=== PATIENT | female | born 1930 | race Hispanic/Latino ===

== ENCOUNTER 2016-10-23 14:35 | Inpatient (IN) | payer MEDICARE, OTHER ==
[2016-10-23 14:58] VITALS: BMI 42.3
[2016-10-23 17:08] LABS: BASO # 0.1 K/uL (0.0-0.2); BASO % 0.6 % (0.0-2.0); EOS % 0.3 % (0.0-4.0); MONO # 0.6 K/uL (0.0-0.8)
[2016-10-23 17:14] LABS: CHLORIDE 100 mmol/L (98-107); POTASSIUM 4.4 mmol/L (3.6-5.2); SODIUM 138 mmol/L (132-148)
[2016-10-23 17:15] LABS: HEMATOCRIT 37.8 % (34.0-47.0); LYMPH # 1.1 K/uL (1.0-4.3); MEAN CELL VOLUME 92.6 fL (81.0-99.0); MEAN CORPUSCULAR HEMOGLOBIN 30.4 pg (27.0-31.0); MEAN CORPUSCULAR HGB CONC 32.9 g/dL (33.0-37.0); NRBC % 0.1 % (0.0-2.0); RED CELL DISTRIBUTION WIDTH 15.4 % (11.5-14.5); WHITE BLOOD COUNT 11.4 K/uL (4.8-10.8)
[2016-10-23 17:16] LABS: ALB/GLOB RATIO 1.2 (1.0-2.1); ALKALINE PHOSPHATASE 75 U/L (38-126); AST/SGOT 24 U/L (14-36); BILIRUBIN,TOTAL 0.8 mg/dL (0.2-1.3); CARBON DIOXIDE 27 mmol/L (22-30); GFR AFRICAN-AMERICAN > 60; TOTAL PROTEIN 7.2 g/dL (6.3-8.3)
[2016-10-23 17:17] LABS: ALT/SGPT 28 U/L (9-52); BLOOD UREA NITROGEN 15 mg/dL (7-17); CALCIUM 8.7 mg/dl (8.6-10.4); GLUCOSE,RANDOM 118 mg/dL (65-105)
--- NOTE | 2016-10-23 18:13 | C.PDOC ---
History Of Present Illness Pt was sent in by Dr. Banerjee for admission under Dr. Landeros's service due to b/l leg cellulitis that is not improving with outpt treatment. Time Seen by Provider: 10/23/16 15:12 Chief Complaint (Nursing): Abnormal Skin Integrity History Per: Patient Onset/Duration Of Symptoms: Days Current Symptoms Are (Timing): Still Present Location Of Injury: Right: Leg, Left: Leg Quality Of Symptoms: Swollen, Draining Severity: Moderate Additional History Per: Prior Records Past Medical History Reviewed: Historical Data, Nursing Documentation, Vital Signs Vital Signs: Last Vital Signs Temp 97.3 F L 10/23/16 14:59 Pulse 70 10/23/16 14:59 Resp 18 10/23/16 14:59 BP 189/80 H 10/23/16 14:59 Pulse Ox 99 10/23/16 14:59 - Medical History PMH: HTN, Hypercholesterolemia Surgical History: Back Surgery, Coronary Stent Family History: States: Unknown Family Hx - Social History Hx Tobacco Use: No Hx Alcohol Use: No Hx Substance Use: No - Immunization History Hx Tetanus Toxoid Vaccination: No Hx Influenza Vaccination: Yes Hx Pneumococcal Vaccination: No Review Of Systems Except As Marked, All Systems Reviewed And Found Negative. Constitutional: Negative for: Fever Cardiovascular: Negative for: Chest Pain Respiratory: Negative for: Shortness of Breath Gastrointestinal: Negative for: Vomiting, Abdominal Pain, Diarrhea Musculoskeletal: Negative for: Neck Pain, Back Pain, Foot Pain Skin: Positive for: Rash Neurological: Negative for: Weakness, Numbness, Seizures, Altered Mental Status Physical Exam - Physical Exam Appears: No Acute Distress, Chronically Ill Skin: Warm, Dry, Rash (cellulitis on b/l legs with drainage and blister formation) Head: Atraumatic, Normacephalic Eye(s): bilateral: PERRL, EOMI Neck: Normal ROM, Supple Cardiovascular: Rhythm Regular Respiratory: Normal Breath Sounds, No Accessory Muscle Use Gastrointestinal/Abdominal: Soft, No Tenderness Back: No CVA Tenderness Extremity: Normal ROM, Pedal Edema, No Calf Tenderness Pulses: Left Dorsalis Pedis: Normal, Right Dorsalis Pedis: Normal Neurological/Psych: Oriented x3, Normal Motor, Normal Sensation ED Course And Treatment - Laboratory Results Result Diagrams: 10/23/16 16:58 10/23/16 16:58 O2 Sat by Pulse Oximetry: 99 Pulse Ox Interpretation: Normal Disposition Discussed With : Clara Landeros Comment: He accepted pt on his service. Doctor Will See Patient In The: Hospital Counseled Patient/Family Regarding: Studies Performed, Diagnosis - Disposition Disposition: HOSPITALIZED Disposition Time: 18:14 Condition: FAIR - Clinical Impression Clinical Impression: Bilateral cellulitis of lower leg, Failure of outpatient treatment
[2016-10-23] MEDS: Ceftaroline 600 MG in Sodium Chloride 0.9% 100 ML IVPB SCH (21:14)
[2016-10-24] MEDS: Ceftaroline 600 MG in Sodium Chloride 0.9% 100 ML IVPB SCH ×2 (09:02→19:55)
--- NOTE | 2016-10-24 13:16 | VASCLAB ---
PROCEDURE: Lower Extremity Venous Duplex Exam. HISTORY: edema B/L LE venous stasis disease/Cellulitis, Suspected DVT. PRIORS: None. TECHNIQUE: Bilateral common femoral, femoral, popliteal and posterior tibial, peroneal and great saphenous veins were evaluated. Flow was assessed with color Doppler, compressibility, assessment of phasic flow and augmentation response. Report prepared by Jalen Nichols, T FINDINGS: RIGHT: 1. Common Femoral Vein: 1.1. Compressibility - Fully compressible: Thrombus - None : Flow - Phasic: Augmentation -Normal: Reflux - . 2. Femoral Vein: 2.1. Compressibility - Fully compressible: Thrombus - None : Flow - Phasic: Augmentation -Normal: Reflux - . 3. Popliteal Vein: 3.1. Compressibility - Fully compressible: Thrombus - None : Flow - Phasic: Augmentation -Normal: Reflux - . 4. Posterior Tibial Vein: 4.1. Compressibility - Fully compressible: Thrombus - None: Flow - : Augmentation -: Reflux - . 5. Peroneal Vein: 5.1. Compressibility - Incompressible: Thrombus - Acute: Flow - : Augmentation -: Reflux - . 6. Great Saphenous Vein: 6.1. Compressibility - Fully compressible: Thrombus - None: Flow - : Augmentation - : Reflux - . LEFT: 1. Common Femoral Vein: 1.1. Compressibility - Fully compressible: Thrombus - None: Flow - Phasic: Augmentation -Normal: Reflux - . 2. Femoral Vein: 2.1. Compressibility - Fully compressible: Thrombus - None: Flow - Phasic: Augmentation -Normal: Reflux - . 3. Popliteal Vein: 3.1. Compressibility - Fully compressible: Thrombus - None : Flow - Phasic: Augmentation -Normal: Reflux - . 4. Posterior Tibial Vein: 4.1. Compressibility - Fully compressible: Thrombus - None: Flow - : Augmentation -: Reflux - . 5. Peroneal Vein: 5.1. Compressibility - Fully compressible: Thrombus - None: Flow - : Augmentation -: Reflux - . 6. Great Saphenous Vein: 6.1. Compressibility - Fully compressible: Thrombus - None: Flow - : Augmentation - : Reflux - . OTHER FINDINGS: Right: None significant. Left: None significant. IMPRESSION: Right: One of the peroneal and one of the soleal veins around the mid calf area were non compressible with echolucent THROMBUS. There was evidence of infrapopliteal deep vein thrombosis of the right lower extremity. Left: No evidence of deep or superficial vein thrombosis of the left lower extremity.
--- NOTE | 2016-10-24 14:15 | CP.PCM.HP ---
History of Present Illness - History of Present Illness History of Present Illness: Chief complaint: Bilateral leg swelling and redness. History present illness: 86-year-old female patient of Dr. Tamez sent to emergency room with the increasing bilateral leg swelling, and failed outpatient treatment for possible cellulitis. Patient states that she's having the swelling bilaterally, for almost 4 weeks. Initially pain started slowly, the swelling also started slowly, gradually got worse. Recently, started on by mouth antibiotic. But the swelling and the redness is not getting better. She's having increasing pain in the right leg, and also more swelling on the left side noted. She does not have any chills, fever, nausea vomiting. No diarrhea noted. Walking is somewhat reduced than before. Patient denies any urinary symptoms, or diarrhea. No other joint involvement noted. She is having the symptoms newly. No injury or trauma noted, no fall. Present on Admission - Present on Admission Any Indicators Present on Admission: No History of DVT/PE: No Urinary Catheter: No Decubitus Ulcer Present: No Review of Systems - Review of Systems All systems: reviewed and no additional remarkable complaints except Review of Systems: Patient is having poor appetite, not able to eat today, complaining of some headache, denies any nausea, no abdominal pain noted, bilateral leg swelling and pain in the left leg more on the right side. Denies any diarrhea or constipation. The redness and the itching noted in the both lower extremities Past Patient History - Tetanus Immunizations Tetanus Immunization: Allergy to Tetanus Vaccine - Past Medical History & Family History Past Medical History?: Yes Past Family History: Reviewed and not pertinent - Past Social History Smoking Status: Never Smoked - CARDIAC Hx Hypercholesterolemia: Yes Hx Hypertension: Yes - MUSCULOSKELETAL/RHEUMATOLOGICAL Hx Falls: No - PSYCHIATRIC Hx Substance Use: No - SURGICAL HISTORY Hx Coronary Stent: Yes - ANESTHESIA Hx Anesthesia: No Hx Anesthesia Reactions: No Meds Allergies/Adverse Reactions: Allergies Allergy/AdvReac Type Severity Reaction Status Date / Time No Known Allergies Allergy Verified 10/23/16 14:58 Physical Exam - Head Exam Head Exam: ATRAUMATIC Additional comments: On examination: HEENT PERRLA, neck supple No thyromegaly was noted and no cervical adenopathy noted Chest bilateral good air entry, no wheezing or rales noted CVS regular heart sound, no murmur Abdomen soft and no organomegaly bilateral pedal edema noted, more on the lleft side.Severe tenderness, also redness note one third of the leg on the left side. she's also having some skin abrasion, abrasion and oozing noted. Peripheral pulses is not palpable. C SHANKER OUT alert awake oriented x3 no functional neurological deficit Results - Vital Signs Recent Vital Signs: Last Vital Signs Temp 98.4 F 10/24/16 08:00 Pulse 108 H 10/24/16 11:10 Resp 20 10/24/16 08:00 BP 146/83 10/24/16 11:10 Pulse Ox 97 10/24/16 08:00 - Labs Result Diagrams: 10/23/16 16:58 10/23/16 16:58 Labs: Laboratory Results - last 24 hr 10/24/16 07:55 APTT 29 Assessment & Plan (1) Bilateral lower leg cellulitis Assessment and Plan: Most likely patient has a bilateral lower legs elevatus, associate with the venous edema. More on the left side. She's also having some skin abrasions on the right leg. Hypertension, severely elevated, systolic blood pressure elevated. Hypercholesteremia. Osteoporosis and osteoarthritis. Will admit the patient. Will start the patient on antibiotic. Blood pressure control, diuretics. Will get a venous Doppler. Will follow the patient. Anticoagulation as needed Status: Acute (2) Failure of outpatient treatment Status: Acute (3) Cellulitis Status: Acute (4) Pedal edema Status: Acute
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
[2016-10-24] MEDS: Enoxaparin 60 mg Syringe SC SCH (21:18)
[2016-10-25] MEDS: Ceftaroline 600 MG in Sodium Chloride 0.9% 100 ML IVPB SCH ×2 (08:18→19:38)
[2016-10-25] MEDS: Enoxaparin 60 mg Syringe SC SCH ×2 (10:53→21:50)
--- NOTE | 2016-10-25 12:58 | CP.PCM.PN ---
Subjective - Date & Time of Evaluation Date of Evaluation: 10/25/16 Time of Evaluation: 16:54 - Subjective Subjective: see my note Objective - Vital Signs/Intake and Output Vital Signs (last 24 hours): Temp Pulse Resp BP Pulse Ox 98.2 F 80 20 187/78 H 96 10/25/16 07:31 10/25/16 07:31 10/25/16 07:31 10/25/16 10:55 10/25/16 07:31 Intake and Output: 10/25/16 10/25/16 06:59 18:59 Intake Total 120 Balance 120 - Medications Medications: Current Medications Amlodipine Besylate (Norvasc) 5 mg PO DAILY [facility] Last Admin: 10/25/16 10:54 Dose: 5 mg Enoxaparin Sodium (Lovenox) 60 mg SC Q12 [facility] Last Admin: 10/25/16 10:53 Dose: 60 mg Furosemide (Lasix) 20 mg IVP DAILY [facility] Last Admin: 10/25/16 10:55 Dose: 20 mg Ceftaroline Fosamil 600 mg/ (Sodium Chloride) 100 mls @ 100 mls/hr IVPB Q12H [facility] Last Admin: 10/25/16 08:18 Dose: 100 mls/hr - Labs Labs: PT 11.1 SECONDS (9.7-12.2) 10/23/16 16:58 INR 1.0 10/23/16 16:58 APTT 29 SECONDS (21-34) 10/24/16 07:55 Assessment and Plan (1) Bilateral lower leg cellulitis Status: Acute (2) Failure of outpatient treatment Status: Acute (3) Cellulitis Status: Acute (4) Pedal edema Status: Acute
--- NOTE | 2016-10-25 18:21 | CP.PCM.PN ---
Subjective - Date & Time of Evaluation Date of Evaluation: 10/25/16 Time of Evaluation: 18:14 - Subjective Subjective: INFECTIOUS DISEASE PROGRESS NOTE JOHNSON MADDOX MD, FACP 6T 667-B 10/25/2016 CHART REVIEWED CASE DISCUSSED WITH RN AND EMPIRIC FURTHER WORK UP REQUESTED PT IS RESPONDING BUT LEGS ARE STILL RED AND DISCOLORED DESPITE ANTIBIOTICS AND ANTI COAGULATES. PTS FINDINGS NOTED AND REPEATED FOR THE AM. HEME/ONC CONSULTATION ORDERED FOR GABRIEL THOMAS/YUNG. REVIEW OF THE NOTES-HER MATCHER OFFBEARER IS DR CACERES. Objective - Vital Signs/Intake and Output Vital Signs (last 24 hours): Temp Pulse Resp BP Pulse Ox 98.1 F 76 20 165/76 H 96 10/25/16 15:44 10/25/16 15:44 10/25/16 15:44 10/25/16 15:44 10/25/16 15:44 Intake and Output: 10/25/16 10/25/16 06:59 18:59 Intake Total 120 Balance 120 - Medications Medications: Current Medications Amlodipine Besylate (Norvasc) 5 mg PO DAILY [facility] Last Admin: 10/25/16 10:54 Dose: 5 mg Enoxaparin Sodium (Lovenox) 60 mg SC Q12 [facility] Last Admin: 10/25/16 10:53 Dose: 60 mg Furosemide (Lasix) 20 mg IVP DAILY [facility] Last Admin: 10/25/16 10:55 Dose: 20 mg Ceftaroline Fosamil 600 mg/ (Sodium Chloride) 100 mls @ 100 mls/hr IVPB Q12H [facility] Last Admin: 10/25/16 08:18 Dose: 100 mls/hr - Labs Labs: PT 11.1 SECONDS (9.7-12.2) 10/23/16 16:58 INR 1.0 10/23/16 16:58 APTT 29 SECONDS (21-34) 10/24/16 07:55 - Constitutional Appears: Non-toxic, No Acute Distress - Head Exam Head Exam: NORMOCEPHALIC - Eye Exam Eye Exam: Normal appearance - ENT Exam ENT Exam: Mucous Membranes Moist - Respiratory Exam Respiratory Exam: NORMAL BREATHING PATTERN - Cardiovascular Exam Cardiovascular Exam: REGULAR RHYTHM - GI/Abdominal Exam GI & Abdominal Exam: Soft, Normal Bowel Sounds. absent: Tenderness - Rectal Exam Rectal Exam: Deferred - Exam External exam: Erythema, Swelling - Extremities Exam Extremities Exam: Pedal Edema. absent: Tenderness - Neurological Exam Neurological Exam: Alert, Awake - Psychiatric Exam Psychiatric exam: Anxious - Skin Skin Exam: Warm Assessment and Plan (1) Bilateral lower leg cellulitis Status: Acute (2) DVT (deep venous thrombosis) Status: Acute (3) Pedal edema Status: Acute (4) CAD (coronary artery disease) Status: Chronic
[2016-10-26] MEDS: Ceftaroline 600 MG in Sodium Chloride 0.9% 100 ML IVPB SCH ×2 (06:40→18:44)
[2016-10-26 07:49] LABS: BASO % 0.3 % (0.0-2.0); EOS # 0.2 K/uL (0.0-0.7); EOS % 2.1 % (0.0-4.0); HEMATOCRIT 34.5 % (34.0-47.0); LYMPH # 1.5 K/uL (1.0-4.3); LYMPH % 18.7 % (20.0-40.0); MEAN CELL VOLUME 91.9 fL (81.0-99.0); MEAN CORPUSCULAR HEMOGLOBIN 30.7 pg (27.0-31.0); MEAN CORPUSCULAR HGB CONC 33.4 g/dL (33.0-37.0); MEAN PLATELET VOLUME 7.6 fL (7.2-11.7); MONO # 0.9 K/uL (0.0-0.8); MONO % 11.2 % (0.0-10.0); RED CELL DISTRIBUTION WIDTH 14.9 % (11.5-14.5); WHITE BLOOD COUNT 7.8 K/uL (4.8-10.8)
[2016-10-26 08:32] LABS: CHLORIDE 103 mmol/L (98-107); POTASSIUM 3.6 mmol/L (3.6-5.2); SODIUM 138 mmol/L (132-148)
[2016-10-26 08:34] LABS: BILIRUBIN,TOTAL 0.7 mg/dL (0.2-1.3); GFR AFRICAN-AMERICAN > 60
[2016-10-26 08:35] LABS: ALB/GLOB RATIO 1.1 (1.0-2.1); ALKALINE PHOSPHATASE 61 U/L (38-126); ALT/SGPT 18 U/L (9-52); AST/SGOT 20 U/L (14-36); BLOOD UREA NITROGEN 11 mg/dL (7-17); CALCIUM 8.1 mg/dl (8.6-10.4); CARBON DIOXIDE 25 mmol/L (22-30); GLUCOSE,RANDOM 102 mg/dL (65-105)
[2016-10-26] MEDS: Enoxaparin 60 mg Syringe SC SCH ×2 (10:00→21:47)
--- NOTE | 2016-10-26 16:57 | CP.PCM.PN ---
Subjective - Date & Time of Evaluation Date of Evaluation: 10/26/16 Time of Evaluation: 16:56 - Subjective Subjective: Is alert awake and responding. She is having no pain or no chest pain. Denies any shortness of breath. Leg swelling is improving. She has a blister on the left lower extremity on the outer aspect now. Denies any nausea vomiting. Objective - Vital Signs/Intake and Output Vital Signs (last 24 hours): Temp Pulse Resp BP Pulse Ox 98.2 F 76 18 155/73 H 95 10/26/16 15:55 10/26/16 15:55 10/26/16 15:55 10/26/16 15:55 10/26/16 15:55 chest good air entry bilaterally regular heart sound nontender abdomen extremities 1+ pedal edema bilaterally noted, more on the left side, associate with the some blister skin redness is improving Intake and Output: 10/26/16 10/26/16 06:59 18:59 Intake Total 450 Balance 450 - Medications Medications: Current Medications Amlodipine Besylate (Norvasc) 5 mg PO DAILY [facility] Last Admin: 10/26/16 10:00 Dose: 5 mg Enoxaparin Sodium (Lovenox) 60 mg SC Q12 [facility] Last Admin: 10/26/16 10:00 Dose: 60 mg Furosemide (Lasix) 20 mg IVP DAILY [facility] Last Admin: 10/26/16 10:00 Dose: 20 mg Ceftaroline Fosamil 600 mg/ (Sodium Chloride) 100 mls @ 100 mls/hr IVPB Q12H [facility] Last Admin: 10/26/16 06:40 Dose: 100 mls/hr - Labs Labs: 10/26/16 07:27 10/26/16 07:27 PT 11.1 SECONDS (9.7-12.2) 10/23/16 16:58 INR 1.0 10/23/16 16:58 APTT 29 SECONDS (21-34) 10/24/16 07:55 Assessment and Plan (1) Bilateral lower leg cellulitis Assessment & Plan: possibly a shunt has a fluid overload state, venous insufficiency, chronic pedal edema. Cellulitis, improving. Currently having blister in the left leg closely monitor the patient. Physical therapy. Antihypertensives. Status: Acute (2) Failure of outpatient treatment Status: Acute (3) Cellulitis Status: Acute (4) Pedal edema Status: Acute
[2016-10-27 01:04] VITALS: RESP 20
[2016-10-27] MEDS: Ceftaroline 600 MG in Sodium Chloride 0.9% 100 ML IVPB SCH (06:45)
--- NOTE | 2016-10-27 09:09 | CP.PCM.PN ---
Subjective - Date & Time of Evaluation Date of Evaluation: 10/27/16 Time of Evaluation: 09:06 - Subjective Subjective: INFECTIOUS DISEASE PROGRESS NOTE Ila MADDOX MD, FACP 6T 667 10/27/2016 CHART REVIEWED PT EXAMINED CASE DISCUSSED QUESTION OF + WOUND C/S EMONSTRATING MULTIPLE PATHOGENS RANGING FROM MRSA, PSEUDOMONAS, AND OTHER GRAM NEGATIVES; NEVER NOTIFIED BY MICRO ELIGIBILITY SPECIALIST'S OF POSITIVE TOPICAL C/S. CLINCALLY PT IS DOING BETTER LUNGS CLEAR COR RR ABD SOFT EXT LEFT LATERAL LEG HAS A BLISTER CHANGE AB TO VANCOMYCIN AND MAXIPIME Objective - Vital Signs/Intake and Output Vital Signs (last 24 hours): Temp Pulse Resp BP Pulse Ox 98.6 F 81 20 171/78 H 95 10/26/16 23:35 10/27/16 01:34 10/26/16 23:35 10/26/16 23:35 10/26/16 23:35 Intake and Output: 10/27/16 10/27/16 06:59 18:59 Intake Total 880 Balance 880 - Medications Medications: Current Medications Amlodipine Besylate (Norvasc) 10 mg PO DAILY [facility] Enoxaparin Sodium (Lovenox) 60 mg SC Q12 [facility] Last Admin: 10/26/16 21:47 Dose: 60 mg Furosemide (Lasix) 20 mg PO DAILY [facility] Cefepime HCl 1 gm/ Dextrose 50 mls @ 100 mls/hr IVPB Q12H [facility] Vancomycin HCl 1,000 mg/ (Sodium Chloride) 250 mls @ 166.6 mls/hr IVPB Q12H [facility] - Labs Labs: 10/26/16 07:27 10/26/16 07:27 PT 11.1 SECONDS (9.7-12.2) 10/23/16 16:58 INR 1.0 10/23/16 16:58 APTT 29 SECONDS (21-34) 10/24/16 07:55 - Constitutional Appears: Non-toxic, No Acute Distress - Head Exam Head Exam: NORMAL INSPECTION - ENT Exam ENT Exam: Mucous Membranes Moist - Neck Exam Neck Exam: Normal Inspection - Respiratory Exam Respiratory Exam: Decreased Breath Sounds, Clear to Ausculation Bilateral, NORMAL BREATHING PATTERN - Cardiovascular Exam Cardiovascular Exam: REGULAR RHYTHM - GI/Abdominal Exam GI & Abdominal Exam: Soft, Normal Bowel Sounds. absent: Tenderness, Mass - Rectal Exam Rectal Exam: Deferred - Neurological Exam Neurological Exam: Alert, Awake - Psychiatric Exam Psychiatric exam: Anxious, Normal Mood - Skin Skin Exam: Warm Assessment and Plan (1) Bilateral lower leg cellulitis Assessment & Plan: MYLTIPLE BACTERIAL PATHOGENS Status: Acute (2) DVT (deep venous thrombosis) Status: Acute (3) Pedal edema Status: Acute (4) CAD (coronary artery disease) Status: Chronic
[2016-10-27] MEDS: Enoxaparin 60 mg Syringe SC SCH ×2 (11:10→21:02)
--- NOTE | 2016-10-27 17:26 | CP.PCM.PN ---
Subjective - Date & Time of Evaluation Date of Evaluation: 10/27/16 Time of Evaluation: 17:23 - Subjective Subjective: Patient today seen by infectious disease. She is doing better. The leg swelling is improving. Denies any chest pain. No shortness of breath noted. Patient does not have any diarrhea. Objective - Vital Signs/Intake and Output Vital Signs (last 24 hours): Temp Pulse Resp BP Pulse Ox 99.1 F 85 20 186/77 H 96 10/27/16 09:16 10/27/16 11:45 10/27/16 09:16 10/27/16 09:31 10/27/16 09:16 Chest good air entry bilaterally regular heart sound nontender abdomen. Extended is 1+ pedal edema, the wound is healing well. Low-grade fever today noted Blood pressure is elevated Intake and Output: 10/27/16 10/27/16 06:59 18:59 Intake Total 880 Balance 880 - Medications Medications: Current Medications Amlodipine Besylate (Norvasc) 10 mg PO DAILY [facility] Last Admin: 10/27/16 10:00 Dose: Not Given Enoxaparin Sodium (Lovenox) 60 mg SC Q12 [facility] Last Admin: 10/27/16 11:10 Dose: 60 mg Furosemide (Lasix) 20 mg PO DAILY [facility] Last Admin: 10/27/16 09:31 Dose: 20 mg Cefepime HCl 1 gm/ Dextrose 50 mls @ 100 mls/hr IVPB Q12H [facility] Last Admin: 10/27/16 11:10 Dose: 100 mls/hr Vancomycin HCl 1,000 mg/ (Sodium Chloride) 250 mls @ 166.6 mls/hr IVPB Q12H [facility] Last Admin: 10/27/16 12:15 Dose: 166.6 mls/hr - Labs Labs: 10/26/16 07:27 10/26/16 07:27 PT 11.1 SECONDS (9.7-12.2) 10/23/16 16:58 INR 1.0 10/23/16 16:58 APTT 29 SECONDS (21-34) 10/24/16 07:55 Assessment and Plan (1) Bilateral lower leg cellulitis Assessment & Plan: Patient is having multiple bacterial culture positive in the cellulitis. Antibiotic and unchanged. Continue to monitor. Status: Acute (2) Failure of outpatient treatment Assessment & Plan: On currently IV antibiotic. Spoke to the infectious disease. We'll get continue the antibiotic would not 2 days. If the patient cleared by ID will plan for discharge Status: Acute (3) Cellulitis Status: Acute (4) Pedal edema Assessment & Plan: pedal edema, associated hypertension. We will add Status: Acute
--- NOTE | 2016-10-27 18:04 | CP.PCM.CON ---
History of Present Illness - History of Present Illness History of Present Illness: 86 yo woman admitted with increasing swelling of bilateral lower extremities, currently better on IV antibiotics, lower extremity dopplers showing right infrapopliteal DVT . Patient's symptoms are mainly limited to her lower extremities, not aware of any weight loss, GI symptoms or new pain Past Patient History - Tetanus Immunizations Tetanus Immunization: Allergy to Tetanus Vaccine - Past Medical History & Family History Past Medical History?: Yes Past Family History: Reviewed and not pertinent - Past Social History Smoking Status: Never Smoked Chewing Tobacco Use: No Alcohol: Social Drugs: Denies - CARDIAC Hx Cardiac Disorders: Yes Hx Hypercholesterolemia: Yes Hx Hypertension: Yes - PULMONARY Hx Bronchitis: Yes Hx Pulmonary Embolism: No - INTEGUMENTARY Hx Dermatological Problems: Yes Hx Cellulitis: Yes - MUSCULOSKELETAL/RHEUMATOLOGICAL Hx Musculoskeletal Disorders: Yes Hx Back Pain: Yes Hx Falls: No - PSYCHIATRIC Hx Substance Use: No - SURGICAL HISTORY Hx Coronary Stent: Yes - ANESTHESIA Hx Anesthesia: No Hx Anesthesia Reactions: No Meds Allergies/Adverse Reactions: Allergies Allergy/AdvReac Type Severity Reaction Status Date / Time No Known Allergies Allergy Verified 10/23/16 14:58 - Medications Medications: Current Medications Amlodipine Besylate (Norvasc) 10 mg PO DAILY [facility] Last Admin: 10/27/16 10:00 Dose: Not Given Enoxaparin Sodium (Lovenox) 60 mg SC Q12 [facility] Last Admin: 10/27/16 11:10 Dose: 60 mg Furosemide (Lasix) 20 mg PO DAILY [facility] Last Admin: 10/27/16 09:31 Dose: 20 mg Cefepime HCl 1 gm/ Dextrose 50 mls @ 100 mls/hr IVPB Q12H [facility] Last Admin: 10/27/16 11:10 Dose: 100 mls/hr Vancomycin HCl 1,000 mg/ (Sodium Chloride) 250 mls @ 166.6 mls/hr IVPB Q12H [facility] Last Admin: 10/27/16 12:15 Dose: 166.6 mls/hr Losartan Potassium (Cozaar) 25 mg PO DAILY [facility] Results - Vital Signs Recent Vital Signs: Last Vital Signs Temp 98.2 F 10/27/16 15:00 Pulse 70 10/27/16 15:00 Resp 20 10/27/16 15:00 BP 179/77 H 10/27/16 15:00 Pulse Ox 95 10/27/16 15:00 - Labs Result Diagrams: 10/26/16 07:27 10/26/16 07:27 - Imaging and Cardiology Venous US Status: Report reviewed by me Assessment & Plan (1) DVT (deep venous thrombosis) Assessment and Plan: Right infrapopliteal DVT, precipitating factors most likely being the infection and limited mobility in the past several weeks. There is no indication currently to order a hypercoag work up or mcc anticoagulation. Because of the "low risk" DVT ,potentially reversible precipitating factors, high risk of bleeding on AC in this elderly patient will recommend 6-8 weeks of po anticoagulation upon D/C home. . Status: Acute
[2016-10-28] MEDS: Enoxaparin 60 mg Syringe SC SCH ×2 (09:16→21:50)
[2016-10-28] MEDS: Vancomycin 500mg/D5W 100 ml 100 ML IVPB SCH ×2 (11:24→21:32)
--- NOTE | 2016-10-28 17:13 | CP.PCM.PN ---
Subjective - Date & Time of Evaluation Date of Evaluation: 10/28/16 Time of Evaluation: 17:08 - Subjective Subjective: INFECTIOUS DISEASE PROGRESS NOTE Ila MADDOX MD, FACP 5T 555 10/28/2016 CHART REVIEWED PT EXAMINED CASE DISCUSSED 86 YR OLD WHITE FEMALE RESPONDING TO IV ANTIBIOTICS AND ANTICOAGULATION THERAPY. TODAY I ADJUSTED HER VANCOMYCIN DOSE. THE PLAN IS TO MANAGE HER THUR THE DAY, IF STABLE THEN TO SWITCH TO PO MEDS AND CONSIDER DISCHARGE TOMORROW. WILL DECIDE ON THE PO'S LATER THIS EVENING. Objective - Vital Signs/Intake and Output Vital Signs (last 24 hours): Temp Pulse Resp BP Pulse Ox 98.4 F 69 20 157/87 H 96 10/28/16 07:00 10/28/16 07:00 10/28/16 07:00 10/28/16 09:15 10/28/16 07:00 Intake and Output: 10/28/16 10/28/16 06:59 18:59 Intake Total 700 Output Total 600 Balance 100 - Medications Medications: Current Medications Amlodipine Besylate (Norvasc) 10 mg PO DAILY [facility] Last Admin: 10/28/16 09:15 Dose: 10 mg Enoxaparin Sodium (Lovenox) 60 mg SC Q12 [facility] Last Admin: 10/28/16 09:16 Dose: 60 mg Furosemide (Lasix) 20 mg PO DAILY [facility] Last Admin: 10/28/16 09:15 Dose: 20 mg Cefepime HCl 1 gm/ Dextrose 50 mls @ 100 mls/hr IVPB Q12H [facility] Last Admin: 10/28/16 09:14 Dose: 100 mls/hr Vancomycin HCl/Dextrose (Vancocin) 100 mls @ 100 mls/hr IVPB Q12 [facility] Last Admin: 10/28/16 11:24 Dose: 100 mls/hr Losartan Potassium (Cozaar) 25 mg PO DAILY [facility] Last Admin: 10/28/16 09:15 Dose: 25 mg - Labs Labs: 10/26/16 07:27 10/26/16 07:27 PT 11.1 SECONDS (9.7-12.2) 10/23/16 16:58 INR 1.0 10/23/16 16:58 APTT 29 SECONDS (21-34) 10/24/16 07:55 - Constitutional Appears: Non-toxic, No Acute Distress - Head Exam Head Exam: NORMAL INSPECTION - Eye Exam Eye Exam: Normal appearance - ENT Exam ENT Exam: Mucous Membranes Moist - Neck Exam Neck Exam: Normal Inspection - Respiratory Exam Respiratory Exam: Decreased Breath Sounds, NORMAL BREATHING PATTERN - Cardiovascular Exam Cardiovascular Exam: REGULAR RHYTHM - GI/Abdominal Exam GI & Abdominal Exam: Soft, Normal Bowel Sounds. 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 THE BLISTER IS REGRESSING. - Neurological Exam Neurological Exam: Alert, Awake - Psychiatric Exam Psychiatric exam: Anxious - Skin Skin Exam: Warm Assessment and Plan (1) Bilateral lower leg cellulitis Status: Acute (2) DVT (deep venous thrombosis) Status: Acute (3) Pedal edema Status: Acute (4) CAD (coronary artery disease) Status: Chronic
--- NOTE | 2016-10-28 20:53 | CP.PCM.CON ---
History of Present Illness - History of Present Illness History of Present Illness: 86 year old female patient seen for large blister on lower leg left .Patient was has been treated for severe cellulitis of lower legs and DVT left . Past Patient History - Tetanus Immunizations Tetanus Immunization: Allergy to Tetanus Vaccine - Past Medical History & Family History Past Medical History?: Yes Past Family History: Reviewed and not pertinent - Past Social History Smoking Status: Never Smoked Chewing Tobacco Use: No Alcohol: Social Drugs: Denies - CARDIAC Hx Cardiac Disorders: Yes Hx Hypercholesterolemia: Yes Hx Hypertension: Yes - PULMONARY Hx Bronchitis: Yes Hx Pulmonary Embolism: No - INTEGUMENTARY Hx Dermatological Problems: Yes Hx Cellulitis: Yes - MUSCULOSKELETAL/RHEUMATOLOGICAL Hx Musculoskeletal Disorders: Yes Hx Back Pain: Yes Hx Falls: No - PSYCHIATRIC Hx Substance Use: No - SURGICAL HISTORY Hx Coronary Stent: Yes - ANESTHESIA Hx Anesthesia: No Hx Anesthesia Reactions: No Meds Allergies/Adverse Reactions: Allergies Allergy/AdvReac Type Severity Reaction Status Date / Time No Known Allergies Allergy Verified 10/23/16 14:58 - Medications Medications: Current Medications Amlodipine Besylate (Norvasc) 10 mg PO DAILY [facility] Last Admin: 10/28/16 09:15 Dose: 10 mg Enoxaparin Sodium (Lovenox) 60 mg SC Q12 [facility] Last Admin: 10/28/16 09:16 Dose: 60 mg Furosemide (Lasix) 20 mg PO DAILY [facility] Last Admin: 10/28/16 09:15 Dose: 20 mg Cefepime HCl 1 gm/ Dextrose 50 mls @ 100 mls/hr IVPB Q12H [facility] Last Admin: 10/28/16 09:14 Dose: 100 mls/hr Vancomycin HCl/Dextrose (Vancocin) 100 mls @ 100 mls/hr IVPB Q12 [facility] Last Admin: 10/28/16 11:24 Dose: 100 mls/hr Losartan Potassium (Cozaar) 25 mg PO DAILY [facility] Last Admin: 10/28/16 09:15 Dose: 25 mg Physical Exam - Extremities Exam Additional comments: O/Cellulitis of lower legs resolving with current protocol. Bullous lesion left lower leg anterior Tibial region. DVT left lower leg . Vascular status grossly intact b/l . Hallux Valgus b/l with multiple hammertoes b/l. Results - Vital Signs Recent Vital Signs: Last Vital Signs Temp 98.1 F 04/18/17 15:07 Pulse 74 10/28/16 15:07 Resp 20 10/28/16 15:07 BP 143/56 L 10/28/16 15:07 Pulse Ox 97 10/28/16 15:07 - Labs Result Diagrams: 10/26/16 07:27 10/26/16 07:27 Labs: Laboratory Results - last 24 hr 10/28/16 06:50 Vancomycin Trough 18.4 H Assessment & Plan - Assessment and Plan (Free Text) Assessment: A/Bullous lesion left leg . Plan: P/Drain bullous lesion left leg maintaining roof .Sterile suture scissor used to puncture Bullae.Apply Xeroform Gauze and dry dressing left. - Date & Time Date: 10/28/16 Time: 09:00
[2016-10-29] MEDS: Enoxaparin 60 mg Syringe SC SCH ×2 (09:23→21:27)
[2016-10-29] MEDS: Vancomycin 500mg/D5W 100 ml 100 ML IVPB SCH ×2 (10:57→21:28)
--- NOTE | 2016-10-29 14:52 | PN ---
DATE: 10/29/2016 LOCATION: Room 555. Chart reviewed. Case discussed with Dr. Landeros and nurse practitioner, Hodan, and with the patien t herself at length. The patient's legs are stable. She is going to require oral antibiotic treatment at home. As I spok e with Dr. Landeros, he will discharge her on vibramycin or doxycycline 100 mg p.o. b.i.d. for appro ximately 7-10 days. The patient should return to my office in approximately 1 week's time. She shou ld continue to use nonadherent dressing to the left ankle in the area where Dr. Ron clipped the bli ster and covered it with a nonadherent dressing. Dr. Landeros will take care of the anticoagulants. She is told to not walk too much, keep her feet elevated and at the same time avoid trauma. Robert Banerjee MD cc: [id number] TT: 10/29/2016 14:52:09 Confirmation # [id number] Dictation # [id number] [place]
--- NOTE | 2016-10-29 23:40 | CP.PCM.PN ---
Subjective - Date & Time of Evaluation Date of Evaluation: 10/29/16 Time of Evaluation: 23:38 - Subjective Subjective: patient is currently doing well. Spoke to the ED. Clinically no problem. Is better. Objective - Vital Signs/Intake and Output Vital Signs (last 24 hours): Temp Pulse Resp BP Pulse Ox 97.9 F 89 20 133/69 93 L 10/29/16 15:20 10/29/16 16:38 10/29/16 15:20 10/29/16 15:20 10/29/16 15:20 hest good air entry bilaterally regular heart sound nontender abdomen. Intake and Output: 10/29/16 10/30/16 18:59 06:59 Intake Total 500 Balance 500 - Medications Medications: Current Medications Amlodipine Besylate (Norvasc) 10 mg PO DAILY [facility] Last Admin: 10/29/16 09:23 Dose: 10 mg Enoxaparin Sodium (Lovenox) 60 mg SC Q12 [facility] Last Admin: 10/29/16 21:27 Dose: 60 mg Furosemide (Lasix) 20 mg PO DAILY [facility] Last Admin: 10/29/16 09:23 Dose: 20 mg Cefepime HCl 1 gm/ Dextrose 50 mls @ 100 mls/hr IVPB Q12H [facility] Last Admin: 10/29/16 21:28 Dose: 100 mls/hr Vancomycin HCl/Dextrose (Vancocin) 100 mls @ 100 mls/hr IVPB Q12 [facility] Last Admin: 10/29/16 21:28 Dose: 100 mls/hr Losartan Potassium (Cozaar) 25 mg PO DAILY [facility] Last Admin: 10/29/16 10:56 Dose: 25 mg - Labs Labs: 10/26/16 07:27 10/26/16 07:27 PT 11.1 SECONDS (9.7-12.2) 10/23/16 16:58 INR 1.0 10/23/16 16:58 APTT 29 SECONDS (21-34) 10/24/16 07:55 Assessment and Plan (1) Bilateral lower leg cellulitis Assessment & Plan: cellulitis. Failure of outpatient treatment. Hypertension. Deep venous thrombosis. Currently doing well. we'll discontinue Lovenox tomorrow we'll start the patient on eliques 2.5 mg daily. Will follow the patient Status: Acute (2) Failure of outpatient treatment Status: Acute (3) Cellulitis Status: Acute (4) Pedal edema Status: Acute
[2016-10-30] MEDS: Vancomycin 500mg/D5W 100 ml 100 ML IVPB SCH ×2 (11:21→22:00)
--- NOTE | 2016-10-30 16:02 | CP.PCM.PN ---
Subjective - Date & Time of Evaluation Date of Evaluation: 10/30/16 Time of Evaluation: 16:02 - Subjective Subjective: 86 year old female was seen resting comfortably at bedside regarding follow up of left lower leg blister. Patient is NAD, AAOx3. Patient admits to pain on her leg leg. She denies n/v/f/c/sob/cp. Objective - Vital Signs/Intake and Output Vital Signs (last 24 hours): Temp Pulse Resp BP Pulse Ox 98.2 F 94 H 20 179/78 H 98 10/30/16 07:00 10/30/16 07:00 10/30/16 07:00 10/30/16 11:22 10/30/16 07:00 - Medications Medications: Current Medications Amlodipine Besylate (Norvasc) 10 mg PO DAILY [facility] Last Admin: 10/30/16 11:22 Dose: 10 mg Apixaban (Eliquis) 2.5 mg PO DAILY [facility] Last Admin: 10/30/16 11:22 Dose: 2.5 mg Furosemide (Lasix) 20 mg PO DAILY [facility] Last Admin: 10/30/16 11:22 Dose: 20 mg Cefepime HCl 1 gm/ Dextrose 50 mls @ 100 mls/hr IVPB Q12H [facility] Last Admin: 10/30/16 11:21 Dose: 100 mls/hr Vancomycin HCl/Dextrose (Vancocin) 100 mls @ 100 mls/hr IVPB Q12 [facility] Last Admin: 10/30/16 11:21 Dose: 100 mls/hr Losartan Potassium (Cozaar) 25 mg PO DAILY [facility] Last Admin: 10/30/16 11:22 Dose: 25 mg - Labs Labs: 10/26/16 07:27 10/26/16 07:27 PT 11.1 SECONDS (9.7-12.2) 10/23/16 16:58 INR 1.0 10/23/16 16:58 APTT 29 SECONDS (21-34) 10/24/16 07:55 - Constitutional Appears: Well, Non-toxic, No Acute Distress - Extremities Exam Additional comments: Vasc:DP and PT pulses palpable b/l. CFT< 3 seconds to all digits b/l. Skin temperature warm to warm from proximal to distal b/l, with increased with warmth noted to left lower extremity. Ortho:No pain on palpation of left lower leg. Hallux valgus noted b/l. Contracted lesser digits noted b/l Neuro: Gross sensation diminished b/l. Derm: Healed blister noted to lateral aspect of left leg. Erythema noted to left lower leg circumstantially. No drainage, no malodor noted. Dried sanginous drainage noted to medial aspect of right leg. - Neurological Exam Neurological Exam: Alert, Awake, Oriented x3 - Psychiatric Exam Psychiatric exam: Normal Affect, Normal Mood Assessment and Plan - Assessment and Plan (Free Text) Assessment: 86 year old female with healed blister to left lower leg Plan: Patient examined and evaluated Chart and vitals reviewed Discussed in detail with attending, Dr. Ron Left leg dressed with DSD Podiatry will continue to follow patient while in house
[2016-10-31 00:32] VITALS: O2SAT 95
[2016-10-31 08:51] VITALS: PULSE 72; TEMP 98
[2016-10-31] MEDS: Vancomycin 500mg/D5W 100 ml 100 ML IVPB SCH (09:45)
[2016-10-31 09:46] VITALS: BP 184/75
--- NOTE | 2016-10-31 10:09 | CP.PCM.PN ---
Subjective - Date & Time of Evaluation Date of Evaluation: 10/31/16 Time of Evaluation: 10:06 - Subjective Subjective: 86 y/o female with left leg healed blister with resolved cellulitis of surrounding area. patient seen with Dr. Ron at bedside. Patient states that she is to be going home today but is just wondering what time she will be leaving. Denies any comlaints at this time. Denies any acute events. Denies any f/c/n/v/sob. Objective - Vital Signs/Intake and Output Vital Signs (last 24 hours): Temp Pulse Resp BP Pulse Ox 98 F 72 20 184/75 H 95 10/31/16 08:49 10/31/16 08:49 10/31/16 08:49 10/31/16 09:44 10/31/16 08:49 Intake and Output: 10/31/16 10/31/16 06:59 18:59 Intake Total 200 Balance 200 - Medications Medications: Current Medications Amlodipine Besylate (Norvasc) 10 mg PO DAILY [facility] Last Admin: 10/31/16 09:45 Dose: 10 mg Apixaban (Eliquis) 2.5 mg PO DAILY [facility] Last Admin: 10/31/16 09:47 Dose: 2.5 mg Furosemide (Lasix) 20 mg PO DAILY [facility] Last Admin: 10/31/16 09:44 Dose: 20 mg Cefepime HCl 1 gm/ Dextrose 50 mls @ 100 mls/hr IVPB Q12H [facility] Last Admin: 10/31/16 09:45 Dose: 100 mls/hr Vancomycin HCl/Dextrose (Vancocin) 100 mls @ 100 mls/hr IVPB Q12 [facility] Last Admin: 10/31/16 09:45 Dose: 100 mls/hr Losartan Potassium (Cozaar) 25 mg PO DAILY [facility] Last Admin: 10/31/16 09:45 Dose: 25 mg - Labs Labs: 10/26/16 07:27 10/26/16 07:27 PT 11.1 SECONDS (9.7-12.2) 10/23/16 16:58 INR 1.0 10/23/16 16:58 APTT 29 SECONDS (21-34) 10/24/16 07:55 - Constitutional Appears: Well, Non-toxic - Additional Findings Additional findings: Vasc:DP and PT pulses palpable b/l. CFT< 3 seconds to all digits b/l. Skin temperature warm to warm from proximal to distal b/l, with increased with warmth noted to left lower extremity. Ortho:No pain on palpation of left lower leg. Hallux valgus noted b/l. Contracted lesser digits noted b/l Neuro: Gross sensation diminished b/l. Derm: Healed blister noted to lateral aspect of left leg. No erythema noted. No drainage, no malodor noted. Dried sanginous drainage noted to medial aspect of right leg. Assessment and Plan - Assessment and Plan (Free Text) Assessment: 86 year old female with healed blister to left lower leg Plan: Patient evaluated and chart reviewed Seen with Dr. Ron. Patient leg redressed with DSD. Stable wound from podiatry standpoint Can f/u with Dr. Ron upon d/c Will continue to follow as needed.
--- NOTE | 2016-10-31 14:22 | CP.PCM.DIS ---
Provider - Provider Date of Admission: 10/23/16 18:14 Attending physician: Clara Mcleod MD Time Spent in preparation of Discharge (in minutes): 45 Diagnosis - Discharge Diagnosis (1) Cellulitis Status: Acute (2) Pedal edema Status: Resolved Priority: Medium (3) Bilateral lower leg cellulitis Status: Acute (4) Failure of outpatient treatment Status: Acute Hospital Course - Lab Results Lab Results: Micro Results 10/23/16 Unknown Leg - Right Gram Stain - Final 10/23/16 Unknown Leg - Right Wound Culture - Final Pseudomonas Aeruginosa Methicillin Resistant S Aureus Proteus Mirabilis Klebsiella Oxytoca Enterococcus Faecalis 10/23/16 Unknown Leg - Left Gram Stain - Final 10/23/16 Unknown Leg - Left Wound Culture - Final Pseudomonas Aeruginosa Methicillin Resistant S Aureus Most Recent Lab Values WBC 7.8 K/uL (4.8-10.8) 10/26/16 07:27 RBC 3.76 Mil/uL (3.80-5.20) L 10/26/16 07:27 Hgb 11.5 g/dL (11.0-16.0) 10/26/16 07:27 Hct 34.5 % (34.0-47.0) 10/26/16 07:27 MCV 91.9 fL (81.0-99.0) 10/26/16 07:27 MCH 30.7 pg (27.0-31.0) 10/26/16 07:27 MCHC 33.4 g/dL (33.0-37.0) 10/26/16 07:27 RDW 14.9 % (11.5-14.5) H 10/26/16 07:27 Plt Count 314 K/uL (130-400) 10/26/16 07:27 MPV 7.6 fL (7.2-11.7) 10/26/16 07:27 Neut % (Auto) 67.7 % (50.0-75.0) 10/26/16 07:27 Lymph % (Auto) 18.7 % (20.0-40.0) L 10/26/16 07:27 [place] % (Auto) 11.2 % (0.0-10.0) H 10/26/16 07:27 Eos % (Auto) 2.1 % (0.0-4.0) 10/26/16 07:27 Baso % (Auto) 0.3 % (0.0-2.0) 10/26/16 07:27 Neut # 5.3 K/uL (1.8-7.0) 10/26/16 07:27 Lymph # 1.5 K/uL (1.0-4.3) 10/26/16 07:27 [place] # 0.9 K/uL (0.0-0.8) H 10/26/16 07:27 Eos # 0.2 K/uL (0.0-0.7) 10/26/16 07:27 Baso # 0.0 K/uL (0.0-0.2) 10/26/16 07:27 ESR 50 mm/hr (0-20) H 10/26/16 07:27 PT 11.1 SECONDS (9.7-12.2) 10/23/16 16:58 INR 1.0 10/23/16 16:58 APTT 29 SECONDS (21-34) 10/24/16 07:55 Sodium 138 mmol/L (132-148) 10/26/16 07:27 Potassium 3.6 mmol/L (3.6-5.2) 10/26/16 07:27 Chloride 103 mmol/L (98-107) 10/26/16 07:27 Carbon Dioxide 25 mmol/L (22-30) 10/26/16 07:27 Anion Gap 14 (10-20) 10/26/16 07:27 BUN 11 mg/dL (7-17) 10/26/16 07:27 Creatinine 0.6 MG/DL (0.7-1.2) L 10/26/16 07:27 Est GFR ( Amer) > 60 10/26/16 07:27 Est GFR (Non-Af Amer) > 60 10/26/16 07:27 Random Glucose 102 mg/dL (65-105) 10/26/16 07:27 Calcium 8.1 mg/dl (8.6-10.4) L 10/26/16 07:27 Total Bilirubin 0.7 mg/dL (0.2-1.3) 10/26/16 07:27 AST 20 U/L (14-36) 10/26/16 07:27 ALT 18 U/L (9-52) 10/26/16 07:27 Alkaline Phosphatase 61 U/L (38-126) 10/26/16 07:27 C-React Prot High Sens > 15.00 mg/L (1.00-3.00) H 10/26/16 08:43 NT-Pro-B Natriuret Pep 371 pg/mL (0-900) 10/23/16 16:58 Total Protein 6.0 g/dL (6.3-8.3) L 10/26/16 07:27 Albumin 3.2 g/dL (3.5-5.0) L 10/26/16 07:27 Globulin 2.8 gm/dL (2.2-3.9) 10/26/16 07:27 Albumin/Globulin Ratio 1.1 (1.0-2.1) 10/26/16 07:27 Vancomycin Trough 14.3 ug/mL (5.0-10.0) H 10/29/16 11:15 - Hospital Course Hospital Course: Chief complaint: Bilateral leg swelling and redness. History present illness: 86-year-old female patient of Dr. Tamez sent to emergency room with the increasing bilateral leg swelling, and failed outpatient treatment for possible cellulitis. Patient states that she's having the swelling bilaterally, for almost 4 weeks. Initially pain started slowly, the swelling also started slowly, gradually got worse. Recently, started on by mouth antibiotic. But the swelling and the redness is not getting better. She's having increasing pain in the right leg, and also more swelling on the left side noted. She does not have any chills, fever, nausea vomiting. No diarrhea noted. Walking is somewhat reduced than before. Patient denies any urinary symptoms, or diarrhea. No other joint involvement noted. She is having the symptoms newly. No injury or trauma noted, no fall. Patient started on IV antibiotic. Lasix started. Leg swelling improved. Clinically patient is stable. Patient also had a left leg peroneal venous thrombosis. Started on anticoagulation. Clinical stable, will be discharged home and follow-up as an outpatient. Discharge Exam - Head Exam Head Exam: NORMAL INSPECTION Discharge Plan - Discharge Medications Prescriptions: Apixaban [Eliquis] 2.5 mg PO DAILY #30 tab - Follow Up Plan Condition: FAIR Disposition: HOME/ ROUTINE Instructions: Apixaban (By mouth), Coronary Artery Disease (DC), Cellulitis (DC ), Deep Venous Thrombosis (DC), Deep Venous Thrombosis (GEN) Additional Instructions: seek emergency treatment if with chestpain , shortness of breath ,FEVER AND PERSISTENT SWELLING OF BILATERAL LEGS. call dr mlceod for appt and dr banerjee IN 1 WEEK. [facility] will be coming for home care . ALL PRESCRIPTIONS/ MEDICATIONS ARE BEING CALLED INTO PHARMACY ([facility])BY DR MCLEOD .PLEASE FOLLOW UP WITH YOUR PHARMACY . Referrals: Robert Banerjee MD [Staff Provider] - Clara Mcleod MD [Staff Provider] -
== END 2016-10-31 15:34 | disposition home or self-care (01) | DRG 300 ==
LOC: C.ER 14:35 → C.9E 18:14 → C.3T 19:23 → C.6T 10-25 14:56 → C.5T 10-27 10:36
PROVIDERS: ADMIT Internal Medicine; ATTEND Internal Medicine
DX: I82.493 Acute embolism and thrombosis of other specified deep vein of lower extremity, bilateral (principal); L03.116 Cellulitis of left lower limb; L03.115 Cellulitis of right lower limb; S81.811A Laceration without foreign body, right lower leg, initial encounter; S91.012A Laceration without foreign body, left ankle, initial encounter; I10 Essential (primary) hypertension; Z95.5 Presence of coronary angioplasty implant and graft; M81.0 Age-related osteoporosis without current pathological fracture; M19.90 Unspecified osteoarthritis, unspecified site; E78.5 Hyperlipidemia, unspecified; W26.0XXA Contact with knife, initial encounter; W26.8XXA Contact with other sharp object(s), not elsewhere classified, initial encounter; M20.12 Hallux valgus (acquired), left foot; M20.11 Hallux valgus (acquired), right foot; M20.42 Other hammer toe(s) (acquired), left foot; M20.41 Other hammer toe(s) (acquired), right foot; I87.2 Venous insufficiency (chronic) (peripheral); B95.62 Methicillin resistant Staphylococcus aureus infection as the cause of diseases classified elsewhere; I25.10 Atherosclerotic heart disease of native coronary artery without angina pectoris

== ENCOUNTER 2016-11-12 11:20 | Inpatient (IN) | payer MEDICARE, OTHER ==
[2016-11-12 11:32] VITALS: BMI 30.2
[2016-11-12] MEDS ORDERED: Lidocaine 1%/Epinephrine 1:100000 30 ml vial INJ STA (12:05)
[2016-11-12] MEDS ORDERED: Lidocaine 1% Inj (20ml) ONE (12:26)
[2016-11-12 12:30] LABS: BASO # 0.1 K/uL (0.0-0.2); BASO % 0.9 % (0.0-2.0); EOS # 0.7 K/uL (0.0-0.7); EOS % 5.1 % (0.0-4.0); HEMATOCRIT 34.9 % (34.0-47.0); LYMPH # 0.9 K/uL (1.0-4.3); LYMPH % 7.1 % (20.0-40.0); MEAN CELL VOLUME 92.2 fL (81.0-99.0); MEAN CORPUSCULAR HEMOGLOBIN 30.3 pg (27.0-31.0); MEAN CORPUSCULAR HGB CONC 32.9 g/dL (33.0-37.0); MEAN PLATELET VOLUME 7.9 fL (7.2-11.7); MONO # 1.2 K/uL (0.0-0.8); PLATELET COUNT 298 K/uL (130-400); RED CELL DISTRIBUTION WIDTH 14.9 % (11.5-14.5)
[2016-11-12 12:32] LABS: VENOUS BLOOD GAS BASE EXCESS -0.2 mmol/L (0.0-2.0); VENOUS BLOOD GAS PCO2 41 mmHg (40-60); VENOUS BLOOD PH 7.39 (7.32-7.43)
[2016-11-12 12:32] LABS: WHITE BLOOD COUNT 13.4 K/uL (4.8-10.8)
[2016-11-12 12:37] LABS: CHLORIDE 98 mmol/L (98-107); POTASSIUM 4.1 mmol/L (3.6-5.2); SODIUM 132 mmol/L (132-148)
[2016-11-12 12:39] LABS: ALB/GLOB RATIO 1.1 (1.0-2.1); ALKALINE PHOSPHATASE 71 U/L (38-126); AST/SGOT 19 U/L (14-36); BILIRUBIN,TOTAL 0.8 mg/dL (0.2-1.3); BLOOD UREA NITROGEN 16 mg/dL (7-17); CARBON DIOXIDE 23 mmol/L (22-30); GFR AFRICAN-AMERICAN > 60; TOTAL PROTEIN 6.9 g/dL (6.3-8.3)
[2016-11-12 12:40] LABS: ALT/SGPT 27 U/L (9-52); CALCIUM 8.4 mg/dl (8.6-10.4); GLUCOSE,RANDOM 83 mg/dL (65-105)
[2016-11-12 12:50] LABS: INR 1.3
[2016-11-12 13:11] LABS: EOSINOPHIL 2 % (0-4); NEUTROPHIL 81 % (50-75); TOTAL CELLS COUNTED 100
[2016-11-12] MEDS ORDERED: Cefepime 1 GM in Sodium Chloride 0.9% 50 ML IVPB ONE (14:07)
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
--- NOTE | 2016-11-12 14:35 | RAD ---
HISTORY: fever COMPARISON: Chest x-ray performed 08/01/16 TECHNIQUE: Chest, one view. FINDINGS: LUNGS: No focal consolidation. Please note that chest x-ray has limited sensitivity for the detection of pulmonary masses. PLEURA: No significant pleural effusion identified. No definite pneumothorax . CARDIOVASCULAR: Ectatic aorta. Right peritracheal opacity may reflect tortuous vasculature exaggerated by patient obliquity. Mild cardiomegaly. OSSEOUS STRUCTURES: Cervical fusion hardware. Osseous demineralization. Degenerative changes of the spine and shoulders. Acromioclavicular arthropathy. VISUALIZED UPPER ABDOMEN: Unremarkable. OTHER FINDINGS: None. IMPRESSION: No acute findings. See above.
--- NOTE | 2016-11-12 15:10 | RAD ---
PROCEDURE: Radiographs of the left tibia and fibula. HISTORY: LEFT LEG INJURY, R/O FX COMPARISON: None available. TECHNIQUE: Frontal and lateral views obtained. FINDINGS: BONES: No fracture or destructive lesion. JOINT SPACES: Unremarkable. OTHER FINDINGS: Vascular calcifications seen. Diffuse soft tissue edema. IMPRESSION: No evidence of acute fracture or dislocation.
[2016-11-12 15:20] LABS: RBC URINE 1 /hpf (0-3); URINE BACTERIA MANY (<OCC); URINE BILIRUBIN NEGATIVE (NEGATIVE); URINE BLOOD 1+ (NEGATIVE); URINE COLOR Yellow (YELLOW); URINE GLUCOSE (UA) NORMAL (Normal); URINE HYALINE CAST 0-2 /lpf (0-2); URINE KETONE NEGATIVE (NEGATIVE); URINE LEUKOCYTE ESTERASE NEG Leu/uL (Negative); URINE PROTEIN NEGATIVE (NEGATIVE); URINE UROBILINOGEN NORMAL mg/dL (0.2-1.0); WBC URINE 2 /hpf (0-5)
[2016-11-12] MEDS ORDERED: Cefepime IV 1 gm in Dextrose 1 GM/50 ML BAG IVPB SCH (16:00)
[2016-11-12] MEDS ORDERED: Acetaminophen 650mg/20.3ml solution UD ONE (20:49)
[2016-11-12] MEDS: Sodium Chloride 0.9% 1,000 ML IV SCH (21:50)
[2016-11-12] MEDS ORDERED: Pneumococcal 23-Valent Vaccine IM ONE (22:30)
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
[2016-11-13] MEDS: Sodium Chloride 0.9% 1,000 ML IV SCH (07:54)
[2016-11-13] MEDS: Enoxaparin 40 mg Syringe SC SCH (09:09)
[2016-11-13] MEDS: Saccharomyces Boulardi 250 mg Cap PO SCH ×2 (09:11→17:45)
[2016-11-13] MEDS ORDERED: Telavancin Hydrochloride 750 MG in Dextrose 5% In Water 100 ML IVPB SCH (10:00)
[2016-11-13 11:24] LABS: BASO # 0.1 K/uL (0.0-0.2); BASO % 0.5 % (0.0-2.0); EOS # 0.6 K/uL (0.0-0.7); EOS % 5.5 % (0.0-4.0); HEMATOCRIT 34.4 % (34.0-47.0); LYMPH % 8.8 % (20.0-40.0); MEAN CELL VOLUME 93.4 fL (81.0-99.0); MEAN CORPUSCULAR HEMOGLOBIN 29.5 pg (27.0-31.0); MEAN CORPUSCULAR HGB CONC 31.6 g/dL (33.0-37.0); MEAN PLATELET VOLUME 8.3 fL (7.2-11.7); MONO # 1.1 K/uL (0.0-0.8); MONO % 9.6 % (0.0-10.0); NRBC % 0.1 % (0.0-2.0); PLATELET COUNT 242 K/uL (130-400); RED CELL DISTRIBUTION WIDTH 14.8 % (11.5-14.5); WHITE BLOOD COUNT 11.3 K/uL (4.8-10.8)
[2016-11-13 11:30] LABS: CHLORIDE 91 mmol/L (98-107)
[2016-11-13 11:31] LABS: POTASSIUM 3.1 mmol/L (3.6-5.2); SODIUM 132 mmol/L (132-148)
[2016-11-13 11:33] LABS: CARBON DIOXIDE 22 mmol/L (22-30); GFR AFRICAN-AMERICAN > 60
[2016-11-13 11:34] LABS: BLOOD UREA NITROGEN 11 mg/dL (7-17); CALCIUM 7.8 mg/dl (8.6-10.4); GLUCOSE,RANDOM 100 mg/dL (65-105)
[2016-11-13] MEDS ORDERED: Potassium Chloride 20 mEq ER Tab PO STA (11:49)
[2016-11-13 12:45] LABS: EOSINOPHIL 6 % (0-4); NEUTROPHIL 74 % (50-75); TOTAL CELLS COUNTED 100
[2016-11-13] MEDS: Potassium Chloride 20 mEq ER Tab PO SCH (13:56)
[2016-11-13] MEDS ORDERED: Potassium Chloride 20 mEq/15 ml LIQ UD PO ONE (20:30)
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
--- NOTE | 2016-11-13 21:36 | PN ---
DATE: 11/13/2016 The patient was seen by me and Dr. Banerjee today at 8:30 p.m., patient at that time having chills, sh aking and she was also having some wheezing and rales. Temperature was noted to be 99.8, blood press ure was 158/78, pulse rate was 108, saturation 95%. The patient immediately was given 20 mg of IV La six and Tylenol to control the temperature and also cultures were taken as per the ID, antibiotic was changed as per ID now. The patient is otherwise able to complete a sentence and she is not in any d istress except mild expiratory wheezing. Regular heart sounds noted. Edema in the legs is much bett er than before. LABORATORY DATA: Done today, reviewed. Chest x-ray showing mild vascular congestion. IV fluid was discontinued. ASSESSMENT AND RECOMMENDATIONS: The patient who is an 86-year-old female with a history of hypertens ion, dyslipidemia, cardiac stent, deep venous thrombosis, bilateral venous insufficiency and the sejal a in the legs, admitted now with evulsion of the skin on the left leg, mild nonhealing wound on the r ight leg, but is improving at this time. Admitted with fever and possibly of urinary tract infection with gram negative and antibiotic was adjusted, control the temperature. We will closely monitor th e patient. We will discontinue the IV fluid. Will probably get the echocardiogram and cardiac enzym es and further labs in the morning. Meanwhile, we will closely monitor and we will follow up the pat ient. Clara Landeros MD cc: [id number] TT: 11/13/2016 21:35:40 Confirmation # [id number] Dictation # [id number] shawna
[2016-11-14 07:28] LABS: BASO # 0.1 K/uL (0.0-0.2); BASO % 0.5 % (0.0-2.0); EOS # 0.9 K/uL (0.0-0.7); EOS % 7.5 % (0.0-4.0); HEMATOCRIT 33.2 % (34.0-47.0); LYMPH # 0.7 K/uL (1.0-4.3); LYMPH % 6.4 % (20.0-40.0); MEAN CELL VOLUME 91.9 fL (81.0-99.0); MEAN CORPUSCULAR HEMOGLOBIN 30.9 pg (27.0-31.0); MEAN CORPUSCULAR HGB CONC 33.6 g/dL (33.0-37.0); MEAN PLATELET VOLUME 8.1 fL (7.2-11.7); MONO # 0.7 K/uL (0.0-0.8); MONO % 6.3 % (0.0-10.0); NRBC % 0.1 % (0.0-2.0); PLATELET COUNT 252 K/uL (130-400); RED CELL DISTRIBUTION WIDTH 14.8 % (11.5-14.5); WHITE BLOOD COUNT 11.4 K/uL (4.8-10.8)
[2016-11-14 07:47] LABS: CHLORIDE 99 mmol/L (98-107)
[2016-11-14 07:48] LABS: POTASSIUM 4.3 mmol/L (3.6-5.2); SODIUM 134 mmol/L (132-148)
[2016-11-14 07:51] LABS: ALB/GLOB RATIO 0.9 (1.0-2.1); ALKALINE PHOSPHATASE 69 U/L (38-126); ALT/SGPT 21 U/L (9-52); AST/SGOT 21 U/L (14-36); BILIRUBIN,TOTAL 0.7 mg/dL (0.2-1.3); BLOOD UREA NITROGEN 10 mg/dL (7-17); CALCIUM 7.4 mg/dl (8.6-10.4); CARBON DIOXIDE 27 mmol/L (22-30); GFR AFRICAN-AMERICAN > 60; GLUCOSE,RANDOM 105 mg/dL (65-105); TOTAL PROTEIN 6.2 g/dL (6.3-8.3)
[2016-11-14 09:28] LABS: BASOPHIL 1 % (0-2); EOSINOPHIL 9 % (0-4); NEUTROPHIL 79 % (50-75); REACTIVE LYMPHOCYTES 1 % (0-0); TOTAL CELLS COUNTED 100
--- NOTE | 2016-11-14 10:52 | RAD ---
HISTORY: Congestive heart failure. Portable study 20:49. COMPARISON: 11/12/2016. FINDINGS: LUNGS: Pulmonary vascular congestion/interstitial edema consistent with clinical diagnosis of CHF. PLEURA: No significant pleural effusion identified, no pneumothorax apparent. CARDIOVASCULAR: Cardiomegaly/mild CHF. OSSEOUS STRUCTURES: No significant abnormalities. VISUALIZED UPPER ABDOMEN: Normal. OTHER FINDINGS: None. IMPRESSION: Progressive, worsening congestive heart failure.
[2016-11-14] MEDS ORDERED: Lidocaine 2% Inj (20ml) ONE (11:55)
[2016-11-14] MEDS ORDERED: Amikacin Sulfate 500 MG in Sodium Chloride 0.9% 250 ML IVPB ONE (12:00)
--- NOTE | 2016-11-14 12:18 | PCM.SURG1 ---
Surgeon's Initial Post Op Note - Surgeon's Notes Surgeon: Darell Doll MD Spinning Lathe Operator: NONE Type of Anesthesia: Local Pre-Operative Diagnosis: Poor venous access Operative Findings: Patent right brachial vein. Post-Operative Diagnosis: Poor venous access Operation Performed: Single lumen picc placement right brachial vein, 33 cm. Tip in SVC. Specimen/Specimens Removed: none Estimated Blood Loss: EBL {In ML}: 2 Blood Products Given: N/A Drains Used: No Drains Post-Op Condition: Fair Date of Surgery/Procedure: 11/14/16 Time of Surgery/Procedure: 12:15
[2016-11-14] MEDS: Enoxaparin 40 mg Syringe SC SCH (13:23)
[2016-11-14] MEDS: Saccharomyces Boulardi 250 mg Cap PO SCH ×2 (13:23→18:07)
[2016-11-14] MEDS: Potassium Chloride 20 mEq ER Tab PO SCH (13:27)
--- NOTE | 2016-11-14 13:38 | CP.PCM.CON ---
History of Present Illness - History of Present Illness History of Present Illness: Palliative consult requested by mariaa FORREST Reason: Goals of care Patient is a 86yo female admitted with swelling to [facility], left > right. Patient had a left leg redness and swelling, fever and chills. As per patient, she was walking down the stairs when she lost balance and was about to fall. Family friend Catrachito ) who lives with the couple and is helping them with ADLs, grabbed her to prevent her from falling, and made skin laceration to left leg. On admission, the left leg XRay was _ fracture. Patient was started on Maxipime , Vibrativ and Primaxin IV. Patient was also found to have UTI, e fiordaliza. PMH: HTN, bronchitis, PE Soc. Hx: lives at home with her who is currently patient here at [address], family friend lives with them and is helping with ADLs Fam. Hx: Unknown Review of Systems - Constitutional Constitutional: absent: As Per HPI, Anorexia, Chills, Daytime Sleepiness, Excessive Sweating, Fatigue, Fever, Frequent Falls, Headache, Increased Appetite , Lethargy, Malaise, Night Sweats, Snoring, Sleep Apnea, Weight Gain, Weight Loss, Weakness, Other - EENT Eyes: absent: As Per HPI, Blind Spots, Blurred Vision, Change in Vision, Decreased Night Vision, Diplopia, Discharge, Dry Eye, Exophthalmos, Floaters, Irritation, Itchy Eyes, Loss of Peripheral Vision, Pain, Photophobia, Requires Corrective Lenses, Sees Flashes, Spots in Vision, Tunnel Vision, Other Visual Disturbances, Loss of Vision, Other Ears: absent: As Per HPI, Decreased Hearing, Ear Discharge, Ear Pain, Tinnitus, Abnormal Hearing, Disequilibrium, Dizziness, Other Nose/Mouth/Throat: absent: As Per HPI, Epistaxis, Nasal Congestion, Nasal Discharge, Nasal Obstruction, Nasal Trauma, Nose Pain, Post Nasal Drip, Sinus Pain, Sinus Pressure, Bleeding Gums, Change in Voice, Dental Pain, Dry Mouth, Dysphagia, Halitosis, Hoarsness, Lip Swelling, Mouth Lesions, Mouth Pain, Odynophagia, Sore Throat, Throat Swelling, Tongue Swelling, Facial Pain, Neck Pain, Neck Mass, Other - Breasts Breasts: absent: As Per HPI, Change in Shape, Mass, Pain, Nipple Discharge, Nipple Inversion, Skin Changes, Swelling, Other - Cardiovascular Cardiovascular: Leg Edema - Respiratory Respiratory: absent: As Per HPI, Cough, Dyspnea, Hemoptysis, Dyspnea on Exertion , Wheezing, Snoring, Stridor, Pain on Inspiration, Chest Congestion, Excessive Mucous Production, Change in Mucous Color, Pain with Coughing, Other - Gastrointestinal Gastrointestinal: absent: As Per HPI, Abdominal Pain, Belching, Bloating, Change in Bowel Habits, Change in Stool Character, Coffee Ground Emesis, Constipation, Cramping, Diarrhea, Dyspepsia, Dysphagia, Early Satiety, Excessive Flatus, Fecal Incontinence, Heartburn, Hematemesis, Hematochezia, Loose Stools, Melena, Nausea, Odynophagia, Temesmus, Vomiting, Other - Genitourinary Genitourinary: absent: As Per HPI, Change in Urinary Stream, Difficulty Urinating, Dysuria, Flank Pain, Hematuria, Pyuria, Nocturia, Urinary Incontinence, Urinary Frequency, Urinary Hesitance, Urinary Urgency, Voiding Freq/Small Amts, Freq UTI, Hx Renal/Bladder Calculi, Hx /Renal Surgery, Bladder Distension, Other - Reproductive: Female Reproductive:Female: Post Menopausal - Menstruation Menstruation: Post Menopausal - Musculoskeletal Additional comments: Left leg cellulitis - Integumentary Additional comments: Left leg cellulitis - Neurological Neurological: absent: As Per HPI, Abnormal Gait, Abnormal Hearing, Abnormal Movements, Abnormal Speech, Behavioral Changes, Burning Sensations, Confusion, Convulsions, Disequilibrium, Dizziness, Numbness, Focal Weakness, Frequent Falls , Headaches, Lack of Coordination, Loss of Vision, Memory Loss, Paresthesias, Radicular Pain, Restless Legs, Sensory Deficit, Syncope, Tingling, Tremor, Vertigo, Weakness, Other Visual Disturbances, Other - Psychiatric Psychiatric: Anxiety - Endocrine Endocrine: absent: As Per HPI, Change in Body Appearance, Change in Libido, Cold Intolorance, Deepening of Voice, Excessive Sweating, Fatigue, Flushing, Heat Intolorance, Increase in Ring/Shoe/Hat Size, Palpitations, Polydipsia, Polyphagia, Polyuria, Other - Hematologic/Lymphatic Hematologic: absent: As Per HPI, Easy Bleeding, Easy Bruising, Lymphadenopathy, Other Past Patient History - Tetanus Immunizations Tetanus Immunization: Allergy to Tetanus Vaccine - Past Medical History & Family History Past Medical History?: Yes - Past Social History Smoking Status: Unknown If Ever Smoked Chewing Tobacco Use: No Cigar Use: No Alcohol: Occasional Drugs: Denies - CARDIAC Hx Cardiac Disorders: Yes Hx Hypercholesterolemia: Yes Hx Hypertension: Yes Hx Peripheral Edema: Yes - PULMONARY Hx Respiratory Disorders: Yes Hx Bronchitis: Yes Hx Pulmonary Embolism: No - HEENT Hx Deafness: Yes ((?)) - RENAL Hx Chronic Kidney Disease: No - HEMATOLOGICAL/ONCOLOGICAL Hx Blood Disorders: No Hx Bruising: No - INTEGUMENTARY Hx Dermatological Problems: Yes Hx Cellulitis: Yes - MUSCULOSKELETAL/RHEUMATOLOGICAL Hx Back Pain: Yes Hx Falls: No - GASTROINTESTINAL Hx Gastrointestinal Disorders: Yes - GENITOURINARY/GYNECOLOGICAL Hx Genitourinary Disorders: No - PSYCHIATRIC Hx Substance Use: No Other/Comment: AFFECT NOTED - SURGICAL HISTORY Hx Coronary Stent: Yes Hx Musculoskeletal Surgery: Yes - ANESTHESIA Hx Anesthesia: Yes Hx Anesthesia Reactions: No Meds Allergies/Adverse Reactions: Allergies Allergy/AdvReac Type Severity Reaction Status Date / Time No Known Allergies Allergy Verified 10/23/16 14:58 - Medications Medications: Current Medications Acetaminophen (Tylenol 325mg Tab) 650 mg PO Q6 PRN PRN Reason: Temperature Last Admin: 11/13/16 20:31 Dose: 650 mg Enoxaparin Sodium (Lovenox) 40 mg SC DAILY [facility] Last Admin: 11/14/16 13:23 Dose: 40 mg Famotidine (Pepcid) 20 mg PO DAILY [facility] Last Admin: 11/14/16 13:23 Dose: 20 mg Imipenem/Cilastatin Sodium 500 (mg/ Sodium Chloride) 100 mls @ 100 mls/hr IVPB Q6H [facility] Last Admin: 11/14/16 08:30 Dose: 100 mls/hr Saccharomyces Boulardii (Florastor) 250 mg PO BID [facility] Last Admin: 11/14/16 13:23 Dose: 250 mg Physical Exam - Constitutional Appears: No Acute Distress - Head Exam Head Exam: ATRAUMATIC, NORMAL INSPECTION, NORMOCEPHALIC - Eye Exam Eye Exam: Normal appearance, PERRL Pupil Exam: NORMAL ACCOMODATION, PERRL - ENT Exam ENT Exam: Mucous Membranes Moist, Normal Exam - Respiratory Exam Respiratory Exam: NORMAL BREATHING PATTERN - Cardiovascular Exam Cardiovascular Exam: REGULAR RHYTHM, +S1, +S2 - GI/Abdominal Exam GI & Abdominal Exam: Normal Bowel Sounds, Soft - Rectal Exam Rectal Exam: Deferred - Extremities Exam Additional comments: swelling of LEs, left leg cellulitis - Back Exam Back exam: NORMAL INSPECTION - Neurological Exam Neurological exam: Alert, Oriented x3 - Psychiatric Exam Psychiatric exam: Anxious, Normal Affect, Normal Mood - Skin Skin Exam: Dry, Normal Color, Warm Results - Vital Signs Recent Vital Signs: Last Vital Signs Temp 102.4 F H 11/14/16 11:30 Pulse 78 11/14/16 11:02 Resp 20 11/14/16 11:02 BP 130/75 11/14/16 11:02 Pulse Ox 97 11/14/16 11:02 - Labs Result Diagrams: 11/14/16 07:17 11/14/16 07:17 Labs: Laboratory Results - last 24 hr 11/14/16 11/14/16 07:17 07:17 WBC 11.4 H RBC 3.61 L Hgb 11.1 Hct 33.2 L MCV 91.9 MCH 30.9 MCHC 33.6 RDW 14.8 H Plt Count 252 MPV 8.1 Neut % (Auto) 79.3 H Lymph % (Auto) 6.4 L Whitley % (Auto) 6.3 Eos % (Auto) 7.5 H Baso % (Auto) 0.5 Neut # 9.0 H Lymph # 0.7 L Whitley # 0.7 Eos # 0.9 H Baso # 0.1 Neutrophils % (Manual) 79 H Band Neutrophils % 2 Lymphocytes % (Manual) 3 L Reactive Lymphs % 1 H Monocytes % (Manual) 5 Eosinophils % (Manual) 9 H Basophils % (Manual) 1 Platelet Estimate Normal Hypochromasia (manual) Slight Poikilocytosis (manual Slight Anisocytosis (manual) Slight Sodium 134 Potassium 4.3 Chloride 99 Carbon Dioxide 27 Anion Gap 12 BUN 10 Creatinine 0.7 Est GFR ( Amer) > 60 Est GFR (Non-Af Amer) > 60 Random Glucose 105 Calcium 7.4 L Total Bilirubin 0.7 AST 21 ALT 21 Alkaline Phosphatase 69 Total Creatine Kinase 48 CK-MB (Mass) 1.02 Troponin I, Quant 0.0920 Total Protein 6.2 L Albumin 3.0 L Globulin 3.2 Albumin/Globulin Ratio 0.9 L Assessment & Plan - Assessment and Plan (Free Text) Assessment: Palliative consult Code status Full Code, no advance directive on chart, PPS 30% I reviewed medical records, all diagnostic studies, examined and interviewed patient in the chair . Goals of care discussed. Patient is alert, oriented X 3 in no acute distress. Patient is angry for being at the hospital and is not cooperating well. patient wants to go home. The family friend Shanique at bed side and tends to answer questions for a patient. Patient assisted OOB with PT and needed moderate assistance with it. Left leg is wrapped with soft dressing and worm to touch. Right leg is with edema. Patient admits to mild pain of left leg. I discussed with patient her diagnosis of cellulitis and need for IV antibiotics. I also reviewed the urine C@S findings . Patient was given PICC line today for the course of IV antibiotics. I suggested more information about the need for BERNABE to complete course of IV antibiotics. Patient was categoric in refusing the acute BERNABE placement. She prefers VNS for the administration of IV antibiotics at home. Impression * Patient is alert, oriented X3, able of making medical decisions * Patient is anxious for being hospitalized and is insisting on going home * Patient is refusing acute BERNABE for completion of IV antibiotics Therapy Suggestion * Discharge planning for VNS for IV Tx as patient refuses acute BERNABE * Patient needs to be reassured of her safety and discharge planning to reduce her anxiety
--- NOTE | 2016-11-14 13:52 | CT ---
PROCEDURE: CT Abdomen and Pelvis without intravenous contrast HISTORY: renal colic COMPARISON: None. TECHNIQUE: Axial and reformatted coronal and sagittal CT images of the abdomen and pelvis were obtained without IV or oral contrast administration.. Contrast Dose: 0 Radiation dose: Total exam DLP = 870.17 mGy-cm. This CT exam was performed using one or more of the following dose reduction techniques: Automated exposure control, adjustment of the mA and/or kV according to patient size, and/or use of iterative reconstruction technique. FINDINGS: LOWER THORAX: Small bilateral pleural effusions are noted. Hazy opacity at the lower lobes may represent atelectasis. The possibility of pneumonia is less likely. The heart is mildly enlarged. Large hiatus hernia is noted. LIVER: No evidence of mass lesion or acute pathology in the liver in this noncontrast study. GALLBLADDER AND BILE DUCTS: Unremarkable. PANCREAS: There is low-attenuation cystic lesions seen at the midline pancreatic body measures 1.7 centimeter. SPLEEN: Unremarkable. ADRENALS: Unremarkable. No mass. KIDNEYS AND URETERS: Unremarkable. No hydronephrosis. No solid mass. VASCULATURE: Unremarkable. No aortic aneurysm. BOWEL: There are scattered colonic diverticulosis seen. There are mild inflammatory changes adjacent to the descending sigmoid junction in the left lower abdomen suspicious for diverticulitis. Otherwise no evidence of acute pathology. APPENDIX: Unremarkable. Normal appendix. PERITONEUM: Unremarkable. No free fluid. No free air. LYMPH NODES: Unremarkable. No enlarged lymph nodes. BLADDER: Unremarkable. REPRODUCTIVE: Unremarkable. BONES: 2 centimeter lytic bony lesions seen at L4 likely benign hemangioma. Advanced degenerative changes. OTHER FINDINGS: None. IMPRESSION: No evidence of nephrolithiasis or hydronephrosis. Colonic diverticulosis. Suspicious for diverticulitis at the descending sigmoid junction. Please correlate clinically. 1.7 centimeter low-attenuation cystic lesion at the pancreatic body. Further assessment or close interval follow-up re-evaluation is recommended. Small bilateral pleural effusions and mild cardiomegaly. Large hiatus hernia.
--- NOTE | 2016-11-14 23:06 | PN ---
DATE: 11/14/2016 SUBJECTIVE: The patient is currently sleeping, comfortable, not in any distress. Mild exertional dy spnea noted, but otherwise okay. The patient is able to talk without any difficulty. OBJECTIVE: VITAL SIGNS: This morning, patient had 102.3 fever, pulse was 78, blood pressure 130/75, saturation 97%. HEENT: PERRLA. NECK: Supple. CHEST: Good air entry bilaterally. CARDIOVASCULAR: Regular heart sound. ABDOMEN: Nontender abdomen. EXTREMITIES: Edema bilaterally noted. MEDICATIONS: The patient is on an antibiotic. The antibiotic was changed by infectious disease. Th e patient is currently on amikacin, one dose was given today. Also on imipenem, famotidine, Lovenox, probiotic. P.o. Lasix was ordered today. IMAGING: A CT scan of the abdomen showing suspicious for diverticulitis but the patient is covered w ith antibiotic at this time. FINAL DIAGNOSES: Fever of unclear etiology, most likely urinary tract infection with possible sepsis and also diverticulitis. Will closely monitor the patient and will continue the current treatment. Will follow up the patient. Clara Landeros MD cc: [id number] TT: 11/14/2016 23:05:49 Confirmation # [id number] Dictation # [id number] lyla
[2016-11-14 23:28] LABS: RBC URINE 6 /hpf (0-3); URINE BACTERIA RARE (<OCC); URINE BILIRUBIN NEGATIVE (NEGATIVE); URINE BLOOD NEGATIVE (NEGATIVE); URINE COLOR Yellow (YELLOW); URINE GLUCOSE (UA) 1+ mg/dL (Normal); URINE KETONE 1+ mg/dL (NEGATIVE); URINE LEUKOCYTE ESTERASE 2+ Leu/uL (Negative); URINE PROTEIN 1+ mg/dL (NEGATIVE); URINE UROBILINOGEN NORMAL mg/dL (0.2-1.0); WBC CLUMPS MANY /hpf; WBC URINE 52 /hpf (0-5)
[2016-11-15 07:46] LABS: BASO % 0.5 % (0.0-2.0); EOS # 0.6 K/uL (0.0-0.7); EOS % 6.6 % (0.0-4.0); HEMATOCRIT 28.6 % (34.0-47.0); LYMPH # 0.6 K/uL (1.0-4.3); MEAN CELL VOLUME 92.5 fL (81.0-99.0); MEAN CORPUSCULAR HEMOGLOBIN 30.6 pg (27.0-31.0); MEAN CORPUSCULAR HGB CONC 33.1 g/dL (33.0-37.0); MEAN PLATELET VOLUME 8.7 fL (7.2-11.7); MONO # 0.8 K/uL (0.0-0.8); MONO % 8.3 % (0.0-10.0); PLATELET COUNT 220 K/uL (130-400); RED CELL DISTRIBUTION WIDTH 14.8 % (11.5-14.5); WHITE BLOOD COUNT 9.2 K/uL (4.8-10.8)
[2016-11-15 07:55] LABS: CHLORIDE 98 mmol/L (98-107)
[2016-11-15 07:56] LABS: POTASSIUM 3.4 mmol/L (3.6-5.2); SODIUM 131 mmol/L (132-148)
[2016-11-15 07:58] LABS: ALB/GLOB RATIO 0.8 (1.0-2.1); ALKALINE PHOSPHATASE 55 U/L (38-126); AST/SGOT 19 U/L (14-36); BILIRUBIN,TOTAL 0.7 mg/dL (0.2-1.3); BLOOD UREA NITROGEN 10 mg/dL (7-17); CARBON DIOXIDE 25 mmol/L (22-30); GFR AFRICAN-AMERICAN > 60; TOTAL PROTEIN 5.3 g/dL (6.3-8.3)
[2016-11-15 07:59] LABS: ALT/SGPT 28 U/L (9-52); CALCIUM 7.1 mg/dl (8.6-10.4); GLUCOSE,RANDOM 92 mg/dL (65-105)
[2016-11-15 09:28] LABS: EOSINOPHIL 8 % (0-4); NEUTROPHIL 75 % (50-75); TOTAL CELLS COUNTED 100
[2016-11-15 09:30] LABS: LARGE PLATELETS PRESENT
[2016-11-15] MEDS: Saccharomyces Boulardi 250 mg Cap PO SCH ×2 (09:40→17:55)
[2016-11-15] MEDS: Enoxaparin 40 mg Syringe SC SCH (09:41)
[2016-11-15] MEDS: Zinc Oxide Topical 30 gm Tube TOP SCH (10:00)
--- NOTE | 2016-11-15 12:28 | RAD ---
HISTORY: Febrile. Portable study 00:05. COMPARISON: 11/13/2016. FINDINGS: LUNGS: Progressive infiltrates bilaterally right greater than left. More confluent alveolar component. PLEURA: No significant pleural effusion identified, no pneumothorax apparent. CARDIOVASCULAR: Cardiomegaly. OSSEOUS STRUCTURES: No significant abnormalities. VISUALIZED UPPER ABDOMEN: Normal. OTHER FINDINGS: PICC line in satisfactory position IMPRESSION: Progressive infiltrates particularly right lung superimposed upon CHF/pulmonary vascular congestion identified previously. PICC line in satisfactory position
[2016-11-15] MEDS ORDERED: Potassium Chloride 20 mEq/15 ml LIQ UD PO ONE (15:00)
--- NOTE | 2016-11-15 18:00 | CP.PCM.PN ---
Subjective - Date & Time of Evaluation Date of Evaluation: 11/15/16 Time of Evaluation: 17:55 - Subjective Subjective: INFECTIOUS DISEASE PROGRESS NOTE JOHNSON MADDOX MD, FACP 3T 354 11/15/2016 CHART REVIEWED PT EXAMINED. NESTOR GONZALEZ PRESENT, PT'S FRIEND VISITING PT NOT EATING HOSPITAL FOOD ONLY OUTSIDE [facility]IK FOOD BROUGHT IN BY HER FAMILY AND FRIENDS. THOUGH CHECKING HER IN HOUSE PLATES THEY APPEAR CLEAN! CASE DISCUSSED PT AGAIN WITH FEVERS, BANDEMIA, NOT FEELING WELL AND URINALYSIS DEMONSTRATING AGIAN LOTS OF WBC'S. IN VIEW OF THE ABOVE WITH NON CLINICAL RESPONSE TO THE ESBL E. COLI TO PRIMAXIN. WITH THE PERMISSION OF THE PHARMACY, AND THE PREVIOUS ACCDEPTANCE BY THE PHARMACY AND THERAPEUTICS COMMITTEE, WILL INITIATE AVYCAY 2.5 Q 8 HOURS. ALSO SINCE PT IS WHEEZING WITH ANY ATTEMPT AT MOBILIZIATION WILL ASK HER APPRENTICE INSTRUMENT TECHNICIAN DR Maxx CACERES TO EVALUATE. HOPEFULLY THIS WILL MAKE A CLINCIAL DIFFERENCE. RECHECK HER LEGS FOR HER DVT'S. Objective - Vital Signs/Intake and Output Vital Signs (last 24 hours): Temp Pulse Resp BP Pulse Ox 100.1 F H 82 20 161/67 H 96 11/15/16 16:27 11/15/16 12:00 11/15/16 12:00 11/15/16 12:00 11/15/16 12:00 Intake and Output: 11/15/16 11/15/16 06:59 18:59 Intake Total 300 600 Output Total 300 Balance 0 600 - Medications Medications: Current Medications Acetaminophen (Tylenol 325mg Tab) 650 mg PO Q6 PRN PRN Reason: Temperature Last Admin: 11/15/16 16:27 Dose: 650 mg Enoxaparin Sodium (Lovenox) 40 mg SC DAILY [facility] Last Admin: 11/15/16 09:41 Dose: 40 mg Famotidine (Pepcid) 20 mg PO DAILY [facility] Last Admin: 11/15/16 09:41 Dose: 20 mg Furosemide (Lasix) 20 mg PO DAILY [facility] Last Admin: 11/15/16 09:40 Dose: 20 mg Petrolatum (Desitin Original) 1 gm TOP DAILY [facility] Last Admin: 11/15/16 10:00 Dose: 1 applic Saccharomyces Boulardii (Florastor) 250 mg PO BID [facility] Last Admin: 11/15/16 09:40 Dose: 250 mg - Labs Labs: 11/15/16 07:18 11/15/16 07:18 PT 15.2 SECONDS (9.7-12.2) H 11/12/16 12:26 INR 1.3 11/12/16 12:26 APTT 31 SECONDS (21-34) 11/12/16 12:26 - Constitutional Appears: Non-toxic, Older Than Stated Age, Chronically Ill - Head Exam Head Exam: ATRAUMATIC - Eye Exam Eye Exam: Normal appearance - ENT Exam ENT Exam: Mucous Membranes Moist - Neck Exam Neck Exam: Normal Inspection - Respiratory Exam Respiratory Exam: Decreased Breath Sounds, Wheezes. absent: Stridor - Cardiovascular Exam Cardiovascular Exam: REGULAR RHYTHM - GI/Abdominal Exam GI & Abdominal Exam: Soft, Normal Bowel Sounds. absent: Tenderness, Rebound - Rectal Exam Rectal Exam: Deferred - Extremities Exam Additional comments: LEFT LEG WITH MEDIHONEY BANDAGES. - Neurological Exam Neurological Exam: Alert, Awake - Psychiatric Exam Psychiatric exam: Anxious, Flat Affect - Skin Skin Exam: Normal Color, Warm Assessment and Plan (1) Pedal edema Status: Resolved (2) Bleeding from varicose veins of left lower extremity Status: Resolved (3) Temperature increase Assessment & Plan: STILL WITH ELEVATION OF TEMPS AND URINE NOT CLEARING WITH DAYS OF PRIMAXIN. WILL TRY AVYCAZ, A CLINCIAL TRIAL BASED ON EXPERIEINCE AND FDA APPROVAL. Status: Acute (4) DVT (deep venous thrombosis) Status: Chronic (5) CAD (coronary artery disease) Status: Chronic (6) ESBL (extended spectrum beta-lactamase) producing bacteria infection Assessment & Plan: NOT CLEARING WITH PRIMAXIN, ERGO WILL TRY AVYCAZ, WITH PERMISSION OF PHARMACY AND CLEARANCE ALREADY BY [employer] COMMITTEE. Status: Acute (7) Wheezing on expiration Assessment & Plan: CONSULT WITH DR CACERES. Status: Acute
[2016-11-16] MEDS: Zinc Oxide Topical 30 gm Tube TOP SCH (09:09)
[2016-11-16] MEDS: Enoxaparin 40 mg Syringe SC SCH (09:10)
[2016-11-16] MEDS: Saccharomyces Boulardi 250 mg Cap PO SCH ×2 (09:10→17:59)
[2016-11-17] MEDS: Enoxaparin 40 mg Syringe SC SCH (11:29)
[2016-11-17] MEDS: Zinc Oxide Topical 30 gm Tube TOP SCH (11:48)
[2016-11-17] MEDS: Saccharomyces Boulardi 250 mg Cap PO SCH ×2 (11:48→18:50)
[2016-11-17 14:47] LABS: BASO % 0.1 % (0.0-2.0); EOS # 0.4 K/uL (0.0-0.7); EOS % 4.2 % (0.0-4.0); HEMATOCRIT 34.6 % (34.0-47.0); LYMPH # 0.8 K/uL (1.0-4.3); LYMPH % 7.5 % (20.0-40.0); MEAN CELL VOLUME 92.3 fL (81.0-99.0); MEAN CORPUSCULAR HEMOGLOBIN 30.7 pg (27.0-31.0); MEAN CORPUSCULAR HGB CONC 33.3 g/dL (33.0-37.0); MEAN PLATELET VOLUME 8.6 fL (7.2-11.7); MONO # 0.7 K/uL (0.0-0.8); MONO % 7.2 % (0.0-10.0); PLATELET COUNT 318 K/uL (130-400); RED CELL DISTRIBUTION WIDTH 14.8 % (11.5-14.5)
[2016-11-17 14:55] LABS: CHLORIDE 91 mmol/L (98-107); POTASSIUM 3.4 mmol/L (3.6-5.2); SODIUM 126 mmol/L (132-148)
[2016-11-17 14:58] LABS: BLOOD UREA NITROGEN 13 mg/dL (7-17); CARBON DIOXIDE 24 mmol/L (22-30); GFR AFRICAN-AMERICAN > 60
[2016-11-17 14:59] LABS: CALCIUM 7.9 mg/dl (8.6-10.4); GLUCOSE,RANDOM 133 mg/dL (65-105)
[2016-11-17 15:26] LABS: EOSINOPHIL 5 % (0-4); NEUTROPHIL 79 % (50-75); TOTAL CELLS COUNTED 100
--- NOTE | 2016-11-17 16:07 | CP.PCM.PN ---
Subjective - Date & Time of Evaluation Date of Evaluation: 11/17/16 Time of Evaluation: 09:00 - Subjective Subjective: Cardiology progress note Dr Cesar Patient seen and examined at the bedside. No acute distress. No acute events overnight. Patient still complains of shortness of breath, but states improved compared to yesterday. The patient denies other cardiopulmonary complaints. 12 point review of systems was completed and returned negative aside from the above stated complaints. Objective - Vital Signs/Intake and Output Vital Signs (last 24 hours): Temp Pulse Resp BP Pulse Ox 99.5 F 111 H 22 170/90 H 91 L 11/17/16 08:00 11/17/16 08:00 11/17/16 08:00 11/17/16 11:29 11/17/16 08:00 Intake and Output: 11/17/16 11/17/16 06:59 18:59 Intake Total 220 Balance 220 - Medications Medications: Current Medications Acetaminophen (Tylenol 325mg Tab) 650 mg PO Q6 PRN PRN Reason: Temperature Last Admin: 11/16/16 17:59 Dose: 650 mg Enoxaparin Sodium (Lovenox) 40 mg SC DAILY [facility] Last Admin: 11/17/16 11:29 Dose: 40 mg Famotidine (Pepcid) 20 mg PO DAILY [facility] Last Admin: 11/17/16 11:29 Dose: 20 mg Furosemide (Lasix) 20 mg PO DAILY [facility] Last Admin: 11/17/16 11:29 Dose: 20 mg Ceftazidime/Avibactam 2.5 gm/ (Sodium Chloride) 100 mls @ 50 mls/hr IV Q8H [facility] Last Admin: 11/17/16 11:31 Dose: 50 mls/hr Petrolatum (Desitin Original) 1 gm TOP DAILY [facility] Last Admin: 11/17/16 11:48 Dose: 1 applic Saccharomyces Boulardii (Florastor) 250 mg PO BID [facility] Last Admin: 11/17/16 11:48 Dose: 250 mg - Labs Labs: 11/17/16 14:42 11/17/16 14:42 PT 15.2 SECONDS (9.7-12.2) H 11/12/16 12:26 INR 1.3 11/12/16 12:26 APTT 31 SECONDS (21-34) 11/12/16 12:26 - Additional Findings Additional findings: - Constitutional Appears: Well, Non-toxic, No Acute Distress - Head Exam Head Exam: ATRAUMATIC, NORMAL INSPECTION, NORMOCEPHALIC - Eye Exam Eye Exam: EOMI, Normal appearance. absent: Conjunctival injection, Scleral icterus Pupil Exam: absent: Irregular, Unequal - ENT Exam ENT Exam: Mucous Membranes Moist. absent: Mucous Membranes Dry - Neck Exam Neck Exam: absent: Tenderness Additional comments: No JVD - Respiratory Exam Respiratory Exam: Decreased Breath Sounds (mildly decreased breath sounds all [place]), Wheezes (mild end-expiratory wheezes, most prominent in upper airway and upper lobes). absent: Accessory Muscle Use, Chest Wall Tenderness, Rales, Rhonchi, Respiratory Distress Additional comments: Mildly tachypnic, but not distressed, no overt cyanosis, no retracting or accessory muscle use - Cardiovascular Exam Cardiovascular Exam: Tachycardia, REGULAR RHYTHM, +S1, +S2. absent: Bradycardia , RRR Additional comments: Loud systolic grade V murmur most prominent right 2nd intercostal space Rapid rate regular rhythm - GI/Abdominal Exam GI & Abdominal Exam: Soft, Normal Bowel Sounds. absent: Distended, Firm - Extremities Exam Extremities Exam: absent: Calf Tenderness, Normal Inspection, Pedal Edema Additional comments: faintly palpable dorsalis pedal pulses bilaterally dark red bilateral feet and skin along LLE, bandaging along anterior LLE surface without overt bleeding/oozing through LE not cold to palpation - Neurological Exam Neurological Exam: Alert, Awake - Psychiatric Exam Psychiatric exam: Anxious - Skin Skin Exam: Dry, Intact, Normal Color (except as noted in Extremities exam), Warm Assessment and Plan (1) Shortness of breath Assessment & Plan: EKG on 11/12/16: sinus tachy at 104, possible LA enlargement Echo on 11/12/16: read pending -likely 2/2 significant aortic stenosis vs 2/2 pulmonary etiology (former smoker ) -goal is to reduce afterload without aggressively reducing preload -Continue Lasix 20mg PO daily -may need TAVR given symptomatic -Trops 0.047, 0.092, continue to monitor -continue medical management Status: Acute (2) HTN (hypertension) Assessment & Plan: -longstanding -given , want to reduce afterload without dramatically reducing preload -continue Lasix 20mg PO daily -continue medical management Case discussed with Dr. Cesar. Status: Chronic
--- NOTE | 2016-11-17 17:06 | CP.PCM.PN ---
Subjective - Date & Time of Evaluation Date of Evaluation: 11/17/16 Time of Evaluation: 17:01 - Subjective Subjective: INFECTIOUS DISEASE PROGRESS NOTE JOHNSON MADDOX MD 3T 354 11/17/2016 CHART REVIEWED CASE DISCUSSED CLINICALLY MORE STABLE ON AVYCAZ IV. APPEARS MORE AWAKE AND LESS LETHARGIC. HER BANDS HAVE DISAPPEARED HER LEGS ARE ALSO LESS EDEMATOUS. LEFT LEG IS HEALING. REPLACE K+. Objective - Vital Signs/Intake and Output Vital Signs (last 24 hours): Temp Pulse Resp BP Pulse Ox 99.5 F 111 H 22 170/90 H 91 L 11/17/16 08:00 11/17/16 08:00 11/17/16 08:00 11/17/16 11:29 11/17/16 08:00 Intake and Output: 11/17/16 11/17/16 06:59 18:59 Intake Total 220 Balance 220 - Medications Medications: Current Medications Acetaminophen (Tylenol 325mg Tab) 650 mg PO Q6 PRN PRN Reason: Temperature Last Admin: 11/16/16 17:59 Dose: 650 mg Enoxaparin Sodium (Lovenox) 40 mg SC DAILY [facility] Last Admin: 11/17/16 11:29 Dose: 40 mg Famotidine (Pepcid) 20 mg PO DAILY [facility] Last Admin: 11/17/16 11:29 Dose: 20 mg Furosemide (Lasix) 20 mg PO DAILY [facility] Last Admin: 11/17/16 11:29 Dose: 20 mg Ceftazidime/Avibactam 2.5 gm/ (Sodium Chloride) 100 mls @ 50 mls/hr IV Q8H [facility] Last Admin: 11/17/16 11:31 Dose: 50 mls/hr Petrolatum (Desitin Original) 1 gm TOP DAILY [facility] Last Admin: 11/17/16 11:48 Dose: 1 applic Saccharomyces Boulardii (Florastor) 250 mg PO BID [facility] Last Admin: 11/17/16 11:48 Dose: 250 mg - Labs Labs: 11/17/16 14:42 11/17/16 14:42 PT 15.2 SECONDS (9.7-12.2) H 11/12/16 12:26 INR 1.3 11/12/16 12:26 APTT 31 SECONDS (21-34) 11/12/16 12:26 - Constitutional Appears: Non-toxic, No Acute Distress - Head Exam Head Exam: ATRAUMATIC - Eye Exam Eye Exam: Normal appearance - ENT Exam ENT Exam: Mucous Membranes Moist - Neck Exam Neck Exam: Normal Inspection - Respiratory Exam Respiratory Exam: Clear to Ausculation Bilateral, NORMAL BREATHING PATTERN - Cardiovascular Exam Cardiovascular Exam: REGULAR RHYTHM - GI/Abdominal Exam GI & Abdominal Exam: Soft, Normal Bowel Sounds. absent: Tenderness, Mass - Rectal Exam Rectal Exam: Deferred - Extremities Exam Additional comments: LEGS HEALING SEE ABOVE-FREE WRITTEN NOTES. Assessment and Plan (1) Pedal edema Status: Resolved (2) Bleeding from varicose veins of left lower extremity Status: Resolved (3) Temperature increase Status: Acute (4) DVT (deep venous thrombosis) Status: Chronic (5) CAD (coronary artery disease) Status: Chronic (6) ESBL (extended spectrum beta-lactamase) producing bacteria infection Status: Acute (7) Wheezing on expiration Status: Acute
[2016-11-17] MEDS: Potassium Chloride 20 mEq ER Tab PO SCH (18:05)
--- NOTE | 2016-11-17 18:57 | CP.PCM.CON ---
Past Patient History - Tetanus Immunizations Tetanus Immunization: Allergy to Tetanus Vaccine - Past Medical History & Family History Past Medical History?: Yes - Past Social History Smoking Status: Unknown If Ever Smoked Chewing Tobacco Use: No Cigar Use: No Alcohol: Occasional Drugs: Denies - CARDIAC Hx Hypercholesterolemia: Yes Hx Hypertension: Yes - PULMONARY Hx Bronchitis: Yes - HEENT Hx Deafness: Yes ((?)) - RENAL Hx Chronic Kidney Disease: No - HEMATOLOGICAL/ONCOLOGICAL Hx Blood Disorders: No Hx Bruising: No - INTEGUMENTARY Hx Dermatological Problems: Yes Hx Cellulitis: Yes - MUSCULOSKELETAL/RHEUMATOLOGICAL Hx Back Pain: Yes Hx Falls: No - GASTROINTESTINAL Hx Gastrointestinal Disorders: Yes - GENITOURINARY/GYNECOLOGICAL Hx Genitourinary Disorders: No - PSYCHIATRIC Hx Substance Use: No - SURGICAL HISTORY Hx Coronary Stent: Yes - ANESTHESIA Hx Anesthesia: Yes Hx Anesthesia Reactions: No Meds Allergies/Adverse Reactions: Allergies Allergy/AdvReac Type Severity Reaction Status Date / Time No Known Allergies Allergy Verified 10/23/16 14:58 - Medications Medications: Current Medications Acetaminophen (Tylenol 325mg Tab) 650 mg PO Q6 PRN PRN Reason: Temperature Last Admin: 11/16/16 17:59 Dose: 650 mg Enoxaparin Sodium (Lovenox) 40 mg SC DAILY [facility] Last Admin: 11/17/16 11:29 Dose: 40 mg Famotidine (Pepcid) 20 mg PO DAILY [facility] Last Admin: 11/17/16 11:29 Dose: 20 mg Furosemide (Lasix) 20 mg PO DAILY [facility] Last Admin: 11/17/16 11:29 Dose: 20 mg Ceftazidime/Avibactam 2.5 gm/ (Sodium Chloride) 100 mls @ 50 mls/hr IV Q8H [facility] Last Admin: 11/17/16 11:31 Dose: 50 mls/hr Petrolatum (Desitin Original) 1 gm TOP DAILY [facility] Last Admin: 11/17/16 11:48 Dose: 1 applic Potassium Chloride (K-Dur 20 Meq Er Tab) 20 meq PO DAILY [facility] Saccharomyces Boulardii (Florastor) 250 mg PO BID [facility] Last Admin: 11/17/16 11:48 Dose: 250 mg Results - Vital Signs Recent Vital Signs: Last Vital Signs Temp 97.8 F 11/17/16 15:30 Pulse 103 H 11/17/16 15:30 Resp 20 11/17/16 15:30 BP 144/71 11/17/16 15:30 Pulse Ox 97 11/17/16 15:30 - Labs Result Diagrams: 11/17/16 14:42 11/17/16 14:42 Labs: Laboratory Results - last 24 hr 11/17/16 11/17/16 14:42 14:42 WBC 10.0 RBC 3.75 L Hgb 11.5 D Hct 34.6 MCV 92.3 MCH 30.7 MCHC 33.3 RDW 14.8 H Plt Count 318 MPV 8.6 Neut % (Auto) 81.0 H Lymph % (Auto) 7.5 L Eddy % (Auto) 7.2 Eos % (Auto) 4.2 H Baso % (Auto) 0.1 Neut # 8.1 H Lymph # 0.8 L Eddy # 0.7 Eos # 0.4 Baso # 0.0 Neutrophils % (Manual) 79 H Band Neutrophils % 1 Lymphocytes % (Manual) 8 L Monocytes % (Manual) 7 Eosinophils % (Manual) 5 H Platelet Estimate Normal RBC Morphology Normal Sodium 126 L Potassium 3.4 L Chloride 91 L Carbon Dioxide 24 Anion Gap 15 BUN 13 Creatinine 0.6 L Est GFR ( Amer) > 60 Est GFR (Non-Af Amer) > 60 Random Glucose 133 H Calcium 7.9 L
--- NOTE | 2016-11-17 18:58 | CP.PCM.PN ---
Subjective - Date & Time of Evaluation Date of Evaluation: 11/17/16 Time of Evaluation: 03:10 Objective - Vital Signs/Intake and Output Vital Signs (last 24 hours): Temp Pulse Resp BP Pulse Ox 97.8 F 103 H 20 144/71 97 11/17/16 15:30 11/17/16 15:30 11/17/16 15:30 11/17/16 15:30 11/17/16 15:30 Intake and Output: 11/17/16 11/17/16 06:59 18:59 Intake Total 620 Balance 620 - Medications Medications: Current Medications Acetaminophen (Tylenol 325mg Tab) 650 mg PO Q6 PRN PRN Reason: Temperature Last Admin: 11/16/16 17:59 Dose: 650 mg Enoxaparin Sodium (Lovenox) 40 mg SC DAILY [facility] Last Admin: 11/17/16 11:29 Dose: 40 mg Famotidine (Pepcid) 20 mg PO DAILY [facility] Last Admin: 11/17/16 11:29 Dose: 20 mg Furosemide (Lasix) 20 mg PO DAILY [facility] Last Admin: 11/17/16 11:29 Dose: 20 mg Ceftazidime/Avibactam 2.5 gm/ (Sodium Chloride) 100 mls @ 50 mls/hr IV Q8H [facility] Last Admin: 11/17/16 11:31 Dose: 50 mls/hr Petrolatum (Desitin Original) 1 gm TOP DAILY [facility] Last Admin: 11/17/16 11:48 Dose: 1 applic Potassium Chloride (K-Dur 20 Meq Er Tab) 20 meq PO DAILY [facility] Saccharomyces Boulardii (Florastor) 250 mg PO BID [facility] Last Admin: 11/17/16 11:48 Dose: 250 mg - Labs Labs: 11/17/16 14:42 11/17/16 14:42 PT 15.2 SECONDS (9.7-12.2) H 11/12/16 12:26 INR 1.3 11/12/16 12:26 APTT 31 SECONDS (21-34) 11/12/16 12:26
--- NOTE | 2016-11-18 01:41 | PN ---
DATE: 11/17/2016 SUBJECTIVE: The patient was seen by me on 11/17/2016 at 11:30. The patient was sitting up with the fa hang members out of bed to chair, but the patient is not having a good appetite and now poor intake n oted. Denied any diarrhea. PHYSICAL EXAMINATION: VITAL SIGNS: Temperature is 99.5, pulse is 111, blood pressure 168/87, saturation is 97% on nasal ca nnula. HEENT: PERRLA. NECK: Supple. CHEST: Good air entry bilaterally. CARDIOVASCULAR: Regular heart. EXTREMITIES: Edema in the bilateral legs noted. ASSESSMENT AND RECOMMENDATIONS: An 86-year-old female admitted with multiple medical problems includ ing coronary artery disease, hypertension, recently hospitalized with urinary tract infection, and ce llulitis complicated now with drug-resistant Escherichia coli infection, extended-spectrum beta lacta gena positive, along with the failure to improve with the current antibiotic. The patient's antibiot ic was recently changed by ID. She is responding slowly. LABORATORY DATA: No fever in the last 24 hours. PLAN: We will continue to monitor and we will follow up the patient. Clara Landeros MD cc: [id number] TT: 11/18/2016 01:40:24 Confirmation # [id number] Dictation # [id number] vn
--- NOTE | 2016-11-18 07:46 | CARD ---
APPROVED REPORT EKG Measurement Heart [id number] <Conclusion> Sinus tachycardia Possible Left atrial enlargement Borderline ECG
--- NOTE | 2016-11-18 08:21 | CARD ---
APPROVED REPORT EXAM: Two-dimensional and M-mode echocardiogram with Doppler and color Doppler. Other Information Quality : AverageRhythm : NSR INDICATION LEG EDEMA, UTI, RISK FACTORS Hypertension Hyperlipidemia 2D DIMENSIONS LVOT Diameter1.6 (1.8-2.4cm) M-Mode DIMENSIONS RVDd0.91 (2.1-3.2cm)Left Atrium (MM)3.52 (2.5-4.0cm) IVSd1.21 (0.7-1.1cm)Aortic Root2.67 (2.2-3.7cm) LVDd3.22 (4.0-5.6cm)Aortic Cusp Exc.0.79 (1.5-2.0cm) PWd0.91 (0.7-1.1cm)FS (%) 33 % LVDs2.16 (2.0-3.8cm)LVEF (%)63 (>50%) Aortic Valve AoV Peak Lnqqsoif259.2cm/sAoV VTI60.2cmAO Peak GR.45mmHg LVOT Peak Vnkvwwpz089.7cm/sLVOT VTI31.74cmAO Mean GR.29mmHg CYRIL (VMAX)0.49cc5IFS (VTI)1.36ln0DU P 1/2 Xxbv329dx Mitral Valve MV E Gjxjzyfd78.4cm/sMV A Nzxdgxeu135.7cm/sE/A ratio0.6 TDI E/Lateral E'0.0E/Medial E'0.0 Tricuspid Valve TR Peak Wxbhghqu944hf/sTR Peak Gr.89hhTsSQDW29ljTd LEFT VENTRICLE The left ventricle is normal size. There is moderate concentric left ventricular hypertrophy. The left ventricular function is normal. The left ventricular ejection fraction is within the normal range. The Ejection Fraction is 55-60%. No regional wall motion abnormalities noted. Tissue Doppler imaging reveals abnormal left ventricular diastolic dysfunction. No left ventricle thrombus noted on this study. There is no ventricular septal defect visualized. There is no left ventricular aneurysm. There is no mass noted in the left ventricle. RIGHT VENTRICLE The right ventricle is normal size. There is normal right ventricular wall thickness. The right ventricular systolic function is normal. ATRIA The left atrium size is normal. The right atrium size is normal. The interatrial septum is intact with no evidence for an atrial septal defect. AORTIC VALVE The aortic valve is normal in structure and function. No aortic regurgitation is present. There is severe valvular aortic stenosis. Calculated aortic valve area is .9 cm2 with maximum pressure gradient of mmHg and mean pressure gradient of mmHg. There is no aortic valvular vegetation. MITRAL VALVE The mitral valve is normal in structure and function. There is no evidence of mitral valve prolapse. There is no mitral valve stenosis. There is no mitral valve regurgitation noted. TRICUSPID VALVE The tricuspid valve is normal in structure and function. There is no tricuspid valve regurgitation noted. There is no tricuspid valve prolapse or vegetation. There is no tricuspid valve stenosis. PULMONIC VALVE The pulmonary valve is normal in structure and function. There is no pulmonic valvular regurgitation. There is no pulmonic valvular stenosis. GREAT VESSELS The aortic root is normal in size. The ascending aorta is normal in size. The pulmonary artery is normal. The IVC is normal in size and collapses >50% with inspiration. PERICARDIAL EFFUSION The pericardium appears normal. There is no pleural effusion. <Conclusion> The left ventricle is normal size. There is moderate concentric left ventricular hypertrophy. The left ventricular ejection fraction is within the normal range. The Ejection Fraction is 55-60%. Tissue Doppler imaging reveals abnormal left ventricular diastolic dysfunction. There is severe valvular aortic stenosis.
--- NOTE | 2016-11-18 09:21 | CP.PCM.PN ---
Subjective - Date & Time of Evaluation Date of Evaluation: 11/18/16 Time of Evaluation: 07:15 - Subjective Subjective: Cardiology progress note Dr Cesar Patient seen and examined at the bedside. No acute distress. No acute events overnight as per patient and nursing. Patient still complains of shortness of breath, but improved again as compared to yesterday. LE edema also improved today. The patient denies other cardiopulmonary complaints. 12 point review of systems was completed and returned negative aside from the above stated complaints. Objective - Vital Signs/Intake and Output Vital Signs (last 24 hours): Temp Pulse Resp BP Pulse Ox 98.2 F 93 H 20 145/82 96 11/18/16 07:35 11/18/16 07:35 11/18/16 07:35 11/18/16 07:35 11/18/16 07:35 Intake and Output: 11/18/16 11/18/16 06:59 18:59 Intake Total 700 Balance 700 - Medications Medications: Current Medications Acetaminophen (Tylenol 325mg Tab) 650 mg PO Q6 PRN PRN Reason: Temperature Last Admin: 11/16/16 17:59 Dose: 650 mg Enoxaparin Sodium (Lovenox) 40 mg SC DAILY [facility] Last Admin: 11/17/16 11:29 Dose: 40 mg Famotidine (Pepcid) 20 mg PO DAILY [facility] Last Admin: 11/17/16 11:29 Dose: 20 mg Furosemide (Lasix) 20 mg PO DAILY [facility] Last Admin: 11/17/16 11:29 Dose: 20 mg Ceftazidime/Avibactam 2.5 gm/ (Sodium Chloride) 100 mls @ 50 mls/hr IV Q8H [facility] Last Admin: 11/18/16 01:45 Dose: 50 mls/hr Petrolatum (Desitin Original) 1 gm TOP DAILY [facility] Last Admin: 11/17/16 11:48 Dose: 1 applic Potassium Chloride (K-Dur 20 Meq Er Tab) 20 meq PO DAILY [facility] Last Admin: 11/17/16 18:05 Dose: 20 meq Saccharomyces Boulardii (Florastor) 250 mg PO BID [facility] Last Admin: 11/17/16 18:50 Dose: 250 mg - Labs Labs: 11/17/16 14:42 11/17/16 14:42 PT 15.2 SECONDS (9.7-12.2) H 11/12/16 12:26 INR 1.3 11/12/16 12:26 APTT 31 SECONDS (21-34) 11/12/16 12:26 - Additional Findings Additional findings: - Constitutional Appears: Well, Non-toxic, No Acute Distress, Resting comfortably in bed - Head Exam Head Exam: ATRAUMATIC, NORMAL INSPECTION, NORMOCEPHALIC - Eye Exam Eye Exam: EOMI, Normal appearance. absent: Conjunctival injection, Scleral icterus Pupil Exam: absent: Irregular, Unequal - ENT Exam ENT Exam: Mucous Membranes Moist - Neck Exam Neck Exam: absent: Tenderness, JVD - Respiratory Exam Respiratory Exam: Decreased Breath Sounds (mildly decreased breath sounds all [place], unchanged from yesterday), absent: Wheezes, Accessory Muscle Use, Chest Wall Tenderness, Rales, Rhonchi, Respiratory Distress - Cardiovascular Exam Cardiovascular Exam: Regular Rate and Rhythm, +S1, +S2, Loud systolic grade V murmur most prominent right 2nd intercostal space. absent: Tachycardia, Bradycardia - GI/Abdominal Exam GI & Abdominal Exam: Soft, Normal Bowel Sounds. absent: Distended, Firm - Extremities Exam Extremities Exam: +1 pitting edema in bilateral LE, mild healed wounds along anterior surface of both LE, bandaging along LLE anterior surface, LE skin discoloration of bilateral feet and ankles. absent: Calf Tenderness, Normal Inspection, Coldness to palpation - Neurological Exam Neurological Exam: Sleeping but easily aroused, awake and alert after, moving extremities spontaneously - Psychiatric Exam Psychiatric exam: Anxious, Normal Affect - Skin Skin Exam: Dry, Intact, Normal Color (except as noted in Extremities exam), Warm Assessment and Plan (1) Shortness of breath Assessment & Plan: EKG on 06/01/15: NSR at 64, normal EKG EKG on 11/12/16: sinus tachy at 104, possible LA enlargement Echo on 11/12/16: LVEF 63%, Moderate concentric LVH, abnormal LV diastolic dysfxn , Severe valvular -aortic stenosis vs 2/2 pulmonary etiology (former smoker) vs 2/2 infectious etiology (persisting LE cellulitis) -goal is to reduce afterload without aggressively reducing preload -Continue Lasix 20mg PO daily -may need TAVR given symptomatic -Trops 0.047, 0.092, continue to monitor -continue medical management Status: Acute (2) CAD (coronary artery disease) Assessment & Plan: EKG on 06/01/15: NSR at 64, normal EKG EKG on 11/12/16: sinus tachy at 104, possible LA enlargement Echo on 11/12/16: LVEF 63%, Moderate concentric LVH, abnormal LV diastolic dysfxn , Severe valvular -Stable; no chest pain, EKG unremarkable, trop negative x2 -continue medical management, Aspirin and Statin Status: Chronic (3) HTN (hypertension) Assessment & Plan: -longstanding -given symptomatic , want to reduce afterload without dramatically reducing preload -continue Lasix 20mg PO daily -continue medical management Status: Chronic (4) Pedal edema Assessment & Plan: EKG on 06/01/15: NSR at 64, normal EKG EKG on 11/12/16: sinus tachy at 104, possible LA enlargement Echo on 11/12/16: LVEF 63%, Moderate concentric LVH, abnormal LV diastolic dysfxn , Severe valvular -More likely 2/2 LE cellulitis than cardiac etiology -Swelling improved on current antibiotic course -Continue medical management, including lasix and antibiotics (as per ID) Case discussed with Dr. Cesar Status: Resolved
[2016-11-18] MEDS: Saccharomyces Boulardi 250 mg Cap PO SCH ×2 (09:33→19:34)
[2016-11-18] MEDS: Potassium Chloride 20 mEq ER Tab PO SCH (09:33)
[2016-11-18] MEDS: Enoxaparin 40 mg Syringe SC SCH (09:33)
[2016-11-18] MEDS: Zinc Oxide Topical 30 gm Tube TOP SCH (09:34)
[2016-11-18 13:04] LABS: RBC URINE 1 /hpf (0-3); URINE BILIRUBIN NEGATIVE (NEGATIVE); URINE BLOOD NEGATIVE (NEGATIVE); URINE COLOR Yellow (YELLOW); URINE GLUCOSE (UA) NORMAL (Normal); URINE KETONE TRACE mg/dL (NEGATIVE); URINE LEUKOCYTE ESTERASE NEG Leu/uL (Negative); URINE PROTEIN NEGATIVE (NEGATIVE); URINE UROBILINOGEN NORMAL mg/dL (0.2-1.0); WBC URINE 2 /hpf (0-5)
[2016-11-18 13:06] LABS: CHLORIDE 94 mmol/L (98-107)
[2016-11-18 13:07] LABS: POTASSIUM 3.3 mmol/L (3.6-5.2); SODIUM 129 mmol/L (132-148)
[2016-11-18 13:08] LABS: GFR AFRICAN-AMERICAN > 60
[2016-11-18 13:09] LABS: BLOOD UREA NITROGEN 14 mg/dL (7-17); CALCIUM 7.5 mg/dl (8.6-10.4); CARBON DIOXIDE 29 mmol/L (22-30); GLUCOSE,RANDOM 100 mg/dL (65-105)
--- NOTE | 2016-11-18 21:33 | PN ---
DATE: 11/18/2016 SUBJECTIVE: The patient is sitting upright now, having some exertional dyspnea, shortness of breath noted, but the patient is feeling comfortable. She claims that she is not in any distress. Cough is noted. Mucus production slightly present. No chest pain currently. The patient is eating slightly better than yesterday. Diarrhea is negative. Leg swelling 1+ noted bilaterally. PHYSICAL EXAMINATION: VITAL SIGNS: Reviewed. Temperature is 98, pulse 101, blood pressure 132/81, saturation 94% on nasal cannula. HEENT: PERRLA. CHEST: Bilateral diffuse wheezing and rhonchi noted. CARDIOVASCULAR: Regular heart tones. ABDOMEN: Nontender abdomen. EXTREMITIES: 2+ pedal edema bilaterally noted. MEDICATIONS: Reviewed. Currently, patient is on an aspirin, Crestor, zinc oxide, probiotic, L ovenox and Pepcid. The patient recently had echocardiogram also showing evidence of aortic stenosis. ASSESSMENT AND RECOMMENDATIONS: The patient is an 86-year-old female with medical problems including hypertension, aortic stenosis, pedal edema, admitted with cellulitis and also complicated with a fev er of unclear etiology. The patient is currently improving. No fever recently in the last 24 hours. The patient is doing okay, but at this time the patient is having possibility of congestive heart f ailure fluid overload state. Lasix was given. An x-ray ordered and we will follow up the patient. Clara Landeros MD cc: [id number] TT: 11/18/2016 21:32:32 Confirmation # [id number] Dictation # [id number] [place]
--- NOTE | 2016-11-18 22:18 | CP.PCM.PN ---
Subjective - Date & Time of Evaluation Date of Evaluation: 11/18/16 Time of Evaluation: 22:06 - Subjective Subjective: INFECTIOUS DISEASE PROGRESS NOTE JOHNSON MADDOX MD, FACP 3T 354 11/18/2016 CHART REVIEWED PT EXAMINED CASE DISCUSSED PT IS RESPONDING NICELY TO AVYCAZ! SHE CLINICALLY FAILED PRIMAXIN! HER LEFT LEG IS HEALING, REVIEWED WITH RN CHRIS DELEON. CALLED BY RN CARE MANAGER TO REVIEW PTS URINALYSIS. AMZING RESPONSE TO APPROPIATE FDA TREATMENT. THANK YOU. WOULD FINISH AT LEAST 5 DAYS, FIRST DOSE GIVEN ON 11/15 AT 7'GEORGE PM. WOULD THINK POST TREATMENT TO OBSERVE ON HER ANTICOAGULANT AT HOME. [facility] IS GUARDED SECONDARY T CHRONIC LEG VASCULARIZATION AND DVT'S AND CARDIAC DISEASE. HOPEFULLY HER NEIGHBORS WILL NOT MASSAGE HER LEGS ANYMORE. Objective - Vital Signs/Intake and Output Vital Signs (last 24 hours): Temp Pulse Resp BP Pulse Ox 98.5 F 114 H 24 115/65 93 L 11/18/16 21:15 11/18/16 21:15 11/18/16 21:15 11/18/16 21:18 11/18/16 21:15 Intake and Output: 11/18/16 11/19/16 18:59 06:59 Intake Total 340 Output Total 400 Balance -60 - Medications Medications: Current Medications Acetaminophen (Tylenol 325mg Tab) 650 mg PO Q6 PRN PRN Reason: Temperature Last Admin: 11/16/16 17:59 Dose: 650 mg Aspirin (Aspirin Chewable) 81 mg PO DAILY [facility] Last Admin: 11/18/16 19:34 Dose: 81 mg Enoxaparin Sodium (Lovenox) 40 mg SC DAILY [facility] Last Admin: 11/18/16 09:33 Dose: 40 mg Famotidine (Pepcid) 20 mg PO DAILY [facility] Last Admin: 11/18/16 09:33 Dose: 20 mg Furosemide (Lasix) 20 mg PO DAILY [facility] Last Admin: 11/18/16 10:00 Dose: 20 mg Furosemide (Lasix) 20 mg IVP DAILY [facility] Ceftazidime/Avibactam 2.5 gm/ (Sodium Chloride) 100 mls @ 50 mls/hr IV Q8H [facility] Last Admin: 11/18/16 19:33 Dose: 50 mls/hr Petrolatum (Desitin Original) 1 gm TOP DAILY [facility] Last Admin: 11/18/16 09:34 Dose: 1 applic Potassium Chloride (K-Dur 20 Meq Er Tab) 20 meq PO DAILY [facility] Last Admin: 11/18/16 09:33 Dose: 20 meq Potassium Chloride (Potassium Chloride Oral Soln) 40 meq PO DAILY [facility] Stop: 11/21/16 10:01 Rosuvastatin Calcium (Crestor) 5 mg PO HS [facility] Last Admin: 11/18/16 21:17 Dose: 5 mg Saccharomyces Boulardii (Florastor) 250 mg PO BID [facility] Last Admin: 11/18/16 19:34 Dose: 250 mg - Labs Labs: 11/17/16 14:42 11/18/16 12:49 PT 15.2 SECONDS (9.7-12.2) H 11/12/16 12:26 INR 1.3 11/12/16 12:26 APTT 31 SECONDS (21-34) 11/12/16 12:26 - Constitutional Appears: Non-toxic, No Acute Distress, Older Than Stated Age - Head Exam Head Exam: ATRAUMATIC - Eye Exam Eye Exam: Normal appearance - ENT Exam ENT Exam: Mucous Membranes Moist - Neck Exam Neck Exam: Normal Inspection - Respiratory Exam Respiratory Exam: Decreased Breath Sounds, NORMAL BREATHING PATTERN. absent: Wheezes - Cardiovascular Exam Cardiovascular Exam: REGULAR RHYTHM - GI/Abdominal Exam GI & Abdominal Exam: Soft. absent: Tenderness - Rectal Exam Rectal Exam: Deferred - Neurological Exam Neurological Exam: Alert, Awake - Psychiatric Exam Psychiatric exam: Anxious, Flat Affect - Skin Skin Exam: Normal Color Assessment and Plan (1) Bleeding from varicose veins of left lower extremity Status: Resolved (2) Temperature increase Status: Resolved (3) DVT (deep venous thrombosis) Status: Chronic (4) CAD (coronary artery disease) Status: Chronic (5) ESBL (extended spectrum beta-lactamase) producing bacteria infection Assessment & Plan: ON AVYCAZ Status: Acute (6) Wheezing on expiration Status: Acute
--- NOTE | 2016-11-19 09:07 | CP.PCM.PN ---
Subjective - Date & Time of Evaluation Date of Evaluation: 11/19/16 Time of Evaluation: 07:50 - Subjective Subjective: Cardiology progress note Dr Cesar Patient seen and examined at the bedside. No acute distress. No acute events overnight as per patient and nursing. Patient still complains of shortness of breath, but improved again as compared to yesterday. LE edema resolved. The patient denies other cardiopulmonary complaints. 12 point review of systems was completed and returned negative aside from the above stated complaints. Objective - Vital Signs/Intake and Output Vital Signs (last 24 hours): Temp Pulse Resp BP Pulse Ox 98.5 F 100 H 20 148/76 97 11/19/16 06:00 11/19/16 06:00 11/19/16 06:00 11/19/16 00:00 11/19/16 06:00 Intake and Output: 11/19/16 11/19/16 06:59 18:59 Intake Total 900 Balance 900 - Medications Medications: Current Medications Acetaminophen (Tylenol 325mg Tab) 650 mg PO Q6 PRN PRN Reason: Temperature Last Admin: 11/16/16 17:59 Dose: 650 mg Aspirin (Aspirin Chewable) 81 mg PO DAILY [facility] Last Admin: 11/18/16 19:34 Dose: 81 mg Enoxaparin Sodium (Lovenox) 40 mg SC DAILY [facility] Last Admin: 11/18/16 09:33 Dose: 40 mg Famotidine (Pepcid) 20 mg PO DAILY [facility] Last Admin: 11/18/16 09:33 Dose: 20 mg Furosemide (Lasix) 20 mg PO DAILY [facility] Last Admin: 11/18/16 10:00 Dose: 20 mg Furosemide (Lasix) 20 mg IVP DAILY [facility] Ceftazidime/Avibactam 2.5 gm/ (Sodium Chloride) 100 mls @ 50 mls/hr IV Q8H [facility] Last Admin: 11/19/16 02:30 Dose: 50 mls/hr Petrolatum (Desitin Original) 1 gm TOP DAILY [facility] Last Admin: 11/18/16 09:34 Dose: 1 applic Potassium Chloride (K-Dur 20 Meq Er Tab) 20 meq PO DAILY [facility] Last Admin: 11/18/16 09:33 Dose: 20 meq Potassium Chloride (Potassium Chloride Oral Soln) 40 meq PO DAILY [facility] Stop: 11/21/16 10:01 Rosuvastatin Calcium (Crestor) 5 mg PO HS [facility] Last Admin: 11/18/16 21:17 Dose: 5 mg Saccharomyces Boulardii (Florastor) 250 mg PO BID [facility] Last Admin: 11/18/16 19:34 Dose: 250 mg - Labs Labs: 11/17/16 14:42 11/18/16 12:49 PT 15.2 SECONDS (9.7-12.2) H 11/12/16 12:26 INR 1.3 11/12/16 12:26 APTT 31 SECONDS (21-34) 11/12/16 12:26 - Additional Findings Additional findings: - Constitutional Appears: Well, Non-toxic, No Acute Distress, Resting comfortably in bed - Head Exam Head Exam: ATRAUMATIC, NORMAL INSPECTION, NORMOCEPHALIC - Eye Exam Eye Exam: EOMI, Normal appearance. absent: Conjunctival injection, Scleral icterus Pupil Exam: absent: Irregular, Unequal - ENT Exam ENT Exam: Mucous Membranes Moist - Neck Exam Neck Exam: absent: Tenderness, JVD - Respiratory Exam Respiratory Exam: Decreased Breath Sounds (mildly decreased breath sounds all [place], unchanged from yesterday), absent: Wheezes, Accessory Muscle Use, Chest Wall Tenderness, Rales, Rhonchi, Respiratory Distress - Cardiovascular Exam Cardiovascular Exam: Tachycardia, Regular Rhythm, +S1, +S2, Loud systolic murmur most prominent right 2nd intercostal space. absent: RRR, Bradycardia - GI/Abdominal Exam GI & Abdominal Exam: Soft, Normal Bowel Sounds. absent: Distended, Firm - Extremities Exam Extremities Exam: scattered small healed wounds along anterior surface of both LE, bandaging along LLE anterior surface, LE skin discoloration of bilateral feet and ankles. absent: Calf Tenderness, Normal Inspection, Coldness to palpation, Pitting edema - Neurological Exam Neurological Exam: Sleeping but easily aroused, awake and alert after, moving extremities spontaneously - Psychiatric Exam Psychiatric exam: Anxious, Normal Affect - Skin Skin Exam: Dry, Intact, Normal Color (except as noted in Extremities exam), Warm Assessment and Plan (1) Shortness of breath Assessment & Plan: EKG on 06/01/15: NSR at 64, normal EKG EKG on 11/12/16: sinus tachy at 104, possible LA enlargement Echo on 11/12/16: LVEF 63%, Moderate concentric LVH, abnormal LV diastolic dysfxn , Severe valvular -aortic stenosis vs 2/2 pulmonary etiology (former smoker) vs 2/2 infectious etiology (persisting LE cellulitis) -goal is to reduce afterload without aggressively reducing preload -Continue Lasix 20mg PO daily -may need TAVR given symptomatic -Trops 0.047, 0.092, continue to monitor -continue medical management Status: Acute (2) CAD (coronary artery disease) Assessment & Plan: EKG on 06/01/15: NSR at 64, normal EKG EKG on 11/12/16: sinus tachy at 104, possible LA enlargement Echo on 11/12/16: LVEF 63%, Moderate concentric LVH, abnormal LV diastolic dysfxn , Severe valvular -Stable; no chest pain, EKG unremarkable, trop negative x2 -continue medical management, Aspirin and Statin Status: Chronic (3) HTN (hypertension) Assessment & Plan: -longstanding -given symptomatic , want to reduce afterload without dramatically reducing preload -continue Lasix 20mg PO daily -continue medical management Status: Chronic (4) Pedal edema Assessment & Plan: EKG on 06/01/15: NSR at 64, normal EKG EKG on 11/12/16: sinus tachy at 104, possible LA enlargement Echo on 11/12/16: LVEF 63%, Moderate concentric LVH, abnormal LV diastolic dysfxn , Severe valvular -More likely 2/2 LE cellulitis than cardiac etiology -Swelling improved on current antibiotic course, now resolved -Continue medical management, including lasix and antibiotics (as per ID) Case discussed with Dr. Cesar Status: Resolved
--- NOTE | 2016-11-19 10:36 | RAD ---
HISTORY: chf COMPARISON: Comparison is made to 11/15/2016 FINDINGS: LUNGS: Interval worsening of heterogeneous opacities and small infiltrates in the lungs especially on the right since the previous exam. PLEURA: Blunting of both costophrenic angles suspicious for pleural effusions. CARDIOVASCULAR: The cardiac silhouette is enlarged OSSEOUS STRUCTURES: No significant abnormalities. VISUALIZED UPPER ABDOMEN: Normal. OTHER FINDINGS: None. IMPRESSION: Worsening opacities and reticular densities in the lungs since the previous exam. CHF versus infectious process.
[2016-11-19] MEDS: Saccharomyces Boulardi 250 mg Cap PO SCH ×2 (11:57→17:55)
[2016-11-19] MEDS: Potassium Chloride 20 mEq ER Tab PO SCH (11:58)
[2016-11-19] MEDS: Zinc Oxide Topical 30 gm Tube TOP SCH (11:59)
[2016-11-19 13:11] LABS: CHLORIDE 95 mmol/L (98-107)
[2016-11-19 13:12] LABS: POTASSIUM 3.9 mmol/L (3.6-5.2); SODIUM 129 mmol/L (132-148)
[2016-11-19 13:14] LABS: GFR AFRICAN-AMERICAN > 60
[2016-11-19 13:15] LABS: BLOOD UREA NITROGEN 13 mg/dL (7-17); CALCIUM 7.9 mg/dl (8.6-10.4); CARBON DIOXIDE 26 mmol/L (22-30); GLUCOSE,RANDOM 144 mg/dL (65-105)
[2016-11-19] MEDS: Enoxaparin 40 mg Syringe SC SCH (14:59)
[2016-11-19] MEDS: Potassium Chloride 20 mEq/15 ml LIQ UD PO SCH (15:01)
--- NOTE | 2016-11-19 21:02 | PN ---
DATE: 11/19/2016 The patient is responding appropriately to Avycaz as an antibiotic for her multidrug resistant UTI th at did not respond to multiple antibiotics. She is responding and should be continued, and probably at this point in time, discontinued on or about , which is tomorrow. At that point in time, lab works have been ordered for the morning. PHYSICAL EXAMINATION: LUNGS: Decreased wheezing. COR: Regular rhythm. ABDOMEN: Soft. EXTREMITIES: Legs are healing nicely. Continue through the night and consider discontinuing the Avycaz tomorrow. I will speak with Dr. Bryanna gautam concerning same. She needs to be followed because of her hypertension, aortic stenosis, pedal edema, resolving cellulitis, aortic stenosis, and fluid overload. Robert Banerjee MD cc: [id number] TT: 11/19/2016 21:01:50 Confirmation # [id number] Dictation # [id number]
[2016-11-20 06:39] LABS: BASO # 0.1 K/uL (0.0-0.2); BASO % 1.2 % (0.0-2.0); EOS % 9.3 % (0.0-4.0); HEMATOCRIT 30.5 % (34.0-47.0); LYMPH # 3.3 K/uL (1.0-4.3); LYMPH % 32.3 % (20.0-40.0); MEAN CELL VOLUME 91.2 fL (81.0-99.0); MEAN CORPUSCULAR HEMOGLOBIN 30.7 pg (27.0-31.0); MEAN CORPUSCULAR HGB CONC 33.7 g/dL (33.0-37.0); MEAN PLATELET VOLUME 8.2 fL (7.2-11.7); MONO % 10.1 % (0.0-10.0); NRBC % 0.1 % (0.0-2.0); RED CELL DISTRIBUTION WIDTH 15.2 % (11.5-14.5); WHITE BLOOD COUNT 10.3 K/uL (4.8-10.8)
[2016-11-20 06:48] LABS: CHLORIDE 97 mmol/L (98-107); POTASSIUM 3.3 mmol/L (3.6-5.2); SODIUM 133 mmol/L (132-148)
[2016-11-20 06:50] LABS: ALB/GLOB RATIO 0.7 (1.0-2.1); AST/SGOT 26 U/L (14-36); BILIRUBIN,TOTAL < 0.1 mg/dL (0.2-1.3); CARBON DIOXIDE 31 mmol/L (22-30); GFR AFRICAN-AMERICAN > 60; TOTAL PROTEIN 5.3 g/dL (6.3-8.3)
[2016-11-20 06:51] LABS: ALKALINE PHOSPHATASE 51 U/L (38-126); ALT/SGPT 34 U/L (9-52); BLOOD UREA NITROGEN 12 mg/dL (7-17); CALCIUM 7.6 mg/dl (8.6-10.4); GLUCOSE,RANDOM 93 mg/dL (65-105)
[2016-11-20] MEDS: Potassium Chloride 20 mEq/15 ml LIQ UD PO SCH (12:53)
[2016-11-20] MEDS: Saccharomyces Boulardi 250 mg Cap PO SCH ×2 (12:56→17:59)
[2016-11-20] MEDS: Potassium Chloride 20 mEq ER Tab PO SCH (12:56)
[2016-11-20] MEDS: Zinc Oxide Topical 30 gm Tube TOP SCH (12:58)
[2016-11-20] MEDS: Enoxaparin 40 mg Syringe SC SCH (13:09)
--- NOTE | 2016-11-20 13:18 | CP.PCM.PN ---
Subjective - Date & Time of Evaluation Date of Evaluation: 11/20/16 Time of Evaluation: 09:30 - Subjective Subjective: Cardiology progress note Dr Cesar Patient seen and examined at the bedside. No acute distress. No acute events overnight as per patient and nursing. Patient still complains of shortness of breath, but improved again as compared to yesterday. LE edema remains resolved. The patient denies other cardiopulmonary complaints. 12 point review of systems was completed and returned negative aside from the above stated complaints. Objective - Vital Signs/Intake and Output Vital Signs (last 24 hours): Temp Pulse Resp BP Pulse Ox 97.5 F L 93 H 20 142/88 97 11/20/16 09:00 11/20/16 09:00 11/20/16 09:00 11/20/16 12:57 11/20/16 09:00 Intake and Output: 11/20/16 11/20/16 06:59 18:59 Intake Total 740 Balance 740 - Medications Medications: Current Medications Acetaminophen (Tylenol 325mg Tab) 650 mg PO Q6 PRN PRN Reason: Temperature Last Admin: 11/16/16 17:59 Dose: 650 mg Aspirin (Aspirin Chewable) 81 mg PO DAILY [facility] Last Admin: 11/20/16 12:55 Dose: 81 mg Famotidine (Pepcid) 20 mg PO DAILY [facility] Last Admin: 11/20/16 12:55 Dose: 20 mg Furosemide (Lasix) 20 mg PO DAILY [facility] Last Admin: 11/20/16 12:57 Dose: 20 mg Furosemide (Lasix) 20 mg IVP DAILY [facility] Last Admin: 11/20/16 12:54 Dose: 20 mg Ceftazidime/Avibactam 2.5 gm/ (Sodium Chloride) 100 mls @ 50 mls/hr IV Q8H [facility] Last Admin: 11/20/16 12:54 Dose: 50 mls/hr Petrolatum (Desitin Original) 1 gm TOP DAILY [facility] Last Admin: 11/20/16 12:58 Dose: 1 applic Potassium Chloride (K-Dur 20 Meq Er Tab) 20 meq PO DAILY [facility] Last Admin: 11/20/16 12:56 Dose: 20 meq Potassium Chloride (Potassium Chloride Oral Soln) 40 meq PO DAILY [facility] Stop: 11/21/16 10:01 Last Admin: 11/20/16 12:53 Dose: 40 meq Rosuvastatin Calcium (Crestor) 5 mg PO HS [facility] Last Admin: 11/19/16 22:18 Dose: 5 mg Saccharomyces Boulardii (Florastor) 250 mg PO BID [facility] Last Admin: 11/20/16 12:56 Dose: 250 mg - Labs Labs: 11/20/16 06:22 11/20/16 06:22 PT 15.2 SECONDS (9.7-12.2) H 11/12/16 12:26 INR 1.3 11/12/16 12:26 APTT 31 SECONDS (21-34) 11/12/16 12:26 - Additional Findings Additional findings: - Constitutional Appears: Well, Non-toxic, No Acute Distress, Resting comfortably in bed - Head Exam Head Exam: ATRAUMATIC, NORMAL INSPECTION, NORMOCEPHALIC - Eye Exam Eye Exam: EOMI, Normal appearance. absent: Conjunctival injection, Scleral icterus Pupil Exam: absent: Irregular, Unequal - ENT Exam ENT Exam: Mucous Membranes Moist - Neck Exam Neck Exam: absent: Tenderness, JVD - Respiratory Exam Respiratory Exam: Decreased Breath Sounds (mildly decreased breath sounds all [place], improved from yesterday), absent: Wheezes, Accessory Muscle Use, Chest Wall Tenderness, Rales, Rhonchi, Respiratory Distress - Cardiovascular Exam Cardiovascular Exam: Regular Rhythm and Rhythm, +S1, +S2, Loud systolic murmur most prominent right 2nd intercostal space. absent: Tachycardia, Bradycardia - GI/Abdominal Exam GI & Abdominal Exam: Soft, Normal Bowel Sounds. absent: Distended, Firm - Extremities Exam Extremities Exam: scattered small healed wounds along anterior surface of both LE, bandaging along LLE anterior surface, LE skin discoloration of bilateral feet and ankles. absent: Calf Tenderness, Normal Inspection, Coldness to palpation, Pitting edema - Neurological Exam Neurological Exam: Awake and alert, moving extremities spontaneously - Psychiatric Exam Psychiatric exam: Normal Mood, Normal Affect - Skin Skin Exam: Dry, Intact, Normal Color (except as noted in Extremities exam), Warm Assessment and Plan (1) Shortness of breath Assessment & Plan: EKG on 06/01/15: NSR at 64, normal EKG EKG on 11/12/16: sinus tachy at 104, possible LA enlargement Echo on 11/12/16: LVEF 63%, Moderate concentric LVH, abnormal LV diastolic dysfxn , Severe valvular -aortic stenosis vs 2/2 pulmonary etiology (former smoker) vs 2/2 infectious etiology (persisting LE cellulitis) -given severe , want to avoid excessive preload reduction -Continue Lasix 20mg PO daily -likely needs TAVR given symptomatic -Trops 0.047, 0.092, continue to monitor -continue medical management Status: Acute (2) CAD (coronary artery disease) Assessment & Plan: EKG on 06/01/15: NSR at 64, normal EKG EKG on 11/12/16: sinus tachy at 104, possible LA enlargement Echo on 11/12/16: LVEF 63%, Moderate concentric LVH, abnormal LV diastolic dysfxn , Severe valvular -Stable; no chest pain, EKG unremarkable, trop negative x2 -continue medical management, Aspirin and Statin Status: Chronic (3) HTN (hypertension) Assessment & Plan: -longstanding -given symptomatic , want to avoid aggressively reducing preload -continue Lasix 20mg PO daily -continue medical management Status: Chronic (4) Pedal edema Assessment & Plan: EKG on 06/01/15: NSR at 64, normal EKG EKG on 11/12/16: sinus tachy at 104, possible LA enlargement Echo on 11/12/16: LVEF 63%, Moderate concentric LVH, abnormal LV diastolic dysfxn , Severe valvular -More likely 2/2 LE cellulitis than cardiac etiology -Swelling improved on current antibiotic course, now resolved -Continue medical management, including lasix and antibiotics (as per ID) Case discussed with Dr. Cesar Status: Resolved
--- NOTE | 2016-11-20 18:43 | CP.PCM.PN ---
Subjective - Date & Time of Evaluation Date of Evaluation: 11/19/16 Time of Evaluation: 18:45 - Subjective Subjective: patient is sitting up, comfortable, not in any distress, but the exertional dyspnea nonoted Currently stillhaving mild shortness of breath. No fever, no chest pain, no diarrhea. On examination: Vital signs stable Chest bilateral wheezing noted. Regular heart sound, systolic murmur noted Abdomen soft, nontender, edema 1+ bilaterally Labs reviewed Yesterday chest x-ray showing evidence of possible CHF Assessment/recommendation: 86-year-old female history of hypertension, aortic stenosis, chronic pedal edema , venous insufficiency, recurrent cellulitis admitted with the fever, unclear etiology, responding to treatment. ESBL Escherichia coli urinary tract infection on On antibiotic DVT GI prophylaxis. Continue current treat. I spoke to the patient regarding the rehabilitatio patient is refusing Objective - Vital Signs/Intake and Output Vital Signs (last 24 hours): Temp Pulse Resp BP Pulse Ox 97 F L 108 H 21 135/79 94 L 11/20/16 15:45 11/20/16 15:45 11/20/16 15:45 11/20/16 15:45 11/20/16 15:45 Intake and Output: 11/20/16 11/20/16 06:59 18:59 Intake Total 740 Balance 740 - Medications Medications: Current Medications Acetaminophen (Tylenol 325mg Tab) 650 mg PO Q6 PRN PRN Reason: Temperature Last Admin: 11/16/16 17:59 Dose: 650 mg Aspirin (Aspirin Chewable) 81 mg PO DAILY [facility] Last Admin: 11/20/16 12:55 Dose: 81 mg Famotidine (Pepcid) 20 mg PO DAILY [facility] Last Admin: 11/20/16 12:55 Dose: 20 mg Furosemide (Lasix) 20 mg PO DAILY [facility] Last Admin: 11/20/16 12:57 Dose: 20 mg Furosemide (Lasix) 20 mg IVP DAILY [facility] Last Admin: 11/20/16 12:54 Dose: 20 mg Petrolatum (Desitin Original) 1 gm TOP DAILY [facility] Last Admin: 11/20/16 12:58 Dose: 1 applic Potassium Chloride (K-Dur 20 Meq Er Tab) 20 meq PO DAILY [facility] Last Admin: 11/20/16 12:56 Dose: 20 meq Potassium Chloride (Potassium Chloride Oral Soln) 40 meq PO DAILY [facility] Stop: 11/21/16 10:01 Last Admin: 11/20/16 12:53 Dose: 40 meq Rosuvastatin Calcium (Crestor) 5 mg PO HS [facility] Last Admin: 11/19/16 22:18 Dose: 5 mg Saccharomyces Boulardii (Florastor) 250 mg PO BID [facility] Last Admin: 11/20/16 17:59 Dose: 250 mg - Labs Labs: 11/20/16 06:22 11/20/16 06:22 PT 15.2 SECONDS (9.7-12.2) H 11/12/16 12:26 INR 1.3 11/12/16 12:26 APTT 31 SECONDS (21-34) 11/12/16 12:26
--- NOTE | 2016-11-20 18:49 | CP.PCM.PN ---
Subjective - Date & Time of Evaluation Date of Evaluation: 11/20/16 Time of Evaluation: 18:48 - Subjective Subjective: Patient today comfortable. Still on oxygen. Not able to walk. Leg swelling is noted. Denies any chest pain or shortness of breath. But the exertional dyspnea noted. Poor appetite. Left leg edema noted Objective - Vital Signs/Intake and Output Vital Signs (last 24 hours): Temp Pulse Resp BP Pulse Ox 97 F L 108 H 21 135/79 94 L 11/20/16 15:45 11/20/16 15:45 11/20/16 15:45 11/20/16 15:45 11/20/16 15:45 Intake and Output: 11/20/16 11/20/16 06:59 18:59 Intake Total 740 Balance 740 - Medications Medications: Current Medications Acetaminophen (Tylenol 325mg Tab) 650 mg PO Q6 PRN PRN Reason: Temperature Last Admin: 11/16/16 17:59 Dose: 650 mg Aspirin (Aspirin Chewable) 81 mg PO DAILY [facility] Last Admin: 11/20/16 12:55 Dose: 81 mg Famotidine (Pepcid) 20 mg PO DAILY [facility] Last Admin: 11/20/16 12:55 Dose: 20 mg Furosemide (Lasix) 20 mg PO DAILY [facility] Last Admin: 11/20/16 12:57 Dose: 20 mg Furosemide (Lasix) 20 mg IVP DAILY [facility] Last Admin: 11/20/16 12:54 Dose: 20 mg Petrolatum (Desitin Original) 1 gm TOP DAILY [facility] Last Admin: 11/20/16 12:58 Dose: 1 applic Potassium Chloride (K-Dur 20 Meq Er Tab) 20 meq PO DAILY [facility] Last Admin: 11/20/16 12:56 Dose: 20 meq Potassium Chloride (Potassium Chloride Oral Soln) 40 meq PO DAILY [facility] Stop: 11/21/16 10:01 Last Admin: 11/20/16 12:53 Dose: 40 meq Rosuvastatin Calcium (Crestor) 5 mg PO HS [facility] Last Admin: 11/19/16 22:18 Dose: 5 mg Saccharomyces Boulardii (Florastor) 250 mg PO BID [facility] Last Admin: 11/20/16 17:59 Dose: 250 mg chest bilateral good air entry, regular heart sound, nontender abdomen edema bilaterally - Labs Labs: 11/20/16 06:22 11/20/16 06:22 PT 15.2 SECONDS (9.7-12.2) H 11/12/16 12:26 INR 1.3 11/12/16 12:26 APTT 31 SECONDS (21-34) 11/12/16 12:26 Assessment and Plan (1) ESBL (extended spectrum beta-lactamase) producing bacteria infection Assessment & Plan: responding to treatment, on antibiotic. Patient finishing up at t. meanwhile patient developed CHF. Continue the current treatmeLasix. Physical therapy. We'll follow the patient. Status: Acute (2) Fever Status: Acute - Assessment and Plan (Free Text) Assessment: spoke to the patient regarding the rehabilita, patient refusing to go to. Patient is willing to go possibly will discharge in the morning
[2016-11-21 07:31] LABS: BASO # 0.1 K/uL (0.0-0.2); BASO % 0.9 % (0.0-2.0); EOS # 1.1 K/uL (0.0-0.7); EOS % 9.2 % (0.0-4.0); LYMPH # 3.9 K/uL (1.0-4.3); LYMPH % 31.9 % (20.0-40.0); MEAN CELL VOLUME 92.5 fL (81.0-99.0); MEAN CORPUSCULAR HEMOGLOBIN 30.2 pg (27.0-31.0); MEAN CORPUSCULAR HGB CONC 32.7 g/dL (33.0-37.0); MEAN PLATELET VOLUME 8.2 fL (7.2-11.7); MONO # 1.1 K/uL (0.0-0.8); MONO % 9.2 % (0.0-10.0); NRBC % 0.1 % (0.0-2.0); RED CELL DISTRIBUTION WIDTH 15.3 % (11.5-14.5); WHITE BLOOD COUNT 12.2 K/uL (4.8-10.8)
[2016-11-21 08:08] LABS: CHLORIDE 99 mmol/L (98-107); POTASSIUM 3.5 mmol/L (3.6-5.2); SODIUM 135 mmol/L (132-148)
[2016-11-21 08:11] LABS: BLOOD UREA NITROGEN 11 mg/dL (7-17); CARBON DIOXIDE 30 mmol/L (22-30); GFR AFRICAN-AMERICAN > 60; GLUCOSE,RANDOM 90 mg/dL (65-105)
[2016-11-21 08:12] LABS: CALCIUM 7.4 mg/dl (8.6-10.4)
--- NOTE | 2016-11-21 08:40 | RAD ---
HISTORY: Congestive heart failure COMPARISON: 11/18/2016 FINDINGS: LUNGS: Lines and tubes in stable position. Dense diffuse confluent bilateral airspace opacities with small bilateral pleural effusions. . PLEURA: As above. CARDIOVASCULAR: Cardiomegaly. OSSEOUS STRUCTURES: Degenerative changes in the spine and shoulders. VISUALIZED UPPER ABDOMEN: Normal. OTHER FINDINGS: None. IMPRESSION: No significant interval change.
--- NOTE | 2016-11-21 10:41 | CP.PCM.PN ---
Subjective - Date & Time of Evaluation Date of Evaluation: 11/21/16 Time of Evaluation: 07:40 - Subjective Subjective: Cardiology progress note Dr Cesar Patient seen and examined at the bedside. No acute distress. No acute events overnight as per patient and nursing. Mild shortness of breath persists, but significantly better compared to severity on presentation as per pt. LE edema remains resolved. The patient denies other cardiopulmonary complaints. 12 point review of systems was completed and returned negative aside from the above stated complaints. Objective - Vital Signs/Intake and Output Vital Signs (last 24 hours): Temp Pulse Resp BP Pulse Ox 98.4 F 106 H 20 146/67 93 L 11/21/16 08:41 11/21/16 08:41 11/21/16 08:41 11/21/16 08:41 11/21/16 08:41 Intake and Output: 11/21/16 11/21/16 06:59 18:59 Intake Total 520 Balance 520 - Medications Medications: Current Medications Acetaminophen (Tylenol 325mg Tab) 650 mg PO Q6 PRN PRN Reason: Temperature Last Admin: 11/16/16 17:59 Dose: 650 mg Aspirin (Aspirin Chewable) 81 mg PO DAILY [facility] Last Admin: 11/20/16 12:55 Dose: 81 mg Famotidine (Pepcid) 20 mg PO DAILY [facility] Last Admin: 11/20/16 12:55 Dose: 20 mg Furosemide (Lasix) 20 mg PO DAILY [facility] Last Admin: 11/20/16 12:57 Dose: 20 mg Furosemide (Lasix) 20 mg IVP DAILY [facility] Last Admin: 11/20/16 12:54 Dose: 20 mg Multivitamins/Minerals (Therapeutic-M Tab) 1 tab PO DAILY [facility] Petrolatum (Desitin Original) 1 gm TOP DAILY [facility] Last Admin: 11/20/16 12:58 Dose: 1 applic Potassium Chloride (K-Dur 20 Meq Er Tab) 20 meq PO DAILY [facility] Last Admin: 11/20/16 12:56 Dose: 20 meq Rosuvastatin Calcium (Crestor) 5 mg PO HS [facility] Last Admin: 11/20/16 22:01 Dose: 5 mg Saccharomyces Boulardii (Florastor) 250 mg PO BID [facility] Last Admin: 11/20/16 17:59 Dose: 250 mg - Labs Labs: 11/21/16 07:07 11/21/16 07:07 PT 15.2 SECONDS (9.7-12.2) H 11/12/16 12:26 INR 1.3 11/12/16 12:26 APTT 31 SECONDS (21-34) 11/12/16 12:26 - Additional Findings Additional findings: - Constitutional Appears: Well, Non-toxic, No Acute Distress, Resting comfortably in bed - Head Exam Head Exam: ATRAUMATIC, NORMAL INSPECTION, NORMOCEPHALIC - Eye Exam Eye Exam: EOMI, Normal appearance. absent: Conjunctival injection, Scleral icterus Pupil Exam: absent: Irregular, Unequal - ENT Exam ENT Exam: Mucous Membranes Moist - Neck Exam Neck Exam: absent: Tenderness, JVD - Respiratory Exam Respiratory Exam: Decreased Breath Sounds (mildly decreased breath sounds all [place], unchanged from yesterday), absent: Wheezes, Accessory Muscle Use, Chest Wall Tenderness, Rales, Rhonchi, Respiratory Distress - Cardiovascular Exam Cardiovascular Exam: Regular Rhythm and Rhythm, +S1, +S2, Loud systolic murmur most prominent right 2nd intercostal space. absent: Tachycardia, Bradycardia - GI/Abdominal Exam GI & Abdominal Exam: Soft, Normal Bowel Sounds. absent: Distended, Firm - Extremities Exam Extremities Exam: scattered small healed wounds along anterior surface of both LE, bandaging along LLE anterior surface with significantly reddened skin and healing LE ulcerations under the bandaging, LE skin discoloration of bilateral feet and ankles. absent: Calf Tenderness, Normal Inspection, Coldness to palpation, Pitting edema - Neurological Exam Neurological Exam: Awake and alert, moving extremities spontaneously - Psychiatric Exam Psychiatric exam: Normal Mood, Normal Affect - Skin Skin Exam: Dry, Intact, Normal Color (except as noted in Extremities exam), Warm Assessment and Plan (1) Shortness of breath Assessment & Plan: EKG on 06/01/15: NSR at 64, normal EKG EKG on 11/12/16: sinus tachy at 104, possible LA enlargement Echo on 11/12/16: LVEF 63%, Moderate concentric LVH, abnormal LV diastolic dysfxn , Severe valvular -aortic stenosis vs 2/2 pulmonary etiology (former smoker) vs 2/2 infectious etiology (persisting LE cellulitis) -given severe , want to avoid excessive preload reduction -Continue Lasix 20mg PO daily -will eventually need TAVR given symptomatic -Trops 0.047, 0.092, continue to monitor -continue medical management Status: Resolved (2) CAD (coronary artery disease) Assessment & Plan: EKG on 06/01/15: NSR at 64, normal EKG EKG on 11/12/16: sinus tachy at 104, possible LA enlargement Echo on 11/12/16: LVEF 63%, Moderate concentric LVH, abnormal LV diastolic dysfxn , Severe valvular -Stable; no chest pain, EKG unremarkable, trop negative x2 -continue medical management, Aspirin and Statin Status: Chronic (3) HTN (hypertension) Assessment & Plan: -longstanding -given symptomatic , want to avoid aggressively reducing preload -continue Lasix 20mg PO daily -continue medical management Status: Chronic (4) Pedal edema Assessment & Plan: EKG on 06/01/15: NSR at 64, normal EKG EKG on 11/12/16: sinus tachy at 104, possible LA enlargement Echo on 11/12/16: LVEF 63%, Moderate concentric LVH, abnormal LV diastolic dysfxn , Severe valvular -More likely 2/2 LE cellulitis than cardiac etiology -Swelling improved on current antibiotic course, now resolved -Continue medical management, including lasix and antibiotics (as per ID) Case discussed with Dr Cesar. Status: Resolved
[2016-11-21 12:04] LABS: RBC URINE 3 /hpf (0-3); URINE BACTERIA RARE (<OCC); URINE BILIRUBIN NEGATIVE (NEGATIVE); URINE BLOOD 1+ (NEGATIVE); URINE COLOR Amber (YELLOW); URINE GLUCOSE (UA) NORMAL (Normal); URINE KETONE TRACE mg/dL (NEGATIVE); URINE LEUKOCYTE ESTERASE NEG Leu/uL (Negative); URINE PROTEIN 2+ mg/dL (NEGATIVE); URINE UROBILINOGEN NORMAL mg/dL (0.2-1.0); WBC URINE 5 /hpf (0-5)
[2016-11-21] MEDS: Multivitamin With Minerals Tab PO SCH (12:25)
[2016-11-21] MEDS: Saccharomyces Boulardi 250 mg Cap PO SCH ×2 (12:26→18:56)
[2016-11-21] MEDS: Potassium Chloride 20 mEq ER Tab PO SCH (12:26)
[2016-11-21] MEDS: Zinc Oxide Topical 30 gm Tube TOP SCH (12:27)
[2016-11-21] MEDS: Potassium Chloride 20 mEq/15 ml LIQ UD PO SCH ×3 (12:32→12:39)
--- NOTE | 2016-11-21 18:16 | CP.PCM.PN ---
Subjective - Date & Time of Evaluation Date of Evaluation: 11/21/16 Time of Evaluation: 18:13 - Subjective Subjective: INFECTIOUS DISEASE PROGRESS NOTE JOHNSON MADDOX MD, FACP 3T 354 11/21/2016 CHART REVIEWED PT EXAMINED CASE DISCUSSED LOOKING BETTER LEGS FRAGIL, DISCUSSEDE NOT LETTING ANYONE RUB HER LEGS, ETC AFEBRILE, SHE RESPONDED TO [facility] TO DISCUSS WITH DR MONGE. Objective - Vital Signs/Intake and Output Vital Signs (last 24 hours): Temp Pulse Resp BP Pulse Ox 98.0 F 110 H 20 105/72 94 L 11/21/16 15:00 11/21/16 15:00 11/21/16 15:00 11/21/16 15:00 11/21/16 15:00 Intake and Output: 11/21/16 11/21/16 06:59 18:59 Intake Total 520 280 Balance 520 280 - Medications Medications: Current Medications Acetaminophen (Tylenol 325mg Tab) 650 mg PO Q6 PRN PRN Reason: Temperature Last Admin: 11/16/16 17:59 Dose: 650 mg Aspirin (Aspirin Chewable) 81 mg PO DAILY [facility] Last Admin: 11/21/16 12:26 Dose: 81 mg Famotidine (Pepcid) 20 mg PO DAILY [facility] Last Admin: 11/21/16 12:26 Dose: 20 mg Furosemide (Lasix) 20 mg PO DAILY [facility] Last Admin: 11/21/16 12:26 Dose: 20 mg Furosemide (Lasix) 20 mg IVP DAILY [facility] Last Admin: 11/21/16 12:27 Dose: 20 mg Multivitamins/Minerals (Therapeutic-M Tab) 1 tab PO DAILY [facility] Last Admin: 11/21/16 12:25 Dose: 1 tab Petrolatum (Desitin Original) 1 gm TOP DAILY [facility] Last Admin: 11/21/16 12:27 Dose: 1 applic Potassium Chloride (K-Dur 20 Meq Er Tab) 20 meq PO DAILY [facility] Last Admin: 11/21/16 12:26 Dose: 20 meq Rosuvastatin Calcium (Crestor) 5 mg PO HS [facility] Last Admin: 11/20/16 22:01 Dose: 5 mg Saccharomyces Boulardii (Florastor) 250 mg PO BID [facility] Last Admin: 11/21/16 12:26 Dose: 250 mg - Labs Labs: 11/21/16 07:07 11/21/16 07:07 PT 15.2 SECONDS (9.7-12.2) H 11/12/16 12:26 INR 1.3 11/12/16 12:26 APTT 31 SECONDS (21-34) 11/12/16 12:26 - Constitutional Appears: Non-toxic, No Acute Distress - Eye Exam Eye Exam: Normal appearance - ENT Exam ENT Exam: Mucous Membranes Moist - Respiratory Exam Respiratory Exam: Decreased Breath Sounds - Cardiovascular Exam Cardiovascular Exam: REGULAR RHYTHM - GI/Abdominal Exam GI & Abdominal Exam: Soft. absent: Tenderness - Rectal Exam Rectal Exam: Deferred - Neurological Exam Neurological Exam: Alert, Awake - Psychiatric Exam Psychiatric exam: Flat Affect, Normal Affect - Skin Skin Exam: Abrasion Assessment and Plan (1) Bleeding from varicose veins of left lower extremity Status: Resolved (2) Temperature increase Status: Resolved (3) DVT (deep venous thrombosis) Status: Chronic (4) CAD (coronary artery disease) Status: Chronic (5) ESBL (extended spectrum beta-lactamase) producing bacteria infection Status: Acute (6) Wheezing on expiration Status: Acute
--- NOTE | 2016-11-21 20:24 | CON ---
DATE: 11/21/2016 CHIEF COMPLAINT AND REASON FOR CONSULTATION: The patient referred by Dr. Landeros for evaluation of ability to manage her affairs. The patient is still very weak, but wants to go home. The patient a lso is unable to ambulate. HISTORY OF PRESENT ILLNESS: This is a case of an 86-year-old female with history of hypertension, hy perlipidemia. The patient was admitted here for fever, chills, bilateral leg swelling. The patient had history of cellulitis in the past. The patient currently admits to exacerbation of congestive he art failure. The patient referred for comanagement as the patient is requesting to be discharged. S he said she does not want to go to subacute rehab, but the patient is very weak. She also has period s of confusion. The patient, when seen today, states she will stay until Thursday. She states she is feeling a little better. The patient lives with her . She has a sister, but patient needs 24 -hour care. According to the nurse, patient cannot ambulate by herself. Her gait is very unsteady a nd she could hardly support herself. PAST MEDICAL HISTORY: Denies any medical history of hypertension, bronchitis, history of hyperlipide antonio. ALLERGIES: No known allergies. DRUG AND ALCOHOL HISTORY: Denies any. OTHER MEDICAL PROBLEMS: History of ESBL urinary tract infection, hypertension, CAD, CHF, cellulitis. PSYCHOSOCIAL HISTORY: The patient lives with her . VITAL SIGNS: Temperature is 98.4, pulse rate is 106, blood pressure 146/67, respirations 20, oxygen saturation is 93%. MEDICATIONS: List of medications that the patient is taking includes the following meds: Aspirin, r osuvastatin, potassium, Lasix, multivitamin, Tylenol. REVIEW OF SYSTEMS: GENERAL: The patient is alert, verbal, slightly confused, seen in her room. The patient states that she wants to go home, she does not want to go for rehabilitation, but she is still very weak and cou ld hardly ambulate. SKIN: No diaphoresis. HEENT: No headache. NECK: Supple. RESPIRATORY: No dyspnea. CARDIOVASCULAR: No chest pain. GASTROINTESTINAL: Appetite is variable. EXTREMITIES: Still has leg swelling, but improving. MUSCULOSKELETAL: Feels weak. NEUROLOGIC: Alert with periods of confusion. She knows she is in the hospital. She is oriented to person, not very much to time. MENTAL STATUS EXAMINATION: Elderly female, looks stated age. Speaks [place], oriented x 3. Still h as periods of confusion. Speech spontaneous. Affect is reactive. Mood is anxious. Thought process is coherent. Thought content: The patient preoccupied about going home. No psychosis, suicidal or homicidal ideation. Attention and memory seem to be fair. Insight and judgment limited. Impulse c ontrol is fair at this time. IMPRESSION: Mood disorder secondary to medical problems as well as history of urinary tract infectio n, history of coronary artery disease, history of hypertension, cellulitis. PLAN AND RECOMMENDATION: The patient seen, meds reviewed. Continue present management. At this aung e, the patient is still very weak and unsafe to be discharged to home. The patient is still medicall y sick and the patient is unsafe to be discharged to home as patient cannot take care of herself cindy e at this time. The patient may benefit from going for subacute rehab. When seen today, she said th at she is willing to stay here until Thursday and see if she will improve, but patient is unsafe to be discharged to home at this time as the patient needs reconditioning. Charles Carlton MD cc: [id number] TT: 11/21/2016 20:23:12 Confirmation # [id number] Dictation # [id number] philly
--- NOTE | 2016-11-21 21:27 | CP.PCM.PN ---
Subjective - Date & Time of Evaluation Date of Evaluation: 11/21/16 Time of Evaluation: 21:27 - Subjective Subjective: Patient is still having some symptoms, leg swelling noted, no diarrhea noted. Patient is sitting up, not in any distress otherwise. No nausea vomiting noted. Vital signs reviewed Objective - Vital Signs/Intake and Output Vital Signs (last 24 hours): Temp Pulse Resp BP Pulse Ox 98.0 F 90 20 105/72 95 11/21/16 15:00 11/21/16 15:40 11/21/16 15:00 11/21/16 15:00 11/21/16 15:40 Intake and Output: 11/21/16 11/22/16 18:59 06:59 Intake Total 280 Balance 280 - Medications Medications: Current Medications Acetaminophen (Tylenol 325mg Tab) 650 mg PO Q6 PRN PRN Reason: Temperature Last Admin: 11/16/16 17:59 Dose: 650 mg Aspirin (Aspirin Chewable) 81 mg PO DAILY [facility] Last Admin: 11/21/16 12:26 Dose: 81 mg Famotidine (Pepcid) 20 mg PO DAILY [facility] Last Admin: 11/21/16 12:26 Dose: 20 mg Furosemide (Lasix) 20 mg PO DAILY [facility] Last Admin: 11/21/16 12:26 Dose: 20 mg Furosemide (Lasix) 20 mg IVP DAILY [facility] Last Admin: 11/21/16 12:27 Dose: 20 mg Multivitamins/Minerals (Therapeutic-M Tab) 1 tab PO DAILY [facility] Last Admin: 11/21/16 12:25 Dose: 1 tab Petrolatum (Desitin Original) 1 gm TOP DAILY [facility] Last Admin: 11/21/16 12:27 Dose: 1 applic Potassium Chloride (K-Dur 20 Meq Er Tab) 20 meq PO DAILY [facility] Last Admin: 11/21/16 12:26 Dose: 20 meq Rosuvastatin Calcium (Crestor) 5 mg PO HS [facility] Last Admin: 11/20/16 22:01 Dose: 5 mg Saccharomyces Boulardii (Florastor) 250 mg PO BID [facility] Last Admin: 11/21/16 18:56 Dose: 250 mg - Labs Labs: 11/21/16 07:07 11/21/16 07:07 PT 15.2 SECONDS (9.7-12.2) H 11/12/16 12:26 INR 1.3 11/12/16 12:26 APTT 31 SECONDS (21-34) 11/12/16 12:26 Assessment and Plan (1) ESBL (extended spectrum beta-lactamase) producing bacteria infection Assessment & Plan: Patient with urinary tract infection secondary to beta-lactamase bacteria, being treated with the antibiotic, currently stable. Fever of unclear etiology. Improving. Patient will need physical therapy, but refusing to go to the rehabilitation, we 'll possibly discharge her home in the home physical therapy once patient is clinical stable. Meanwhile patient developed a CHF, with the fluid overload, currently improving Status: Acute (2) Fever Status: Acute
--- NOTE | 2016-11-22 07:27 | CP.PCM.PN ---
Subjective - Date & Time of Evaluation Date of Evaluation: 11/22/16 Time of Evaluation: 07:18 Objective - Vital Signs/Intake and Output Vital Signs (last 24 hours): Temp Pulse Resp BP Pulse Ox 98.4 F 111 H 20 133/80 95 11/22/16 00:00 11/22/16 00:00 11/22/16 00:00 11/22/16 00:00 11/22/16 02:00 Intake and Output: 11/22/16 11/22/16 06:59 18:59 Intake Total 250 Balance 250 - Medications Medications: Current Medications Acetaminophen (Tylenol 325mg Tab) 650 mg PO Q6 PRN PRN Reason: Temperature Last Admin: 11/16/16 17:59 Dose: 650 mg Aspirin (Aspirin Chewable) 81 mg PO DAILY [facility] Last Admin: 11/21/16 12:26 Dose: 81 mg Famotidine (Pepcid) 20 mg PO DAILY [facility] Last Admin: 11/21/16 12:26 Dose: 20 mg Furosemide (Lasix) 20 mg PO DAILY [facility] Last Admin: 11/21/16 12:26 Dose: 20 mg Furosemide (Lasix) 20 mg IVP DAILY [facility] Last Admin: 11/21/16 12:27 Dose: 20 mg Multivitamins/Minerals (Therapeutic-M Tab) 1 tab PO DAILY [facility] Last Admin: 11/21/16 12:25 Dose: 1 tab Petrolatum (Desitin Original) 1 gm TOP DAILY [facility] Last Admin: 11/21/16 12:27 Dose: 1 applic Potassium Chloride (K-Dur 20 Meq Er Tab) 20 meq PO DAILY [facility] Last Admin: 11/21/16 12:26 Dose: 20 meq Rosuvastatin Calcium (Crestor) 5 mg PO HS [facility] Last Admin: 11/21/16 21:39 Dose: 5 mg Saccharomyces Boulardii (Florastor) 250 mg PO BID [facility] Last Admin: 11/21/16 18:56 Dose: 250 mg - Labs Labs: 11/21/16 07:07 11/21/16 07:07 PT 15.2 SECONDS (9.7-12.2) H 11/12/16 12:26 INR 1.3 11/12/16 12:26 APTT 31 SECONDS (21-34) 11/12/16 12:26
[2016-11-22] MEDS: Saccharomyces Boulardi 250 mg Cap PO SCH ×2 (10:00→17:59)
[2016-11-22] MEDS: Zinc Oxide Topical 30 gm Tube TOP SCH (10:00)
[2016-11-22] MEDS: Potassium Chloride 20 mEq ER Tab PO SCH (10:05)
[2016-11-22] MEDS: Multivitamin With Minerals Tab PO SCH (10:05)
--- NOTE | 2016-11-22 11:26 | CP.PCM.PN ---
Subjective - Date & Time of Evaluation Date of Evaluation: 11/22/16 Time of Evaluation: 11:22 - Subjective Subjective: INFECTIOUS DISEASE PROGRESS NOTE JOHNSON MADDOX MD, FACP 3T 354 11/22/2016 CHART REVIEWED PT EXAMINED CASE DISCUSSED CLINICALLY IMPROVING LUNGS BETTER AIRWAY ISSUES, RESTING COR RR ABD SOFT NO DIARRHEA EXT LEFT LEG LESION IS HEALING NICELY OFF IV ANTIBIOTICS FOR MULTIDRUG RESISTANT ANTIBIOTICS RECOMMEND PO VIT C IN AN ATTEMPT TO ACIDIFY THE URINE AND MAKE IT AN UNHOSPITAL PLACE FOR BACTEREIA FOR ANTICOAGULATES AT HOME LEG COMPRESSION STOCKINGS FOR HOME USE. Objective - Vital Signs/Intake and Output Vital Signs (last 24 hours): Temp Pulse Resp BP Pulse Ox 97.6 F 91 H 20 149/75 91 L 11/22/16 08:06 11/22/16 08:06 11/22/16 08:06 11/22/16 08:06 11/22/16 08:06 Intake and Output: 11/22/16 11/22/16 06:59 18:59 Intake Total 250 Balance 250 - Medications Medications: Current Medications Acetaminophen (Tylenol 325mg Tab) 650 mg PO Q6 PRN PRN Reason: Temperature Last Admin: 11/16/16 17:59 Dose: 650 mg Ascorbic Acid (Vitamin C 250 Mg Tab) 250 mg PO BIDPC [facility] Aspirin (Aspirin Chewable) 81 mg PO DAILY [facility] Last Admin: 11/21/16 12:26 Dose: 81 mg Famotidine (Pepcid) 20 mg PO DAILY [facility] Last Admin: 11/21/16 12:26 Dose: 20 mg Furosemide (Lasix) 20 mg PO DAILY [facility] Last Admin: 11/21/16 12:26 Dose: 20 mg Furosemide (Lasix) 20 mg IVP DAILY [facility] Last Admin: 11/21/16 12:27 Dose: 20 mg Multivitamins/Minerals (Therapeutic-M Tab) 1 tab PO DAILY [facility] Last Admin: 11/21/16 12:25 Dose: 1 tab Petrolatum (Desitin Original) 1 gm TOP DAILY [facility] Last Admin: 11/21/16 12:27 Dose: 1 applic Potassium Chloride (K-Dur 20 Meq Er Tab) 20 meq PO DAILY [facility] Last Admin: 11/21/16 12:26 Dose: 20 meq Rosuvastatin Calcium (Crestor) 5 mg PO HS [facility] Last Admin: 11/21/16 21:39 Dose: 5 mg Saccharomyces Boulardii (Florastor) 250 mg PO BID [facility] Last Admin: 11/21/16 18:56 Dose: 250 mg - Labs Labs: 11/21/16 07:07 11/21/16 07:07 PT 15.2 SECONDS (9.7-12.2) H 11/12/16 12:26 INR 1.3 11/12/16 12:26 APTT 31 SECONDS (21-34) 11/12/16 12:26 - Constitutional Appears: Non-toxic, No Acute Distress - Head Exam Head Exam: NORMAL INSPECTION - Eye Exam Eye Exam: Normal appearance - ENT Exam ENT Exam: Mucous Membranes Moist - Neck Exam Neck Exam: Normal Inspection - Respiratory Exam Respiratory Exam: Decreased Breath Sounds, NORMAL BREATHING PATTERN - Cardiovascular Exam Cardiovascular Exam: REGULAR RHYTHM - GI/Abdominal Exam GI & Abdominal Exam: Soft, Normal Bowel Sounds. absent: Tenderness - Rectal Exam Rectal Exam: Deferred - Neurological Exam Neurological Exam: Alert, Awake - Psychiatric Exam Psychiatric exam: Anxious, Flat Affect - Skin Skin Exam: Warm Assessment and Plan (1) Bleeding from varicose veins of left lower extremity Status: Resolved (2) Temperature increase Status: Resolved (3) DVT (deep venous thrombosis) Status: Chronic (4) CAD (coronary artery disease) Status: Chronic (5) ESBL (extended spectrum beta-lactamase) producing bacteria infection Status: Acute (6) Wheezing on expiration Status: Acute
--- NOTE | 2016-11-22 17:34 | PN ---
DATE: 11/22/2016 SUBJECTIVE: The patient is seen. The patient seen with the proxy of her . The patient is st ill very weak with periods of confusion and has very unsteady gait. The patient is insisting to go h ome. However, the proxy of her also reports that patient's is currently admitted in the fifth floor and the patient is medically frail and needs also a lot of help. The patient may carroll efit from going for subacute rehab, as patient has no help at home and patient is still very debilita marisol; also there is no family member to take care of her. The is currently in the hospital. History of falls. VITAL SIGNS: Temperature is 97.6, pulse rate is 91, blood pressure 149/75, respirations 20, oxygen s aturation is 91% on nasal cannula. REVIEW OF SYSTEMS: GENERAL: She is alert, verbal, seen in her room eating, still wants to go home. SKIN: No diaphoresis. HEENT: No headache, no dizziness. NECK: Supple. RESPIRATORY: Easily short of breath, not coughing. CARDIOVASCULAR: No chest pain. GASTROINTESTINAL: Appetite is viable. EXTREMITIES: Gait is very unsteady. MUSCULOSKELETAL: Feels weak. NEUROLOGIC: Alert with periods of confusion. GENITOURINARY: No dysuria. MENTAL STATUS EXAMINATION: Elderly female, looks stated age, oriented x 2. Mood is irritable at aung es. Affect is reactive. Speech spontaneous. Thought process confused at times. Thought content: The patient still wants to go home. No paranoia. No suicidal or homicidal ideation. Attention and memory seems to be limited at times. Insight and judgment limited. Impulse control is fair at this time. IMPRESSION: Mood disorder secondary to medical problems, history of urinary tract infection, coronar y artery disease, cellulitis, hypertension. PLAN AND RECOMMENDATIONS: The patient seen, meds reviewed. Continue present management. The patien t is still unsafe to be discharged to home. There is no family member to take care of her at home an d patient is still medically ill and the patient's is also currently admitted in the hospital . The patient would benefit from going for subacute rehab. According to the 's proxy the pat ient will probably be going to [facility] for subacute rehab and also possibly the hus band will be also going there, as her was there twice in the past. The patient is unsafe for discharge at this time. May need reconditioning in the subacute unit. Charles Carlton MD cc: [phone] TT: 11/22/2016 17:33:42 Confirmation # [id number] Dictation # [id number]
--- NOTE | 2016-11-23 07:18 | CP.PCM.PN ---
Subjective - Date & Time of Evaluation Date of Evaluation: 11/23/16 Time of Evaluation: 07:07 Objective - Vital Signs/Intake and Output Vital Signs (last 24 hours): Temp Pulse Resp BP Pulse Ox 97.8 F 98 H 20 126/79 96 11/23/16 00:00 11/23/16 00:00 11/23/16 00:00 11/23/16 00:00 11/23/16 00:00 Intake and Output: 11/23/16 11/23/16 06:59 18:59 Intake Total 500 Balance 500 - Medications Medications: Current Medications Acetaminophen (Tylenol 325mg Tab) 650 mg PO Q6 PRN PRN Reason: Temperature Last Admin: 11/16/16 17:59 Dose: 650 mg Ascorbic Acid (Vitamin C 250 Mg Tab) 250 mg PO BIDPC [facility] Last Admin: 11/22/16 17:57 Dose: 250 mg Aspirin (Aspirin Chewable) 81 mg PO DAILY [facility] Last Admin: 11/22/16 10:00 Dose: 81 mg Famotidine (Pepcid) 20 mg PO DAILY [facility] Last Admin: 11/22/16 10:10 Dose: 20 mg Furosemide (Lasix) 20 mg PO DAILY [facility] Last Admin: 11/22/16 11:27 Dose: 20 mg Furosemide (Lasix) 20 mg IVP DAILY [facility] Last Admin: 11/22/16 10:05 Dose: 20 mg Multivitamins/Minerals (Therapeutic-M Tab) 1 tab PO DAILY [facility] Last Admin: 11/22/16 10:05 Dose: 1 tab Petrolatum (Desitin Original) 1 gm TOP DAILY [facility] Last Admin: 11/22/16 10:00 Dose: 1 applic Potassium Chloride (K-Dur 20 Meq Er Tab) 20 meq PO DAILY [facility] Last Admin: 11/22/16 10:05 Dose: 20 meq Rosuvastatin Calcium (Crestor) 5 mg PO HS [facility] Last Admin: 11/22/16 22:00 Dose: 5 mg Saccharomyces Boulardii (Florastor) 250 mg PO BID [facility] Last Admin: 11/22/16 17:59 Dose: 250 mg - Labs Labs: 11/21/16 07:07 11/21/16 07:07 PT 15.2 SECONDS (9.7-12.2) H 11/12/16 12:26 INR 1.3 11/12/16 12:26 APTT 31 SECONDS (21-34) 11/12/16 12:26
[2016-11-23] MEDS: Potassium Chloride 20 mEq ER Tab PO SCH (10:28)
[2016-11-23] MEDS: Saccharomyces Boulardi 250 mg Cap PO SCH ×2 (10:28→17:43)
[2016-11-23] MEDS: Zinc Oxide Topical 30 gm Tube TOP SCH (10:29)
[2016-11-23] MEDS: Multivitamin With Minerals Tab PO SCH (10:33)
--- NOTE | 2016-11-23 15:46 | CP.PCM.PN ---
Subjective - Date & Time of Evaluation Date of Evaluation: 11/22/16 Time of Evaluation: 18:00 - Subjective Subjective: Patient is feeling slightly better, leg swelling is still present, left leg wound also noted. Denies any chest pain. No nausea vomiting. Diarrhea negative. Using oxygen Objective - Vital Signs/Intake and Output Vital Signs (last 24 hours): Temp Pulse Resp BP Pulse Ox 98.3 F 107 H 20 120/79 93 L 11/23/16 08:21 11/23/16 08:21 11/23/16 08:21 11/23/16 10:31 11/23/16 08:21 Intake and Output: 11/23/16 11/23/16 06:59 18:59 Intake Total 500 300 Balance 500 300 Chest bilateral good air entry no wheezing or rales noted regular heart sound nontender abdomen extremities edema bilaterally noted - Medications Medications: Current Medications Acetaminophen (Tylenol 325mg Tab) 650 mg PO Q6 PRN PRN Reason: Temperature Last Admin: 11/16/16 17:59 Dose: 650 mg Ascorbic Acid (Vitamin C 250 Mg Tab) 250 mg PO BIDPC [facility] Last Admin: 11/23/16 09:20 Dose: 250 mg Aspirin (Aspirin Chewable) 81 mg PO DAILY [facility] Last Admin: 11/23/16 10:30 Dose: 81 mg Famotidine (Pepcid) 20 mg PO DAILY [facility] Last Admin: 11/23/16 10:32 Dose: 20 mg Furosemide (Lasix) 20 mg PO DAILY [facility] Last Admin: 11/23/16 10:30 Dose: 20 mg Furosemide (Lasix) 20 mg IVP DAILY [facility] Last Admin: 11/23/16 10:31 Dose: 20 mg Multivitamins/Minerals (Therapeutic-M Tab) 1 tab PO DAILY [facility] Last Admin: 11/23/16 10:33 Dose: 1 tab Petrolatum (Desitin Original) 1 gm TOP DAILY [facility] Last Admin: 11/23/16 10:29 Dose: 1 applic Potassium Chloride (K-Dur 20 Meq Er Tab) 20 meq PO DAILY [facility] Last Admin: 11/23/16 10:28 Dose: 20 meq Rosuvastatin Calcium (Crestor) 5 mg PO HS [facility] Last Admin: 11/22/16 22:00 Dose: 5 mg Saccharomyces Boulardii (Florastor) 250 mg PO BID [facility] Last Admin: 05/14/17 10:28 Dose: 250 mg - Labs Labs: 11/21/16 07:07 11/21/16 07:07 PT 15.2 SECONDS (9.7-12.2) H 11/12/16 12:26 INR 1.3 11/12/16 12:26 APTT 31 SECONDS (21-34) 11/12/16 12:26 Assessment and Plan (1) ESBL (extended spectrum beta-lactamase) producing bacteria infection Assessment & Plan: Patient with urinary tract infection, complicated with the beta-lactamase bacteria. Currently treated. Doing well. CHF, improving, aortic stenosis. Status: Acute (2) Fever Status: Acute
--- NOTE | 2016-11-23 16:01 | CP.PCM.PN ---
Subjective - Date & Time of Evaluation Date of Evaluation: 11/23/16 Time of Evaluation: 15:58 - Subjective Subjective: Patient was sitting up in the chair this morning. Does not went to the bed. She was sleeping when he examining the patient, and wakeup. Now for somewhat drowsy. But following simple commands. Oxygen saturation on the low side 89% with room air, placed on 2 L of nasal cannula. Not in any distress. The leg swelling is improving. Left leg wound dressing was done. Patient had eaten this morning. No diarrhea noted, no abdominal pain. Objective - Vital Signs/Intake and Output Vital Signs (last 24 hours): Temp Pulse Resp BP Pulse Ox 98.3 F 107 H 20 120/79 93 L 11/23/16 08:21 11/23/16 08:21 11/23/16 08:21 11/23/16 10:31 11/23/16 08:21 Intake and Output: 11/23/16 11/23/16 06:59 18:59 Intake Total 500 300 Balance 500 300 Chest good air entry, expiratory rales noted. Irregular heart sounds. Systolic murmur noted. Abdomen soft. 1+ pedal edema. JORDAN MAN alert awake but still easily sleepy, moving all 4 extremities - Medications Medications: Current Medications Acetaminophen (Tylenol 325mg Tab) 650 mg PO Q6 PRN PRN Reason: Temperature Last Admin: 11/16/16 17:59 Dose: 650 mg Ascorbic Acid (Vitamin C 250 Mg Tab) 250 mg PO BIDPC [facility] Last Admin: 11/23/16 09:20 Dose: 250 mg Aspirin (Aspirin Chewable) 81 mg PO DAILY [facility] Last Admin: 11/23/16 10:30 Dose: 81 mg Famotidine (Pepcid) 20 mg PO DAILY [facility] Last Admin: 11/23/16 10:32 Dose: 20 mg Furosemide (Lasix) 20 mg PO DAILY [facility] Last Admin: 11/23/16 10:30 Dose: 20 mg Multivitamins/Minerals (Therapeutic-M Tab) 1 tab PO DAILY [facility] Last Admin: 11/23/16 10:33 Dose: 1 tab Petrolatum (Desitin Original) 1 gm TOP DAILY [facility] Last Admin: 11/23/16 10:29 Dose: 1 applic Potassium Chloride (K-Dur 20 Meq Er Tab) 20 meq PO DAILY [facility] Last Admin: 11/23/16 10:28 Dose: 20 meq Rosuvastatin Calcium (Crestor) 5 mg PO HS [facility] Last Admin: 11/22/16 22:00 Dose: 5 mg Saccharomyces Boulardii (Florastor) 250 mg PO BID [facility] Last Admin: 11/23/16 10:28 Dose: 250 mg - Labs Labs: 11/21/16 07:07 11/21/16 07:07 PT 15.2 SECONDS (9.7-12.2) H 11/12/16 12:26 INR 1.3 11/12/16 12:26 APTT 31 SECONDS (21-34) 11/12/16 12:26 Assessment and Plan (1) ESBL (extended spectrum beta-lactamase) producing bacteria infection Assessment & Plan: Patient has been treated for ESBL Escherichia coli urinary tract infection with antibiotic improved. Meanwhile patient developed a congestive heart failure with the fluid overload, being treated with the intravenous Lasix. Today patient is having possible atrial fibrillation, will get EKG. Repeat chest x-ray. Intravenous Lasix is changed. Patient may need anticoagulation. Tachycardia noted, will add beta eliud if needed. We'll follow the patient. Cardiology evaluation and follow-up needed Status: Acute (2) Fever Status: Acute
--- NOTE | 2016-11-23 17:00 | RAD ---
HISTORY: chf COMPARISON: Comparison is made to the previous study dated 11/21/2016 FINDINGS: LUNGS: Interval [id number] improvement in the left lung since the previous exam. Interval mild improvement in the right lung since the previous study. PLEURA: No evidence of significant pleural effusion. CARDIOVASCULAR: The cardiac silhouette is mildly enlarged. OSSEOUS STRUCTURES: No significant abnormalities. VISUALIZED UPPER ABDOMEN: Normal. OTHER FINDINGS: Right-sided PICC line is again seen in place. IMPRESSION: Interval improvement in the lungs since the previous exam.
[2016-11-24 07:21] LABS: BASO # 0.2 K/uL (0.0-0.2); BASO % 1.3 % (0.0-2.0); EOS # 0.8 K/uL (0.0-0.7); EOS % 6.3 % (0.0-4.0); LYMPH # 3.6 K/uL (1.0-4.3); MEAN CORPUSCULAR HGB CONC 32.6 g/dL (33.0-37.0); MEAN PLATELET VOLUME 8.2 fL (7.2-11.7); MONO # 1.3 K/uL (0.0-0.8); NRBC % 0.2 % (0.0-2.0); RED CELL DISTRIBUTION WIDTH 15.9 % (11.5-14.5); WHITE BLOOD COUNT 13.2 K/uL (4.8-10.8)
[2016-11-24 08:09] LABS: CHLORIDE 95 mmol/L (98-107)
[2016-11-24 08:10] LABS: POTASSIUM 3.7 mmol/L (3.6-5.2); SODIUM 132 mmol/L (132-148)
[2016-11-24 08:12] LABS: ALB/GLOB RATIO 0.8 (1.0-2.1); AST/SGOT 27 U/L (14-36); BILIRUBIN,TOTAL 0.6 mg/dL (0.2-1.3); BLOOD UREA NITROGEN 19 mg/dL (7-17); CARBON DIOXIDE 28 mmol/L (22-30); GFR AFRICAN-AMERICAN > 60; TOTAL PROTEIN 5.6 g/dL (6.3-8.3)
[2016-11-24 08:13] LABS: ALKALINE PHOSPHATASE 56 U/L (38-126); ALT/SGPT 31 U/L (9-52); CALCIUM 7.4 mg/dl (8.6-10.4); GLUCOSE,RANDOM 94 mg/dL (65-105)
--- NOTE | 2016-11-24 09:05 | CP.PCM.PN ---
<Anup Colin - Last Filed: 11/24/16 08:59> Subjective - Date & Time of Evaluation Date of Evaluation: 11/24/16 Time of Evaluation: 08:45 - Subjective Subjective: Cardiology progress note Dr Cesar Patient seen and examined at the bedside. No acute distress. Over the weekend , patient became persistently tachycardiac and the Primary team became concerned for AFib and fluid overload/CHF. Patient continues to be diuresed, and EKG obtained at time of concern revealed Sinus Tachy with possible RV conduction delay. No acute events overnight as per patient and nursing. Pt still reports mild shortness of breath, but does not appear tachypnic or in respiratory distress. LE edema remains resolved. The patient denies other cardiopulmonary complaints. 12 point review of systems was completed and returned negative aside from the above stated complaints. Objective - Vital Signs/Intake and Output Vital Signs (last 24 hours): Temp Pulse Resp BP Pulse Ox 98 F 105 H 20 122/74 95 11/24/16 00:00 11/24/16 00:00 11/24/16 00:00 11/24/16 00:00 11/24/16 00:00 Intake and Output: 11/24/16 11/24/16 06:59 18:59 Intake Total 500 Balance 500 - Medications Medications: Current Medications Acetaminophen (Tylenol 325mg Tab) 650 mg PO Q6 PRN PRN Reason: Temperature Last Admin: 11/16/16 17:59 Dose: 650 mg Ascorbic Acid (Vitamin C 250 Mg Tab) 250 mg PO BIDPC [facility] Last Admin: 11/23/16 17:43 Dose: 250 mg Aspirin (Aspirin Chewable) 81 mg PO DAILY [facility] Last Admin: 11/23/16 10:30 Dose: 81 mg Famotidine (Pepcid) 20 mg PO DAILY [facility] Last Admin: 11/23/16 10:32 Dose: 20 mg Furosemide (Lasix) 20 mg PO DAILY [facility] Last Admin: 11/23/16 10:30 Dose: 20 mg Multivitamins/Minerals (Therapeutic-M Tab) 1 tab PO DAILY [facility] Last Admin: 11/23/16 10:33 Dose: 1 tab Petrolatum (Desitin Original) 1 gm TOP DAILY [facility] Last Admin: 11/23/16 10:29 Dose: 1 applic Potassium Chloride (K-Dur 20 Meq Er Tab) 20 meq PO DAILY [facility] Last Admin: 11/23/16 10:28 Dose: 20 meq Rosuvastatin Calcium (Crestor) 5 mg PO HS [facility] Last Admin: 11/23/16 22:05 Dose: 5 mg Saccharomyces Boulardii (Florastor) 250 mg PO BID [facility] Last Admin: 11/23/16 17:43 Dose: 250 mg - Labs Labs: 11/24/16 07:12 11/24/16 07:12 PT 15.2 SECONDS (9.7-12.2) H 11/12/16 12:26 INR 1.3 11/12/16 12:26 APTT 31 SECONDS (21-34) 11/12/16 12:26 - Additional Findings Additional findings: - Constitutional Appears: Well, Non-toxic, No Acute Distress, Resting comfortably in bed - Head Exam Head Exam: ATRAUMATIC, NORMAL INSPECTION, NORMOCEPHALIC - Eye Exam Eye Exam: EOMI, Normal appearance. absent: Conjunctival injection, Scleral icterus Pupil Exam: absent: Irregular, Unequal - ENT Exam ENT Exam: Mucous Membranes Moist - Neck Exam Neck Exam: absent: Tenderness, JVD - Respiratory Exam Respiratory Exam: Decreased Breath Sounds (mildly decreased breath sounds all [place], unchanged from prior exams), absent: Wheezes, Accessory Muscle Use, Chest Wall Tenderness, Rales, Rhonchi, Respiratory Distress - Cardiovascular Exam Cardiovascular Exam: Tachycardia, Rapid rate but regular rhythm +S1, +S2, Loud systolic murmur most prominent right 2nd intercostal space. absent: Regular Rate, Bradycardia - GI/Abdominal Exam GI & Abdominal Exam: Soft, Normal Bowel Sounds. absent: Distended, Firm - Extremities Exam Extremities Exam: scattered small healed wounds along anterior surface of both LE, bandaging along LLE anterior surface with significantly reddened skin and healing LE ulcerations under the bandaging, LE skin discoloration of bilateral feet and ankles, Trace pitting edema in bilateral LE. absent: Calf Tenderness , Normal Inspection, Coldness to palpation - Neurological Exam Neurological Exam: Awake and alert, moving extremities spontaneously - Psychiatric Exam Psychiatric exam: Normal Mood, Normal Affect - Skin Skin Exam: Dry, Intact, Normal Color (except as noted in Extremities exam), Warm Assessment and Plan (1) Shortness of breath Assessment & Plan: EKG on 06/01/15: NSR at 64, normal EKG EKG on 11/12/16: sinus tachy at 104, possible LA enlargement EKG on 11/23/16: Sinus tachycardia at 122, Possible Left atrial enlargement, RSR ' or QR pattern in V1 suggests right ventricular conduction delay, Borderline ECG Echo on 11/12/16: LVEF 63%, Moderate concentric LVH, abnormal LV diastolic dysfxn , Severe valvular CXR 11/14/16: Progressive infiltrates mavis R lung superimposed upon CHF vs Pulm vasc congestion previously identified, PICC line in satisfactory place CXR 11/18/16: Worsening opacities and reticular densities in lungs compared to prior exam, CHF vs infectious process CXR 11/21/16: No significant interval change CXR 11/23/16: Interval improvement in lungs since prior exam -aortic stenosis vs 2/2 pulmonary etiology (former smoker) vs 2/2 infectious etiology (persisting LE cellulitis) -given severe , want to avoid excessive preload reduction -Continue Lasix 20mg PO daily; if concern for fluid overload persists and not improving on Lasix, and if blood pressure can tolerate, can consider switching to either PO BID dosing or to IV formulation temporarily -will eventually need TAVR given symptomatic -Trops 0.047, 0.092, continue to monitor -continue medical management Status: Resolved (2) CAD (coronary artery disease) Assessment & Plan: EKG on 06/01/15: NSR at 64, normal EKG EKG on 11/12/16: sinus tachy at 104, possible LA enlargement EKG on 11/23/16: Sinus tachycardia at 122, Possible Left atrial enlargement, RSR ' or QR pattern in V1 suggests right ventricular conduction delay, Borderline ECG Echo on 11/12/16: LVEF 63%, Moderate concentric LVH, abnormal LV diastolic dysfxn , Severe valvular CXR 11/14/16: Progressive infiltrates mavis R lung superimposed upon CHF vs Pulm vasc congestion previously identified, PICC line in satisfactory place CXR 11/18/16: Worsening opacities and reticular densities in lungs compared to prior exam, CHF vs infectious process CXR 11/21/16: No significant interval change CXR 11/23/16: Interval improvement in lungs since prior exam -Stable; no chest pain, trop negative x2 -Initial EKG unremarkable, x2 EKGs Sinus Tachy, continue to monitor -continue medical management, Aspirin and Statin Status: Chronic (3) HTN (hypertension) Assessment & Plan: EKG on 06/01/15: NSR at 64, normal EKG EKG on 11/12/16: sinus tachy at 104, possible LA enlargement EKG on 11/23/16: Sinus tachycardia at 122, Possible Left atrial enlargement, RSR ' or QR pattern in V1 suggests right ventricular conduction delay, Borderline ECG Echo on 11/12/16: LVEF 63%, Moderate concentric LVH, abnormal LV diastolic dysfxn , Severe valvular CXR 11/14/16: Progressive infiltrates mavis R lung superimposed upon CHF vs Pulm vasc congestion previously identified, PICC line in satisfactory place CXR 11/18/16: Worsening opacities and reticular densities in lungs compared to prior exam, CHF vs infectious process CXR 11/21/16: No significant interval change CXR 11/23/16: Interval improvement in lungs since prior exam -longstanding -given symptomatic , want to avoid aggressively reducing preload -continue Lasix 20mg PO daily -continue medical management Status: Chronic (4) Pedal edema Assessment & Plan: EKG on 06/01/15: NSR at 64, normal EKG EKG on 11/12/16: sinus tachy at 104, possible LA enlargement EKG on 11/23/16: Sinus tachycardia at 122, Possible Left atrial enlargement, RSR ' or QR pattern in V1 suggests right ventricular conduction delay, Borderline ECG Echo on 11/12/16: LVEF 63%, Moderate concentric LVH, abnormal LV diastolic dysfxn , Severe valvular CXR 11/14/16: Progressive infiltrates mavis R lung superimposed upon CHF vs Pulm vasc congestion previously identified, PICC line in satisfactory place CXR 11/18/16: Worsening opacities and reticular densities in lungs compared to prior exam, CHF vs infectious process CXR 11/21/16: No significant interval change CXR 11/23/16: Interval improvement in lungs since prior exam -More likely 2/2 LE cellulitis than cardiac etiology -Swelling resolved on current antibiotic course -Continue medical management, including lasix and antibiotics (as per ID) Case discussed with Dr Cesar. Status: Resolved <Isaac Cesar - Last Filed: 11/24/16 16:14> Objective - Vital Signs/Intake and Output Vital Signs (last 24 hours): Temp Pulse Resp BP Pulse Ox 98 F 105 H 20 122/74 95 11/24/16 00:00 11/24/16 00:00 11/24/16 00:00 11/24/16 10:38 11/24/16 00:00 Intake and Output: 11/24/16 11/24/16 06:59 18:59 Intake Total 500 Balance 500 - Medications Medications: Current Medications Acetaminophen (Tylenol 325mg Tab) 650 mg PO Q6 PRN PRN Reason: Temperature Last Admin: 11/16/16 17:59 Dose: 650 mg Ascorbic Acid (Vitamin C 250 Mg Tab) 250 mg PO BIDPC [facility] Last Admin: 11/24/16 10:37 Dose: 250 mg Aspirin (Aspirin Chewable) 81 mg PO DAILY [facility] Last Admin: 11/24/16 10:38 Dose: 81 mg Famotidine (Pepcid) 20 mg PO DAILY [facility] Last Admin: 11/24/16 10:37 Dose: 20 mg Furosemide (Lasix) 20 mg PO DAILY [facility] Last Admin: 11/24/16 10:38 Dose: 20 mg Multivitamins/Minerals (Therapeutic-M Tab) 1 tab PO DAILY [facility] Last Admin: 11/24/16 10:38 Dose: 1 tab Petrolatum (Desitin Original) 1 gm TOP DAILY [facility] Last Admin: 11/24/16 10:39 Dose: 1 applic Potassium Chloride (K-Dur 20 Meq Er Tab) 20 meq PO DAILY [facility] Last Admin: 11/24/16 10:37 Dose: 20 meq Rosuvastatin Calcium (Crestor) 5 mg PO HS [facility] Last Admin: 11/23/16 22:05 Dose: 5 mg Saccharomyces Boulardii (Florastor) 250 mg PO BID [facility] Last Admin: 11/24/16 10:37 Dose: 250 mg - Labs Labs: 11/24/16 07:12 11/24/16 07:12 PT 15.2 SECONDS (9.7-12.2) H 11/12/16 12:26 INR 1.3 11/12/16 12:26 APTT 31 SECONDS (21-34) 11/12/16 12:26 Attending/Attestation - Attestation I have personally seen and examined this patient.: Yes I have fully participated in the care of the patient.: Yes I have reviewed all pertinent clinical information, including history, physical exam and plan: Yes Notes (Text): 11/24/16 16:14 edema much improved will d/w Dr Harrison GIRALDO
[2016-11-24] MEDS: Potassium Chloride 20 mEq ER Tab PO SCH (10:37)
[2016-11-24] MEDS: Saccharomyces Boulardi 250 mg Cap PO SCH ×2 (10:37→17:43)
[2016-11-24] MEDS: Multivitamin With Minerals Tab PO SCH (10:38)
[2016-11-24] MEDS: Zinc Oxide Topical 30 gm Tube TOP SCH (10:39)
--- NOTE | 2016-11-24 12:06 | PN ---
DATE: 11/24/2016 SUBJECTIVE: The patient is seen. The patient is clinically improved. Today, she has agreed to go t o [place] for subacute rehabilitation as her is already there. The patient, however, req uests that she does want to be in the same room with her . Clinically, she is much better. N o behavioral problems and more amenable. VITAL SIGNS: Temperature is 98, pulse rate is 105, blood pressure 122/74, respirations 20, oxygen sa turation is 95%. REVIEW OF SYSTEMS: GENERAL: The patient is alert, verbal, seen with some family members. The patient is clinically imp roved, still feels weak though. SKIN: No diaphoresis. HEENT: No headache, no dizziness. NECK: Supple. RESPIRATORY: No dyspnea. CARDIOVASCULAR: No chest pain. GASTROINTESTINAL: No nausea, no vomiting. EXTREMITIES: Gait is unsteady. MUSCULOSKELETAL: . NEUROLOGIC: Alert, oriented x 3. GENITOURINARY: Not complaining of dysuria or any urinary problems. MENTAL STATUS EXAMINATION: Elderly female, looks stated age. Alert and oriented x 3. Mood is calme r. Affect is reactive. Speech spontaneous. Thought process coherent. Thought content: The patien t has agreed to go to [facility] for subacute rehab. No psychosis. No suicidal or lili icidal ideation. Attention and memory seems to be fair. Insight and judgment fair. Impulse control is fair. IMPRESSION: Mood disorder, secondary to medical problems, improving. PLAN AND RECOMMENDATIONS: The patient seen, meds reviewed. Continue present management. The patien donovan is psychiatrically stable to go for subacute rehab to [place]. Charles Carlton MD cc: [id number] TT: 11/24/2016 12:05:05 Confirmation # [id number] Dictation # [id number]
--- NOTE | 2016-11-24 16:03 | CP.PCM.PN ---
Subjective - Date & Time of Evaluation Date of Evaluation: 11/24/16 Time of Evaluation: 16:00 - Subjective Subjective: INFECTIOUS DISEASE PROGRESS NOTE JOHNSON MADDOX MD, FACP 3T 354 11/24/2016 CHART REVIEWED PT EXAMINED CASE DISCUSSED CLINICALLY ISSUES HAVE STABILIZED LEFT LEG HEALING WITH MEDIHONEY LUNGS WITHOUT WHEEZING CHF BEING TREATED OFF IV ANTIBIOTICS CONSIDER ELIQUIS ANTICOAGULATIONS Objective - Vital Signs/Intake and Output Vital Signs (last 24 hours): Temp Pulse Resp BP Pulse Ox 98 F 105 H 20 122/74 95 11/24/16 00:00 11/24/16 00:00 11/24/16 00:00 11/24/16 10:38 11/24/16 00:00 Intake and Output: 11/24/16 11/24/16 06:59 18:59 Intake Total 500 Balance 500 - Medications Medications: Current Medications Acetaminophen (Tylenol 325mg Tab) 650 mg PO Q6 PRN PRN Reason: Temperature Last Admin: 11/16/16 17:59 Dose: 650 mg Ascorbic Acid (Vitamin C 250 Mg Tab) 250 mg PO BIDPC [facility] Last Admin: 11/24/16 10:37 Dose: 250 mg Aspirin (Aspirin Chewable) 81 mg PO DAILY [facility] Last Admin: 11/24/16 10:38 Dose: 81 mg Famotidine (Pepcid) 20 mg PO DAILY [facility] Last Admin: 11/24/16 10:37 Dose: 20 mg Furosemide (Lasix) 20 mg PO DAILY [facility] Last Admin: 11/24/16 10:38 Dose: 20 mg Multivitamins/Minerals (Therapeutic-M Tab) 1 tab PO DAILY [facility] Last Admin: 11/24/16 10:38 Dose: 1 tab Petrolatum (Desitin Original) 1 gm TOP DAILY [facility] Last Admin: 11/24/16 10:39 Dose: 1 applic Potassium Chloride (K-Dur 20 Meq Er Tab) 20 meq PO DAILY [facility] Last Admin: 11/24/16 10:37 Dose: 20 meq Rosuvastatin Calcium (Crestor) 5 mg PO HS [facility] Last Admin: 11/23/16 22:05 Dose: 5 mg Saccharomyces Boulardii (Florastor) 250 mg PO BID [facility] Last Admin: 11/24/16 10:37 Dose: 250 mg - Labs Labs: 11/24/16 07:12 11/24/16 07:12 PT 15.2 SECONDS (9.7-12.2) H 11/12/16 12:26 INR 1.3 11/12/16 12:26 APTT 31 SECONDS (21-34) 11/12/16 12:26 - Constitutional Appears: Non-toxic, No Acute Distress, Older Than Stated Age, Chronically Ill - Head Exam Head Exam: ATRAUMATIC - Eye Exam Eye Exam: Normal appearance - ENT Exam ENT Exam: Mucous Membranes Moist - Neck Exam Neck Exam: Normal Inspection - Respiratory Exam Respiratory Exam: Decreased Breath Sounds, NORMAL BREATHING PATTERN - Cardiovascular Exam Cardiovascular Exam: REGULAR RHYTHM - GI/Abdominal Exam GI & Abdominal Exam: Soft, Normal Bowel Sounds. absent: Tenderness, Hypoactive Bowel Sounds, Rebound - Rectal Exam Rectal Exam: Deferred - Exam Additional comments: LEFT LEG IS HEALING SLOWLY WITH TOPICALLY MANAGEMENT Assessment and Plan (1) Bleeding from varicose veins of left lower extremity Status: Resolved (2) Temperature increase Status: Resolved (3) DVT (deep venous thrombosis) Assessment & Plan: PLEASE CONSIDER ORAL ELIQUIS FOR ANTICOAGULATION Status: Chronic (4) CAD (coronary artery disease) Status: Chronic (5) ESBL (extended spectrum beta-lactamase) producing bacteria infection Assessment & Plan: RE-CALL NEEDED Status: Resolved (6) Wheezing on expiration Status: Resolved
--- NOTE | 2016-11-25 00:08 | CARD ---
APPROVED REPORT EKG Measurement Heart [id number] <Conclusion> Sinus tachycardia Possible Left atrial enlargement RSR' or QR pattern in V1 suggests right ventricular conduction delay Borderline ECG
[2016-11-25] MEDS: Saccharomyces Boulardi 250 mg Cap PO SCH ×2 (09:46→17:27)
[2016-11-25] MEDS: Multivitamin With Minerals Tab PO SCH (09:46)
[2016-11-25] MEDS: Potassium Chloride 20 mEq ER Tab PO SCH (09:46)
[2016-11-25] MEDS: Zinc Oxide Topical 30 gm Tube TOP SCH (09:47)
--- NOTE | 2016-11-25 11:53 | CP.PCM.PN ---
<Anup Colin - Last Filed: 11/25/16 12:52> Subjective - Date & Time of Evaluation Date of Evaluation: 11/25/16 Time of Evaluation: 09:30 - Subjective Subjective: Cardiology progress note Dr Terry Patient seen and examined at the bedside. No acute distress. No acute events overnight. Pt still reports mild shortness of breath, but does not appear tachypnic or in respiratory distress. This AM, the LLE had acutely worse discoloration, extending further up the leg (past the knee, into the thigh, previously restricted to below the knee only). Patient denies acute pain in leg , but does note some tenderness to palpation of the lateral thigh. Sitting in chair, not wearing any supplemental O2 at time of exam. The patient denies other cardiopulmonary complaints. 12 point review of systems was completed and returned negative aside from the above stated complaints. Objective - Vital Signs/Intake and Output Vital Signs (last 24 hours): Temp Pulse Resp BP Pulse Ox 97.8 F 67 20 116/75 95 11/25/16 08:14 11/25/16 08:14 11/25/16 08:14 11/25/16 09:48 11/25/16 08:14 Intake and Output: 11/25/16 11/25/16 06:59 18:59 Intake Total 180 Balance 180 - Medications Medications: Current Medications Acetaminophen (Tylenol 325mg Tab) 650 mg PO Q6 PRN PRN Reason: Temperature Last Admin: 11/16/16 17:59 Dose: 650 mg Ascorbic Acid (Vitamin C 250 Mg Tab) 250 mg PO BIDPC [facility] Last Admin: 11/25/16 09:46 Dose: 250 mg Aspirin (Aspirin Chewable) 81 mg PO DAILY [facility] Last Admin: 11/25/16 09:46 Dose: 81 mg Famotidine (Pepcid) 20 mg PO DAILY [facility] Last Admin: 11/25/16 09:46 Dose: 20 mg Furosemide (Lasix) 20 mg PO DAILY [facility] Last Admin: 11/25/16 09:48 Dose: 20 mg Multivitamins/Minerals (Therapeutic-M Tab) 1 tab PO DAILY [facility] Last Admin: 11/25/16 09:46 Dose: 1 tab Petrolatum (Desitin Original) 1 gm TOP DAILY [facility] Last Admin: 11/25/16 09:47 Dose: 1 applic Potassium Chloride (K-Dur 20 Meq Er Tab) 20 meq PO DAILY [facility] Last Admin: 11/25/16 09:46 Dose: 20 meq Rosuvastatin Calcium (Crestor) 5 mg PO HS [facility] Last Admin: 11/24/16 21:07 Dose: 5 mg Saccharomyces Boulardii (Florastor) 250 mg PO BID [facility] Last Admin: 11/25/16 09:46 Dose: 250 mg - Labs Labs: 11/24/16 07:12 11/24/16 07:12 PT 15.2 SECONDS (9.7-12.2) H 11/12/16 12:26 INR 1.3 11/12/16 12:26 APTT 31 SECONDS (21-34) 11/12/16 12:26 - Additional Findings Additional findings: - Constitutional Appears: Well, Non-toxic, No Acute Distress, Resting comfortably in bed - Head Exam Head Exam: ATRAUMATIC, NORMAL INSPECTION, NORMOCEPHALIC - Eye Exam Eye Exam: EOMI, Normal appearance. absent: Conjunctival injection, Scleral icterus Pupil Exam: absent: Irregular, Unequal - ENT Exam ENT Exam: Mucous Membranes Moist - Neck Exam Neck Exam: absent: Tenderness, JVD - Respiratory Exam Respiratory Exam: Decreased Breath Sounds (mildly decreased breath sounds all [place], unchanged from prior exams), absent: Wheezes, Accessory Muscle Use, Chest Wall Tenderness, Rales, Rhonchi, Respiratory Distress - Cardiovascular Exam Cardiovascular Exam: Tachycardia, Rapid rate but regular rhythm +S1, +S2, Loud systolic murmur most prominent right 2nd intercostal space. absent: Regular Rate, Bradycardia - GI/Abdominal Exam GI & Abdominal Exam: Soft, Normal Bowel Sounds. absent: Distended, Firm - Extremities Exam Extremities Exam: scattered small healed wounds along anterior surface of both LE, bandaging along LLE anterior surface with significantly reddened skin and healing LE ulcerations under the bandaging, faint dorsalis pedis pulses bilaterally, LE skin discoloration of bilateral feet and ankles L>R, LLE discoloration acutely worsened (now extending past knee to thigh, upper portion is dusky, lower portion from mid-juarez to ankle is dark red-purple), Tenderness to palpation at left, left foot cool to palpation as compared to right, both LE cool on palpation Trace pitting edema in bilateral LE. absent: Normal Inspection - Neurological Exam Neurological Exam: Awake and alert, moving extremities spontaneously - Psychiatric Exam Psychiatric exam: Normal Mood, Normal Affect - Skin Skin Exam: Dry, Intact, Normal Color (except as noted in Extremities exam), Warm Assessment and Plan (1) Ischemic leg Assessment & Plan: Venous Duplex 11/25/16: official read pending, pre-ryan image shows extensive DVT throughout LLE -LLE discoloration acutely worsened (now extending past knee to thigh, upper portion is dusky, lower portion from mid-juarez to ankle is dark red-purple), Tenderness to palpation at left, left foot cool to palpation as compared to right -Still able to palpate faint dorsalis pedis pulses -As per Venous Duplex, extensive DVT; as per Surgery, no Arterial duplex because procedure involved tourniquet of LLE, could cause clot dislocation, but able to comfirm arterial flow, so no arterial occlusion -Started on heparin drip as per Surgery, pending possible tPA tomorrow depending on response to heparin drip -will need to resume Eliquis on discharge -Continue to monitor Status: Acute (2) Shortness of breath Assessment & Plan: EKG on 06/01/15: NSR at 64, normal EKG EKG on 11/12/16: sinus tachy at 104, possible LA enlargement EKG on 11/23/16: Sinus tachycardia at 122, Possible Left atrial enlargement, RSR ' or QR pattern in V1 suggests right ventricular conduction delay, Borderline ECG Echo on 11/12/16: LVEF 63%, Moderate concentric LVH, abnormal LV diastolic dysfxn , Severe valvular CXR 11/14/16: Progressive infiltrates mavis R lung superimposed upon CHF vs Pulm vasc congestion previously identified, PICC line in satisfactory place CXR 11/18/16: Worsening opacities and reticular densities in lungs compared to prior exam, CHF vs infectious process CXR 11/21/16: No significant interval change CXR 11/23/16: Interval improvement in lungs since prior exam -aortic stenosis vs 2/2 pulmonary etiology (former smoker) vs 2/2 infectious etiology (persisting LE cellulitis) -given severe , want to avoid excessive preload reduction -Continue Lasix 20mg PO daily -will eventually need TAVR given symptomatic -Trops 0.047, 0.092, continue to monitor -continue medical management Status: Resolved (3) CAD (coronary artery disease) Assessment & Plan: EKG on 11/20/15: NSR at 64, normal EKG EKG on 11/12/16: sinus tachy at 104, possible LA enlargement EKG on 11/23/16: Sinus tachycardia at 122, Possible Left atrial enlargement, RSR ' or QR pattern in V1 suggests right ventricular conduction delay, Borderline ECG Echo on 11/12/16: LVEF 63%, Moderate concentric LVH, abnormal LV diastolic dysfxn , Severe valvular -Stable; no chest pain, trop negative x2 -Initial EKG unremarkable, x2 EKGs Sinus Tachy, continue to monitor -continue medical management, Aspirin and Statin Status: Chronic (4) HTN (hypertension) Assessment & Plan: EKG on 06/01/15: NSR at 64, normal EKG EKG on 11/12/16: sinus tachy at 104, possible LA enlargement EKG on 11/23/16: Sinus tachycardia at 122, Possible Left atrial enlargement, RSR ' or QR pattern in V1 suggests right ventricular conduction delay, Borderline ECG Echo on 11/12/16: LVEF 63%, Moderate concentric LVH, abnormal LV diastolic dysfxn , Severe valvular -longstanding -given symptomatic , want to avoid aggressively reducing preload -continue Lasix 20mg PO daily -continue medical management Status: Chronic (5) Pedal edema Assessment & Plan: EKG on 06/01/15: NSR at 64, normal EKG EKG on 11/12/16: sinus tachy at 104, possible LA enlargement EKG on 11/23/16: Sinus tachycardia at 122, Possible Left atrial enlargement, RSR ' or QR pattern in V1 suggests right ventricular conduction delay, Borderline ECG Echo on 11/12/16: LVEF 63%, Moderate concentric LVH, abnormal LV diastolic dysfxn , Severe valvular CXR 11/14/16: Progressive infiltrates mavis R lung superimposed upon CHF vs Pulm vasc congestion previously identified, PICC line in satisfactory place CXR 11/18/16: Worsening opacities and reticular densities in lungs compared to prior exam, CHF vs infectious process CXR 11/21/16: No significant interval change CXR 11/23/16: Interval improvement in lungs since prior exam -More likely 2/2 LE cellulitis than cardiac etiology -Swelling resolved on current antibiotic course -Continue medical management, including lasix and antibiotics (as per ID) Status: Resolved - Assessment and Plan (Free Text) Assessment: Case discussed with Dr. Terry. <James Terry - Last Filed: 11/26/16 23:02> Objective - Vital Signs/Intake and Output Vital Signs (last 24 hours): Temp Pulse Resp BP Pulse Ox 97.5 F L 117 H 30 H 125/65 94 L 11/26/16 16:00 11/26/16 21:00 11/26/16 21:00 11/26/16 20:59 11/26/16 21:00 Intake and Output: 11/26/16 11/27/16 18:59 06:59 Intake Total 1235.3 577.0 Output Total 385 30 Balance 850.3 547.0 - Medications Medications: Current Medications Acetaminophen (Tylenol 325mg Tab) 650 mg PO Q6 PRN PRN Reason: Temperature Last Admin: 11/16/16 17:59 Dose: 650 mg Acetylcysteine (Acetylcysteine 20%) 3 ml PO BID [facility] Stop: 11/28/16 10:01 Last Admin: 11/26/16 17:06 Dose: 3 ml Ascorbic Acid (Vitamin C 250 Mg Tab) 250 mg PO BIDPC [facility] Last Admin: 11/26/16 17:06 Dose: 250 mg Aspirin (Aspirin Chewable) 81 mg PO DAILY [facility] Last Admin: 11/26/16 10:17 Dose: 81 mg Famotidine (Pepcid) 20 mg PO DAILY [facility] Last Admin: 11/26/16 10:18 Dose: 20 mg Furosemide (Lasix) 20 mg PO DAILY [facility] Last Admin: 11/26/16 10:17 Dose: 20 mg Heparin Sodium/Sodium Chloride (Heparin 23519 Units/250ml 1/2 Normal Saline) 25 ,000 units in 250 mls @ 7.348 mls/hr IV .Q24H PRN; Protocol; 12 UNITS/KG/HR PRN Reason: PROTOCOL Last Admin: 11/26/16 22:02 Dose: 9 units/kg/hr, 5.511 mls/hr Sodium Chloride (Sodium Chloride 0.9%) 1,000 mls @ 50 mls/hr IV .Q20H [facility] Last Admin: 11/26/16 19:00 Dose: 50 mls/hr Tigecycline 50 mg/ Sodium (Chloride) 100 mls @ 100 mls/hr IVPB Q12H [facility] Last Admin: 11/26/16 18:57 Dose: 100 mls/hr Multivitamins/Minerals (Therapeutic-M Tab) 1 tab PO DAILY [facility] Last Admin: 11/26/16 10:18 Dose: 1 tab Nystatin (Nystop Topical Powder) 1 applic TOP BID [facility] Last Admin: 11/26/16 17:07 Dose: 1 appl Petrolatum (Desitin Original) 1 gm TOP DAILY [facility] Last Admin: 11/26/16 11:04 Dose: 1 applic Potassium Chloride (K-Dur 20 Meq Er Tab) 20 meq PO DAILY [facility] Last Admin: 11/26/16 10:17 Dose: 20 meq Rosuvastatin Calcium (Crestor) 5 mg PO HS [facility] Last Admin: 11/26/16 21:59 Dose: 5 mg Saccharomyces Boulardii (Florastor) 250 mg PO BID [facility] Last Admin: 11/26/16 17:06 Dose: 250 mg - Labs Labs: 11/26/16 06:34 11/26/16 06:34 PT 13.3 SECONDS (9.7-12.2) H 11/25/16 19:44 INR 1.2 11/25/16 19:44 APTT 56 SECONDS (21-34) H D 11/26/16 19:19 Assessment and Plan - Assessment and Plan (Free Text) Plan: Patient seen and evaluated with the medical assistant dermatology Agree with the plan of care
--- NOTE | 2016-11-25 12:02 | CP.PCM.CON ---
<Gabino Chen - Last Filed: 11/25/16 12:41> History of Present Illness - History of Present Illness History of Present Illness: Surgery: Dr. Amaral Reason for consult: possible arterial compromise of LLE CC: "my legs hurt and my feet are cold" HPI: Patient is an 86F who is currently admitted and being treated for UTI and LE cellulitis. Most history is obtained from prior medical records. Patient is poor historian. During interview questioning, patient only seems to complain about her feet being cold and pain in her legs bilaterally. Patient was recently admitted to the hospital back in October 2016 for cellulitis and was found to have a RLE DVT in which she was discharged on Elliquis and po antibiotics to take at home. Upon this admission, patient was started on prophylactic lovenox which last administration was 11/20. As of this morning, nursing noticed a worsening in the discoloration of the left lower extremity and the temperature felt more cool than before. Stat vascular surgery consult was placed at that time. PMH: HLD, LE cellulitis, CAD, CHF, DDD PSH: "back surgery", cardiac stents Social: lives at home Review of Systems - Review of Systems Systems not reviewed;Unavailable: Uncooperative Past Patient History - Tetanus Immunizations Tetanus Immunization: Allergy to Tetanus Vaccine - Past Medical History & Family History Past Medical History?: Yes - Past Social History Smoking Status: Unknown If Ever Smoked Chewing Tobacco Use: No Cigar Use: No Alcohol: Occasional Drugs: Denies - CARDIAC Hx Hypercholesterolemia: Yes Hx Hypertension: Yes - PULMONARY Hx Bronchitis: Yes - HEENT Hx Deafness: Yes ((?)) - RENAL Hx Chronic Kidney Disease: No - HEMATOLOGICAL/ONCOLOGICAL Hx Blood Disorders: No Hx Bruising: No - INTEGUMENTARY Hx Dermatological Problems: Yes Hx Cellulitis: Yes - MUSCULOSKELETAL/RHEUMATOLOGICAL Hx Back Pain: Yes Hx Falls: No - GASTROINTESTINAL Hx Gastrointestinal Disorders: Yes - GENITOURINARY/GYNECOLOGICAL Hx Genitourinary Disorders: No - PSYCHIATRIC Hx Substance Use: No - SURGICAL HISTORY Hx Coronary Stent: Yes - ANESTHESIA Hx Anesthesia: Yes Hx Anesthesia Reactions: No Meds Allergies/Adverse Reactions: Allergies Allergy/AdvReac Type Severity Reaction Status Date / Time No Known Allergies Allergy Verified 10/23/16 14:58 - Medications Medications: Current Medications Acetaminophen (Tylenol 325mg Tab) 650 mg PO Q6 PRN PRN Reason: Temperature Last Admin: 11/16/16 17:59 Dose: 650 mg Ascorbic Acid (Vitamin C 250 Mg Tab) 250 mg PO BIDPC [facility] Last Admin: 11/25/16 09:46 Dose: 250 mg Aspirin (Aspirin Chewable) 81 mg PO DAILY [facility] Last Admin: 11/25/16 09:46 Dose: 81 mg Famotidine (Pepcid) 20 mg PO DAILY [facility] Last Admin: 11/25/16 09:46 Dose: 20 mg Furosemide (Lasix) 20 mg PO DAILY [facility] Last Admin: 11/25/16 09:48 Dose: 20 mg Multivitamins/Minerals (Therapeutic-M Tab) 1 tab PO DAILY [facility] Last Admin: 11/25/16 09:46 Dose: 1 tab Petrolatum (Desitin Original) 1 gm TOP DAILY [facility] Last Admin: 11/25/16 09:47 Dose: 1 applic Potassium Chloride (K-Dur 20 Meq Er Tab) 20 meq PO DAILY [facility] Last Admin: 11/25/16 09:46 Dose: 20 meq Rosuvastatin Calcium (Crestor) 5 mg PO HS [facility] Last Admin: 11/24/16 21:07 Dose: 5 mg Saccharomyces Boulardii (Florastor) 250 mg PO BID [facility] Last Admin: 11/25/16 09:46 Dose: 250 mg Physical Exam - Constitutional Appears: No Acute Distress, Chronically Ill - Head Exam Head Exam: ATRAUMATIC, NORMOCEPHALIC - Eye Exam Eye Exam: EOMI, Normal appearance - ENT Exam ENT Exam: Mucous Membranes Moist - Respiratory Exam Respiratory Exam: NORMAL BREATHING PATTERN. absent: Respiratory Distress - Cardiovascular Exam Cardiovascular Exam: Tachycardia, REGULAR RHYTHM - Extremities Exam Extremities exam: Positive for: calf tenderness, pedal edema, tenderness Additional comments: LLE purple-bluish discoloration w/ mottling extending to left groin. The leg is cool to touch when compared to the right. Pulses not palpable however posterior tibial pulse signal appreciated w/ doppler. 1+ edema noted. abrasion noted to juarez or LLE. - Neurological Exam Neurological exam: Alert, Altered - Skin Skin Exam: Cyanosis, Dry, Mottled (all to LLE ), Pallor Results - Vital Signs Recent Vital Signs: Last Vital Signs Temp 97.8 F 11/25/16 08:14 Pulse 67 11/25/16 08:14 Resp 20 11/25/16 08:14 BP 116/75 11/25/16 09:48 Pulse Ox 95 11/25/16 08:14 - Labs Result Diagrams: 11/24/16 07:12 11/24/16 07:12 Assessment & Plan - Assessment and Plan (Free Text) Assessment: 86 y/o female w/ possible vascular compromise to the LLE Plan: -PT pulse is signaled indicating blood flow to extremity -cont pulse checks, pulses marked -f/u final read of venous duplex, pre-ryan image shows extensive DVT throughout LLE-would recommend starting heparin drip -possible thrombolysis in the next few days -elevated LLE -further recs per Dr. Munir Daniel PGY1 <Vinny Amaral Jr. - Last Filed: 11/26/16 15:07> Meds - Medications Medications: Current Medications Acetaminophen (Tylenol 325mg Tab) 650 mg PO Q6 PRN PRN Reason: Temperature Last Admin: 11/16/16 17:59 Dose: 650 mg Acetylcysteine (Acetylcysteine 20%) 3 ml PO BID [facility] Mg [facility] Last Admin: 11/26/16 10:18 Dose: 250 mg Aspirin (Aspirin Chewable) 81 mg PO DAILY [facility] Last Admin: 11/26/16 10:17 Dose: 81 mg Famotidine (Pepcid) 20 mg PO DAILY [facility] Last Admin: 11/26/16 10:18 Dose: 20 mg Furosemide (Lasix) 20 mg PO DAILY [facility] Last Admin: 11/26/16 10:17 Dose: 20 mg Heparin Sodium/Sodium Chloride (Heparin 91408 Units/250ml 1/2 Normal Saline) 25 ,000 units in 250 mls @ 7.348 mls/hr IV .Q24H PRN; Protocol; 12 UNITS/KG/HR PRN Reason: PROTOCOL Last Titration: 11/26/16 13:33 Dose: 9 units/kg/hr, 5.511 mls/hr Sodium Chloride (Sodium Chloride 0.9%) 1,000 mls @ 50 mls/hr IV .Q20H [facility] Last Admin: 11/25/16 23:39 Dose: 50 mls/hr Piperacillin Sod/Tazobactam Sod (Zosyn 3.375 Gm Iv Premix) 3.375 gm in 50 mls @ 100 mls/hr IVPB Q6H [facility] Last Admin: 11/26/16 11:04 Dose: 100 mls/hr Multivitamins/Minerals (Therapeutic-M Tab) 1 tab PO DAILY [facility] Last Admin: 11/26/16 10:18 Dose: 1 tab Nystatin (Nystop Topical Powder) 1 applic TOP BID [facility] Last Admin: 11/26/16 11:05 Dose: 1 appl Petrolatum (Desitin Original) 1 gm TOP DAILY [facility] Last Admin: 11/26/16 11:04 Dose: 1 applic Potassium Chloride (K-Dur 20 Meq Er Tab) 20 meq PO DAILY [facility] Last Admin: 11/26/16 10:17 Dose: 20 meq Rosuvastatin Calcium (Crestor) 5 mg PO HS [facility] Last Admin: 11/25/16 21:46 Dose: 5 mg Saccharomyces Boulardii (Florastor) 250 mg PO BID [facility] Last Admin: 11/26/16 10:17 Dose: 250 mg Results - Vital Signs Recent Vital Signs: Last Vital Signs Temp 97.5 F L 11/26/16 12:00 Pulse 116 H 11/26/16 13:00 Resp 28 H 11/26/16 13:00 BP 112/58 L 11/26/16 13:00 Pulse Ox 95 11/26/16 13:00 - Labs Result Diagrams: 11/26/16 06:34 11/26/16 06:34 Labs: Laboratory Results - last 24 hr 11/25/16 11/25/16 11/26/16 19:44 21:28 06:34 WBC RBC Hgb Hct MCV MCH MCHC RDW Plt Count MPV Neut % (Auto) Lymph % (Auto) [place] % (Auto) Eos % (Auto) Baso % (Auto) Neut # Lymph # [place] # Eos # Baso # PT 13.3 H INR 1.2 APTT 208 H* 105 H* D Sodium 128 L Potassium 4.7 Chloride 98 Carbon Dioxide 19 L Anion Gap 16 BUN 31 H Creatinine 1.2 Est GFR ( Amer) 51 Est GFR (Non-Af Amer) 42 Random Glucose 98 Calcium 7.3 L Phosphorus Magnesium Total Bilirubin 0.8 AST 27 ALT 30 Alkaline Phosphatase 59 Total Protein 5.8 L Albumin 2.3 L Globulin 3.4 Albumin/Globulin Ratio 0.7 L Procalcitonin 11/26/16 11/26/16 11/26/16 06:34 06:34 06:34 WBC 17.7 H RBC 3.60 L Hgb 11.1 Hct 33.5 L MCV 93.1 MCH 30.7 MCHC 33.0 RDW 16.0 H Plt Count 478 H MPV 8.3 Neut % (Auto) 55.6 Lymph % (Auto) 27.6 [place] % (Auto) 15.0 H Eos % (Auto) 0.9 Baso % (Auto) 0.9 Neut # 9.9 H Lymph # 4.9 H [place] # 2.7 H Eos # 0.2 Baso # 0.2 PT INR APTT Sodium Potassium Chloride Carbon Dioxide Anion Gap BUN Creatinine Est GFR ( Amer) Est GFR (Non-Af Amer) Random Glucose Calcium Phosphorus 4.9 H Magnesium 2.1 Total Bilirubin AST ALT Alkaline Phosphatase Total Protein Albumin Globulin Albumin/Globulin Ratio Procalcitonin 0.94 H 11/26/16 11/26/16 06:34 11:53 WBC RBC Hgb Hct MCV MCH MCHC RDW Plt Count MPV Neut % (Auto) Lymph % (Auto) [place] % (Auto) Eos % (Auto) Baso % (Auto) Neut # Lymph # [place] # Eos # Baso # PT INR APTT 95 H D 122 H* D Sodium Potassium Chloride Carbon Dioxide Anion Gap BUN Creatinine Est GFR ( Amer) Est GFR (Non-Af Amer) Random Glucose Calcium Phosphorus Magnesium Total Bilirubin AST ALT Alkaline Phosphatase Total Protein Albumin Globulin Albumin/Globulin Ratio Procalcitonin Attending/Attestation - Attestation I have personally seen and examined this patient.: Yes I have fully participated in the care of the patient.: Yes I have reviewed all pertinent clinical information: Yes
[2016-11-25] MEDS ORDERED: Heparin25000 units/250ml 1/2NS 25,000 UNITS/250 ML BAG IV PRN ×2 (12:10→20:30)
--- NOTE | 2016-11-25 12:23 | RAD ---
HISTORY: infiltrate COMPARISON: 11/23/2016 FINDINGS: LUNGS: Prominent diffuse increased interstitial lung markings suggestive for prominent edema and or infiltrate. Confluent left basilar airspace opacification with small left pleural effusion. Trace right pleural effusion. Bilateral hilar prominence. Right central venous catheter tip extending to the cavoatrial junction. Prominent hiatal hernia. PLEURA: As above. CARDIOVASCULAR: Cardiomegaly. OSSEOUS STRUCTURES: No significant abnormalities. VISUALIZED UPPER ABDOMEN: Lucency projecting over the heart is suggestive for a prominent hiatal hernia. OTHER FINDINGS: None. IMPRESSION: Prominent diffuse increased interstitial lung markings suggestive for prominent edema and or infiltrate. Confluent left basilar airspace opacification with small left pleural effusion. Trace right pleural effusion. Bilateral hilar prominence. Right central venous catheter tip extending to the cavoatrial junction. Prominent hiatal hernia.
[2016-11-25] MEDS ORDERED: Sodium Chloride 0.45% 1,000 ML IV SCH ×2 (17:00→22:00)
[2016-11-25] MEDS ORDERED: Iohexol 300 100 ML IJ ONE (19:16)
[2016-11-25 20:13] LABS: INR 1.2
--- NOTE | 2016-11-25 21:35 | CP.PCM.PN ---
Subjective - Date & Time of Evaluation Date of Evaluation: 11/24/16 Time of Evaluation: 21:35 - Subjective Subjective: Patient today feeling slightly better. But complaining of cough. I spoke to the patient and family regarding the discharge plan. But as the patient is having some tachypnea and hypoxia I advised the patient to have a x-ray. Bilateral legs edema noted, but slightly better. On examination: Bilateral rales in the chest are noted regular heart sound, tachycardia noted, abdomen soft. Extremities edema 2+ on both legs. Labs reviewed Chest x-ray infiltrate bilaterally noted Assessment and recommendation: 86-year-old female with history of it Escherichia coli urinary tract infection. Complicated with CHF. Patient is having aortic stenosis. Continue the current treatment Objective - Vital Signs/Intake and Output Vital Signs (last 24 hours): Temp Pulse Resp BP Pulse Ox 98 F 110 H 20 111/69 95 11/25/16 15:15 11/25/16 15:15 11/25/16 15:15 11/25/16 15:15 11/25/16 15:15 Intake and Output: 11/25/16 11/26/16 18:59 06:59 Intake Total 180 Balance 180 - Medications Medications: Current Medications Acetaminophen (Tylenol 325mg Tab) 650 mg PO Q6 PRN PRN Reason: Temperature Last Admin: 11/16/16 17:59 Dose: 650 mg Ascorbic Acid (Vitamin C 250 Mg Tab) 250 mg PO BIDPC [facility] Last Admin: 11/25/16 17:27 Dose: 250 mg Aspirin (Aspirin Chewable) 81 mg PO DAILY [facility] Last Admin: 11/25/16 09:46 Dose: 81 mg Famotidine (Pepcid) 20 mg PO DAILY [facility] Last Admin: 11/25/16 09:46 Dose: 20 mg Furosemide (Lasix) 20 mg PO DAILY [facility] Last Admin: 11/25/16 09:48 Dose: 20 mg Sodium Chloride (Sodium Chloride 0.45%) 1,000 mls @ 70 mls/hr IV .[id number] [facility] Heparin Sodium/Sodium Chloride (Heparin 96091 Units/250ml 1/2 Normal Saline) 25 ,000 units in 250 mls @ 9.185 mls/hr IV .Q24H PRN; Protocol; 15 UNITS/KG/HR PRN Reason: PROTOCOL Last Admin: 11/25/16 21:30 Dose: 15 units/kg/hr, 9.185 mls/hr Multivitamins/Minerals (Therapeutic-M Tab) 1 tab PO DAILY [facility] Last Admin: 11/25/16 09:46 Dose: 1 tab Petrolatum (Desitin Original) 1 gm TOP DAILY [facility] Last Admin: 11/25/16 09:47 Dose: 1 applic Potassium Chloride (K-Dur 20 Meq Er Tab) 20 meq PO DAILY [facility] Last Admin: 11/25/16 09:46 Dose: 20 meq Rosuvastatin Calcium (Crestor) 5 mg PO HS [facility] Last Admin: 11/24/16 21:07 Dose: 5 mg Saccharomyces Boulardii (Florastor) 250 mg PO BID [facility] Last Admin: 11/25/16 17:27 Dose: 250 mg - Labs Labs: 11/24/16 07:12 11/24/16 07:12 PT 13.3 SECONDS (9.7-12.2) H 11/25/16 19:44 INR 1.2 11/25/16 19:44 APTT 208 SECONDS (21-34) H* 11/25/16 19:44 Assessment and Plan (1) ESBL (extended spectrum beta-lactamase) producing bacteria infection Status: Resolved (2) Fever Status: Acute
--- NOTE | 2016-11-25 21:50 | CP.PCM.PN ---
Subjective - Date & Time of Evaluation Date of Evaluation: 11/25/16 Time of Evaluation: 21:48 - Subjective Subjective: Patient today developed a sudden worsening leg swelling on the left side, discoloration of the leg noted. Vascular surgeon was called. Doppler showing evidence of significant venous thrombosis. Patient was on anticoagulation with the prophylactic dose. Because of the swelling and a DVT started on heparin drip at this time. Patient is mildly tachypneic, and a tachycardia noted more than yesterday. On examination: Chest bilateral good air entry, but or rales noted regular heart sound, tachycardia noted, abdomen nontender, extremities edema profusely noted on the left leg than the right leg Chest x-ray slight decrease in the congestion noted. Hypoxia noted. Assessment and recommendation: 86-year-old female with history of Escherichia coli infection treated. Complicated with the congestive heart failure. Now having deep venous thrombosis significant on anticoagulation. Continue the IV heparin. Prognosis is guarded. We'll transfer the patient to intensive care unit for close monitoring. Spoke to the [place] surgeon, possible thrombolysis. Continue the heparin. Close monitoring. PICC line noted Objective - Vital Signs/Intake and Output Vital Signs (last 24 hours): Temp Pulse Resp BP Pulse Ox 98 F 110 H 20 111/69 95 11/25/16 15:15 11/25/16 15:15 11/25/16 15:15 11/25/16 15:15 11/25/16 15:15 Intake and Output: 11/25/16 11/26/16 18:59 06:59 Intake Total 180 Balance 180 - Medications Medications: Current Medications Acetaminophen (Tylenol 325mg Tab) 650 mg PO Q6 PRN PRN Reason: Temperature Last Admin: 11/16/16 17:59 Dose: 650 mg Ascorbic Acid (Vitamin C 250 Mg Tab) 250 mg PO BIDPC [facility] Last Admin: 11/25/16 17:27 Dose: 250 mg Aspirin (Aspirin Chewable) 81 mg PO DAILY [facility] Last Admin: 11/25/16 09:46 Dose: 81 mg Famotidine (Pepcid) 20 mg PO DAILY [facility] Last Admin: 11/25/16 09:46 Dose: 20 mg Furosemide (Lasix) 20 mg PO DAILY [facility] Last Admin: 11/25/16 09:48 Dose: 20 mg Sodium Chloride (Sodium Chloride 0.45%) 1,000 mls @ 70 mls/hr IV .[id number] [facility] Heparin Sodium/Sodium Chloride (Heparin 31040 Units/250ml 1/2 Normal Saline) 25 ,000 units in 250 mls @ 9.185 mls/hr IV .Q24H PRN; Protocol; 15 UNITS/KG/HR PRN Reason: PROTOCOL Last Admin: 11/25/16 21:30 Dose: 15 units/kg/hr, 9.185 mls/hr Multivitamins/Minerals (Therapeutic-M Tab) 1 tab PO DAILY [facility] Last Admin: 11/25/16 09:46 Dose: 1 tab Petrolatum (Desitin Original) 1 gm TOP DAILY [facility] Last Admin: 11/25/16 09:47 Dose: 1 applic Potassium Chloride (K-Dur 20 Meq Er Tab) 20 meq PO DAILY [facility] Last Admin: 11/25/16 09:46 Dose: 20 meq Rosuvastatin Calcium (Crestor) 5 mg PO HS [facility] Last Admin: 11/25/16 21:46 Dose: 5 mg Saccharomyces Boulardii (Florastor) 250 mg PO BID [facility] Last Admin: 11/25/16 17:27 Dose: 250 mg - Labs Labs: 11/24/16 07:12 11/24/16 07:12 PT 13.3 SECONDS (9.7-12.2) H 11/25/16 19:44 INR 1.2 11/25/16 19:44 APTT 208 SECONDS (21-34) H* 11/25/16 19:44 Assessment and Plan (1) ESBL (extended spectrum beta-lactamase) producing bacteria infection Status: Resolved (2) Fever Status: Acute
--- NOTE | 2016-11-25 22:19 | CP.PCM.PN ---
Subjective - Date & Time of Evaluation Date of Evaluation: 11/25/16 Time of Evaluation: 13:00 - Subjective Subjective: Patient seen and evaluated Acute Left leg DVT Dr. Amaral consulted Patient denies chest pain and dyspnea H/O Severe Please see the co signed resident note from today Objective - Vital Signs/Intake and Output Vital Signs (last 24 hours): Temp Pulse Resp BP Pulse Ox 98 F 110 H 20 111/69 95 11/25/16 15:15 11/25/16 15:15 11/25/16 15:15 11/25/16 15:15 11/25/16 15:15 Intake and Output: 11/25/16 11/26/16 18:59 06:59 Intake Total 180 Balance 180 - Medications Medications: Current Medications Acetaminophen (Tylenol 325mg Tab) 650 mg PO Q6 PRN PRN Reason: Temperature Last Admin: 11/16/16 17:59 Dose: 650 mg Ascorbic Acid (Vitamin C 250 Mg Tab) 250 mg PO BIDPC [facility] Last Admin: 11/25/16 17:27 Dose: 250 mg Aspirin (Aspirin Chewable) 81 mg PO DAILY [facility] Last Admin: 11/25/16 09:46 Dose: 81 mg Famotidine (Pepcid) 20 mg PO DAILY [facility] Last Admin: 11/25/16 09:46 Dose: 20 mg Furosemide (Lasix) 20 mg PO DAILY [facility] Last Admin: 11/25/16 09:48 Dose: 20 mg Heparin Sodium/Sodium Chloride (Heparin 02308 Units/250ml 1/2 Normal Saline) 25 ,000 units in 250 mls @ 9.185 mls/hr IV .Q24H PRN; Protocol; 15 UNITS/KG/HR PRN Reason: PROTOCOL Last Admin: 11/25/16 21:30 Dose: 15 units/kg/hr, 9.185 mls/hr Multivitamins/Minerals (Therapeutic-M Tab) 1 tab PO DAILY [facility] Last Admin: 11/25/16 09:46 Dose: 1 tab Petrolatum (Desitin Original) 1 gm TOP DAILY [facility] Last Admin: 11/25/16 09:47 Dose: 1 applic Potassium Chloride (K-Dur 20 Meq Er Tab) 20 meq PO DAILY [facility] Last Admin: 11/25/16 09:46 Dose: 20 meq Rosuvastatin Calcium (Crestor) 5 mg PO HS [facility] Last Admin: 11/25/16 21:46 Dose: 5 mg Saccharomyces Boulardii (Florastor) 250 mg PO BID [facility] Last Admin: 11/25/16 17:27 Dose: 250 mg - Labs Labs: 11/24/16 07:12 11/24/16 07:12 PT 13.3 SECONDS (9.7-12.2) H 11/25/16 19:44 INR 1.2 11/25/16 19:44 APTT 105 SECONDS (21-34) H* D 11/25/16 21:28
--- NOTE | 2016-11-25 22:52 | CP.PCM.CON ---
History of Present Illness - History of Present Illness History of Present Illness: Patient seen and examined in ICU once transferred. This is an 86 year old female with multiple medical problems who got a little more complicated today with tachyardia in thelow 110's and hypoxiabut being able to saturate in the mid 90's with 3 L of NC. She looks very tired. ros unable since she seems to be very tired. pe: bp 116/79 mmhg, hr 121 bpm, rr 24, afebrile wakes up when spoken to, cooperates with exam s1, s2 sinus tachycardia, no murmurs auscultated lungs decreased bilateral air of entry, difficult to auscultate the sounds abdomen soft, tender in LLQ, but there is a hematoma from previous anticoagulants given to SQ tissue in abdomen very poor muscle mass left leg with marked edema, skin mottle in lower 1/3 of the tight, right leg edema, purple looking, warm, right leg cold, non tender, anterior skin of leg linear weeping opening, area is warmer than the rest of the legs a/p: extensive left leg dvt, most likely has a PE, no CT scan since she just got contrast for abdomen and pelvis, on heparin drip, might get thrombectomy in am by Dr. Amaral. Possible left leg cellulitis, start zosyn, wbc count increasing (could be also be secondary to PE0 UTI by E. coli, last UA negative bilateral patchy infiltrate, possible pneumonia, start zosyn Past Patient History - Tetanus Immunizations Tetanus Immunization: Allergy to Tetanus Vaccine - Past Medical History & Family History Past Medical History?: Yes - Past Social History Smoking Status: Unknown If Ever Smoked Chewing Tobacco Use: No Cigar Use: No Alcohol: Occasional Drugs: Denies - CARDIAC Hx Hypercholesterolemia: Yes Hx Hypertension: Yes - PULMONARY Hx Bronchitis: Yes - HEENT Hx Deafness: Yes ((?)) - RENAL Hx Chronic Kidney Disease: No - HEMATOLOGICAL/ONCOLOGICAL Hx Blood Disorders: No Hx Bruising: No - INTEGUMENTARY Hx Dermatological Problems: Yes Hx Cellulitis: Yes - MUSCULOSKELETAL/RHEUMATOLOGICAL Hx Back Pain: Yes Hx Falls: No - GASTROINTESTINAL Hx Gastrointestinal Disorders: Yes - GENITOURINARY/GYNECOLOGICAL Hx Genitourinary Disorders: No - PSYCHIATRIC Hx Substance Use: No - SURGICAL HISTORY Hx Coronary Stent: Yes - ANESTHESIA Hx Anesthesia: Yes Hx Anesthesia Reactions: No Meds Allergies/Adverse Reactions: Allergies Allergy/AdvReac Type Severity Reaction Status Date / Time No Known Allergies Allergy Verified 10/23/16 14:58 - Medications Medications: Current Medications Acetaminophen (Tylenol 325mg Tab) 650 mg PO Q6 PRN PRN Reason: Temperature Last Admin: 11/16/16 17:59 Dose: 650 mg Ascorbic Acid (Vitamin C 250 Mg Tab) 250 mg PO BIDPC [facility] Last Admin: 11/25/16 17:27 Dose: 250 mg Aspirin (Aspirin Chewable) 81 mg PO DAILY [facility] Last Admin: 11/25/16 09:46 Dose: 81 mg Famotidine (Pepcid) 20 mg PO DAILY [facility] Last Admin: 11/25/16 09:46 Dose: 20 mg Furosemide (Lasix) 20 mg PO DAILY [facility] Last Admin: 11/25/16 09:48 Dose: 20 mg Heparin Sodium/Sodium Chloride (Heparin 36331 Units/250ml 1/2 Normal Saline) 25 ,000 units in 250 mls @ 7.348 mls/hr IV .Q24H PRN; Protocol; 12 UNITS/KG/HR PRN Reason: PROTOCOL Sodium Chloride (Sodium Chloride 0.9%) 1,000 mls @ 50 mls/hr IV .Q20H [facility] Multivitamins/Minerals (Therapeutic-M Tab) 1 tab PO DAILY [facility] Last Admin: 11/25/16 09:46 Dose: 1 tab Petrolatum (Desitin Original) 1 gm TOP DAILY [facility] Last Admin: 11/25/16 09:47 Dose: 1 applic Potassium Chloride (K-Dur 20 Meq Er Tab) 20 meq PO DAILY [facility] Last Admin: 11/25/16 09:46 Dose: 20 meq Rosuvastatin Calcium (Crestor) 5 mg PO HS [facility] Last Admin: 11/25/16 21:46 Dose: 5 mg Saccharomyces Boulardii (Florastor) 250 mg PO BID [facility] Last Admin: 11/25/16 17:27 Dose: 250 mg Results - Vital Signs Recent Vital Signs: Last Vital Signs Temp 98 F 11/25/16 15:15 Pulse 110 H 11/25/16 15:15 Resp 20 11/25/16 15:15 BP 111/69 11/25/16 15:15 Pulse Ox 95 11/25/16 15:15 - Labs Result Diagrams: 11/24/16 07:12 11/24/16 07:12 Labs: Laboratory Results - last 24 hr 11/25/16 11/25/16 19:44 21:28 PT 13.3 H INR 1.2 APTT 208 H* 105 H* D
[2016-11-25] MEDS ORDERED: Vancomycin 1 gm/NS 200 ml 1 GM/200 ML BAG IVPB ONE (23:00)
[2016-11-25] MEDS: Heparin25000 units/250ml 1/2NS 25,000 UNITS/250 ML BAG IV PRN (23:14)
[2016-11-25] MEDS: Sodium Chloride 0.9% 1,000 ML IV SCH ×2 (23:26→23:39)
[2016-11-25] MEDS: Piperacill/Tazo 3.375gm in Dex 3.375 GM/50 ML BAG IVPB SCH (23:30)
[2016-11-26] MEDS: Piperacill/Tazo 3.375gm in Dex 3.375 GM/50 ML BAG IVPB SCH ×3 (05:11→17:04)
[2016-11-26 07:03] LABS: BASO # 0.2 K/uL (0.0-0.2); BASO % 0.9 % (0.0-2.0); EOS # 0.2 K/uL (0.0-0.7); EOS % 0.9 % (0.0-4.0); HEMATOCRIT 33.5 % (34.0-47.0); LYMPH # 4.9 K/uL (1.0-4.3); LYMPH % 27.6 % (20.0-40.0); MEAN CELL VOLUME 93.1 fL (81.0-99.0); MEAN CORPUSCULAR HEMOGLOBIN 30.7 pg (27.0-31.0); MEAN PLATELET VOLUME 8.3 fL (7.2-11.7); MONO # 2.7 K/uL (0.0-0.8); NRBC % 0.1 % (0.0-2.0); WHITE BLOOD COUNT 17.7 K/uL (4.8-10.8)
[2016-11-26 07:04] LABS: POTASSIUM 4.7 mmol/L (3.6-5.2)
[2016-11-26 07:07] LABS: ALB/GLOB RATIO 0.7 (1.0-2.1); BILIRUBIN,TOTAL 0.8 mg/dL (0.2-1.3); CALCIUM 7.3 mg/dl (8.6-10.4); TOTAL PROTEIN 5.8 g/dL (6.3-8.3)
[2016-11-26 07:18] LABS: PHOSPHOROUS 4.9 mg/dL (2.5-4.5)
[2016-11-26 07:19] LABS: MAGNESIUM 2.1 mg/dL (1.6-2.3)
--- NOTE | 2016-11-26 08:35 | CP.PCM.PN ---
<Gabino Chen - Last Filed: 11/26/16 14:16> Subjective - Date & Time of Evaluation Date of Evaluation: 11/26/16 Time of Evaluation: 08:34 - Subjective Subjective: Surgery: Dr. Amaral Patient in ICU currently. Patient appears comfortable. Per nursing no acute events overnight. Patient was found to have extensive DVT throughout LLE and started on heparin drip. Patient denies pain or coldness to LE. Objective - Vital Signs/Intake and Output Vital Signs (last 24 hours): Temp Pulse Resp BP Pulse Ox 98 F 98 H 25 H 114/62 97 11/26/16 04:00 11/26/16 07:00 11/26/16 07:00 11/26/16 06:31 11/26/16 07:00 Intake and Output: 11/26/16 11/26/16 06:59 18:59 Intake Total 942.4 57.3 Output Total 305 Balance 637.4 57.3 - Medications Medications: Current Medications Acetaminophen (Tylenol 325mg Tab) 650 mg PO Q6 PRN PRN Reason: Temperature Last Admin: 11/16/16 17:59 Dose: 650 mg Ascorbic Acid (Vitamin C 250 Mg Tab) 250 mg PO BIDPC [facility] Last Admin: 11/25/16 17:27 Dose: 250 mg Aspirin (Aspirin Chewable) 81 mg PO DAILY [facility] Last Admin: 11/25/16 09:46 Dose: 81 mg Famotidine (Pepcid) 20 mg PO DAILY [facility] Last Admin: 11/25/16 09:46 Dose: 20 mg Furosemide (Lasix) 20 mg PO DAILY [facility] Last Admin: 11/25/16 09:48 Dose: 20 mg Heparin Sodium/Sodium Chloride (Heparin 78743 Units/250ml 1/2 Normal Saline) 25 ,000 units in 250 mls @ 7.348 mls/hr IV .Q24H PRN; Protocol; 12 UNITS/KG/HR PRN Reason: PROTOCOL Last Admin: 11/25/16 23:14 Dose: 12 units/kg/hr, 7.348 mls/hr Sodium Chloride (Sodium Chloride 0.9%) 1,000 mls @ 50 mls/hr IV .Q20H [facility] Last Admin: 11/25/16 23:39 Dose: 50 mls/hr Piperacillin Sod/Tazobactam Sod (Zosyn 3.375 Gm Iv Premix) 3.375 gm in 50 mls @ 100 mls/hr IVPB Q6H [facility] Last Admin: 11/26/16 05:11 Dose: 100 mls/hr Multivitamins/Minerals (Therapeutic-M Tab) 1 tab PO DAILY [facility] Last Admin: 11/25/16 09:46 Dose: 1 tab Nystatin (Nystop Topical Powder) 1 applic TOP BID [facility] Petrolatum (Desitin Original) 1 gm TOP DAILY [facility] Last Admin: 11/25/16 09:47 Dose: 1 applic Potassium Chloride (K-Dur 20 Meq Er Tab) 20 meq PO DAILY [facility] Last Admin: 11/25/16 09:46 Dose: 20 meq Rosuvastatin Calcium (Crestor) 5 mg PO HS [facility] Last Admin: 11/25/16 21:46 Dose: 5 mg Saccharomyces Boulardii (Florastor) 250 mg PO BID [facility] Last Admin: 11/25/16 17:27 Dose: 250 mg - Labs Labs: 11/26/16 06:34 11/26/16 06:34 PT 13.3 SECONDS (9.7-12.2) H 11/25/16 19:44 INR 1.2 11/25/16 19:44 APTT 95 SECONDS (21-34) H D 11/26/16 06:34 - Constitutional Appears: Non-toxic, No Acute Distress - Head Exam Head Exam: ATRAUMATIC, NORMOCEPHALIC - Eye Exam Eye Exam: EOMI - ENT Exam ENT Exam: Mucous Membranes Moist - Respiratory Exam Respiratory Exam: NORMAL BREATHING PATTERN. absent: Respiratory Distress - Cardiovascular Exam Cardiovascular Exam: REGULAR RHYTHM. absent: Tachycardia - Extremities Exam Additional comments: significant improvement in the cyanosis and mottling of the LLE. 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 Munir Daniel PGY1 <Vinny Amaral Jr. - Last Filed: 11/26/16 15:06> Objective - Vital Signs/Intake and Output Vital Signs (last 24 hours): Temp Pulse Resp BP Pulse Ox 97.5 F L 116 H 28 H 112/58 L 95 11/26/16 12:00 11/26/16 13:00 11/26/16 13:00 11/26/16 13:00 11/26/16 13:00 Intake and Output: 11/26/16 11/26/16 06:59 18:59 Intake Total 942.4 812.8 Output Total 305 210 Balance 637.4 602.8 - Medications Medications: Current Medications Acetaminophen (Tylenol 325mg Tab) 650 mg PO Q6 PRN PRN Reason: Temperature Last Admin: 11/16/16 17:59 Dose: 650 mg Acetylcysteine (Acetylcysteine 20%) 3 ml PO BID [facility] Ascorbic Acid (Vitamin C 250 Mg Tab) 250 mg PO BIDPC [facility] Last Admin: 11/26/16 10:18 Dose: 250 mg Aspirin (Aspirin Chewable) 81 mg PO DAILY [facility] Last Admin: 11/26/16 10:17 Dose: 81 mg Famotidine (Pepcid) 20 mg PO DAILY [facility] Last Admin: 11/26/16 10:18 Dose: 20 mg Furosemide (Lasix) 20 mg PO DAILY [facility] Last Admin: 11/26/16 10:17 Dose: 20 mg Heparin Sodium/Sodium Chloride (Heparin 42162 Units/250ml 1/2 Normal Saline) 25 ,000 units in 250 mls @ 7.348 mls/hr IV .Q24H PRN; Protocol; 12 UNITS/KG/HR PRN Reason: PROTOCOL Last Titration: 11/26/16 13:33 Dose: 9 units/kg/hr, 5.511 mls/hr Sodium Chloride (Sodium Chloride 0.9%) 1,000 mls @ 50 mls/hr IV .Q20H [facility] Last Admin: 11/25/16 23:39 Dose: 50 mls/hr Piperacillin Sod/Tazobactam Sod (Zosyn 3.375 Gm Iv Premix) 3.375 gm in 50 mls @ 100 mls/hr IVPB Q6H [facility] Last Admin: 11/26/16 11:04 Dose: 100 mls/hr Multivitamins/Minerals (Therapeutic-M Tab) 1 tab PO DAILY [facility] Last Admin: 11/26/16 10:18 Dose: 1 tab Nystatin (Nystop Topical Powder) 1 applic TOP BID [facility] Last Admin: 11/26/16 11:05 Dose: 1 appl Petrolatum (Desitin Original) 1 gm TOP DAILY [facility] Last Admin: 11/26/16 11:04 Dose: 1 applic Potassium Chloride (K-Dur 20 Meq Er Tab) 20 meq PO DAILY [facility] Last Admin: 11/26/16 10:17 Dose: 20 meq Rosuvastatin Calcium (Crestor) 5 mg PO HS [facility] Last Admin: 11/25/16 21:46 Dose: 5 mg Saccharomyces Boulardii (Florastor) 250 mg PO BID [facility] Last Admin: 11/26/16 10:17 Dose: 250 mg - Labs Labs: 11/26/16 06:34 11/26/16 06:34 PT 13.3 SECONDS (9.7-12.2) H 11/25/16 19:44 INR 1.2 11/25/16 19:44 APTT 122 SECONDS (21-34) H* D 11/26/16 11:53 Attending/Attestation - Attestation Notes (Text): 11/26/16 15:[address] wanda bernal patient's sister. If renal function stable will place filter and do thrombolyis tomorrow continua anticoagulation
--- NOTE | 2016-11-26 08:49 | CT ---
PROCEDURE: CT Abdomen and Pelvis with contrast HISTORY: assess venous thrombosis extension into iliacs COMPARISON: None. TECHNIQUE: Contrast dose: 100 mL Omnipaque 300 Radiation dose: Total exam DLP = 680.01 mGy-cm. This CT exam was performed using one or more of the following dose reduction techniques: Automated exposure control, adjustment of the mA and/or kV according to patient size, and/or use of iterative reconstruction technique. FINDINGS: LOWER THORAX: Bilateral lower lobe infiltrate/atelectasis. Small bilateral pleural effusion. LIVER: Unremarkable. No gross lesion or ductal dilatation. GALLBLADDER AND BILE DUCTS: Unremarkable. PANCREAS: Two rounded fluid density masses in the pancreatic body, 8 mm and 1.6 cm in diameter, respectively. Follow-up with magnetic resonance imaging is advised. SPLEEN: Unremarkable. ADRENALS: KIDNEYS AND URETERS: 1.9 cm right lower pole renal cortical cyst. 1.0 cm mid right renal cortical cyst. No renal calculus or hydronephrosis. VASCULATURE: There is calcified atherosclerotic disease at the origin of the celiac and SMA without evidence of significant stenosis. There is no evidence of stenosis of the origin of the common iliacs or the internal and external iliac vessels. There is absent venous flow in the left external iliac vein. At the confluence of the common iliac veins, there is circumscribed lobulated low-attenuation seen protruding from the left common iliac vein into the inferior vena cava suspicious for localized thrombus. There is no evidence of mixing of non-opacified and opacified blood in the inferior vena cava to suggest active return of unopacified venous blood from the left common iliac vein. . BOWEL: Unremarkable. No obstruction. No gross mural thickening. APPENDIX: Not identified. No secondary findings to suggest acute appendicitis. PERITONEUM: Unremarkable. No free fluid. No free air. LYMPH NODES: Unremarkable. No enlarged lymph nodes. BLADDER: Unremarkable. REPRODUCTIVE: Unremarkable postmenopausal uterus. BONES: No acute fracture. Dextroscoliosis of lumbar spine. Grade 1 anterolisthesis at L3-4 without spondylolysis. OTHER FINDINGS: None. IMPRESSION: Suspected acute thrombus protruding from left common iliac vein into the distal inferior vena cava. Absent enhancement of the left external iliac vein consistent with demonstrated left lower extremity deep venous thrombosis on Doppler ultrasound examination. Moderate hiatal hernia. Bilateral lower lobe infiltrate/atelectasis. Two cystic lesions in the pancreatic body, largest 1.6 cm. Follow-up with MRI is advised. Preliminary interpretation of this examination was reported by [facility] at 8:52 p.m. on 11/25/2016. There is concurrence of this report with the preliminary interpretation. Please note that question of venous thrombosis was not addressed in the preliminary report of this examination.
--- NOTE | 2016-11-26 09:09 | RAD ---
HISTORY: Congestive heart failure COMPARISON: No prior. FINDINGS: LUNGS: Moderate venous congestion. Diffuse confluent increased airspace consolidative opacity seen within the right mid to lower lung zone as well as the left lung base. Nodular consolidative changes at the right lung base. Small left pleural effusion. Right PICC line with tip extending to the cavoatrial junction. PLEURA: As above. CARDIOVASCULAR: Cardiomegaly. Calcification at the aortic knob. OSSEOUS STRUCTURES: Degenerative changes in the spine and shoulders. VISUALIZED UPPER ABDOMEN: Normal. OTHER FINDINGS: None. IMPRESSION: No significant interval change.
[2016-11-26] MEDS: Saccharomyces Boulardi 250 mg Cap PO SCH ×2 (10:17→17:06)
[2016-11-26] MEDS: Potassium Chloride 20 mEq ER Tab PO SCH (10:17)
[2016-11-26] MEDS: Multivitamin With Minerals Tab PO SCH (10:18)
[2016-11-26] MEDS: Zinc Oxide Topical 30 gm Tube TOP SCH (11:04)
--- NOTE | 2016-11-26 11:35 | CP.CCUPN ---
<Elie Lozoya - Last Filed: 11/26/16 12:38> CCU Subjective - Physician Review Subjective (Free Text): 11/26/16 11:32 PGY-1 ICU progress note Pt seen and examined at bedside. Pt states she feels fine today. No acute overnight events after being transferred to ICU. Denies chest pain, palpitations , fevers, chills, sob, nausea, vomiting. Critical Care Time Spent (in minutes): 35 CCU Objective - Vital Signs / Intake & Output Vital Signs (Last 4 hours): Vital Signs BP 11/26/16 10:17 125/67 Intake and Output (Last 8hrs): Intake & Output 11/25/16 11/26/16 11/26/16 22:59 06:59 14:59 Intake Total 942.4 57.3 Output Total 305 Balance 637.4 57.3 Weight 148 lb Intake: Intake, IV Amount 898.4 57.3 Right Upper arm 140 left hand 1st port 400 50 left hand 2nd port 58.4 7.3 right PICC 300 Other 44 Output: Urine 305 Urethral (Cope) 250 Urine, Voided 55 - Physical Exam Head: Positive for: Atraumatic, Normocephalic Pupils: Positive for: PERRL Mouth: Positive for: Moist Mucous Membranes Respiratory/Chest: Positive for: Clear to Auscultation, Good Air Exchange. Negative for: Respiratory Distress, Accessory Muscle Use Cardiovascular: Positive for: Normal S1, S2, Tachycardic Abdomen: Positive for: Normal Bowel Sounds. Negative for: Tenderness, Distention Upper Extremity: Positive for: NORMAL PULSES Lower Extremity: Positive for: Edema, Other (left leg cellulitis) Neurological: Positive for: Speech Normal, Motor Func Grossly Intact Skin: Positive for: Warm, Dry Psychiatric: Positive for: Alert, Oriented x 3 - Medications Active Medications: Active Medications Generic Name Dose Route Start Last Admin Trade Name Freq PRN Reason Stop Dose Admin Acetaminophen 650 mg 11/12/16 21:41 11/16/16 17:59 Tylenol 325mg Tab PO 650 mg Q6 PRN Administration Temperature Ascorbic Acid 250 mg 11/22/16 18:00 11/26/16 10:18 Vitamin C 250 Mg Tab PO 250 mg BIDPC BARI Administration Aspirin 81 mg 11/18/16 18:00 11/26/16 10:17 Aspirin Chewable PO 81 mg DAILY BARI Administration Famotidine 20 mg 11/14/16 10:00 11/26/16 10:18 Pepcid PO 20 mg DAILY BARI Administration Furosemide 20 mg 11/15/16 10:00 11/26/16 10:17 Lasix PO 20 mg DAILY BARI Administration Heparin Sodium/Sodium Chloride 25,000 units in 250 mls @ 7.348 mls/hr 22:45 11/25/16 23:14 Heparin 63221 Units/250ml 1/2 Normal Saline IV 12 units/kg/hr .Q24H PRN 7.348 mls/hr PROTOCOL Administration Protocol 12 UNITS/KG/HR Sodium Chloride 1,000 mls @ 50 mls/hr 11/25/16 23:00 11/25/16 23:39 Sodium Chloride 0.9% IV 50 mls/hr .Q20H BARI Administration Piperacillin Sod/Tazobactam Sod 3.375 gm in 50 mls @ 100 mls/hr 11/25/16 23: 15 11/26/16 11:04 Zosyn 3.375 Gm Iv Premix IVPB 100 mls/hr Q6H BARI Administration Multivitamins/Minerals 1 tab 11/21/16 10:00 11/26/16 10:18 Therapeutic-M Tab PO 1 tab DAILY BARI Administration Nystatin 1 applic 11/26/16 10:00 11/26/16 11:05 Nystop Topical Powder TOP 1 appl BID BARI Administration Petrolatum 1 gm 11/15/16 10:00 11/26/16 11:04 Desitin Original TOP 1 applic DAILY BARI Administration Potassium Chloride 20 meq 11/17/16 17:15 11/26/16 10:17 K-Dur 20 Meq Er Tab PO 20 meq DAILY BARI Administration Rosuvastatin Calcium 5 mg 11/18/16 22:00 11/25/16 21:46 Crestor PO 5 mg HS BARI Administration Saccharomyces Boulardii 250 mg 11/13/16 10:00 11/26/16 10:17 Florastor PO 250 mg BID BARI Administration - Patient Studies Lab Studies: Lab Studies 11/26/16 11/26/16 11/26/16 Range/Units 06:34 06:34 06:34 WBC 17.7 H (4.8-10.8) K/uL RBC 3.60 L (3.80-5.20) Mil/uL Hgb 11.1 (11.0-16.0) g/dL Hct 33.5 L (34.0-47.0) % MCV 93.1 (81.0-99.0) fL MCH 30.7 (27.0-31.0) pg MCHC 33.0 (33.0-37.0) g/dL RDW 16.0 H (11.5-14.5) % Plt Count 478 H (130-400) K/uL MPV 8.3 (7.2-11.7) fL Neut % (Auto) 55.6 (50.0-75.0) % Lymph % (Auto) 27.6 (20.0-40.0) % [place] % (Auto) 15.0 H (0.0-10.0) % Eos % (Auto) 0.9 (0.0-4.0) % Baso % (Auto) 0.9 (0.0-2.0) % Neut # 9.9 H (1.8-7.0) K/uL Lymph # 4.9 H (1.0-4.3) K/uL [place] # 2.7 H (0.0-0.8) K/uL Eos # 0.2 (0.0-0.7) K/uL Baso # 0.2 (0.0-0.2) K/uL PT (9.7-12.2) SECONDS INR APTT 95 H D (21-34) SECONDS Sodium (132-148) mmol/L Potassium (3.6-5.2) mmol/L Chloride (98-107) mmol/L Carbon Dioxide (22-30) mmol/L Anion Gap (10-20) BUN (7-17) mg/dL Creatinine (0.7-1.2) MG/DL Est GFR ( Amer) Est GFR (Non-Af Amer) Random Glucose (65-105) mg/dL Calcium (8.6-10.4) mg/dl Phosphorus 4.9 H (2.5-4.5) mg/dL Magnesium 2.1 (1.6-2.3) mg/dL Total Bilirubin (0.2-1.3) mg/dL AST (14-36) U/L ALT (9-52) U/L Alkaline Phosphatase (38-126) U/L Total Protein (6.3-8.3) g/dL Albumin (3.5-5.0) g/dL Globulin (2.2-3.9) gm/dL Albumin/Globulin Ratio (1.0-2.1) 11/26/16 11/25/16 11/25/16 Range/Units 06:34 21:28 19:44 WBC (4.8-10.8) K/uL RBC (3.80-5.20) Mil/uL Hgb (11.0-16.0) g/dL Hct (34.0-47.0) % MCV (81.0-99.0) fL MCH (27.0-31.0) pg MCHC (33.0-37.0) g/dL RDW (11.5-14.5) % Plt Count (130-400) K/uL MPV (7.2-11.7) fL Neut % (Auto) (50.0-75.0) % Lymph % (Auto) (20.0-40.0) % [place] % (Auto) (0.0-10.0) % Eos % (Auto) (0.0-4.0) % Baso % (Auto) (0.0-2.0) % Neut # (1.8-7.0) K/uL Lymph # (1.0-4.3) K/uL [place] # (0.0-0.8) K/uL Eos # (0.0-0.7) K/uL Baso # (0.0-0.2) K/uL PT 13.3 H (9.7-12.2) SECONDS INR 1.2 APTT 105 H* D 208 H* (21-34) SECONDS Sodium 128 L (132-148) mmol/L Potassium 4.7 (3.6-5.2) mmol/L Chloride 98 (98-107) mmol/L Carbon Dioxide 19 L (22-30) mmol/L Anion Gap 16 (10-20) BUN 31 H (7-17) mg/dL Creatinine 1.2 (0.7-1.2) MG/DL Est GFR ( Amer) 51 Est GFR (Non-Af Amer) 42 Random Glucose 98 (65-105) mg/dL Calcium 7.3 L (8.6-10.4) mg/dl Phosphorus (2.5-4.5) mg/dL Magnesium (1.6-2.3) mg/dL Total Bilirubin 0.8 (0.2-1.3) mg/dL AST 27 (14-36) U/L ALT 30 (9-52) U/L Alkaline Phosphatase 59 (38-126) U/L Total Protein 5.8 L (6.3-8.3) g/dL Albumin 2.3 L (3.5-5.0) g/dL Globulin 3.4 (2.2-3.9) gm/dL Albumin/Globulin Ratio 0.7 L (1.0-2.1) Laboratory Results - last 24 hr 11/25/16 11/25/16 11/26/16 19:44 21:28 06:34 WBC RBC Hgb Hct MCV MCH MCHC RDW Plt Count MPV Neut % (Auto) Lymph % (Auto) [place] % (Auto) Eos % (Auto) Baso % (Auto) Neut # Lymph # [place] # Eos # Baso # PT 13.3 H INR 1.2 APTT 208 H* 105 H* D Sodium 128 L Potassium 4.7 Chloride 98 Carbon Dioxide 19 L Anion Gap 16 BUN 31 H Creatinine 1.2 Est GFR ( Amer) 51 Est GFR (Non-Af Amer) 42 Random Glucose 98 Calcium 7.3 L Phosphorus Magnesium Total Bilirubin 0.8 AST 27 ALT 30 Alkaline Phosphatase 59 Total Protein 5.8 L Albumin 2.3 L Globulin 3.4 Albumin/Globulin Ratio 0.7 L 11/26/16 11/26/16 11/26/16 06:34 06:34 06:34 WBC 17.7 H RBC 3.60 L Hgb 11.1 Hct 33.5 L MCV 93.1 MCH 30.7 MCHC 33.0 RDW 16.0 H Plt Count 478 H MPV 8.3 Neut % (Auto) 55.6 Lymph % (Auto) 27.6 [place] % (Auto) 15.0 H Eos % (Auto) 0.9 Baso % (Auto) 0.9 Neut # 9.9 H Lymph # 4.9 H [place] # 2.7 H Eos # 0.2 Baso # 0.2 PT INR APTT 95 H D Sodium Potassium Chloride Carbon Dioxide Anion Gap BUN Creatinine Est GFR ( Amer) Est GFR (Non-Af Amer) Random Glucose Calcium Phosphorus 4.9 H Magnesium 2.1 Total Bilirubin AST ALT Alkaline Phosphatase Total Protein Albumin Globulin Albumin/Globulin Ratio Fingerstick Blood Sugar Results: 79 Review of Systems - Review of Systems All systems: reviewed and no additional remarkable complaints except (where noted in HPI) Critical Care Progress Note - Nutrition Nutrition: Nutrition Category Date Time Status Heart Healthy Diet [DIET] Diets 11/13/16 Breakfast Active Assessment/Plan - Assessment and Plan (Free Text) Assessment: This is an 86 yo F with extensive left leg DVT that extends up to the distal inferior cava, seen on CT, with likely PE. She is tachycardic, saturating well and on heparin drip. Plan: Neuro: AAOx3 Continue to monitor Cardiovascular: Normotensive, tachycardic Hemodynamically stable, monitor for hypotension Pulmonary: Likely has PE No CTA with elevated Cr, will get echo to evaluate for right heart strain Saturating well, normal breathing pattern Continue nasal cannula Gastrointestinal: No acute issues Heart healthy diet Hematology: Left leg DVT extending to distal IVC, and likely PE Continue heparin drip Vasc surgery following - considering thrombolysis Endocrine: Hypoglycemic in AM discontinued HS dose of insulin Continue to monitor BG Sliding scale coverage Renal: Resolved UTI Elevated Cr due to IV contrast study Gentle IVF resuscitation Musculoskeletal: Left leg cellulitis Continue wound care Infectious Disease: Left leg cellulitis Leuokocytosis Continue Zosyn, given one dose of vanco GI Prophylaxis: Pepcid DVT Prophylaxis: On heparin drip <Martín Rabago - Last Filed: 11/26/16 17:12> CCU Objective - Vital Signs / Intake & Output Intake and Output (Last 8hrs): Intake & Output 11/26/16 11/26/16 11/26/16 06:59 14:59 22:59 Intake Total 942.4 812.8 Output Total 305 210 Balance 637.4 602.8 Weight 148 lb Intake: IV 95 Intake, IV Amount 898.4 417.8 Right Upper arm 140 left hand 1st port 400 375 left hand 2nd port 58.4 42.8 right PICC 300 Oral 300 Other 44 Output: Urine 305 210 Urethral (Cope) 250 210 Urine, Voided 55 - Medications Active Medications: Active Medications Generic Name Dose Route Start Last Admin Trade Name Freq PRN Reason Stop Dose Admin Acetaminophen 650 mg 11/12/16 21:41 11/16/16 17:59 Tylenol 325mg Tab PO 650 mg Q6 PRN Administration Temperature Acetylcysteine 3 ml 11/26/16 18:00 11/26/16 17:06 Acetylcysteine 20% PO 11/28/16 10:01 3 ml BID BARI Administration Ascorbic Acid 250 mg 11/22/16 18:00 11/26/16 17:06 Vitamin C 250 Mg Tab PO 250 mg BIDPC BARI Administration Aspirin 81 mg 11/18/16 18:00 11/26/16 10:17 Aspirin Chewable PO 81 mg DAILY BARI Administration Famotidine 20 mg 11/14/16 10:00 11/26/16 10:18 Pepcid PO 20 mg DAILY BARI Administration Furosemide 20 mg 11/15/16 10:00 11/26/16 10:17 Lasix PO 20 mg DAILY BARI Administration Heparin Sodium/Sodium Chloride 25,000 units in 250 mls @ 7.348 mls/hr 22:45 11/26/16 13:33 Heparin 80715 Units/250ml 1/2 Normal Saline IV 9 units/kg/hr .Q24H PRN 5.511 mls/hr PROTOCOL Titration Protocol 12 UNITS/KG/HR Sodium Chloride 1,000 mls @ 50 mls/hr 11/25/16 23:00 11/25/16 23:39 Sodium Chloride 0.9% IV 50 mls/hr .Q20H BARI Administration Piperacillin Sod/Tazobactam Sod 3.375 gm in 50 mls @ 100 mls/hr 11/25/16 23: 15 11/26/16 17:04 Zosyn 3.375 Gm Iv Premix IVPB 100 mls/hr Q6H BARI Administration Multivitamins/Minerals 1 tab 11/21/16 10:00 11/26/16 10:18 Therapeutic-M Tab PO 1 tab DAILY BARI Administration Nystatin 1 applic 11/26/16 10:00 11/26/16 17:07 Nystop Topical Powder TOP 1 appl BID BARI Administration Petrolatum 1 gm 11/15/16 10:00 11/26/16 11:04 Desitin Original TOP 1 applic DAILY BARI Administration Potassium Chloride 20 meq 11/17/16 17:15 11/26/16 10:17 K-Dur 20 Meq Er Tab PO 20 meq DAILY BARI Administration Rosuvastatin Calcium 5 mg 11/18/16 22:00 11/25/16 21:46 Crestor PO 5 mg HS BARI Administration Saccharomyces Boulardii 250 mg 11/13/16 10:00 11/26/16 17:06 Florastor PO 250 mg BID BARI Administration - Patient Studies Lab Studies: Lab Studies 11/26/16 11/26/16 11/26/16 Range/Units 11:53 06:34 06:34 WBC (4.8-10.8) K/uL RBC (3.80-5.20) Mil/uL Hgb (11.0-16.0) g/dL Hct (34.0-47.0) % MCV (81.0-99.0) fL MCH (27.0-31.0) pg MCHC (33.0-37.0) g/dL RDW (11.5-14.5) % Plt Count (130-400) K/uL MPV (7.2-11.7) fL Neut % (Auto) (50.0-75.0) % Lymph % (Auto) (20.0-40.0) % [place] % (Auto) (0.0-10.0) % Eos % (Auto) (0.0-4.0) % Baso % (Auto) (0.0-2.0) % Neut # (1.8-7.0) K/uL Lymph # (1.0-4.3) K/uL [place] # (0.0-0.8) K/uL Eos # (0.0-0.7) K/uL Baso # (0.0-0.2) K/uL PT (9.7-12.2) SECONDS INR APTT 122 H* D 95 H D (21-34) SECONDS Sodium (132-148) mmol/L Potassium (3.6-5.2) mmol/L Chloride (98-107) mmol/L Carbon Dioxide (22-30) mmol/L Anion Gap (10-20) BUN (7-17) mg/dL Creatinine (0.7-1.2) MG/DL Est GFR ( Amer) Est GFR (Non-Af Amer) Random Glucose (65-105) mg/dL Calcium (8.6-10.4) mg/dl Phosphorus 4.9 H (2.5-4.5) mg/dL Magnesium 2.1 (1.6-2.3) mg/dL Total Bilirubin (0.2-1.3) mg/dL AST (14-36) U/L ALT (9-52) U/L Alkaline Phosphatase (38-126) U/L Total Protein (6.3-8.3) g/dL Albumin (3.5-5.0) g/dL Globulin (2.2-3.9) gm/dL Albumin/Globulin Ratio (1.0-2.1) Procalcitonin (0.19-0.49) NG/ML 11/26/16 11/26/16 11/26/16 Range/Units 06:34 06:34 06:34 WBC 17.7 H (4.8-10.8) K/uL RBC 3.60 L (3.80-5.20) Mil/uL Hgb 11.1 (11.0-16.0) g/dL Hct 33.5 L (34.0-47.0) % MCV 93.1 (81.0-99.0) fL MCH 30.7 (27.0-31.0) pg MCHC 33.0 (33.0-37.0) g/dL RDW 16.0 H (11.5-14.5) % Plt Count 478 H (130-400) K/uL MPV 8.3 (7.2-11.7) fL Neut % (Auto) 55.6 (50.0-75.0) % Lymph % (Auto) 27.6 (20.0-40.0) % [place] % (Auto) 15.0 H (0.0-10.0) % Eos % (Auto) 0.9 (0.0-4.0) % Baso % (Auto) 0.9 (0.0-2.0) % Neut # 9.9 H (1.8-7.0) K/uL Lymph # 4.9 H (1.0-4.3) K/uL [place] # 2.7 H (0.0-0.8) K/uL Eos # 0.2 (0.0-0.7) K/uL Baso # 0.2 (0.0-0.2) K/uL PT (9.7-12.2) SECONDS INR APTT (21-34) SECONDS Sodium 128 L (132-148) mmol/L Potassium 4.7 (3.6-5.2) mmol/L Chloride 98 (98-107) mmol/L Carbon Dioxide 19 L (22-30) mmol/L Anion Gap 16 (10-20) BUN 31 H (7-17) mg/dL Creatinine 1.2 (0.7-1.2) MG/DL Est GFR ( Amer) 51 Est GFR (Non-Af Amer) 42 Random Glucose 98 (65-105) mg/dL Calcium 7.3 L (8.6-10.4) mg/dl Phosphorus (2.5-4.5) mg/dL Magnesium (1.6-2.3) mg/dL Total Bilirubin 0.8 (0.2-1.3) mg/dL AST 27 (14-36) U/L ALT 30 (9-52) U/L Alkaline Phosphatase 59 (38-126) U/L Total Protein 5.8 L (6.3-8.3) g/dL Albumin 2.3 L (3.5-5.0) g/dL Globulin 3.4 (2.2-3.9) gm/dL Albumin/Globulin Ratio 0.7 L (1.0-2.1) Procalcitonin 0.94 H (0.19-0.49) NG/ML 11/25/16 11/25/16 Range/Units 21:28 19:44 WBC (4.8-10.8) K/uL RBC (3.80-5.20) Mil/uL Hgb (11.0-16.0) g/dL Hct (34.0-47.0) % MCV (81.0-99.0) fL MCH (27.0-31.0) pg MCHC (33.0-37.0) g/dL RDW (11.5-14.5) % Plt Count (130-400) K/uL MPV (7.2-11.7) fL Neut % (Auto) (50.0-75.0) % Lymph % (Auto) (20.0-40.0) % [place] % (Auto) (0.0-10.0) % Eos % (Auto) (0.0-4.0) % Baso % (Auto) (0.0-2.0) % Neut # (1.8-7.0) K/uL Lymph # (1.0-4.3) K/uL [place] # (0.0-0.8) K/uL Eos # (0.0-0.7) K/uL Baso # (0.0-0.2) K/uL PT 13.3 H (9.7-12.2) SECONDS INR 1.2 APTT 105 H* D 208 H* (21-34) SECONDS Sodium (132-148) mmol/L Potassium (3.6-5.2) mmol/L Chloride (98-107) mmol/L Carbon Dioxide (22-30) mmol/L Anion Gap (10-20) BUN (7-17) mg/dL Creatinine (0.7-1.2) MG/DL Est GFR ( Amer) Est GFR (Non-Af Amer) Random Glucose (65-105) mg/dL Calcium (8.6-10.4) mg/dl Phosphorus (2.5-4.5) mg/dL Magnesium (1.6-2.3) mg/dL Total Bilirubin (0.2-1.3) mg/dL AST (14-36) U/L ALT (9-52) U/L Alkaline Phosphatase (38-126) U/L Total Protein (6.3-8.3) g/dL Albumin (3.5-5.0) g/dL Globulin (2.2-3.9) gm/dL Albumin/Globulin Ratio (1.0-2.1) Procalcitonin (0.19-0.49) NG/ML Laboratory Results - last 24 hr 11/25/16 11/25/16 11/26/16 19:44 21:28 06:34 WBC RBC Hgb Hct MCV MCH MCHC RDW Plt Count MPV Neut % (Auto) Lymph % (Auto) [place] % (Auto) Eos % (Auto) Baso % (Auto) Neut # Lymph # [place] # Eos # Baso # PT 13.3 H INR 1.2 APTT 208 H* 105 H* D Sodium 128 L Potassium 4.7 Chloride 98 Carbon Dioxide 19 L Anion Gap 16 BUN 31 H Creatinine 1.2 Est GFR ( Amer) 51 Est GFR (Non-Af Amer) 42 Random Glucose 98 Calcium 7.3 L Phosphorus Magnesium Total Bilirubin 0.8 AST 27 ALT 30 Alkaline Phosphatase 59 Total Protein 5.8 L Albumin 2.3 L Globulin 3.4 Albumin/Globulin Ratio 0.7 L Procalcitonin 11/26/16 11/26/16 11/26/16 06:34 06:34 06:34 WBC 17.7 H RBC 3.60 L Hgb 11.1 Hct 33.5 L MCV 93.1 MCH 30.7 MCHC 33.0 RDW 16.0 H Plt Count 478 H MPV 8.3 Neut % (Auto) 55.6 Lymph % (Auto) 27.6 [place] % (Auto) 15.0 H Eos % (Auto) 0.9 Baso % (Auto) 0.9 Neut # 9.9 H Lymph # 4.9 H [place] # 2.7 H Eos # 0.2 Baso # 0.2 PT INR APTT Sodium Potassium Chloride Carbon Dioxide Anion Gap BUN Creatinine Est GFR ( Amer) Est GFR (Non-Af Amer) Random Glucose Calcium Phosphorus 4.9 H Magnesium 2.1 Total Bilirubin AST ALT Alkaline Phosphatase Total Protein Albumin Globulin Albumin/Globulin Ratio Procalcitonin 0.94 H 11/26/16 11/26/16 06:34 11:53 WBC RBC Hgb Hct MCV MCH MCHC RDW Plt Count MPV Neut % (Auto) Lymph % (Auto) [place] % (Auto) Eos % (Auto) Baso % (Auto) Neut # Lymph # [place] # Eos # Baso # PT INR APTT 95 H D 122 H* D Sodium Potassium Chloride Carbon Dioxide Anion Gap BUN Creatinine Est GFR ( Amer) Est GFR (Non-Af Amer) Random Glucose Calcium Phosphorus Magnesium Total Bilirubin AST ALT Alkaline Phosphatase Total Protein Albumin Globulin Albumin/Globulin Ratio Procalcitonin Critical Care Progress Note - Nutrition Nutrition: Nutrition Category Date Time Status Heart Healthy Diet [DIET] Diets 11/13/16 Breakfast Active NPO Diet [DIET] Diets 11/27/16 Breakfast Active Attending/Attestation - Attestation I have personally seen and examined this patient.: Yes I have fully participated in the care of the patient.: Yes I have reviewed all pertinent clinical information: Yes Notes (Text): 11/26/16 17:10 Patient seen and examined in the intensive care unit. Case discussed with house staff in the morning rounds. 86 yo F with extensive left leg DVT that extends up to the distal inferior cava , seen on CT, with likely PE. She is tachycardic, saturating well and on heparin drip. consider VQ scan for thrombectomy by vascular tomorrow continue antibiotics for cellulitis
[2016-11-26] MEDS: Acetylcysteine 20% Inhal Soln (4ml) PO SCH (17:06)
--- NOTE | 2016-11-26 18:21 | CP.PCM.PN ---
Subjective - Date & Time of Evaluation Date of Evaluation: 11/26/16 Time of Evaluation: 18:14 - Subjective Subjective: INFECTIOUS DISEASE ICU/CCU #6 PROGRESS NOTE JOHNSON MADDOX MD, FACP 11/26/2016 EVENTS OF YESTERDAY MADE KNOWN TODAY CHART REVIEWED PT EXAMINED CASE DISCUSSED CLINICALLY RESTING WITH WARM LEFT LEG INTO MID CALF, BUT WITH COOL LEFT FOOT-NEW QUESTION OF CLOTT AND POSSIBLE PE NOTED, ON IV HEPARIN. DOUBT INFECTION, PROCALCITOIN IS NOT THAT HIGH AND FITS INTO FALSE POSITIVES- REVIEWED THE LETERQATURE. WOUND NOT RECOMMEND ZOSYN + VANCOMYCIN SECONDARY TO RENAL ISSUES AND RESISTANT E COLI IN THE URINE. PLEASE INFORM ME OF MEDICAL CHANGES NOTED. TO START TYGACIL 50 Q 12HRS.. Objective - Vital Signs/Intake and Output Vital Signs (last 24 hours): Temp Pulse Resp BP Pulse Ox 97.5 F L 116 H 28 H 112/58 L 95 11/26/16 12:00 11/26/16 13:00 11/26/16 13:00 11/26/16 13:00 11/26/16 13:00 Intake and Output: 11/26/16 11/26/16 06:59 18:59 Intake Total 942.4 812.8 Output Total 305 210 Balance 637.4 602.8 - Medications Medications: Current Medications Acetaminophen (Tylenol 325mg Tab) 650 mg PO Q6 PRN PRN Reason: Temperature Last Admin: 11/16/16 17:59 Dose: 650 mg Acetylcysteine (Acetylcysteine 20%) 3 ml PO BID [facility] Stop: 11/28/16 10:01 Last Admin: 11/26/16 17:06 Dose: 3 ml Ascorbic Acid (Vitamin C 250 Mg Tab) [facility] Last Admin: 11/26/16 17:06 Dose: 250 mg Aspirin (Aspirin Chewable) 81 mg PO DAILY [facility] Last Admin: 11/26/16 10:17 Dose: 81 mg Famotidine (Pepcid) 20 mg PO DAILY [facility] Last Admin: 11/26/16 10:18 Dose: 20 mg Furosemide (Lasix) 20 mg PO DAILY [facility] Last Admin: 11/26/16 10:17 Dose: 20 mg Heparin Sodium/Sodium Chloride (Heparin 68236 Units/250ml 1/2 Normal Saline) 25 ,000 units in 250 mls @ 7.348 mls/hr IV .Q24H PRN; Protocol; 12 UNITS/KG/HR PRN Reason: PROTOCOL Last Titration: 11/26/16 13:33 Dose: 9 units/kg/hr, 5.511 mls/hr Sodium Chloride (Sodium Chloride 0.9%) 1,000 mls @ 50 mls/hr IV .Q20H [facility] Last Admin: 11/25/16 23:39 Dose: 50 mls/hr Piperacillin Sod/Tazobactam Sod (Zosyn 3.375 Gm Iv Premix) 3.375 gm in 50 mls @ 100 mls/hr IVPB Q6H [facility] Last Admin: 11/26/16 17:04 Dose: 100 mls/hr Multivitamins/Minerals (Therapeutic-M Tab) 1 tab PO DAILY [facility] Last Admin: 11/26/16 10:18 Dose: 1 tab Nystatin (Nystop Topical Powder) 1 applic TOP BID [facility] Last Admin: 11/26/16 17:07 Dose: 1 appl Petrolatum (Desitin Original) 1 gm TOP DAILY [facility] Last Admin: 11/26/16 11:04 Dose: 1 applic Potassium Chloride (K-Dur 20 Meq Er Tab) 20 meq PO DAILY [facility] Last Admin: 11/26/16 10:17 Dose: 20 meq Rosuvastatin Calcium (Crestor) 5 mg PO HS [facility] Last Admin: 11/25/16 21:46 Dose: 5 mg Saccharomyces Boulardii (Florastor) 250 mg PO BID [facility] Last Admin: 11/26/16 17:06 Dose: 250 mg - Labs Labs: 11/26/16 06:34 11/26/16 06:34 PT 13.3 SECONDS (9.7-12.2) H 11/25/16 19:44 INR 1.2 11/25/16 19:44 APTT 122 SECONDS (21-34) H* D 11/26/16 11:53 - Constitutional Appears: Non-toxic, No Acute Distress, Older Than Stated Age - Head Exam Head Exam: ATRAUMATIC - Eye Exam Eye Exam: Normal appearance - ENT Exam ENT Exam: Mucous Membranes Moist - Respiratory Exam Respiratory Exam: Chest Wall Tenderness, NORMAL BREATHING PATTERN - Cardiovascular Exam Cardiovascular Exam: REGULAR RHYTHM - GI/Abdominal Exam GI & Abdominal Exam: Soft, Normal Bowel Sounds. absent: Tenderness - Rectal Exam Rectal Exam: Deferred - Extremities Exam Additional comments: LEFT LEG ECCHYMOSIS MID/UPPER CALF, UPPER LEG WARM, LOWER CALF,FOOT COOL. ON HEPARIN. VASCULAR CONSULTATION ON BOARD. 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
[2016-11-26] MEDS: Sodium Chloride 0.9% 1,000 ML IV SCH (19:00)
--- NOTE | 2016-11-26 20:23 | CP.PCM.PN ---
Subjective - Date & Time of Evaluation Date of Evaluation: 11/26/16 Time of Evaluation: 20:22 - Subjective Subjective: Patient's condition unchanged. Left leg swelling still noted. Discussed with the vascular surgeon today. Possible thrombolysis in the morning. No chest pain. Minimal tachypnea, tachycardia noted. Vital signs reviewed. Chest good air entry, but the rales noted. Regular heart sound nontender abdomen. Extremities edema, mostly noted on the left side. Labs today reviewed. Chest x-ray infiltrate improving. Assessment and admission: 86-year-old female with a year's be Escherichia coli, complicated with a DVT, and left leg edema. Possible thrombolysis in the morning. Discussed with the vascular surgeon. Overall condition is poor Objective - Vital Signs/Intake and Output Vital Signs (last 24 hours): Temp Pulse Resp BP Pulse Ox 97.5 F L 116 H 28 H 128/61 96 11/26/16 16:00 11/26/16 20:10 11/26/16 20:10 11/26/16 19:59 11/26/16 20:10 Intake and Output: 11/26/16 11/27/16 18:59 06:59 Intake Total 1235.3 105.5 Output Total 385 30 Balance 850.3 75.5 - Medications Medications: Current Medications Acetaminophen (Tylenol 325mg Tab) 650 mg PO Q6 PRN PRN Reason: Temperature Last Admin: 11/16/16 17:59 Dose: 650 mg Acetylcysteine (Acetylcysteine 20%) 3 ml PO BID [facility] Stop: 11/28/16 10:01 Last Admin: 11/26/16 17:06 Dose: 3 ml Ascorbic Acid (Vitamin C 250 Mg Tab) [facility] Last Admin: 11/26/16 17:06 Dose: 250 mg Aspirin (Aspirin Chewable) 81 mg PO DAILY [facility] Last Admin: 11/26/16 10:17 Dose: 81 mg Famotidine (Pepcid) 20 mg PO DAILY [facility] Last Admin: 11/26/16 10:18 Dose: 20 mg Furosemide (Lasix) 20 mg PO DAILY [facility] Last Admin: 11/26/16 10:17 Dose: 20 mg Heparin Sodium/Sodium Chloride (Heparin 01177 Units/250ml 1/2 Normal Saline) 25 ,000 units in 250 mls @ 7.348 mls/hr IV .Q24H PRN; Protocol; 12 UNITS/KG/HR PRN Reason: PROTOCOL Last Titration: 11/26/16 13:33 Dose: 9 units/kg/hr, 5.511 mls/hr Sodium Chloride (Sodium Chloride 0.9%) 1,000 mls @ 50 mls/hr IV .Q20H [facility] Last Admin: 11/26/16 19:00 Dose: 50 mls/hr Tigecycline 50 mg/ Sodium (Chloride) 100 mls @ 100 mls/hr IVPB Q12H [facility] Last Admin: 11/26/16 18:57 Dose: 100 mls/hr Multivitamins/Minerals (Therapeutic-M Tab) 1 tab PO DAILY [facility] Last Admin: 11/26/16 10:18 Dose: 1 tab Nystatin (Nystop Topical Powder) 1 applic TOP BID [facility] Last Admin: 11/26/16 17:07 Dose: 1 appl Petrolatum (Desitin Original) 1 gm TOP DAILY [facility] Last Admin: 11/26/16 11:04 Dose: 1 applic Potassium Chloride (K-Dur 20 Meq Er Tab) 20 meq PO DAILY [facility] Last Admin: 11/26/16 10:17 Dose: 20 meq Rosuvastatin Calcium (Crestor) 5 mg PO HS [facility] Last Admin: 11/25/16 21:46 Dose: 5 mg Saccharomyces Boulardii (Florastor) 250 mg PO BID [facility] Last Admin: 11/26/16 17:06 Dose: 250 mg - Labs Labs: 11/26/16 06:34 11/26/16 06:34 PT 13.3 SECONDS (9.7-12.2) H 11/25/16 19:44 INR 1.2 11/25/16 19:44 APTT 56 SECONDS (21-34) H D 11/26/16 19:19 Assessment and Plan (1) ESBL (extended spectrum beta-lactamase) producing bacteria infection Status: Resolved (2) Fever Status: Acute
[2016-11-26] MEDS: Heparin25000 units/250ml 1/2NS 25,000 UNITS/250 ML BAG IV PRN (22:02)
[2016-11-26] MEDS ORDERED: Oxycodone/Acetaminophen 5/325 mg Tab PO PRN (22:12)
--- NOTE | 2016-11-26 22:54 | CARD ---
APPROVED REPORT EXAM: Two-dimensional and M-mode echocardiogram with Doppler and color Doppler. Other Information Quality : AverageRhythm : NSR INDICATION CAD FEVERE RISK FACTORS Hypertension 2D DIMENSIONS LVOT Diameter1.3 (1.8-2.4cm) M-Mode DIMENSIONS Left Atrium (MM)3.38 (2.5-4.0cm)Aortic Root2.74 (2.2-3.7cm) Aortic Cusp Exc.0.56 (1.5-2.0cm) Aortic Valve AoV Peak Hwuajooh889.9cm/sAoV VTI42.9cmAO Peak GR.32mmHg LVOT Peak Bnnvzbmb635.4cm/David Mean GR.18mmHgAVA (VMAX)0.61cm2 Mitral Valve MV E Geaslprx75.1cm/sMV A Nwpuhunk90.0cm/sE/A ratio0.4 TDI E/Lateral E'0.0E/Medial E'0.0 Tricuspid Valve TR Peak Xtkymaca861zt/sTR Peak Gr.51wlUsPLUH55ygPn LEFT VENTRICLE The left ventricle is normal size. There is mild concentric left ventricular hypertrophy. Left ventricle systolic function is normal. The Ejection Fraction is 60-65%. There is normal LV segmental wall motion. Transmitral Doppler flow pattern is Grade I-abnormal relaxation pattern. There is no ventricular septal defect visualized. RIGHT VENTRICLE The right ventricle is normal size. The right ventricular systolic function is normal. ATRIA The left atrium size is normal. 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 not well visualized, consider LORI The right atrium size is normal. AORTIC VALVE The aortic valve is mildly to moderately sclerotic. The aortic valve is tri-cuspid. There is mild aortic regurgitation. There is severe valvular aortic stenosis. Calculated aortic valve area is 0.7 cm2 with maximum pressure gradient of 34 mmHg . MITRAL VALVE Mitral annular calcification is borderline. There is no evidence of mitral valve prolapse. There is no mitral valve regurgitation noted. TRICUSPID VALVE There is trace tricuspid regurgitation. Right ventricular systolic pressure is estimated at 50-60 mmHg. There is moderate-severe pulmonary hypertension. PULMONIC VALVE The pulmonic valve is not well visualized. There is trace pulmonic valvular regurgitation. GREAT VESSELS The IVC was not visualized. PERICARDIAL EFFUSION There is no pericardial effusion. <Conclusion> There is mild concentric left ventricular hypertrophy. Left ventricle systolic function is normal. The Ejection Fraction is 60-65%. Transmitral Doppler flow pattern is Grade I-abnormal relaxation pattern. 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 not well visualized, consider LORI There is mild aortic regurgitation. There is severe valvular aortic stenosis. There is moderate-severe pulmonary hypertension.
[2016-11-27] MEDS ORDERED: Alteplase 20 MG in Sodium Chloride 0.9% 100 ML IV ONE (13:30)
[2016-11-27] MEDS ORDERED: Midazolam 2 MG/2 ML VIAL ONE ×2 (14:07→15:48)
[2016-11-27] MEDS ORDERED: Dexmedetomidine Hydrochloride 100 mcg/ml (2ML) ONE (14:08)
[2016-11-27] MEDS ORDERED: Lidocaine 2% Inj (20ml) ONE (14:22)
[2016-11-27] MEDS ORDERED: Iodixanol 320 MG/ML 100 ML BOTTLE IV ONE (14:22)
[2016-11-27] MEDS ORDERED: Etomidate 20 mg/10ml Inj IV ONE (14:26)
[2016-11-27] MEDS ORDERED: Iodixanol 320 MG/ML 200 ML BOTTLE IV ONE (14:56)
--- NOTE | 2016-11-27 18:04 | VAS ---
DATE: 11/27/2016 PREOPERATIVE DIAGNOSIS: Massive iliofemoral thrombosis, left leg. PROCEDURES CARRIED OUT: 1. Insertion of [place] removable filter via right femoral vein with C-arm fluoroscopy, ultrasou nd-guided puncture, and venacavogram. 2. AngioJet mechanical thrombolysis via left popliteal vein access. 3. Finally, placement of Wallstent venous stent 18 x 90 in the left common iliac and external iliac veins. SURGEON: Vinny Amaral Jr, MD QUALITY ASSURANCE INSPECTOR: None. ANESTHESIOLOGIST: ANESTHESIA: Local sedation. INDICATIONS: The patient is an 86-year-old woman who presents with massive iliofemoral thrombosis of the left leg. Initially treated with heparin anticoagulation. Some improvement noted. OPERATIVE FINDINGS: 1. Filter was inserted at the level of renal branch in excellent position. Above the thrombus comin g from the left side and occupying the vena cava. 2. Mechanical thrombolysis which primarily involved the femoral and iliac veins was highly successfu l. 3. Balloon angioplasty was carried out at the iliac vein confluence with a 16-mm balloon and showed marked compression of the confluence of the iliac veins, primarily in the common iliac vein coming fr om the left side. Subsequently, there was an 18 x 90 Wallstent deployed at this location with good c osmetic results. PROCEDURE: The patient was given local anesthesia. Using ultrasound guidance and micropuncture tech nique, the right common femoral vein was accessed and the filter was deployed at the level of the merly al vein. At this time, the films demonstrated that there was near occlusion of the vena cava with cl ot being extruded from the left common iliac vein. The patient was then turned face down after hemos tasis was obtained and the AngioJet thrombolysis device, the largest available, was delivered from th e left popliteal vein which was accessed using ultrasound technique and advanced to the level of the vena cava. An Amplatz wire was inserted and mechanical thrombolysis using the AngioJet device with t he appropriate 30-minute wait after the pulse spray was carried out. The patient was maintained on a nticoagulation the entire time. After this was done, which was quite successful, we saw that there w as some residual narrowing at the level of the iliac vein complements. No IVUS was available. We th en ballooned this with a 16-mm . The very obvious waste was evident. This was subsequently bal looned until it improved with the 16-mm balloon and we deployed an 18 mm stent at this location. The final films had excellent cosmetic results. Catheter was then removed from the groin and pressure was applied. Anticoagulation will be continued . PROCEDURE CARRIED OUT: 1. Insertion of [place] removable filter via right femoral vein with C-arm fluoroscopy, ultrasou nd-guided puncture, micropuncture technique. 2. Mechanical thrombolysis using the AngioJet device. Pulse spray mode of the left iliac and femora l venous system up to the vena cava. 3. Thirdly, deployment of a venous stent, a Wallstent, 18 x 90 mm from the iliac confluence down to the external iliac vein. Films are available for review. Vinny Amaral Jr., MD cc: [id number] TT: 11/27/2016 18:03:48 Confirmation # [id number] Dictation # [id number]
--- NOTE | 2016-11-27 19:55 | CP.PCM.PN ---
Subjective - Date & Time of Evaluation Date of Evaluation: 11/27/16 Time of Evaluation: 19:52 - Subjective Subjective: INFECTIOUS DISEASE ICU/CCU# 6 PROGRESS NOTE JOHNSON MADDOX MD, FACP 11/27/2016 CHART REVIEWED PT EXAMINED CASE DISCUSSED PT IS S/P VENA CAVA VENOUS FILTER PLACED AND MECHANICAL THROMBOLYSIS VIA DR RYAN. RESTING, BP BEING ADJUSTED AFEBRILE LUNGS DECREASED BREATH SOUNDS EXT POST INTERVENTION ON TYGACIL IVPB. Objective - Vital Signs/Intake and Output Vital Signs (last 24 hours): Temp Pulse Resp BP Pulse Ox 97.5 F L 117 H 30 H 125/65 94 L 11/26/16 16:00 11/26/16 21:00 11/26/16 21:00 11/26/16 20:59 11/26/16 21:00 - Medications Medications: Current Medications Acetaminophen (Tylenol 325mg Tab) 650 mg PO Q6 PRN PRN Reason: Temperature Last Admin: 11/16/16 17:59 Dose: 650 mg Acetylcysteine (Acetylcysteine 20%) 3 ml PO BID [facility] Stop: 11/28/16 10:01 Last Admin: 11/26/16 17:06 Dose: 3 ml Ascorbic Acid (Vitamin C 250 Mg Tab) 250 mg PO BIDPC [facility] Last Admin: 11/26/16 17:06 Dose: 250 mg Aspirin (Aspirin Chewable) 81 mg PO DAILY [facility] Last Admin: 11/26/16 10:17 Dose: 81 mg Famotidine (Pepcid) 20 mg PO DAILY [facility] Last Admin: 11/26/16 10:18 Dose: 20 mg Furosemide (Lasix) 20 mg PO DAILY [facility] Last Admin: 11/26/16 10:17 Dose: 20 mg Heparin Sodium/Sodium Chloride (Heparin 77523 Units/250ml 1/2 Normal Saline) 25 ,000 units in 250 mls @ 7.348 mls/hr IV .Q24H PRN; Protocol; 12 UNITS/KG/HR PRN Reason: PROTOCOL Last Admin: 11/26/16 22:02 Dose: 9 units/kg/hr, 5.511 mls/hr Sodium Chloride (Sodium Chloride 0.9%) 1,000 mls @ 50 mls/hr IV .Q20H [facility] Last Admin: 11/26/16 19:00 Dose: 50 mls/hr Tigecycline 50 mg/ Sodium (Chloride) 100 mls @ 100 mls/hr IVPB Q12H [facility] Last Admin: 11/26/16 18:57 Dose: 100 mls/hr Metoprolol Tartrate (Lopressor) 5 mg IVP Q6 [facility] Multivitamins/Minerals (Therapeutic-M Tab) 1 tab PO DAILY [facility] Last Admin: 11/26/16 10:18 Dose: 1 tab Nystatin (Nystop Topical Powder) 1 applic TOP BID [facility] Last Admin: 11/26/16 17:07 Dose: 1 appl Petrolatum (Desitin Original) 1 gm TOP DAILY [facility] Last Admin: 11/26/16 11:04 Dose: 1 applic Potassium Chloride (K-Dur 20 Meq Er Tab) 20 meq PO DAILY [facility] Last Admin: 11/26/16 10:17 Dose: 20 meq Rosuvastatin Calcium (Crestor) 5 mg PO HS [facility] Last Admin: 11/26/16 21:59 Dose: 5 mg Saccharomyces Boulardii (Florastor) 250 mg PO BID [facility] Last Admin: 11/26/16 17:06 Dose: 250 mg - Labs Labs: 11/26/16 06:34 11/26/16 06:34 PT 13.3 SECONDS (9.7-12.2) H 11/25/16 19:44 INR 1.2 11/25/16 19:44 APTT 56 SECONDS (21-34) H D 11/26/16 19:19 - Constitutional Appears: Non-toxic, Chronically Ill - Head Exam Head Exam: ATRAUMATIC - ENT Exam ENT Exam: Mucous Membranes Dry - Neck Exam Neck Exam: Normal Inspection - Respiratory Exam Respiratory Exam: Decreased Breath Sounds, NORMAL BREATHING PATTERN - Cardiovascular Exam Cardiovascular Exam: Tachycardia - GI/Abdominal Exam GI & Abdominal Exam: Soft. 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
[2016-11-27] MEDS ORDERED: Metoprolol 1 mg/ml Inj IVP ONE (19:58)
[2016-11-27] MEDS: Metoprolol 1 mg/ml Inj IVP SCH (20:27)
--- NOTE | 2016-11-27 21:35 | CP.PCM.PN ---
Subjective - Date & Time of Evaluation Date of Evaluation: 11/27/16 Time of Evaluation: 18:30 - Subjective Subjective: Patient s/p Venous thrombolysis and intervention Tachycardiac Cardizem IV PRN Drowsy Physical Examination - Constitutional Appears: Non-toxic, Chronically Ill - Head Exam Head Exam: ATRAUMATIC - ENT Exam ENT Exam: Mucous Membranes Dry - Neck Exam Neck Exam: Normal Inspection - Respiratory Exam Respiratory Exam: Decreased Breath Sounds, NORMAL BREATHING PATTERN - Cardiovascular Exam Cardiovascular Exam: Tachycardia - GI/Abdominal Exam GI & Abdominal Exam: Soft. absent: Tenderness - Rectal Exam Rectal Exam: Deferred - Extremities Exam Additional comments: Objective - Vital Signs/Intake and Output Vital Signs (last 24 hours): Temp Pulse Resp BP Pulse Ox 99 F 124 H 21 144/73 92 L 11/27/16 20:00 11/27/16 21:00 11/27/16 20:34 11/27/16 21:00 11/27/16 21:00 Intake and Output: 11/27/16 11/28/16 18:59 06:59 Intake Total 211.0 Output Total 200 Balance 11.0 - Medications Medications: Current Medications Acetaminophen (Tylenol 325mg Tab) 650 mg PO Q6 PRN PRN Reason: Temperature Last Admin: 11/16/16 17:59 Dose: 650 mg Acetylcysteine (Acetylcysteine 20%) 3 ml PO BID [facility] Stop: 11/28/16 10:01 Last Admin: 11/26/16 17:06 Dose: 3 ml [facility]orbic Acid ([facility]it[facility] 250 Mg Tab) [facility] Last Admin: 11/26/16 17:06 Dose: 250 mg Aspirin (Aspirin Chewable) 81 mg PO DAILY [facility] Last Admin: 11/26/16 10:17 Dose: 81 mg Famotidine (Pepcid) 20 mg PO DAILY [facility] Last Admin: 11/26/16 10:18 Dose: 20 mg Furosemide (Lasix) 20 mg PO DAILY [facility] Last Admin: 11/26/16 10:17 Dose: 20 mg Heparin Sodium/Sodium Chloride (Heparin 64741 Units/250ml 1/2 Normal Saline) 25 ,000 units in 250 mls @ 7.348 mls/hr IV .Q24H PRN; Protocol; 12 UNITS/KG/HR PRN Reason: PROTOCOL Last Admin: 11/26/16 22:02 Dose: 9 units/kg/hr, 5.511 mls/hr Sodium Chloride (Sodium Chloride 0.9%) 1,000 mls @ 50 mls/hr IV .Q20H [facility] Last Admin: 11/26/16 19:00 Dose: 50 mls/hr Tigecycline 50 mg/ Sodium (Chloride) 100 mls @ 100 mls/hr IVPB Q12H [facility] Last Admin: 11/26/16 18:57 Dose: 100 mls/hr Metoprolol Tartrate (Lopressor) 5 mg IVP Q6 [facility] Last Admin: 11/27/16 20:27 Dose: 5 mg Multivitamins/Minerals (Therapeutic-M Tab) 1 tab PO DAILY [facility] Last Admin: 11/26/16 10:18 Dose: 1 tab Nystatin (Nystop Topical Powder) 1 applic TOP BID [facility] Last Admin: 11/26/16 17:07 Dose: 1 appl Petrolatum (Desitin Original) 1 gm TOP DAILY [facility] Last Admin: 11/26/16 11:04 Dose: 1 applic Potassium Chloride (K-Dur 20 Meq Er Tab) 20 meq PO DAILY [facility] Last Admin: 11/26/16 10:17 Dose: 20 meq Rosuvastatin Calcium (Crestor) 5 mg PO HS [facility] Last Admin: 11/26/16 21:59 Dose: 5 mg Saccharomyces Boulardii (Florastor) 250 mg PO BID [facility] Last Admin: 11/26/16 17:06 Dose: 250 mg - Labs Labs: 11/26/16 06:34 11/26/16 06:34 PT 13.3 SECONDS (9.7-12.2) H 11/25/16 19:44 INR 1.2 11/25/16 19:44 APTT 56 SECONDS (21-34) H D 11/26/16 19:19 Assessment and Plan - Assessment and Plan (Free Text) Assessment: (1) DVT Assessment & Plan: S/P Lytic therapy and venous intervention (2) Shortness of breath Assessment & Plan: EKG on 06/01/15: NSR at 64, normal EKG EKG on 11/12/16: sinus tachy at 104, possible LA enlargement EKG on 11/23/16: Sinus tachycardia at 122, Possible Left atrial enlargement, RSR ' or QR pattern in V1 suggests right ventricular conduction delay, Borderline ECG Echo on 11/12/16: LVEF 63%, Moderate concentric LVH, abnormal LV diastolic dysfxn , Severe valvular CXR 11/14/16: Progressive infiltrates mavis R lung superimposed upon CHF vs Pulm vasc congestion previously identified, PICC line in satisfactory place CXR 11/18/16: Worsening opacities and reticular densities in lungs compared to prior exam, CHF vs infectious process CXR 11/21/16: No significant interval change CXR 11/23/16: Interval improvement in lungs since prior exam -aortic stenosis vs 2/2 pulmonary etiology (former smoker) vs 2/2 infectious etiology (persisting LE cellulitis) -given severe , want to avoid excessive preload reduction -Continue Lasix 20mg PO daily -will eventually need TAVR given symptomatic -Trops 0.047, 0.092, continue to monitor -continue medical management Status: Resolved (3) CAD (coronary artery disease) Assessment & Plan: EKG on 06/01/15: NSR at 64, normal EKG EKG on 11/12/16: sinus tachy at 104, possible LA enlargement EKG on 11/23/16: Sinus tachycardia at 122, Possible Left atrial enlargement, RSR ' or QR pattern in V1 suggests right ventricular conduction delay, Borderline ECG Echo on 11/12/16: LVEF 63%, Moderate concentric LVH, abnormal LV diastolic dysfxn , Severe valvular -Stable; no chest pain, trop negative x2 -Initial EKG unremarkable, x2 EKGs Sinus Tachy, continue to monitor -continue medical management, Aspirin and Statin Status: Chronic (4) HTN (hypertension) Assessment & Plan: EKG on 06/01/15: NSR at 64, normal EKG EKG on 11/12/16: sinus tachy at 104, possible LA enlargement EKG on 11/23/16: Sinus tachycardia at 122, Possible Left atrial enlargement, RSR ' or QR pattern in V1 suggests right ventricular conduction delay, Borderline ECG Echo on 11/12/16: LVEF 63%, Moderate concentric LVH, abnormal LV diastolic dysfxn , Severe valvular -longstanding -given symptomatic , want to avoid aggressively reducing preload -continue Lasix 20mg PO daily -continue medical management Status: Chronic (5) Pedal edema Assessment & Plan: EKG on 06/01/15: NSR at 64, normal EKG EKG on 11/12/16: sinus tachy at 104, possible LA enlargement EKG on 11/23/16: Sinus tachycardia at 122, Possible Left atrial enlargement, RSR ' or QR pattern in V1 suggests right ventricular conduction delay, Borderline ECG Echo on 11/12/16: LVEF 63%, Moderate concentric LVH, abnormal LV diastolic dysfxn , Severe valvular CXR 11/14/16: Progressive infiltrates mavis R lung superimposed upon CHF vs Pulm vasc congestion previously identified, PICC line in satisfactory place CXR 11/18/16: Worsening opacities and reticular densities in lungs compared to prior exam, CHF vs infectious process CXR 11/21/16: No significant interval change CXR 11/23/16: Interval improvement in lungs since prior exam -More likely 2/2 LE cellulitis than cardiac etiology -Swelling resolved on current antibiotic course -Continue medical management, including lasix and antibiotics (as per ID) Status: Resolved
[2016-11-27] MEDS ORDERED: Dextrose 5%/0.45% NS 1,000 ML IV SCH (22:30)
[2016-11-27 22:53] LABS: BASO # 0.2 K/uL (0.0-0.2); BASO % 1.2 % (0.0-2.0); EOS # 0.2 K/uL (0.0-0.7); EOS % 1.4 % (0.0-4.0); HEMATOCRIT 30.5 % (34.0-47.0); LYMPH # 4.5 K/uL (1.0-4.3); LYMPH % 29.5 % (20.0-40.0); MEAN CELL VOLUME 93.6 fL (81.0-99.0); MEAN CORPUSCULAR HEMOGLOBIN 30.2 pg (27.0-31.0); MEAN CORPUSCULAR HGB CONC 32.3 g/dL (33.0-37.0); MEAN PLATELET VOLUME 8.4 fL (7.2-11.7); MONO # 1.9 K/uL (0.0-0.8); MONO % 12.6 % (0.0-10.0); NRBC % 0.1 % (0.0-2.0); RED CELL DISTRIBUTION WIDTH 16.2 % (11.5-14.5); WHITE BLOOD COUNT 15.1 K/uL (4.8-10.8)
[2016-11-27 23:47] LABS: ALB/GLOB RATIO 0.7 (1.0-2.1); ALKALINE PHOSPHATASE 52 U/L (38-126); ALT/SGPT 30 U/L (9-52); AST/SGOT 33 U/L (14-36); BILIRUBIN,TOTAL 0.6 mg/dL (0.2-1.3); BLOOD UREA NITROGEN 35 mg/dL (7-17); CALCIUM 7.1 mg/dl (8.6-10.4); CARBON DIOXIDE 21 mmol/L (22-30); CHLORIDE 101 mmol/L (98-107); GFR AFRICAN-AMERICAN > 60; GLUCOSE,RANDOM 81 mg/dL (65-105); MAGNESIUM 2.2 mg/dL (1.6-2.3); PHOSPHOROUS 4.5 mg/dL (2.5-4.5); POTASSIUM 4.3 mmol/L (3.6-5.2); SODIUM 131 mmol/L (132-148); TOTAL PROTEIN 5.3 g/dL (6.3-8.3)
[2016-11-28 00:10] LABS: INR 1.1
[2016-11-28] MEDS: Metoprolol 1 mg/ml Inj IVP SCH ×4 (00:38→17:47)
[2016-11-28] MEDS: Dextrose 5%/0.45% NS 1,000 ML IV SCH ×2 (06:00→17:08)
[2016-11-28 06:26] LABS: BASO # 0.2 K/uL (0.0-0.2); BASO % 1.1 % (0.0-2.0); EOS # 0.1 K/uL (0.0-0.7); EOS % 0.9 % (0.0-4.0); HEMATOCRIT 23.1 % (34.0-47.0); LYMPH % 30.1 % (20.0-40.0); MEAN CELL VOLUME 94.6 fL (81.0-99.0); MEAN CORPUSCULAR HEMOGLOBIN 31.8 pg (27.0-31.0); MEAN CORPUSCULAR HGB CONC 33.7 g/dL (33.0-37.0); MEAN PLATELET VOLUME 8.4 fL (7.2-11.7); MONO # 2.3 K/uL (0.0-0.8); MONO % 13.8 % (0.0-10.0); NRBC % 0.1 % (0.0-2.0); RED CELL DISTRIBUTION WIDTH 16.5 % (11.5-14.5); WHITE BLOOD COUNT 16.5 K/uL (4.8-10.8)
[2016-11-28 07:22] LABS: INR 1.2
[2016-11-28 08:52] LABS: CHLORIDE 107 mmol/L (98-107)
[2016-11-28 08:53] LABS: POTASSIUM 3.8 mmol/L (3.6-5.2); SODIUM 134 mmol/L (132-148)
[2016-11-28 08:55] LABS: ALB/GLOB RATIO 0.6 (1.0-2.1); AST/SGOT 201 U/L (14-36); BLOOD UREA NITROGEN 40 mg/dL (7-17); CARBON DIOXIDE 20 mmol/L (22-30); GFR AFRICAN-AMERICAN > 60; TOTAL PROTEIN 5.1 g/dL (6.3-8.3)
[2016-11-28 08:56] LABS: ALKALINE PHOSPHATASE 23 U/L (38-126); ALT/SGPT 30 U/L (9-52); CALCIUM 6.9 mg/dl (8.6-10.4); GLUCOSE,RANDOM 131 mg/dL (65-105)
[2016-11-28 10:19] LABS: MAGNESIUM 2.2 mg/dL (1.6-2.3); PHOSPHOROUS 3.8 mg/dL (2.5-4.5)
[2016-11-28 10:31] LABS: HEMATOCRIT 23.2 % (34.0-47.0); MEAN CELL VOLUME 93.9 fL (81.0-99.0); MEAN CORPUSCULAR HEMOGLOBIN 30.7 pg (27.0-31.0); MEAN CORPUSCULAR HGB CONC 32.6 g/dL (33.0-37.0); MEAN PLATELET VOLUME 8.1 fL (7.2-11.7); WHITE BLOOD COUNT 18.1 K/uL (4.8-10.8)
--- NOTE | 2016-11-28 10:41 | CP.PCM.PN ---
Subjective - Date & Time of Evaluation Date of Evaluation: 11/28/16 Time of Evaluation: 10:39 - Subjective Subjective: PGY1 Progress Note for Dr. Amaral: Patient seen and examined. Patient states she feels well and has minimal pain in her legs. Objective - Vital Signs/Intake and Output Vital Signs (last 24 hours): Temp Pulse Resp BP Pulse Ox 97.5 F L 101 H 28 H 120/53 L 96 11/28/16 08:00 11/28/16 08:00 11/28/16 08:00 11/28/16 08:00 11/28/16 08:00 Intake and Output: 11/28/16 11/28/16 06:59 18:59 Intake Total 880.2 327.0 Output Total 840 480 Balance 40.2 -153.0 - Medications Medications: Current Medications Ascorbic Acid (Vitamin C 250 Mg Tab) 250 mg PO BIDPC [facility] Last Admin: 11/26/16 17:06 Dose: 250 mg Aspirin (Aspirin Chewable) 81 mg PO DAILY [facility] Last Admin: 11/26/16 10:17 Dose: 81 mg Famotidine (Pepcid) 20 mg PO DAILY [facility] Last Admin: 11/26/16 10:18 Dose: 20 mg Furosemide (Lasix) 20 mg PO DAILY [facility] Last Admin: 11/26/16 10:17 Dose: 20 mg Heparin Sodium/Sodium Chloride (Heparin 48472 Units/250ml 1/2 Normal Saline) 25 ,000 units in 250 mls @ 7.348 mls/hr IV .Q24H PRN; Protocol; 12 UNITS/KG/HR PRN Reason: PROTOCOL Last Admin: 11/26/16 22:02 Dose: 9 units/kg/hr, 5.511 mls/hr Tigecycline 50 mg/ Sodium (Chloride) 100 mls @ 100 mls/hr IVPB Q12H [facility] Last Admin: 11/28/16 06:07 Dose: 100 mls/hr Dextrose/Sodium Chloride (Dextrose 5%/0.45% Ns 1000 Ml) 1,000 mls @ 60 mls/hr IV .[id number] [facility] Last Admin: 11/28/16 06:00 Dose: 60 mls/hr Metoprolol Tartrate (Lopressor) 5 mg IVP Q6 [facility] Last Admin: 11/28/16 05:56 Dose: 5 mg Multivitamins/Minerals (Therapeutic-M Tab) 1 tab PO DAILY [facility] Last Admin: 11/26/16 10:18 Dose: 1 tab Nystatin (Nystop Topical Powder) 1 applic TOP BID [facility] Last Admin: 11/26/16 17:07 Dose: 1 appl Petrolatum (Desitin Original) 1 gm TOP DAILY [facility] Last Admin: 11/26/16 11:04 Dose: 1 applic Potassium Chloride (K-Dur 20 Meq Er Tab) 20 meq PO DAILY [facility] Last Admin: 11/26/16 10:17 Dose: 20 meq Rosuvastatin Calcium (Crestor) 5 mg PO HS [facility] Last Admin: 11/27/16 21:52 Dose: 5 mg Saccharomyces Boulardii (Florastor) 250 mg PO BID [facility] Last Admin: 11/26/16 17:06 Dose: 250 mg - Labs Labs: 11/28/16 10:23 11/28/16 08:31 PT 13.1 SECONDS (9.7-12.2) H 11/28/16 07:00 INR 1.2 11/28/16 07:00 APTT 53 SECONDS (21-34) H D 11/28/16 07:00 - Constitutional Appears: No Acute Distress - Head Exam Head Exam: ATRAUMATIC - Eye Exam Eye Exam: EOMI - Respiratory Exam Respiratory Exam: absent: Respiratory Distress Additional comments: venti mask - Exam Additional comments: arzola catheter with dark red urine - Extremities Exam Additional comments: left leg wrapped in francisco bandage, pitting edema of left lower extremity DP and PT signal by doppler of left leg improved color, warm to touch - Neurological Exam Neurological Exam: Alert, Awake - Skin Skin Exam: Warm Assessment and Plan - Assessment and Plan (Free Text) Assessment: 86 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 Amaral
[2016-11-28] MEDS: Acetylcysteine 20% Inhal Soln (4ml) PO SCH (11:03)
[2016-11-28] MEDS: Saccharomyces Boulardi 250 mg Cap PO SCH ×3 (11:07→17:16)
[2016-11-28] MEDS: Potassium Chloride 20 mEq ER Tab PO SCH (11:07)
[2016-11-28] MEDS: Zinc Oxide Topical 30 gm Tube TOP SCH (11:21)
[2016-11-28] MEDS: Multivitamin With Minerals Tab PO SCH (11:29)
--- NOTE | 2016-11-28 13:35 | CP.CCUPN ---
<Elie Lozoya - Last Filed: 11/28/16 13:18> CCU Subjective - Physician Review Subjective (Free Text): 11/28/16 13:18 PGY-1 ICU progress note Pt seen and examined at bedside. She is POD #1. She has no complaints today and there was no overnight events. Denies fevers, chills, chest pain, sob, nausea or vomiting. Critical Care Time Spent (in minutes): 35 CCU Objective - Vital Signs / Intake & Output Vital Signs (Last 4 hours): Vital Signs Pulse Resp BP Pulse Ox 11/28/16 11:07 114/56 L 11/28/16 11:00 92 H 27 H 114/56 L 98 11/28/16 10:01 96 H 26 H 118/55 L 92 L 11/28/16 10:00 102 H 31 H 97 Intake and Output (Last 8hrs): Intake & Output 11/27/16 11/28/16 11/28/16 22:59 06:59 14:59 Intake Total 316.5 563.7 472.5 Output Total 300 540 540 Balance 16.5 23.7 -67.5 Weight 132 lb 6.4 oz Intake: Intake, IV Amount 316.5 563.7 327.5 left hand 1st port 300 520 300 left hand 2nd port 16.5 43.7 27.5 Oral 145 Output: Urine 300 540 540 Urethral (Arzola) 300 540 540 - Physical Exam Head: Positive for: Atraumatic, Normocephalic Pupils: Positive for: PERRL Mouth: Positive for: Moist Mucous Membranes Respiratory/Chest: Positive for: Clear to Auscultation, Good Air Exchange. Negative for: Respiratory Distress, Accessory Muscle Use Cardiovascular: Positive for: Normal S1, S2, Tachycardic Abdomen: Positive for: Normal Bowel Sounds. Negative for: Tenderness, Distention Upper Extremity: Positive for: NORMAL PULSES Lower Extremity: Positive for: Edema, Other (left leg erythema) Neurological: Positive for: Speech Normal, Motor Func Grossly Intact Skin: Positive for: Warm, Dry Psychiatric: Positive for: Alert, Oriented x 3 - Medications Active Medications: Active Medications Generic Name Dose Route Start Last Admin Trade Name Freq PRN Reason Stop Dose Admin Ascorbic Acid 250 mg 11/22/16 18:00 11/28/16 11:06 Vitamin C 250 Mg Tab PO 250 mg BIDPC BARI Administration Aspirin 81 mg 11/18/16 18:00 11/28/16 11:06 Aspirin Chewable PO 81 mg DAILY BARI Administration Famotidine 20 mg 11/14/16 10:00 11/28/16 11:04 Pepcid PO 20 mg DAILY BARI Administration Furosemide 20 mg 11/15/16 10:00 11/28/16 11:07 Lasix PO 20 mg DAILY BARI Administration Heparin Sodium/Sodium Chloride 25,000 units in 250 mls @ 7.348 mls/hr 22:45 11/26/16 22:02 Heparin 21684 Units/250ml 1/2 Normal Saline IV 9 units/kg/hr .Q24H PRN 5.511 mls/hr PROTOCOL Administration Protocol 12 UNITS/KG/HR Tigecycline 50 mg/ Sodium 100 mls @ 100 mls/hr 11/26/16 18:45 11/28/16 06:07 Chloride IVPB 100 mls/hr Q12H BARI Administration Dextrose/Sodium Chloride 1,000 mls @ 60 mls/hr 11/27/16 22:57 11/28/16 06:00 Dextrose 5%/0.45% Ns 1000 Ml IV 60 mls/hr .[id number] BARI Administration Metoprolol Tartrate 5 mg 11/28/16 00:00 11/28/16 05:56 Lopressor IVP 5 mg Q6 BARI Administration Multivitamins/Minerals 1 tab 11/21/16 10:00 11/28/16 11:29 Therapeutic-M Tab PO 1 tab DAILY BARI Administration Nystatin 1 applic 11/26/16 10:00 11/28/16 11:21 Nystop Topical Powder TOP 1 appl BID BARI Administration Petrolatum 1 gm 11/15/16 10:00 11/28/16 11:21 Desitin Original TOP 1 applic DAILY BARI Administration Potassium Chloride 20 meq 11/17/16 17:15 11/28/16 11:07 K-Dur 20 Meq Er Tab PO 20 meq DAILY BARI Administration Rosuvastatin Calcium 5 mg 11/18/16 22:00 11/27/16 21:52 Crestor PO 5 mg HS BARI Administration Saccharomyces Boulardii 250 mg 11/13/16 10:00 11/28/16 11:07 Florastor PO 250 mg BID BARI Administration - Patient Studies Lab Studies: Microbiology Studies 11/26/16 04:00 Blood Culture - Preliminary Blood-Venous NO GROWTH AFTER 48 HOURS 11/26/16 04:00 Blood Culture - Preliminary Blood-Venous NO GROWTH AFTER 48 HOURS 11/25/16 22:36 MRSA Culture (Admit) - Final Nose MRSA NOT DETECTED 11/26/16 06:02 Urine Culture - Final Urine,Catheterized No Growth (<1,000 CFU/ML) Lab Studies 11/28/16 11/28/16 11/28/16 Range/Units 10:23 09:49 08:31 WBC 18.1 H (4.8-10.8) K/uL RBC 2.47 L (3.80-5.20) Mil/uL Hgb 7.6 L (11.0-16.0) g/dL Hct 23.2 L (34.0-47.0) % MCV 93.9 (81.0-99.0) fL MCH 30.7 (27.0-31.0) pg MCHC 32.6 L (33.0-37.0) g/dL RDW 16.0 H (11.5-14.5) % Plt Count 295 (130-400) K/uL MPV 8.1 (7.2-11.7) fL Neut % (Auto) (50.0-75.0) % Lymph % (Auto) (20.0-40.0) % [place] % (Auto) (0.0-10.0) % Eos % (Auto) (0.0-4.0) % Baso % (Auto) (0.0-2.0) % Neut # (1.8-7.0) K/uL Lymph # (1.0-4.3) K/uL [place] # (0.0-0.8) K/uL Eos # (0.0-0.7) K/uL Baso # (0.0-0.2) K/uL PT (9.7-12.2) SECONDS INR APTT (21-34) SECONDS Sodium 134 (132-148) mmol/L Potassium 3.8 (3.6-5.2) mmol/L Chloride 107 (98-107) mmol/L Carbon Dioxide 20 L (22-30) mmol/L Anion Gap 11 (10-20) BUN 40 H (7-17) mg/dL Creatinine 0.9 (0.7-1.2) MG/DL Est GFR ( Amer) > 60 Est GFR (Non-Af Amer) 59 Random Glucose 131 H (65-105) mg/dL Calcium 6.9 L (8.6-10.4) mg/dl Phosphorus 3.8 (2.5-4.5) mg/dL Magnesium 2.2 (1.6-2.3) mg/dL Total Bilirubin 4.0 H (0.2-1.3) mg/dL AST 201 H D (14-36) U/L ALT 30 (9-52) U/L Alkaline Phosphatase 23 L D (38-126) U/L Total Protein 5.1 L (6.3-8.3) g/dL Albumin 1.9 L (3.5-5.0) g/dL Globulin 3.1 (2.2-3.9) gm/dL Albumin/Globulin Ratio 0.6 L (1.0-2.1) 11/28/16 11/28/16 11/27/16 Range/Units 07:00 06:04 06:00 WBC 16.5 H (4.8-10.8) K/uL RBC 2.44 L (3.80-5.20) Mil/uL Hgb 7.8 L D (11.0-16.0) g/dL Hct 23.1 L (34.0-47.0) % MCV 94.6 (81.0-99.0) fL MCH 31.8 H (27.0-31.0) pg MCHC 33.7 (33.0-37.0) g/dL RDW 16.5 H (11.5-14.5) % Plt Count 314 D (130-400) K/uL MPV 8.4 (7.2-11.7) fL Neut % (Auto) 54.1 (50.0-75.0) % Lymph % (Auto) 30.1 (20.0-40.0) % [place] % (Auto) 13.8 H (0.0-10.0) % Eos % (Auto) 0.9 (0.0-4.0) % Baso % (Auto) 1.1 (0.0-2.0) % Neut # 8.9 H (1.8-7.0) K/uL Lymph # 5.0 H (1.0-4.3) K/uL [place] # 2.3 H (0.0-0.8) K/uL Eos # 0.1 (0.0-0.7) K/uL Baso # 0.2 (0.0-0.2) K/uL PT 13.1 H (9.7-12.2) SECONDS INR 1.2 APTT 53 H D (21-34) SECONDS Sodium 131 L (132-148) mmol/L Potassium 4.3 (3.6-5.2) mmol/L Chloride 101 (98-107) mmol/L Carbon Dioxide 21 L (22-30) mmol/L Anion Gap 13 (10-20) BUN 35 H (7-17) mg/dL Creatinine 1.0 (0.7-1.2) MG/DL Est GFR ( Amer) > 60 Est GFR (Non-Af Amer) 52 Random Glucose 81 (65-105) mg/dL Calcium 7.1 L (8.6-10.4) mg/dl Phosphorus 4.5 (2.5-4.5) mg/dL Magnesium 2.2 (1.6-2.3) mg/dL Total Bilirubin 0.6 (0.2-1.3) mg/dL AST 33 (14-36) U/L ALT 30 (9-52) U/L Alkaline Phosphatase 52 (38-126) U/L Total Protein 5.3 L (6.3-8.3) g/dL Albumin 2.1 L (3.5-5.0) g/dL Globulin 3.2 (2.2-3.9) gm/dL Albumin/Globulin Ratio 0.7 L (1.0-2.1) 11/27/16 11/27/16 Range/Units 06:00 01:00 WBC 15.1 H (4.8-10.8) K/uL RBC 3.25 L (3.80-5.20) Mil/uL Hgb 9.8 L (11.0-16.0) g/dL Hct 30.5 L (34.0-47.0) % MCV 93.6 (81.0-99.0) fL MCH 30.2 (27.0-31.0) pg MCHC 32.3 L (33.0-37.0) g/dL RDW 16.2 H (11.5-14.5) % Plt Count 432 H (130-400) K/uL MPV 8.4 (7.2-11.7) fL Neut % (Auto) 55.3 (50.0-75.0) % Lymph % (Auto) 29.5 (20.0-40.0) % [place] % (Auto) 12.6 H (0.0-10.0) % Eos % (Auto) 1.4 (0.0-4.0) % Baso % (Auto) 1.2 (0.0-2.0) % Neut # 8.3 H (1.8-7.0) K/uL Lymph # 4.5 H (1.0-4.3) K/uL [place] # 1.9 H (0.0-0.8) K/uL Eos # 0.2 (0.0-0.7) K/uL Baso # 0.2 (0.0-0.2) K/uL PT 12.2 (9.7-12.2) SECONDS INR 1.1 APTT 60 H (21-34) SECONDS Sodium (132-148) mmol/L Potassium (3.6-5.2) mmol/L Chloride (98-107) mmol/L Carbon Dioxide (22-30) mmol/L Anion Gap (10-20) BUN (7-17) mg/dL Creatinine (0.7-1.2) MG/DL Est GFR ( Amer) Est GFR (Non-Af Amer) Random Glucose (65-105) mg/dL Calcium (8.6-10.4) mg/dl Phosphorus (2.5-4.5) mg/dL Magnesium (1.6-2.3) mg/dL Total Bilirubin (0.2-1.3) mg/dL AST (14-36) U/L ALT (9-52) U/L Alkaline Phosphatase (38-126) U/L Total Protein (6.3-8.3) g/dL Albumin (3.5-5.0) g/dL Globulin (2.2-3.9) gm/dL Albumin/Globulin Ratio (1.0-2.1) Laboratory Results - last 24 hr 11/27/16 11/27/16 11/27/16 01:00 06:00 06:00 WBC 15.1 H RBC 3.25 L Hgb 9.8 L Hct 30.5 L MCV 93.6 MCH 30.2 MCHC 32.3 L RDW 16.2 H Plt Count 432 H MPV 8.4 Neut % (Auto) 55.3 Lymph % (Auto) 29.5 [place] % (Auto) 12.6 H Eos % (Auto) 1.4 Baso % (Auto) 1.2 Neut # 8.3 H Lymph # 4.5 H [place] # 1.9 H Eos # 0.2 Baso # 0.2 PT 12.2 INR 1.1 APTT 60 H Sodium 131 L Potassium 4.3 Chloride 101 Carbon Dioxide 21 L Anion Gap 13 BUN 35 H Creatinine 1.0 Est GFR ( Amer) > 60 Est GFR (Non-Af Amer) 52 Random Glucose 81 Calcium 7.1 L Phosphorus 4.5 Magnesium 2.2 Total Bilirubin 0.6 AST 33 ALT 30 Alkaline Phosphatase 52 Total Protein 5.3 L Albumin 2.1 L Globulin 3.2 Albumin/Globulin Ratio 0.7 L 11/28/16 11/28/16 11/28/16 06:04 07:00 08:31 WBC 16.5 H RBC 2.44 L Hgb 7.8 L D Hct 23.1 L MCV 94.6 MCH 31.8 H MCHC 33.7 RDW 16.5 H Plt Count 314 D MPV 8.4 Neut % (Auto) 54.1 Lymph % (Auto) 30.1 [place] % (Auto) 13.8 H Eos % (Auto) 0.9 Baso % (Auto) 1.1 Neut # 8.9 H Lymph # 5.0 H [place]ima # 2.3 H Eos # 0.1 Baso # 0.2 PT 13.1 H INR 1.2 APTT 53 H D Sodium 134 Potassium 3.8 Chloride 107 Carbon Dioxide 20 L Anion Gap 11 BUN 40 H Creatinine 0.9 Est GFR ( Amer) > 60 Est GFR (Non-Af Amer) 59 Random Glucose 131 H Calcium 6.9 L Phosphorus Magnesium Total Bilirubin 4.0 H AST 201 H D ALT 30 Alkaline Phosphatase 23 L D Total Protein 5.1 L Albumin 1.9 L Globulin 3.1 Albumin/Globulin Ratio 0.6 L 11/28/16 11/28/16 09:49 10:23 WBC 18.1 H RBC 2.47 L Hgb 7.6 L Hct 23.2 L MCV 93.9 MCH 30.7 MCHC 32.6 L RDW 16.0 H Plt Count 295 MPV 8.1 Neut % (Auto) Lymph % (Auto) [place] % (Auto) Eos % (Auto) Baso % (Auto) Neut # Lymph # [place] # Eos # Baso # PT INR APTT Sodium Potassium Chloride Carbon Dioxide Anion Gap BUN Creatinine Est GFR ( Amer) Est GFR (Non-Af Amer) Random Glucose Calcium Phosphorus 3.8 Magnesium 2.2 Total Bilirubin AST ALT Alkaline Phosphatase Total Protein Albumin Globulin Albumin/Globulin Ratio Fingerstick Blood Sugar Results: 79 Review of Systems - Review of Systems All systems: reviewed and no additional remarkable complaints except (where noted in HPI) Critical Care Progress Note - Nutrition Nutrition: Nutrition Category Date Time Status Heart Healthy Diet [DIET] Diets 11/28/16 Breakfast Active Assessment/Plan - Assessment and Plan (Free Text) Assessment: This is an 86 yo F with extensive left leg DVT that extends up to the distal inferior cava, seen on CT, with likely PE, now s/p thrombolysis, IVC placement and iliac stents placed POD#1. She is tachycardic, saturating well and on heparin drip. Plan: Neuro: AAOx3 Continue to monitor Cardiovascular: Normotensive, tachycardic Hemodynamically stable, monitor for hypotension Pulmonary: Likely has PE On heparin drip Saturating well, normal breathing pattern Continue nasal cannula Gastrointestinal: No acute issues Heart healthy diet Hematology: Left leg DVT extending to distal IVC, and likely PE s/p thrombolysis, IVC and Iliac stent placement POD#1 Continue heparin drip Vasc surgery following Endocrine: No issues Renal: Hematuria with Hgb at 7.6, down from 9.8. According to staff, color in arzola is improving and Hgb stable on repeat CBC Urology consulted - f/u recs Resolved UTI Elevated Cr due to IV contrast study Gentle IVF resuscitation Musculoskeletal: Left leg cellulitis Continue wound care Continue Tigecycline OOB to chair Infectious Disease: Left leg cellulitis Leuokocytosis Continue Tigecycline GI Prophylaxis: Pepcid DVT Prophylaxis: On heparin drip <Gerson Bass - Last Filed: 12/04/16 17:04> CCU Objective - Vital Signs / Intake & Output Vital Signs (Last 4 hours): Vital Signs Temp Pulse Resp BP Pulse Ox 12/04/16 16:00 97.3 F L 79 20 147/71 97 Intake and Output (Last 8hrs): Intake & Output 12/04/16 12/04/16 12/04/16 06:59 14:59 22:59 Intake Total 480 Balance 480 Weight 133 lb Intake: Oral 480 Other: # Voids Urethral (Arzola) 400 # Bowel Movements 0 - Medications Active Medications: Active Medications Generic Name Dose Route Start Last Admin Trade Name Freq PRN Reason Stop Dose Admin Ascorbic Acid 250 mg 11/22/16 18:00 12/04/16 09:55 Vitamin C 250 Mg Tab PO 250 mg BIDPC BARI Administration Aspirin 81 mg 11/18/16 18:00 12/04/16 09:54 Aspirin Chewable PO 81 mg DAILY BARI Administration Famotidine 20 mg 11/14/16 10:00 12/04/16 09:55 Pepcid PO 20 mg DAILY BARI Administration Furosemide 20 mg 11/15/16 10:00 12/04/16 09:54 Lasix PO 20 mg DAILY BARI Administration Metoprolol Succinate 50 mg 12/03/16 10:00 12/04/16 09:54 Toprol Xl PO 50 mg DAILY BARI Administration Multivitamins/Minerals 1 tab 11/21/16 10:00 12/04/16 09:54 Therapeutic-M Tab PO 1 tab DAILY BARI Administration Nystatin 1 applic 11/26/16 10:00 12/04/16 09:56 Nystop Topical Powder TOP 1 appl BID BARI Administration Petrolatum 1 gm 11/15/16 10:00 12/04/16 09:57 Desitin Original TOP 1 applic DAILY BARI Administration Rosuvastatin Calcium 5 mg 11/18/16 22:00 12/03/16 22:53 Crestor PO 5 mg HS BARI Administration Saccharomyces Boulardii 250 mg 11/13/16 10:00 12/04/16 09:54 Florastor PO 250 mg BID BARI Administration - Patient Studies Lab Studies: Microbiology Studies 12/03/16 04:14 MRSA Culture - Final Naris MRSA NOT DETECTED Critical Care Progress Note - Nutrition Nutrition: Nutrition Category Date Time Status Heart Healthy Diet [DIET] Diets 05/19/17 Breakfast Active Attending/Attestation - Attestation I have personally seen and examined this patient.: Yes I have fully participated in the care of the patient.: Yes I have reviewed all pertinent clinical information: Yes Notes (Text): Today: Monday, November 28, 2016 The Patient was seen and examined at the bedside, Medical records reviewed, all clinical/lab/hemodynamic/radiographic data were reviewed and management issues were discussed and formulated, Events reviewed Pain issues, skin care, head of the bed elevation, glycemic control were addressed. Agree with above treatment plans as transcribed in Dr. Lozoya note
--- NOTE | 2016-11-28 15:14 | CP.PCM.PN ---
<ElisabethJoseSharona - Last Filed: 11/28/16 15:18> Subjective - Date & Time of Evaluation Date of Evaluation: 11/28/16 Time of Evaluation: 15:13 - Subjective Subjective: PGY-[address] Terry Pt seen and examined. No acute complaint. Pt gestured she is not in pain Objective - Vital Signs/Intake and Output Vital Signs (last 24 hours): Temp Pulse Resp BP Pulse Ox 97.5 F L 92 H 27 H 114/56 L 98 11/28/16 08:00 11/28/16 11:00 11/28/16 11:00 11/28/16 11:07 11/28/16 11:00 Intake and Output: 11/28/16 11/28/16 06:59 18:59 Intake Total 880.2 1366.5 Output Total 840 850 Balance 40.2 516.5 - Medications Medications: Current Medications Ascorbic Acid (Vitamin C 250 Mg Tab) 250 mg PO BIDPC [facility] Last Admin: 11/28/16 11:06 Dose: 250 mg Aspirin (Aspirin Chewable) 81 mg PO DAILY [facility] Last Admin: 11/28/16 11:06 Dose: 81 mg Famotidine (Pepcid) 20 mg PO DAILY [facility] Last Admin: 11/28/16 11:04 Dose: 20 mg Furosemide (Lasix) 20 mg PO DAILY [facility] Last Admin: 11/28/16 11:07 Dose: 20 mg Heparin Sodium/Sodium Chloride (Heparin 75454 Units/250ml 1/2 Normal Saline) 25 ,000 units in 250 mls @ 7.348 mls/hr IV .Q24H PRN; Protocol; 12 UNITS/KG/HR PRN Reason: PROTOCOL Last Admin: 11/26/16 22:02 Dose: 9 units/kg/hr, 5.511 mls/hr Tigecycline 50 mg/ Sodium (Chloride) 100 mls @ 100 mls/hr IVPB Q12H [facility] Last Admin: 11/28/16 06:07 Dose: 100 mls/hr Dextrose/Sodium Chloride (Dextrose 5%/0.45% Ns 1000 Ml) 1,000 mls @ 60 mls/hr IV .[id number] [facility] Last Admin: 11/28/16 06:00 Dose: 60 mls/hr Metoprolol Tartrate (Lopressor) 5 mg IVP Q6 [facility] Last Admin: 11/28/16 05:56 Dose: 5 mg Multivitamins/Minerals (Therapeutic-M Tab) 1 tab PO DAILY BARI Last Admin: 11/28/16 11:29 Dose: 1 tab Nystatin (Nystop Topical Powder) 1 applic TOP BID [facility]I Last Admin: 11/28/16 11:21 Dose: 1 appl Petrolatum (Desitin Original) 1 gm TOP DAILY BARI Last Admin: 11/28/16 11:21 Dose: 1 applic Potassium Chloride (K-Dur 20 Meq Er Tab) 20 meq PO DAILY BARI Last Admin: 11/28/16 11:07 Dose: 20 meq Rosuvastatin Calcium (Crestor) 5 mg PO HS [facility] Last Admin: 11/27/16 21:52 Dose: 5 mg Saccharomyces Boulardii (Florastor) 250 mg PO BID [facility]I Last Admin: 11/28/16 11:07 Dose: 250 mg - Labs Labs: 11/28/16 10:23 11/28/16 08:31 PT 13.1 SECONDS (9.7-12.2) H 11/28/16 07:00 INR 1.2 11/28/16 07:00 APTT 53 SECONDS (21-34) H D 11/28/16 07:00 - Constitutional Appears: No Acute Distress - Head Exam Head Exam: ATRAUMATIC, NORMOCEPHALIC - Eye Exam Eye Exam: EOMI, Normal appearance - ENT Exam ENT Exam: Mucous Membranes Moist - Respiratory Exam Respiratory Exam: Clear to Ausculation Bilateral, Rales, Rhonchi, NORMAL BREATHING PATTERN. absent: Wheezes - Cardiovascular Exam Cardiovascular Exam: REGULAR RHYTHM, +S1, +S2. absent: Murmur (grade 3 systolic ) - GI/Abdominal Exam GI & Abdominal Exam: Soft, Normal Bowel Sounds. absent: Tenderness - Extremities Exam Extremities Exam: Pedal Edema - Back Exam Back Exam: absent: CVA tenderness (L), CVA tenderness (R) - Neurological Exam Neurological Exam: Alert, Awake - Psychiatric Exam Psychiatric exam: Normal Affect, Normal Mood - Skin Skin Exam: Dry, Warm Assessment and Plan - Assessment and Plan (Free Text) Plan: Tachycardia @ 100s, sinus - SBP high 110s, POx 93 on 2L; watch obstructive shock - likely PE - already on heparin gtt - IVC filter placed 11/27/16 DVT, acute, with Cerulea Dolens Pedal edema, cellulitis vs DVT, on antibiotics IVC filter placement, angiojet, stent L common iliac and ext iliac, POD #1 - heparin gtt - Anticoagulant at least 3-6 month - Eliquis/Coumadin/xarelto Shortness of breath Severe aortic stenosis, symptomatic HTN - aortic stenosis vs 2/2 pulmonary etiology (former smoker) vs 2/2 infectious etiology (persisting LE cellulitis) - Avoid excessive preload reduction - Lasix 20mg PO daily - f/u patternmaker sample outpatient for TAVR - Trops 0.047, 0.092 - monitor Hx CAD - Aspirin, Metoprolol 5 IV q6, and Rosuvastain 5 HS Imaging: EKG on 06/01/15: NSR at 64, normal EKG EKG on 11/12/16: sinus tachy at 104, possible LA enlargement EKG on 11/23/16: Sinus tachycardia at 122, Possible Left atrial enlargement, RSR ' or QR pattern in V1 suggests right ventricular conduction delay, Borderline ECG Echo on 11/12/16: LVEF 63%, Moderate concentric LVH, abnormal LV diastolic dysfxn , Severe valvular CXR 11/14/16: Progressive infiltrates mavis R lung superimposed upon CHF vs Pulm vasc congestion previously identified, PICC line in satisfactory place CXR 11/18/16: Worsening opacities and reticular densities in lungs compared to prior exam, CHF vs infectious process CXR 11/21/16: No significant interval change CXR 11/23/16: Interval improvement in lungs since prior exam S/R/D/w Dr. Terry <James Terry - Last Filed: 11/28/16 21:37> Objective - Vital Signs/Intake and Output Vital Signs (last 24 hours): Temp Pulse Resp BP Pulse Ox 97.9 F 110 H 22 119/51 L 100 11/28/16 20:00 11/28/16 20:00 11/28/16 20:00 11/28/16 20:01 11/28/16 20:00 Intake and Output: 11/28/16 11/29/16 18:59 06:59 Intake Total 1593.0 181.0 Output Total 1030 100 Balance 563.0 81.0 - Medications Medications: Current Medications Ascorbic Acid (Vitamin C 250 Mg Tab) [facility] Last Admin: 05/19/17 18:11 Dose: 250 mg Aspirin (Aspirin Chewable) 81 mg PO DAILY [facility] Last Admin: 11/28/16 11:06 Dose: 81 mg Famotidine (Pepcid) 20 mg PO DAILY [facility] Last Admin: 11/28/16 11:04 Dose: 20 mg Furosemide (Lasix) 20 mg PO DAILY [facility] Last Admin: 11/28/16 11:07 Dose: 20 mg Heparin Sodium/Sodium Chloride (Heparin 29377 Units/250ml 1/2 Normal Saline) 25 ,000 units in 250 mls @ 7.348 mls/hr IV .Q24H PRN; Protocol; 12 UNITS/KG/HR PRN Reason: PROTOCOL Last Admin: 11/26/16 22:02 Dose: 9 units/kg/hr, 5.511 mls/hr Tigecycline 50 mg/ Sodium (Chloride) 100 mls @ 100 mls/hr IVPB Q12H [facility] Last Admin: 11/28/16 18:12 Dose: 100 mls/hr Dextrose/Sodium Chloride (Dextrose 5%/0.45% Ns 1000 Ml) 1,000 mls @ 60 mls/hr IV .[id number] [facility] Last Admin: 11/28/16 17:08 Dose: 60 mls/hr Metoprolol Tartrate (Lopressor) 5 mg IVP Q6 [facility] Last Admin: 11/28/16 17:47 Dose: Not Given Multivitamins/Minerals (Therapeutic-M Tab) 1 tab PO DAILY [facility] Last Admin: 11/28/16 11:29 Dose: 1 tab Nystatin (Nystop Topical Powder) 1 applic TOP BID [facility] Last Admin: 11/28/16 17:19 Dose: 1 appl Petrolatum (Desitin Original) 1 gm TOP DAILY [facility] Last Admin: 11/28/16 11:21 Dose: 1 applic Potassium Chloride (K-Dur 20 Meq Er Tab) 20 meq PO DAILY [facility] Last Admin: 11/28/16 11:07 Dose: 20 meq Rosuvastatin Calcium (Crestor) 5 mg PO HS [facility] Last Admin: 11/27/16 21:52 Dose: 5 mg Saccharomyces Boulardii (Florastor) 250 mg PO BID [facility] Last Admin: 11/28/16 17:16 Dose: 250 mg - Labs Labs: 11/28/16 10:23 11/28/16 08:31 PT 13.1 SECONDS (9.7-12.2) H 11/28/16 07:00 INR 1.2 11/28/16 07:00 APTT 53 SECONDS (21-34) H D 11/28/16 07:00 Assessment and Plan - Assessment and Plan (Free Text) Plan: Patient seen and evaluated with the certified medical aide Agree with the management plan
--- NOTE | 2016-11-28 19:20 | CP.PCM.PN ---
Subjective - Date & Time of Evaluation Date of Evaluation: 11/28/16 Time of Evaluation: 19:16 - Subjective Subjective: INFECTIOUS DISEASE ICU/CCU #6 PROGRESS NOTE JOHNSON MADDOX MD, FACP 11/28/2016 CHART REVIEWED PT EXAMINED CASE DISCUSSED REVIEWED FINDINGS WITH DR MCLEOD AND ERICK. CLINICALLY PULSES IN HER LEFT FOOT BY DOPPLER POSSIBLE, "PHLEGMASIA CERULEA DOLENS"! ON TYGACIL SINCE URINE C/S NEGATIVE NO NEED FOR CONTINUED CONTACT ISOLATION, IN MY VIEW. Objective - Vital Signs/Intake and Output Vital Signs (last 24 hours): Temp Pulse Resp BP Pulse Ox 98 F 113 H 31 H 92/35 L 96 11/28/16 16:00 11/28/16 17:46 11/28/16 17:46 11/28/16 17:46 11/28/16 17:46 Intake and Output: 11/28/16 11/29/16 18:59 06:59 Intake Total 1593.0 Output Total 1030 Balance 563.0 - Medications Medications: Current Medications Ascorbic Acid (Vitamin C 250 Mg Tab) 250 mg PO BIDPC [facility] Last Admin: 11/28/16 18:11 Dose: 250 mg Aspirin (Aspirin Chewable) 81 mg PO DAILY [facility] Last Admin: 11/28/16 11:06 Dose: 81 mg Famotidine (Pepcid) 20 mg PO DAILY [facility] Last Admin: 11/28/16 11:04 Dose: 20 mg Furosemide (Lasix) 20 mg PO DAILY [facility] Last Admin: 11/28/16 11:07 Dose: 20 mg Heparin Sodium/Sodium Chloride (Heparin 37158 Units/250ml 1/2 Normal Saline) 25 ,000 units in 250 mls @ 7.348 mls/hr IV .Q24H PRN; Protocol; 12 UNITS/KG/HR PRN Reason: PROTOCOL Last Admin: 11/26/16 22:02 Dose: 9 units/kg/hr, 5.511 mls/hr Tigecycline 50 mg/ Sodium (Chloride) 100 mls @ 100 mls/hr IVPB Q12H [facility] Last Admin: 11/28/16 18:12 Dose: 100 mls/hr Dextrose/Sodium Chloride (Dextrose 5%/0.45% Ns 1000 Ml) 1,000 mls @ 60 mls/hr IV .[id number] [facility] Last Admin: 11/28/16 17:08 Dose: 60 mls/hr Metoprolol Tartrate (Lopressor) 5 mg IVP Q6 [facility] Last Admin: 11/28/16 17:47 Dose: Not Given Multivitamins/Minerals (Therapeutic-M Tab) 1 tab PO DAILY [facility] Last Admin: 11/28/16 11:29 Dose: 1 tab Nystatin (Nystop Topical Powder) 1 applic TOP BID [facility] Last Admin: 11/28/16 17:19 Dose: 1 appl Petrolatum (Desitin Original) 1 gm TOP DAILY [facility] Last Admin: 11/28/16 11:21 Dose: 1 applic Potassium Chloride (K-Dur 20 Meq Er Tab) 20 meq PO DAILY [facility] Last Admin: 11/28/16 11:07 Dose: 20 meq Rosuvastatin Calcium (Crestor) 5 mg PO HS [facility] Last Admin: 11/27/16 21:52 Dose: 5 mg Saccharomyces Boulardii (Florastor) 250 mg PO BID [facility] Last Admin: 11/28/16 17:16 Dose: 250 mg - Labs Labs: 11/28/16 10:23 11/28/16 08:31 PT 13.1 SECONDS (9.7-12.2) H 11/28/16 07:00 INR 1.2 11/28/16 07:00 APTT 53 SECONDS (21-34) H D 11/28/16 07:00 - Constitutional Appears: Non-toxic, Chronically Ill - Head Exam Head Exam: ATRAUMATIC - Eye Exam Eye Exam: Normal appearance - ENT Exam ENT Exam: Mucous Membranes Dry - Respiratory Exam Respiratory Exam: Decreased Breath Sounds, NORMAL BREATHING PATTERN - Cardiovascular Exam Cardiovascular Exam: REGULAR RHYTHM - GI/Abdominal Exam GI & Abdominal Exam: Soft, Normal Bowel Sounds. 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
[2016-11-28] MEDS ORDERED: Metoprolol 1 mg/ml Inj IVP SCH (19:41)
[2016-11-28] MEDS: Heparin25000 units/250ml 1/2NS 25,000 UNITS/250 ML BAG IV PRN (22:41)
[2016-11-29] MEDS: Metoprolol 1 mg/ml Inj IVP SCH ×2 (00:15→06:17)
[2016-11-29 06:49] LABS: BASO # 0.2 K/uL (0.0-0.2); BASO % 1.2 % (0.0-2.0); EOS # 0.2 K/uL (0.0-0.7); EOS % 1.3 % (0.0-4.0); HEMATOCRIT 21.6 % (34.0-47.0); LYMPH # 3.6 K/uL (1.0-4.3); LYMPH % 27.6 % (20.0-40.0); MEAN CORPUSCULAR HEMOGLOBIN 30.3 pg (27.0-31.0); MEAN CORPUSCULAR HGB CONC 32.2 g/dL (33.0-37.0); MEAN PLATELET VOLUME 8.7 fL (7.2-11.7); MONO # 1.4 K/uL (0.0-0.8); MONO % 10.7 % (0.0-10.0); NRBC % 0.1 % (0.0-2.0); RED CELL DISTRIBUTION WIDTH 16.6 % (11.5-14.5)
[2016-11-29 07:01] LABS: CHLORIDE 109 mmol/L (98-107); POTASSIUM 3.2 mmol/L (3.6-5.2); SODIUM 137 mmol/L (132-148)
[2016-11-29 07:03] LABS: BILIRUBIN,TOTAL 1.2 mg/dL (0.2-1.3); CARBON DIOXIDE 20 mmol/L (22-30); GFR AFRICAN-AMERICAN > 60
[2016-11-29 07:04] LABS: ALB/GLOB RATIO 0.6 (1.0-2.1); ALKALINE PHOSPHATASE 32 U/L (38-126); ALT/SGPT 21 U/L (9-52); AST/SGOT 67 U/L (14-36); BLOOD UREA NITROGEN 35 mg/dL (7-17); CALCIUM 6.8 mg/dl (8.6-10.4); GLUCOSE,RANDOM 107 mg/dL (65-105); PHOSPHOROUS 3.3 mg/dL (2.5-4.5); TOTAL PROTEIN 4.4 g/dL (6.3-8.3)
[2016-11-29 07:05] LABS: MAGNESIUM 2.1 mg/dL (1.6-2.3)
[2016-11-29] MEDS: Dextrose 5%/0.45% NS 1,000 ML IV SCH (08:30)
--- NOTE | 2016-11-29 08:56 | CP.PCM.PN ---
Subjective - Date & Time of Evaluation Date of Evaluation: 11/28/16 Time of Evaluation: 08:56 - Subjective Subjective: Patient is feeling slightly better at this time. Tachycardia noted. Poor appetite present. No chest pain. Cough noted. Mild tachycardia. Left leg swelling is improving. No nausea vomiting. Cope catheter urine still blood-tinged. But feeling better than before Objective - Vital Signs/Intake and Output Vital Signs (last 24 hours): Temp Pulse Resp BP Pulse Ox 97.8 F 93 H 26 H 106/51 L 98 11/29/16 08:00 11/29/16 08:00 11/29/16 08:00 11/29/16 08:00 11/29/16 08:00 Intake and Output: 11/29/16 11/29/16 06:59 18:59 Intake Total 1386.0 131.0 Output Total 685 125 Balance 701.0 6.0 chest good air entry bilaterally, regular heart sound, nontender abdomen, pedal edema, mostly on the left side. Patient is a alert awake oriented - Medications Medications: Current Medications Ascorbic Acid (Vitamin C 250 Mg Tab) 250 mg PO BIDPC [facility] Last Admin: 11/28/16 18:11 Dose: 250 mg Aspirin (Aspirin Chewable) 81 mg PO DAILY [facility] Last Admin: 11/28/16 11:06 Dose: 81 mg Famotidine (Pepcid) 20 mg PO DAILY [facility] Last Admin: 11/28/16 11:04 Dose: 20 mg Furosemide (Lasix) 20 mg PO DAILY [facility] Last Admin: 11/28/16 11:07 Dose: 20 mg Heparin Sodium/Sodium Chloride (Heparin 65437 Units/250ml 1/2 Normal Saline) 25 ,000 units in 250 mls @ 7.348 mls/hr IV .Q24H PRN; Protocol; 12 UNITS/KG/HR PRN Reason: PROTOCOL Last Admin: 11/28/16 22:41 Dose: 9 units/kg/hr, 5.511 mls/hr Tigecycline 50 mg/ Sodium (Chloride) 100 mls @ 100 mls/hr IVPB Q12H [facility] Last Admin: 11/29/16 06:17 Dose: 100 mls/hr Dextrose/Sodium Chloride (Dextrose 5%/0.45% Ns 1000 Ml) 1,000 mls @ 60 mls/hr IV .[id number] [facility] Last Admin: 11/28/16 17:08 Dose: 60 mls/hr Metoprolol Tartrate (Lopressor) 5 mg IVP Q6 [facility] Last Admin: 11/29/16 06:17 Dose: 5 mg Multivitamins/Minerals (Therapeutic-M Tab) 1 tab PO DAILY [facility] Last Admin: 11/28/16 11:29 Dose: 1 tab Nystatin (Nystop Topical Powder) 1 applic TOP BID [facility] Last Admin: 11/28/16 17:19 Dose: 1 appl Petrolatum (Desitin Original) 1 gm TOP DAILY [facility] Last Admin: 11/28/16 11:21 Dose: 1 applic Potassium Chloride (K-Dur 20 Meq Er Tab) 20 meq PO DAILY [facility] Last Admin: 11/28/16 11:07 Dose: 20 meq Rosuvastatin Calcium (Crestor) 5 mg PO HS [facility] Last Admin: 11/28/16 22:38 Dose: 5 mg Saccharomyces Boulardii (Florastor) 250 mg PO BID [facility] Last Admin: 11/28/16 17:16 Dose: 250 mg - Labs Labs: 11/29/16 06:40 11/29/16 04:00 PT 13.1 SECONDS (9.7-12.2) H 11/28/16 07:00 INR 1.2 11/28/16 07:00 APTT 93 SECONDS (21-34) H D 11/29/16 06:40 Assessment and Plan (1) ESBL (extended spectrum beta-lactamase) producing bacteria infection Assessment & Plan: Patient with the ESBL Escherichia coli UTI treated. Complicated with the left leg diffuse deep venous thrombosis. Status post thrombolyzes, IVC filter. Patient is on anticoagulation. Status: Resolved (2) Fever Status: Acute
--- NOTE | 2016-11-29 09:00 | CP.PCM.PN ---
Subjective - Date & Time of Evaluation Date of Evaluation: 11/29/16 Time of Evaluation: 08:58 - Subjective Subjective: Patient is comfortable, not in any distress. Is not eating well. Moving the both extremities. No cough noted. Poor appetite. Poor intake. Cope catheter is urine is clearing. No chest pain or shortness of breath. Exertional dyspnea maybe noted Objective - Vital Signs/Intake and Output Vital Signs (last 24 hours): Temp Pulse Resp BP Pulse Ox 97.8 F 93 H 26 H 106/51 L 98 11/29/16 08:00 11/29/16 08:00 11/29/16 08:00 11/29/16 08:00 11/29/16 08:00 Intake and Output: 11/29/16 11/29/16 06:59 18:59 Intake Total 1386.0 131.0 Output Total 685 125 Balance 701.0 6.0 Chest good air entry bilaterally regular heart sound. Nontender abdomen. Extremities edema bilaterally noted. Positive fluid balance noted. Will discontinue IV fluid, will give 1 unit of blood transfusion. Lasix will follow the patient - Medications Medications: Current Medications Ascorbic Acid (Vitamin C 250 Mg Tab) 250 mg PO BIDPC [facility] Last Admin: 11/28/16 18:11 Dose: 250 mg Aspirin (Aspirin Chewable) 81 mg PO DAILY [facility] Last Admin: 11/28/16 11:06 Dose: 81 mg Famotidine (Pepcid) 20 mg PO DAILY [facility] Last Admin: 11/28/16 11:04 Dose: 20 mg Furosemide (Lasix) 20 mg PO DAILY [facility] Last Admin: 11/28/16 11:07 Dose: 20 mg Heparin Sodium/Sodium Chloride (Heparin 43137 Units/250ml 1/2 Normal Saline) 25 ,000 units in 250 mls @ 7.348 mls/hr IV .Q24H PRN; Protocol; 12 UNITS/KG/HR PRN Reason: PROTOCOL Last Admin: 11/28/16 22:41 Dose: 9 units/kg/hr, 5.511 mls/hr Tigecycline 50 mg/ Sodium (Chloride) 100 mls @ 100 mls/hr IVPB Q12H [facility] Last Admin: 11/29/16 06:17 Dose: 100 mls/hr Dextrose/Sodium Chloride (Dextrose 5%/0.45% Ns 1000 Ml) 1,000 mls @ 60 mls/hr IV .[id number] [facility] Last Admin: 11/28/16 17:08 Dose: 60 mls/hr Metoprolol Tartrate (Lopressor) 5 mg IVP Q6 [facility] Last Admin: 11/29/16 06:17 Dose: 5 mg Multivitamins/Minerals (Therapeutic-M Tab) 1 tab PO DAILY [facility] Last Admin: 11/28/16 11:29 Dose: 1 tab Nystatin (Nystop Topical Powder) 1 applic TOP BID [facility] Last Admin: 11/28/16 17:19 Dose: 1 appl Petrolatum (Desitin Original) 1 gm TOP DAILY [facility] Last Admin: 11/28/16 11:21 Dose: 1 applic Potassium Chloride (K-Dur 20 Meq Er Tab) 20 meq PO DAILY [facility] Last Admin: 11/28/16 11:07 Dose: 20 meq Rosuvastatin Calcium (Crestor) 5 mg PO HS [facility] Last Admin: 11/28/16 22:38 Dose: 5 mg Saccharomyces Boulardii (Florastor) 250 mg PO BID [facility] Last Admin: 11/28/16 17:16 Dose: 250 mg - Labs Labs: 11/29/16 06:40 11/29/16 04:00 PT 13.1 SECONDS (9.7-12.2) H 11/28/16 07:00 INR 1.2 11/28/16 07:00 APTT 93 SECONDS (21-34) H D 11/29/16 06:40 Assessment and Plan (1) ESBL (extended spectrum beta-lactamase) producing bacteria infection Assessment & Plan: Patient with Escherichia coli sepsis. Urinary tract infection. Complicated with deep venous thrombosis. Also, congestive heart failure. Overall prognosis is guarded. Currently on anticoagulation. Low hemoglobin level noted, given the cardiac condition patient will benefit by having blood transfusion. Will repeat the hemoglobin the afternoon, if it is low will plan transfuse Status: Resolved (2) Fever Status: Acute
[2016-11-29] MEDS: Potassium Chloride 20 mEq/15 ml LIQ UD PO ONE ×2 (09:38→09:45)
[2016-11-29] MEDS: Potassium Chloride 20 mEq ER Tab PO SCH ×2 (09:39→09:42)
[2016-11-29] MEDS: Saccharomyces Boulardi 250 mg Cap PO SCH ×3 (09:40→17:30)
[2016-11-29] MEDS: Multivitamin With Minerals Tab PO SCH (09:41)
[2016-11-29] MEDS: Zinc Oxide Topical 30 gm Tube TOP SCH (09:43)
[2016-11-29] MEDS ORDERED: Potassium Chloride 20 mEq ER Tab PO STA (11:18)
--- NOTE | 2016-11-29 12:20 | CP.PCM.PN ---
Subjective - Date & Time of Evaluation Date of Evaluation: 11/29/16 Time of Evaluation: 10:10 - Subjective Subjective: SURGERY PROGRESS NOTE FOR DR. RYAN 86F resting comfortably. Leg of operation newly wrapped with dressing and compression. Patient stable. Objective - Vital Signs/Intake and Output Vital Signs (last 24 hours): Temp Pulse Resp BP Pulse Ox 97.8 F 93 H 26 H 115/44 L 98 11/29/16 08:00 11/29/16 08:00 11/29/16 08:00 11/29/16 09:42 11/29/16 08:00 Intake and Output: 11/29/16 11/29/16 06:59 18:59 Intake Total 1386.0 131.0 Output Total 685 125 Balance 701.0 6.0 - Medications Medications: Current Medications [facility] 250 Mg [facility] Admin: 11/29/16 09:39 Dose: 250 mg Aspirin (Aspirin Chewable) 81 mg PO DAILY [facility] Last Admin: 11/29/16 09:42 Dose: 81 mg Famotidine (Pepcid) 20 mg PO DAILY [facility] Last Admin: 11/29/16 09:42 Dose: 20 mg Furosemide (Lasix) 20 mg PO DAILY [facility] Last Admin: 11/29/16 09:42 Dose: 20 mg Heparin Sodium/Sodium Chloride (Heparin 52976 Units/250ml 1/2 Normal Saline) 25 ,000 units in 250 mls @ 7.348 mls/hr IV .Q24H PRN; Protocol; 12 UNITS/KG/HR PRN Reason: PROTOCOL Last Admin: 11/28/16 22:41 Dose: 9 units/kg/hr, 5.511 mls/hr Tigecycline 50 mg/ Sodium (Chloride) 100 mls @ 100 mls/hr IVPB Q12H [facility] Last Admin: 11/29/16 06:17 Dose: 100 mls/hr Metoprolol Tartrate (Lopressor) 25 mg PO BID [facility] Last Admin: 11/29/16 09:40 Dose: 25 mg Multivitamins/Minerals (Therapeutic-M Tab) 1 tab PO DAILY [facility] Last Admin: 11/29/16 09:41 Dose: 1 tab Nystatin (Nystop Topical Powder) 1 applic TOP BID [facility] Last Admin: 11/29/16 09:44 Dose: 1 appl Petrolatum (Desitin Original) 1 gm TOP DAILY [facility] Last Admin: 11/29/16 09:43 Dose: 1 applic Potassium Chloride (K-Dur 20 Meq Er Tab) 20 meq PO DAILY [facility] Last Admin: 11/29/16 09:42 Dose: 20 meq Rosuvastatin Calcium (Crestor) 5 mg PO HS [facility] Last Admin: 11/28/16 22:38 Dose: 5 mg Saccharomyces Boulardii (Florastor) 250 mg PO BID [facility] Last Admin: 11/29/16 09:41 Dose: 250 mg - Labs Labs: 11/29/16 06:40 11/29/16 04:00 PT 13.1 SECONDS (9.7-12.2) H 11/28/16 07:00 INR 1.2 11/28/16 07:00 APTT 93 SECONDS (21-34) H D 11/29/16 06:40 - Constitutional Appears: Non-toxic, No Acute Distress - Head Exam Head Exam: ATRAUMATIC - Cardiovascular Exam Cardiovascular Exam: REGULAR RHYTHM, +S1, +S2 - Extremities Exam Additional comments: left leg newly wrapped with compression, decreased pain. 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 Munir Boykin, PGY1
--- NOTE | 2016-11-29 13:18 | CP.CCUPN ---
CCU Subjective - Physician Review Events Since Last Encounter (Free Text): 11/29/16 13:16 Patient seen and examined in the intensive care unit. Case discussed with staff in the morning rounds. Lying comfortably in no acute distress Poor appetite clearing of urine noted with less hematuria Patient will be transfused 1 unit packed RBCs for drop in hemoglobin CCU Objective - Vital Signs / Intake & Output Vital Signs (Last 4 hours): Vital Signs BP 11/29/16 09:42 115/44 L 11/29/16 09:40 115/44 L 11/29/16 09:39 115/44 L Intake and Output (Last 8hrs): Intake & Output 11/28/16 11/29/16 11/29/16 22:59 06:59 14:59 Intake Total 894.0 824.0 131.0 Output Total 435 480 125 Balance 459.0 344.0 6.0 Weight 135 lb 12.876 oz Intake: IV 250 Intake, IV Amount 524.0 524.0 131.0 left hand 1st port 480 480 120 left hand 2nd port 44.0 44.0 11.0 Oral 120 300 Output: Urine 435 480 125 Urethral (Cope) 435 480 125 Other: # Bowel Movements 0 0 0 - Physical Exam Head: Positive for: Atraumatic, Normocephalic Pupils: Positive for: PERRL Mouth: Positive for: Moist Mucous Membranes Respiratory/Chest: Positive for: Clear to Auscultation, Good Air Exchange. Negative for: Respiratory Distress, Accessory Muscle Use Cardiovascular: Positive for: Normal S1, S2, Tachycardic Abdomen: Positive for: Normal Bowel Sounds. Negative for: Tenderness, Distention Upper Extremity: Positive for: NORMAL PULSES Lower Extremity: Positive for: Edema, Other (left leg erythema) Neurological: Positive for: Speech Normal, Motor Func Grossly Intact Skin: Positive for: Warm, Dry Psychiatric: Positive for: Alert, Oriented x 3 - Medications Active Medications: Active Medications Generic Name Dose Route Start Last Admin Trade Name Freq PRN Reason Stop Dose Admin Ascorbic Acid 250 mg 11/22/16 18:00 11/29/16 09:39 Vitamin C 250 Mg Tab PO 250 mg BIDPC [facility] Administration Aspirin 81 mg 11/18/16 18:00 11/29/16 09:42 Aspirin Chewable PO 81 mg DAILY [facility] Administration Famotidine 20 mg 11/14/16 10:00 11/29/16 09:42 Pepcid PO 20 mg DAILY [facility] Administration Furosemide 20 mg 11/15/16 10:00 11/29/16 09:42 Lasix PO 20 mg DAILY [facility] Administration Heparin Sodium/Sodium Chloride 25,000 units in 250 mls @ 7.348 mls/hr 22:45 11/28/16 22:41 Heparin 63546 Units/250ml 1/2 Normal Saline IV 9 units/kg/hr .Q24H PRN 5.511 mls/hr PROTOCOL Administration Protocol 12 UNITS/KG/HR Tigecycline 50 mg/ Sodium 100 mls @ 100 mls/hr 11/26/16 18:45 11/29/16 06:17 Chloride IVPB 100 mls/hr Q12H [facility] Administration Metoprolol Tartrate 25 mg 11/29/16 10:00 11/29/16 09:40 Lopressor PO 25 mg BID [facility] Administration Multivitamins/Minerals 1 tab 11/21/16 10:00 11/29/16 09:41 Therapeutic-M Tab PO 1 tab DAILY [facility] Administration Nystatin 1 applic 11/26/16 10:00 11/29/16 09:44 Nystop Topical Powder TOP 1 appl BID [facility] Administration Petrolatum 1 gm 11/15/16 10:00 11/29/16 09:43 Desitin Original TOP 1 applic DAILY [facility] Administration Potassium Chloride 20 meq 11/17/16 17:15 11/29/16 09:42 K-Dur 20 Meq Er Tab PO 20 meq DAILY [facility] Administration Rosuvastatin Calcium 5 mg 11/18/16 22:00 11/28/16 22:38 Crestor PO 5 mg HS [facility] Administration Saccharomyces Boulardii 250 mg 11/13/16 10:00 11/29/16 09:41 Florastor PO 250 mg BID [facility] Administration - Patient Studies Lab Studies: Microbiology Studies 11/26/16 04:00 Blood Culture - Preliminary Blood-Venous NO GROWTH AFTER 3 DAYS 11/26/16 04:00 Blood Culture - Preliminary Blood-Venous NO GROWTH AFTER 3 DAYS Lab Studies 11/29/16 11/29/16 11/29/16 Range/Units 06:40 06:40 04:00 WBC 13.0 H (4.8-10.8) K/uL RBC 2.30 L (3.80-5.20) Mil/uL Hgb 7.0 L (11.0-16.0) g/dL Hct 21.6 L (34.0-47.0) % MCV 94.0 (81.0-99.0) fL MCH 30.3 (27.0-31.0) pg MCHC 32.2 L (33.0-37.0) g/dL RDW 16.6 H (11.5-14.5) % Plt Count 283 (130-400) K/uL MPV 8.7 (7.2-11.7) fL Neut % (Auto) 59.2 (50.0-75.0) % Lymph % (Auto) 27.6 (20.0-40.0) % Walsh % (Auto) 10.7 H (0.0-10.0) % Eos % (Auto) 1.3 (0.0-4.0) % Baso % (Auto) 1.2 (0.0-2.0) % Neut # 7.7 H (1.8-7.0) K/uL Lymph # 3.6 (1.0-4.3) K/uL Walsh # 1.4 H (0.0-0.8) K/uL Eos # 0.2 (0.0-0.7) K/uL Baso # 0.2 (0.0-0.2) K/uL APTT 93 H D (21-34) SECONDS Sodium 137 (132-148) mmol/L Potassium 3.2 L (3.6-5.2) mmol/L Chloride 109 H (98-107) mmol/L Carbon Dioxide 20 L (22-30) mmol/L Anion Gap 11 (10-20) BUN 35 H (7-17) mg/dL Creatinine 1.0 (0.7-1.2) MG/DL Est GFR ( Amer) > 60 Est GFR (Non-Af Amer) 52 Random Glucose 107 H (65-105) mg/dL Calcium 6.8 L (8.6-10.4) mg/dl Phosphorus 3.3 (2.5-4.5) mg/dL Magnesium 2.1 (1.6-2.3) mg/dL Total Bilirubin 1.2 (0.2-1.3) mg/dL AST 67 H D (14-36) U/L ALT 21 (9-52) U/L Alkaline Phosphatase 32 L D (38-126) U/L Total Protein 4.4 L (6.3-8.3) g/dL Albumin 1.7 L (3.5-5.0) g/dL Globulin 2.7 (2.2-3.9) gm/dL Albumin/Globulin Ratio 0.6 L (1.0-2.1) Laboratory Results - last 24 hr 11/29/16 11/29/16 11/29/16 04:00 06:40 06:40 WBC 13.0 H RBC 2.30 L Hgb 7.0 L Hct 21.6 L MCV 94.0 MCH 30.3 MCHC 32.2 L RDW 16.6 H Plt Count 283 MPV 8.7 Neut % (Auto) 59.2 Lymph % (Auto) 27.6 Walsh % (Auto) 10.7 H Eos % (Auto) 1.3 Baso % (Auto) 1.2 Neut # 7.7 H Lymph # 3.6 Walsh # 1.4 H Eos # 0.2 Baso # 0.2 APTT 93 H D Sodium 137 Potassium 3.2 L Chloride 109 H Carbon Dioxide 20 L Anion Gap 11 BUN 35 H Creatinine 1.0 Est GFR ( Amer) > 60 Est GFR (Non-Af Amer) 52 Random Glucose 107 H Calcium 6.8 L Phosphorus 3.3 Magnesium 2.1 Total Bilirubin 1.2 AST 67 H D ALT 21 Alkaline Phosphatase 32 L D Total Protein 4.4 L Albumin 1.7 L Globulin 2.7 Albumin/Globulin Ratio 0.6 L Fingerstick Blood Sugar Results: 79 Critical Care Progress Note - Nutrition Nutrition: Nutrition Category Date Time Status Heart Healthy Diet [DIET] Diets 11/28/16 Breakfast Active Assessment/Plan (1) Anemia Current Visit: Yes Status: Acute Comment: given patient heart condition will transfused 1 unit packed RBCs No active bleeding noted Continue IV heparin (2) Left leg DVT Current Visit: Yes Status: Acute Comment: s/p IVC filter, thrombolysis, and stent of iliac vein (3) ESBL (extended spectrum beta-lactamase) producing bacteria infection Current Visit: Yes Status: Resolved Comment: Continue IV antibiotics as per infectious disease
--- NOTE | 2016-11-29 23:08 | CP.PCM.PN ---
Subjective - Date & Time of Evaluation Date of Evaluation: 11/29/16 Time of Evaluation: 09:00 - Subjective Subjective: Pt seen and examined. No events noted Physical Examination - Constitutional Appears: No Acute Distress - Head Exam Head Exam: ATRAUMATIC, NORMOCEPHALIC - Eye Exam Eye Exam: EOMI, Normal appearance - ENT Exam ENT Exam: Mucous Membranes Moist - Respiratory Exam Respiratory Exam: Clear to Ausculation Bilateral, Rales, Rhonchi, NORMAL BREATHING PATTERN. absent: Wheezes - Cardiovascular Exam Cardiovascular Exam: REGULAR RHYTHM, +S1, +S2. absent: Murmur (grade 3 systolic ) - GI/Abdominal Exam GI & Abdominal Exam: Soft, Normal Bowel Sounds. absent: Tenderness - Extremities Exam Extremities Exam: Pedal Edema - Back Exam Back Exam: absent: CVA tenderness (L), CVA tenderness (R) - Neurological Exam Neurological Exam: Alert, Awake - Psychiatric Exam Psychiatric exam: Normal Affect, Normal Mood - Skin Skin Exam: Dry, Warm Objective - Vital Signs/Intake and Output Vital Signs (last 24 hours): Temp Pulse Resp BP Pulse Ox 97.4 F L 91 H 19 134/63 100 11/29/16 20:00 11/29/16 21:12 11/29/16 21:12 11/29/16 21:12 11/29/16 21:12 Intake and Output: 11/29/16 11/30/16 18:59 06:59 Intake Total 1681.0 16.5 Output Total 975 225 Balance 706.0 -208.5 - Medications Medications: Current Medications Ascorbic Acid (Vitamin C 250 Mg Tab) 250 mg PO BIDPC [facility] Last Admin: 11/29/16 17:30 Dose: 250 mg Aspirin (Aspirin Chewable) 81 mg PO DAILY [facility] Last Admin: 11/29/16 09:42 Dose: 81 mg Famotidine (Pepcid) 20 mg PO DAILY [facility] Last Admin: 11/29/16 09:42 Dose: 20 mg Furosemide (Lasix) 20 mg PO DAILY [facility] Last Admin: 11/29/16 09:42 Dose: 20 mg Heparin Sodium/Sodium Chloride (Heparin 99571 Units/250ml 1/2 Normal Saline) 25 ,000 units in 250 mls @ 7.348 mls/hr IV .Q24H PRN; Protocol; 12 UNITS/KG/HR PRN Reason: PROTOCOL Last Admin: 11/28/16 22:41 Dose: 9 units/kg/hr, 5.511 mls/hr Tigecycline 50 mg/ Sodium (Chloride) 100 mls @ 100 mls/hr IVPB Q12H [facility] Last Admin: 11/29/16 17:50 Dose: 100 mls/hr Metoprolol Tartrate (Lopressor) 25 mg PO BID [facility] Last Admin: 11/29/16 17:30 Dose: 25 mg Multivitamins/Minerals (Therapeutic-M Tab) 1 tab PO DAILY [facility] Last Admin: 11/29/16 09:41 Dose: 1 tab Nystatin (Nystop Topical Powder) 1 applic TOP BID [facility] Last Admin: 11/29/16 17:31 Dose: 1 appl Petrolatum (Desitin Original) 1 gm TOP DAILY [facility] Last Admin: 11/29/16 09:43 Dose: 1 applic Potassium Chloride (K-Dur 20 Meq Er Tab) 20 meq PO DAILY [facility] Last Admin: 11/29/16 09:42 Dose: 20 meq Rosuvastatin Calcium (Crestor) 5 mg PO HS [facility] Last Admin: 11/29/16 22:32 Dose: 5 mg Saccharomyces Boulardii (Florastor) 250 mg PO BID [facility] Last Admin: 11/29/16 17:30 Dose: 250 mg - Labs Labs: 11/29/16 06:40 11/29/16 04:00 PT 13.1 SECONDS (9.7-12.2) H 11/28/16 07:00 INR 1.2 11/28/16 07:00 APTT 93 SECONDS (21-34) H D 11/29/16 06:40 Assessment and Plan - Assessment and Plan (Free Text) Assessment: Plan: Tachycardia @ 100s, sinus - SBP high 110s, POx 93 on 2L; watch obstructive shock - likely PE - already on heparin gtt - IVC filter placed 11/27/16 DVT, acute, with Cerulea Dolens Pedal edema, cellulitis vs DVT, on antibiotics IVC filter placement, angiojet, stent L common iliac and ext iliac, POD #1 - heparin gtt - Anticoagulant at least 3-6 month - Eliquis/Coumadin/xarelto Shortness of breath Severe aortic stenosis, symptomatic HTN - aortic stenosis vs 2/2 pulmonary etiology (former smoker) vs 2/2 infectious etiology (persisting LE cellulitis) - Avoid excessive preload reduction - Lasix 20mg PO daily - f/u program planner outpatient for TAVR - Trops 0.047, 0.092 - monitor Hx CAD - Aspirin, Metoprolol 5 IV q6, and Rosuvastain 5 HS
[2016-11-30 06:29] LABS: BASO # 0.1 K/uL (0.0-0.2); BASO % 1.3 % (0.0-2.0); EOS # 0.1 K/uL (0.0-0.7); EOS % 1.5 % (0.0-4.0); HEMATOCRIT 28.7 % (34.0-47.0); LYMPH # 2.7 K/uL (1.0-4.3); LYMPH % 27.8 % (20.0-40.0); MEAN CELL VOLUME 92.9 fL (81.0-99.0); MEAN CORPUSCULAR HEMOGLOBIN 30.2 pg (27.0-31.0); MEAN CORPUSCULAR HGB CONC 32.5 g/dL (33.0-37.0); MEAN PLATELET VOLUME 8.5 fL (7.2-11.7); MONO % 10.6 % (0.0-10.0); NRBC % 0.1 % (0.0-2.0); RED CELL DISTRIBUTION WIDTH 16.4 % (11.5-14.5); WHITE BLOOD COUNT 9.9 K/uL (4.8-10.8)
[2016-11-30 06:40] LABS: POTASSIUM 3.7 mmol/L (3.6-5.2)
[2016-11-30 06:43] LABS: ALB/GLOB RATIO 0.6 (1.0-2.1); CALCIUM 6.9 mg/dl (8.6-10.4); MAGNESIUM 1.9 mg/dL (1.6-2.3); PHOSPHOROUS 3.8 mg/dL (2.5-4.5); TOTAL PROTEIN 4.6 g/dL (6.3-8.3)
--- NOTE | 2016-11-30 07:59 | CP.PCM.PN ---
Subjective - Date & Time of Evaluation Date of Evaluation: 11/30/16 Time of Evaluation: 07:57 - Subjective Subjective: Patient is currently having increasing weakness, tiredness, easy fatigability. Patient is not eating well. Only drinking water. Appetite is very poor. Denies any chest pain. Congestion and cough noted. No nausea vomiting. Leg swelling is still noted Objective - Vital Signs/Intake and Output Vital Signs (last 24 hours): Temp Pulse Resp BP Pulse Ox 98.7 F 85 22 124/56 L 100 11/30/16 04:00 11/30/16 05:12 11/30/16 05:12 11/30/16 05:12 11/30/16 05:12 Vital signs reviewed No neck vein distention noted Chest bilateral wheezing and rales noted CVS regular heart sound, no murmur noted Abdomen soft, nontender. 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 alert awake oriented 3, no functional neurological deficit Intake and Output: 11/30/16 11/30/16 06:59 18:59 Intake Total 160.5 Output Total 755 Balance -594.5 - Medications Medications: Current Medications Ascorbic Acid (Vitamin C 250 Mg Tab) 250 mg PO BIDPC [facility] Last Admin: 11/29/16 17:30 Dose: 250 mg Aspirin (Aspirin Chewable) 81 mg PO DAILY [facility] Last Admin: 11/29/16 09:42 Dose: 81 mg Famotidine (Pepcid) 20 mg PO DAILY [facility] Last Admin: 11/29/16 09:42 Dose: 20 mg Furosemide (Lasix) 20 mg PO DAILY [facility] Last Admin: 11/29/16 09:42 Dose: 20 mg Heparin Sodium/Sodium Chloride (Heparin 27435 Units/250ml 1/2 Normal Saline) 25 ,000 units in 250 mls @ 7.348 mls/hr IV .Q24H PRN; Protocol; 12 UNITS/KG/HR PRN Reason: PROTOCOL Last Admin: 11/28/16 22:41 Dose: 9 units/kg/hr, 5.511 mls/hr Tigecycline 50 mg/ Sodium (Chloride) 100 mls @ 100 mls/hr IVPB Q12H [facility] Last Admin: 11/30/16 05:50 Dose: 100 mls/hr Metoprolol Tartrate (Lopressor) 25 mg PO BID [facility] Last Admin: 11/29/16 17:30 Dose: 25 mg Multivitamins/Minerals (Therapeutic-M Tab) 1 tab PO DAILY [facility] Last Admin: 11/29/16 09:41 Dose: 1 tab Nystatin (Nystop Topical Powder) 1 applic TOP BID [facility] Last Admin: 11/29/16 17:31 Dose: 1 appl Petrolatum (Desitin Original) 1 gm TOP DAILY [facility] Last Admin: 11/29/16 09:43 Dose: 1 applic Potassium Chloride (K-Dur 20 Meq Er Tab) 20 meq PO DAILY [facility] Last Admin: 11/29/16 09:42 Dose: 20 meq Rosuvastatin Calcium (Crestor) 5 mg PO HS [facility] Last Admin: 11/29/16 22:32 Dose: 5 mg Saccharomyces Boulardii (Florastor) 250 mg PO BID [facility] Last Admin: 11/29/16 17:30 Dose: 250 mg - Labs Labs: 11/30/16 06:17 11/30/16 06:17 PT 13.1 SECONDS (9.7-12.2) H 11/28/16 07:00 INR 1.2 11/28/16 07:00 APTT 78 SECONDS (21-34) H D 11/30/16 06:17 Assessment and Plan (1) ESBL (extended spectrum beta-lactamase) producing bacteria infection Assessment & Plan: Patient with the Escherichia coli infection, ESBL. Complicated with DVT. Congestive heart failure. I aortic stenosis. Anemia. Patient overall condition is very poor. Out of bed to chair. Continue the current treatment Status: Resolved (2) Fever Status: Acute
[2016-11-30] MEDS: Zinc Oxide Topical 30 gm Tube TOP SCH (10:45)
[2016-11-30] MEDS: Saccharomyces Boulardi 250 mg Cap PO SCH ×2 (10:45→18:45)
[2016-11-30] MEDS: Multivitamin With Minerals Tab PO SCH (10:46)
--- NOTE | 2016-11-30 11:15 | RAD ---
HISTORY: Congestive heart failure COMPARISON: 11/26/2016 FINDINGS: LUNGS: Diffuse confluent bilateral airspace consolidative opacities throughout both lungs with associated bilateral pleural effusions. Post treatment imaging follow-up would be helpful to ensure resolution. PLEURA: As above. CARDIOVASCULAR: Cardiomegaly. OSSEOUS STRUCTURES: No significant abnormalities. VISUALIZED UPPER ABDOMEN: Normal. OTHER FINDINGS: None. IMPRESSION: Diffuse confluent bilateral airspace consolidative opacities throughout both lungs with associated bilateral pleural effusions. Post treatment imaging follow-up would be helpful to ensure resolution.
--- NOTE | 2016-11-30 12:17 | CP.PCM.PN ---
Subjective - Date & Time of Evaluation Date of Evaluation: 11/30/16 Time of Evaluation: 08:00 - Subjective Subjective: Surgery: Dr. Amaral Pt seen and examined. No acute overnight events. Sitting comfortably in bedside chair with present. Pt is lethargic but responsive. Denies pain. states her appetite has been poor with little PO intake. No fevers/ chills overnight. Objective - Vital Signs/Intake and Output Vital Signs (last 24 hours): Temp Pulse Resp BP Pulse Ox 98.7 F 85 22 124/56 L 100 11/30/16 04:00 11/30/16 05:12 11/30/16 05:12 11/30/16 05:12 11/30/16 05:12 Intake and Output: 11/30/16 11/30/16 06:59 18:59 Intake Total 160.5 Output Total 755 Balance -594.5 - Medications Medications: Current Medications Ascorbic Acid (Vitamin C 250 Mg Tab) 250 mg PO BIDPC [facility] Last Admin: 11/29/16 17:30 Dose: 250 mg Aspirin (Aspirin Chewable) 81 mg PO DAILY [facility] Last Admin: 11/29/16 09:42 Dose: 81 mg Famotidine (Pepcid) 20 mg PO DAILY [facility] Last Admin: 11/29/16 09:42 Dose: 20 mg Furosemide (Lasix) 20 mg PO DAILY [facility] Last Admin: 11/29/16 09:42 Dose: 20 mg Heparin Sodium/Sodium Chloride (Heparin 60929 Units/250ml 1/2 Normal Saline) 25 ,000 units in 250 mls @ 7.348 mls/hr IV .Q24H PRN; Protocol; 12 UNITS/KG/HR PRN Reason: PROTOCOL Last Admin: 11/28/16 22:41 Dose: 9 units/kg/hr, 5.511 mls/hr Tigecycline 50 mg/ Sodium (Chloride) 100 mls @ 100 mls/hr IVPB Q12H [facility] Last Admin: 11/30/16 05:50 Dose: 100 mls/hr Metoprolol Tartrate (Lopressor) 25 mg PO BID [facility] Last Admin: 11/29/16 17:30 Dose: 25 mg Multivitamins/Minerals (Therapeutic-M Tab) 1 tab PO DAILY [facility] Last Admin: 11/29/16 09:41 Dose: 1 tab Nystatin (Nystop Topical Powder) 1 applic TOP BID [facility] Last Admin: 11/29/16 17:31 Dose: 1 appl Petrolatum (Desitin Original) 1 gm TOP DAILY [facility] Last Admin: 11/29/16 09:43 Dose: 1 applic Rosuvastatin Calcium (Crestor) 5 mg PO HS [facility] Last Admin: 11/29/16 22:32 Dose: 5 mg Saccharomyces Boulardii (Florastor) 250 mg PO BID [facility] Last Admin: 11/29/16 17:30 Dose: 250 mg - Labs Labs: 11/30/16 06:17 11/30/16 06:17 PT 13.1 SECONDS (9.7-12.2) H 11/28/16 07:00 INR 1.2 11/28/16 07:00 APTT 78 SECONDS (21-34) H D 11/30/16 06:17 - Constitutional Appears: No Acute Distress - ENT Exam ENT Exam: Mucous Membranes Moist - Respiratory Exam Respiratory Exam: NORMAL BREATHING PATTERN - Cardiovascular Exam Cardiovascular Exam: RRR - GI/Abdominal Exam GI & Abdominal Exam: Soft. 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 Munir Whitlock, PGY-2 Surgery
[2016-11-30] MEDS: Heparin25000 units/250ml 1/2NS 25,000 UNITS/250 ML BAG IV PRN (23:42)
--- NOTE | 2016-11-30 23:43 | CP.PCM.PN ---
Subjective - Date & Time of Evaluation Date of Evaluation: 11/30/16 Time of Evaluation: 23:39 - Subjective Subjective: INFECTIOUS DISEASE ICU/CCU PROGRESS NOTE JOHNOSN MADDOX MD, FACP #6 11/30/2016 CASE DISCUSSED CHART REVIEWED EXAMINATION DESCRIBED PT LETHARGIC, AFEBRILE RECEIVED TRANFUSION LEFT LEG STILL DISCOLORED, FOOT COOL, DOPPLERS POSITIVE- DESCRIBED ID SAENZ TO CONSIDER DESCALATING OFF AB IF STILL AFEBRILE AND WITH NORMAL WBC. Objective - Vital Signs/Intake and Output Vital Signs (last 24 hours): Temp Pulse Resp BP Pulse Ox 97.4 F L 102 H 28 H 136/76 100 11/30/16 20:00 11/30/16 20:09 11/30/16 20:00 11/30/16 19:12 11/30/16 20:00 - Medications Medications: Current Medications Ascorbic Acid (Vitamin C 250 Mg Tab) 250 mg PO BIDPC [facility] Last Admin: 11/30/16 17:35 Dose: 250 mg Aspirin (Aspirin Chewable) 81 mg PO DAILY [facility] Last Admin: 11/30/16 10:44 Dose: 81 mg Famotidine (Pepcid) 20 mg PO DAILY [facility] Last Admin: 11/30/16 11:46 Dose: 20 mg Furosemide (Lasix) 20 mg PO DAILY [facility] Last Admin: 11/30/16 10:45 Dose: 20 mg Heparin Sodium/Sodium Chloride (Heparin 39239 Units/250ml 1/2 Normal Saline) 25 ,000 units in 250 mls @ 7.348 mls/hr IV .Q24H PRN; Protocol; 12 UNITS/KG/HR PRN Reason: PROTOCOL Last Admin: 11/28/16 22:41 Dose: 9 units/kg/hr, 5.511 mls/hr Tigecycline 50 mg/ Sodium (Chloride) 100 mls @ 100 mls/hr IVPB Q12H [facility] Last Admin: 11/30/16 18:47 Dose: 100 mls/hr Metoprolol Tartrate (Lopressor) 25 mg PO BID [facility] Last Admin: 11/30/16 17:35 Dose: 25 mg Multivitamins/Minerals (Therapeutic-M Tab) 1 tab PO DAILY [facility] Last Admin: 11/30/16 10:46 Dose: 1 tab Nystatin (Nystop Topical Powder) 1 applic TOP BID [facility] Last Admin: 11/30/16 17:35 Dose: 1 appl Petrolatum (Desitin Original) 1 gm TOP DAILY [facility] Last Admin: 11/30/16 10:45 Dose: 1 applic Rosuvastatin Calcium (Crestor) 5 mg PO HS [facility] Last Admin: 11/30/16 21:53 Dose: 5 mg Saccharomyces Boulardii (Florastor) 250 mg PO BID [facility] Last Admin: 11/30/16 18:45 Dose: 250 mg - Labs Labs: 11/30/16 06:17 11/30/16 06:17 PT 13.1 SECONDS (9.7-12.2) H 11/28/16 07:00 INR 1.2 11/28/16 07:00 APTT 78 SECONDS (21-34) H D 11/30/16 06:17 - Constitutional Appears: Older Than Stated Age, Chronically Ill - Head Exam Head Exam: ATRAUMATIC - Eye Exam Eye Exam: Normal appearance - ENT Exam ENT Exam: Mucous Membranes Dry - Respiratory Exam Respiratory Exam: Decreased Breath Sounds - Cardiovascular Exam Cardiovascular Exam: REGULAR RHYTHM - GI/Abdominal Exam GI & Abdominal Exam: Soft. absent: Tenderness, Rebound - Rectal Exam Rectal Exam: Deferred - Extremities Exam Additional comments: LEFT LEG DESCRIBED AFFECT NOTED - Neurological Exam Neurological Exam: Altered - Psychiatric Exam Psychiatric exam: Flat Affect - Skin Skin Exam: Dry, Mottled, Warm Assessment and Plan (1) Bleeding from varicose veins of left lower extremity Status: Resolved (2) Temperature increase Status: Resolved (3) DVT (deep venous thrombosis) Assessment & Plan: LEFT LEG DVT IS NEW SINCE THIS WEEK, UNDER DR RYAN'S CARE. Status: Acute (4) ESBL (extended spectrum beta-lactamase) producing bacteria infection Status: Resolved (5) Wheezing on expiration Status: Resolved (6) Left leg DVT Status: Acute (7) Pulmonary emboli Status: Suspected (8) Cellulitis and abscess of left leg Status: Resolved
--- NOTE | 2016-12-01 00:06 | CP.PCM.PN ---
Subjective - Date & Time of Evaluation Date of Evaluation: 11/30/16 Time of Evaluation: 10:05 - Subjective Subjective: Patient seen and evaluated Denies chest pain and dyspnea Objective - Vital Signs/Intake and Output Vital Signs (last 24 hours): Temp Pulse Resp BP Pulse Ox 97.4 F L 99 H 25 H 136/76 100 11/30/16 20:00 11/30/16 23:00 11/30/16 23:00 11/30/16 19:12 11/30/16 23:00 Intake and Output: 11/30/16 12/01/16 18:59 06:59 Intake Total 250 Balance 250 - Medications Medications: Current Medications Ascorbic Acid (Vitamin C 250 Mg Tab) 250 mg PO BIDPC [facility] Last Admin: 11/30/16 17:35 Dose: 250 mg Aspirin (Aspirin Chewable) 81 mg PO DAILY [facility] Last Admin: 11/30/16 10:44 Dose: 81 mg Famotidine (Pepcid) 20 mg PO DAILY [facility] Last Admin: 11/30/16 11:46 Dose: 20 mg Furosemide (Lasix) 20 mg PO DAILY [facility] Last Admin: 11/30/16 10:45 Dose: 20 mg Heparin Sodium/Sodium Chloride (Heparin 20142 Units/250ml 1/2 Normal Saline) 25 ,000 units in 250 mls @ 7.348 mls/hr IV .Q24H PRN; Protocol; 12 UNITS/KG/HR PRN Reason: PROTOCOL Last Admin: 11/30/16 23:42 Dose: 9 units/kg/hr, 5.511 mls/hr Tigecycline 50 mg/ Sodium (Chloride) 100 mls @ 100 mls/hr IVPB Q12H [facility] Last Admin: 11/30/16 18:47 Dose: 100 mls/hr Metoprolol Tartrate (Lopressor) 25 mg PO BID [facility] Last Admin: 11/30/16 17:35 Dose: 25 mg Multivitamins/Minerals (Therapeutic-M Tab) 1 tab PO DAILY [facility] Last Admin: 11/30/16 10:46 Dose: 1 tab Nystatin (Nystop Topical Powder) 1 applic TOP BID [facility] Last Admin: 11/30/16 17:35 Dose: 1 appl Petrolatum (Desitin Original) 1 gm TOP DAILY [facility] Last Admin: 11/30/16 10:45 Dose: 1 applic Rosuvastatin Calcium (Crestor) 5 mg PO HS [facility] Last Admin: 11/30/16 21:53 Dose: 5 mg Saccharomyces Boulardii (Florastor) 250 mg PO BID [facility] Last Admin: 11/30/16 18:45 Dose: 250 mg - Labs Labs: 11/30/16 06:17 11/30/16 06:17 PT 13.1 SECONDS (9.7-12.2) H 11/28/16 07:00 INR 1.2 11/28/16 07:00 APTT 78 SECONDS (21-34) H D 11/30/16 06:17
--- NOTE | 2016-12-01 10:00 | CP.PCM.PN ---
Subjective - Date & Time of Evaluation Date of Evaluation: 12/01/16 Time of Evaluation: 09:57 - Subjective Subjective: Surgery: Dr. Amaral Patient remains in ICU. She is lethargic today but easily awakens to verbal stimuli. Per nursing no acute events overnight. Objective - Vital Signs/Intake and Output Vital Signs (last 24 hours): Temp Pulse Resp BP Pulse Ox 98 F 97 H 21 140/64 100 12/01/16 04:00 12/01/16 04:00 12/01/16 04:00 12/01/16 04:00 12/01/16 04:00 Intake and Output: 12/01/16 12/01/16 06:59 18:59 Intake Total 516 0 Output Total 500 Balance 16 0 - Medications Medications: Current Medications Ascorbic Acid (Vitamin C 250 Mg Tab) 250 mg PO BIDPC [facility] Last Admin: 11/30/16 17:35 Dose: 250 mg Aspirin (Aspirin Chewable) 81 mg PO DAILY [facility] Last Admin: 11/30/16 10:44 Dose: 81 mg Famotidine (Pepcid) 20 mg PO DAILY [facility] Last Admin: 11/30/16 11:46 Dose: 20 mg Furosemide (Lasix) 20 mg PO DAILY [facility] Last Admin: 11/30/16 10:45 Dose: 20 mg Heparin Sodium/Sodium Chloride (Heparin 17109 Units/250ml 1/2 Normal Saline) 25 ,000 units in 250 mls @ 7.348 mls/hr IV .Q24H PRN; Protocol; 12 UNITS/KG/HR PRN Reason: PROTOCOL Last Titration: 12/01/16 07:02 Dose: 0 units/kg/hr, 0 mls/hr Tigecycline 50 mg/ Sodium (Chloride) 100 mls @ 100 mls/hr IVPB Q12H [facility] Last Admin: 12/01/16 06:19 Dose: 100 mls/hr Metoprolol Tartrate (Lopressor) 25 mg PO BID [facility] Last Admin: 11/30/16 17:35 Dose: 25 mg Multivitamins/Minerals (Therapeutic-M Tab) 1 tab PO DAILY [facility] Last Admin: 11/30/16 10:46 Dose: 1 tab Nystatin (Nystop Topical Powder) 1 applic TOP BID [facility] Last Admin: 11/30/16 17:35 Dose: 1 appl Petrolatum (Desitin Original) 1 gm TOP DAILY [facility] Last Admin: 11/30/16 10:45 Dose: 1 applic Rosuvastatin Calcium (Crestor) 5 mg PO HS [facility] Last Admin: 11/30/16 21:53 Dose: 5 mg Saccharomyces Boulardii (Florastor) 250 mg PO BID [facility] Last Admin: 11/30/16 18:45 Dose: 250 mg - Labs Labs: 11/30/16 06:17 11/30/16 06:17 PT 13.1 SECONDS (9.7-12.2) H 11/28/16 07:00 INR 1.2 11/28/16 07:00 APTT 132 SECONDS (21-34) H* D 12/01/16 05:54 - Constitutional Appears: Non-toxic, No Acute Distress, Chronically Ill - Head Exam Head Exam: ATRAUMATIC, NORMOCEPHALIC - Eye Exam Eye Exam: EOMI, Normal appearance - ENT Exam ENT Exam: Mucous Membranes Moist - Respiratory Exam Respiratory Exam: NORMAL BREATHING PATTERN. absent: Respiratory Distress - Cardiovascular Exam Cardiovascular Exam: REGULAR RHYTHM. absent: Tachycardia - GI/Abdominal Exam GI & Abdominal Exam: Soft. 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 Munir Daniel PGY1
[2016-12-01] MEDS: Zinc Oxide Topical 30 gm Tube TOP SCH (10:30)
[2016-12-01] MEDS: Saccharomyces Boulardi 250 mg Cap PO SCH ×2 (10:30→18:40)
[2016-12-01] MEDS: Multivitamin With Minerals Tab PO SCH (10:31)
--- NOTE | 2016-12-01 13:21 | PCM.URO ---
Urology Progress Note - Objective Lab Results Last 24 Hours: Laboratory Results - last 24 hr 12/01/16 05:54 APTT 132 H* D Intake & Output: Intake & Output 11/30/16 12/01/16 12/01/16 18:59 06:59 18:59 Intake Total 516 0 Output Total 500 Balance 16 0 Weight 135 lb 130 lb 8.218 oz Intake: IV 250 0 Intake, IV Amount 166 Right Upper arm 166 Oral 100 Output: Urine 500 Urethral (Cope) 500 Vital Signs: Vital Signs - 24 hr 11/30/16 11/30/16 11/30/16 14:00 15:00 15:12 Temperature Pulse Rate 97 H 96 H 98 H Respiratory 25 H 25 H 24 Rate Blood Pressure 126/64 O2 Sat by Pulse 95 98 100 Oximetry 11/30/16 11/30/16 11/30/16 16:00 17:00 17:12 Temperature 98.6 F Pulse Rate 101 H 92 H 96 H Respiratory 32 H 30 H 22 Rate Blood Pressure 135/69 O2 Sat by Pulse 100 100 100 Oximetry 11/30/16 11/30/16 11/30/16 17:35 18:00 19:00 Temperature Pulse Rate 91 H 92 H Respiratory 19 23 Rate Blood Pressure 131/74 O2 Sat by Pulse 100 100 Oximetry 11/30/16 11/30/16 11/30/16 19:12 20:00 20:09 Temperature 97.4 F L Pulse Rate 102 H 97 H 102 H Respiratory 26 H 28 H Rate Blood Pressure 136/76 O2 Sat by Pulse 100 100 Oximetry 11/30/16 11/30/16 11/30/16 21:00 22:00 23:00 Temperature Pulse Rate 83 116 H 99 H Respiratory 23 25 H 25 H Rate Blood Pressure O2 Sat by Pulse 100 100 100 Oximetry 11/30/16 12/01/16 12/01/16 23:53 00:00 01:00 Temperature 98 F Pulse Rate 106 H 97 H 95 H Respiratory 26 H 29 H 25 H Rate Blood Pressure 138/67 O2 Sat by Pulse 88 L 100 100 Oximetry 12/01/16 12/01/16 12/01/16 02:00 03:00 04:00 Temperature 98 F Pulse Rate 94 H 102 H 97 H Respiratory 26 H 26 H 21 Rate Blood Pressure 140/64 O2 Sat by Pulse 100 100 100 Oximetry 05/12/01/16 12/01/16 05:00 06:00 07:00 Temperature Pulse Rate 92 H 93 H 90 Respiratory 21 20 26 H Rate Blood Pressure O2 Sat by Pulse 100 100 Oximetry 12/01/16 12/01/16 12/01/16 08:00 08:01 09:00 Temperature Pulse Rate 89 85 85 Respiratory 20 20 19 Rate Blood Pressure 136/72 O2 Sat by Pulse 99 99 100 Oximetry 12/01/16 12/01/16 12/01/16 10:00 10:30 11:00 Temperature Pulse Rate 97 H 102 H Respiratory 25 H 28 H Rate Blood Pressure 141/74 O2 Sat by Pulse 100 100 Oximetry 12/01/16 12:00 Temperature Pulse Rate 97 H Respiratory 26 H Rate Blood Pressure 137/68 O2 Sat by Pulse 100 Oximetry
--- NOTE | 2016-12-01 17:13 | CP.PCM.PN ---
Subjective - Date & Time of Evaluation Date of Evaluation: 12/01/16 Time of Evaluation: 17:10 - Subjective Subjective: INFECTIOUS DISEASE ICU/CCU #6 PROGRESS NOTE JOHNSON MADDOX MD, FACP 12/01/2016 CHART REVIEWED PT EXAMINED CASE DISCUSSED CLINICALLY RESTING IN BED. ASYMPTOMATIC CLINICALLY OFFERS NO PAIN IN HER LEFT LEG OR LEFT FOOT AT ALL! HER LEFT FOOT IS COOL WITH DOPPLER PULSES ONLY. SHE CAN MOVE HER TOES AND HER FOOT WITHOUT ANY PAIN WHATSOEVER! TO STOP IV ANTIBIOTICS! Objective - Vital Signs/Intake and Output Vital Signs (last 24 hours): Temp Pulse Resp BP Pulse Ox 98 F 97 H 26 H 137/68 100 12/01/16 04:00 12/01/16 12:00 12/01/16 12:00 12/01/16 12:00 12/01/16 12:00 Intake and Output: 12/01/16 12/01/16 06:59 18:59 Intake Total 516 0 Output Total 500 Balance 16 0 - Medications Medications: Current Medications Apixaban (Eliquis) 2.5 mg PO DAILY [facility]ic [facility] ([facility]itamin [facility] 250 Mg Tab[facility] Last Admin: 12/01/16 10:31 Dose: 250 mg Aspirin (Aspirin Chewable) 81 mg PO DAILY [facility] Last Admin: 12/01/16 10:30 Dose: 81 mg Famotidine (Pepcid) 20 mg PO DAILY [facility] Last Admin: 12/01/16 10:31 Dose: 20 mg Furosemide (Lasix) 20 mg PO DAILY [facility] Last Admin: 12/01/16 10:30 Dose: 20 mg Metoprolol Tartrate (Lopressor) 25 mg PO BID [facility] Last Admin: 12/01/16 10:30 Dose: 25 mg Multivitamins/Minerals (Therapeutic-M Tab) 1 tab PO DAILY [facility] Last Admin: 12/01/16 10:31 Dose: 1 tab Nystatin (Nystop Topical Powder) 1 applic TOP BID [facility] Last Admin: 12/01/16 10:31 Dose: 1 appl Petrolatum (Desitin Original) 1 gm TOP DAILY [facility] Last Admin: 12/01/16 10:30 Dose: 1 applic Rosuvastatin Calcium (Crestor) 5 mg PO HS [facility] Last Admin: 11/30/16 21:53 Dose: 5 mg Saccharomyces Boulardii (Florastor) 250 mg PO BID [facility] Last Admin: 12/01/16 10:30 Dose: 250 mg - Labs Labs: 11/30/16 06:17 11/30/16 06:17 PT 13.1 SECONDS (9.7-12.2) H 11/28/16 07:00 INR 1.2 11/28/16 07:00 APTT 132 SECONDS (21-34) H* D 12/01/16 05:54 - Constitutional Appears: Non-toxic, Older Than Stated Age, Confused, Chronically Ill - Eye Exam Eye Exam: Normal appearance - ENT Exam ENT Exam: Mucous Membranes Dry - Respiratory Exam Respiratory Exam: Decreased Breath Sounds, NORMAL BREATHING PATTERN - Cardiovascular Exam Cardiovascular Exam: REGULAR RHYTHM - GI/Abdominal Exam GI & Abdominal Exam: Soft, Normal Bowel Sounds. absent: Tenderness - Rectal Exam Rectal Exam: Deferred - Neurological Exam Neurological Exam: Altered - Psychiatric Exam Psychiatric exam: Depressed, Flat Affect - Skin Skin Exam: Warm Assessment and Plan (1) Bleeding from varicose veins of left lower extremity Status: Resolved (2) Temperature increase Status: Resolved (3) DVT (deep venous thrombosis) Status: Acute (4) ESBL (extended spectrum beta-lactamase) producing bacteria infection Status: Resolved (5) Wheezing on expiration Status: Resolved (6) Left leg DVT Status: Acute (7) Pulmonary emboli Status: Suspected (8) Cellulitis and abscess of left leg Status: Resolved
--- NOTE | 2016-12-01 17:28 | CP.PCM.PN ---
<Sharona Barber - Last Filed: 12/01/16 17:25> Subjective - Date & Time of Evaluation Date of Evaluation: 12/01/16 Time of Evaluation: 17:25 - Subjective Subjective: PGY-[address] Terry Pt seen and examined. No acute complaint per 10 pt review Objective - Vital Signs/Intake and Output Vital Signs (last 24 hours): Temp Pulse Resp BP Pulse Ox 98 F 97 H 26 H 137/68 100 12/01/16 04:00 12/01/16 12:00 12/01/16 12:00 12/01/16 12:00 12/01/16 12:00 Intake and Output: 12/01/16 12/01/16 06:59 18:59 Intake Total 516 0 Output Total 500 Balance 16 0 - Medications Medications: Current Medications Apixaban (Eliquis) 2.5 mg PO DAILY [facility] Asc[facility]ic [facility] ([facility]itamin [facility] 250 Mg Tab[facility] Last Admin: 12/01/16 10:31 Dose: 250 mg Aspirin (Aspirin Chewable) 81 mg PO DAILY [facility] Last Admin: 12/01/16 10:30 Dose: 81 mg Famotidine (Pepcid) 20 mg PO DAILY [facility] Last Admin: 12/01/16 10:31 Dose: 20 mg Furosemide (Lasix) 20 mg PO DAILY [facility] Last Admin: 12/01/16 10:30 Dose: 20 mg Metoprolol Tartrate (Lopressor) 25 mg PO BID [facility] Last Admin: 12/01/16 10:30 Dose: 25 mg Multivitamins/Minerals (Therapeutic-M Tab) 1 tab PO DAILY [facility] Last Admin: 12/01/16 10:31 Dose: 1 tab Nystatin (Nystop Topical Powder) 1 applic TOP BID [facility] Last Admin: 12/01/16 10:31 Dose: 1 appl Petrolatum (Desitin Original) 1 gm TOP DAILY [facility] Last Admin: 12/01/16 10:30 Dose: 1 applic Rosuvastatin Calcium (Crestor) 5 mg PO HS [facility] Last Admin: 11/30/16 21:53 Dose: 5 mg Saccharomyces Boulardii (Florastor) 250 mg PO BID [facility] Last Admin: 12/01/16 10:30 Dose: 250 mg - Labs Labs: 11/30/16 06:17 11/30/16 06:17 PT 13.1 SECONDS (9.7-12.2) H 11/28/16 07:00 INR 1.2 11/28/16 07:00 APTT 132 SECONDS (21-34) H* D 12/01/16 05:54 - Constitutional Appears: No Acute Distress - Head Exam Head Exam: ATRAUMATIC, NORMOCEPHALIC - Eye Exam Eye Exam: EOMI, Normal appearance, PERRL Pupil Exam: NORMAL ACCOMODATION - ENT Exam ENT Exam: Mucous Membranes Moist - Respiratory Exam Respiratory Exam: Clear to Ausculation Bilateral, Rhonchi (lung bases), NORMAL BREATHING PATTERN. absent: Rales, Wheezes - Cardiovascular Exam Cardiovascular Exam: REGULAR RHYTHM, +S1, +S2, Murmur - GI/Abdominal Exam GI & Abdominal Exam: Soft, Normal Bowel Sounds. absent: Tenderness - Extremities Exam Additional comments: dressing d/c/i. Toes edema - Back Exam Back Exam: absent: CVA tenderness (L), CVA tenderness (R) - Neurological Exam Neurological Exam: Awake - Psychiatric Exam Psychiatric exam: Flat Affect Assessment and Plan - Assessment and Plan (Free Text) Plan: CHF, systolic, EF 30-35% - Consulted Dr. 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 Terry <James Terry - Last Filed: 12/01/16 20:43> Objective - Vital Signs/Intake and Output Vital Signs (last 24 hours): Temp Pulse Resp BP Pulse Ox 98.7 F 96 H 27 H 131/74 100 12/01/16 16:00 12/01/16 18:00 12/01/16 18:00 12/01/16 18:40 12/01/16 15:00 Intake and Output: 12/01/16 12/02/16 18:59 06:59 Intake Total 0 Balance 0 - Medications Medications: Current Medications Apixaban (Eliquis) 2.5 mg PO DAILY [facility] Last Admin: 12/01/16 18:40 Dose: 2.5 mg Ascorbic Acid (Vitamin C 250 Mg Tab) 250 mg PO BIDPC [facility] Last Admin: 12/01/16 18:40 Dose: 250 mg Aspirin (Aspirin Chewable) 81 mg PO DAILY [facility] Last Admin: 12/01/16 10:30 Dose: 81 mg Famotidine (Pepcid) 20 mg PO DAILY [facility] Last Admin: 12/01/16 10:31 Dose: 20 mg Furosemide (Lasix) 20 mg PO DAILY [facility] Last Admin: 12/01/16 10:30 Dose: 20 mg Metoprolol Tartrate (Lopressor) 25 mg PO BID [facility] Last Admin: 12/01/16 18:40 Dose: 25 mg Multivitamins/Minerals (Therapeutic-M Tab) 1 tab PO DAILY [facility] Last Admin: 12/01/16 10:31 Dose: 1 tab Nystatin (Nystop Topical Powder) 1 applic TOP BID [facility] Last Admin: 12/01/16 18:40 Dose: 1 appl Petrolatum (Desitin Original) 1 gm TOP DAILY [facility] Last Admin: 12/01/16 10:30 Dose: 1 applic Rosuvastatin Calcium (Crestor) 5 mg PO HS [facility] Last Admin: 11/30/16 21:53 Dose: 5 mg Saccharomyces Boulardii (Florastor) 250 mg PO BID [facility] Last Admin: 12/01/16 18:40 Dose: 250 mg - Labs Labs: 11/30/16 06:17 11/30/16 06:17 PT 13.1 SECONDS (9.7-12.2) H 11/28/16 07:00 INR 1.2 11/28/16 07:00 APTT 132 SECONDS (21-34) H* D 12/01/16 05:54 Assessment and Plan - Assessment and Plan (Free Text) Assessment: Patient seen and examined with the biomedical manager Agree with the plan of care
--- NOTE | 2016-12-01 18:53 | CP.PCM.PN ---
<Anup Colin - Last Filed: 12/01/16 18:21> Subjective - Date & Time of Evaluation Date of Evaluation: 12/01/16 Time of Evaluation: 16:30 - Subjective Subjective: EP-Cardiology Consult Note for Dr. Arsenio Colin PGY-1, Internal Medicine Consulted for: Life Vest for EF 30% on Echo HPI: This is an 86 yo F with PMH of recurrent lower extremity cellulitis, prior RLE DVT (on AC), HTN, HLD, Cardiac cath with stents, and unspecified back surgery who initially presented with further recurrence of LLE cellulitis, and later developed a LLE extensive DVT causing ischemic leg requring thrombolysis and illiac stenting (POD #4). We were consulted for a Life Vest for the patient given an EF of 30%. On exam, patient is awake and alert, but minimally responsive to questioning. Denies chest pain, shortness of breath, LLE pain. PMH: as above PSH: unspecified back surgery, cardiac stents Social: lives at home, care provided by family friends FHx: non-contributory PMD: Dr. Landeros Objective - Vital Signs/Intake and Output Vital Signs (last 24 hours): Temp Pulse Resp BP Pulse Ox 98 F 97 H 26 H 137/68 100 12/01/16 04:00 12/01/16 12:00 12/01/16 12:00 12/01/16 12:00 12/01/16 12:00 Intake and Output: 12/01/16 12/01/16 06:59 18:59 Intake Total 516 0 Output Total 500 Balance 16 0 - Medications Medications: Current Medications Apixaban (Eliquis) 2.5 mg PO DAILY [facility] Ascorbic Acid (Vitamin C 250 Mg Tab) [facility] [address] [facility] Last Admin: 12/01/16 10:31 Dose: 250 mg Aspirin (Aspirin Chewable) 81 mg PO DAILY [facility] Last Admin: 12/01/16 10:30 Dose: 81 mg Famotidine (Pepcid) 20 mg PO DAILY [facility] Last Admin: 12/01/16 10:31 Dose: 20 mg Furosemide (Lasix) 20 mg PO DAILY [facility] Last Admin: 12/01/16 10:30 Dose: 20 mg Metoprolol Tartrate (Lopressor) 25 mg PO BID [facility] Last Admin: 12/01/16 10:30 Dose: 25 mg Multivitamins/Minerals (Therapeutic-M Tab) 1 tab PO DAILY [facility] Last Admin: 12/01/16 10:31 Dose: 1 tab Nystatin (Nystop Topical Powder) 1 applic TOP BID [facility] Last Admin: 12/01/16 10:31 Dose: 1 appl Petrolatum (Desitin Original) 1 gm TOP DAILY [facility] Last Admin: 12/01/16 10:30 Dose: 1 applic Rosuvastatin Calcium (Crestor) 5 mg PO HS [facility] Last Admin: 11/30/16 21:53 Dose: 5 mg Saccharomyces Boulardii (Florastor) 250 mg PO BID [facility] Last Admin: 12/01/16 10:30 Dose: 250 mg - Labs Labs: 11/30/16 06:17 11/30/16 06:17 PT 13.1 SECONDS (9.7-12.2) H 11/28/16 07:00 INR 1.2 11/28/16 07:00 APTT 132 SECONDS (21-34) H* D 12/01/16 05:54 - Additional Findings Additional findings: - Constitutional Appears: Non-toxic, No Acute Distress, Resting comfortably in bed - Head Exam Head Exam: ATRAUMATIC, NORMAL INSPECTION, NORMOCEPHALIC - Eye Exam Eye Exam: EOMI, Normal appearance. absent: Conjunctival injection, Scleral icterus Pupil Exam: absent: Irregular, Unequal - ENT Exam ENT Exam: Mucous Membranes Moist - Neck Exam Neck Exam: absent: Tenderness, JVD - Respiratory Exam Respiratory Exam: Decreased Breath Sounds (mildly decreased breath sounds all [place]). absent: Wheezes, Accessory Muscle Use, Rales, Rhonchi - Cardiovascular Exam Cardiovascular Exam: Tachycardia, Rapid rate but regular rhythm, +S1, +S2, Loud systolic murmur most prominent right 2nd intercostal space. absent: Regular Rate, Bradycardia - GI/Abdominal Exam GI & Abdominal Exam: Soft, Normal Bowel Sounds. absent: Distended, Firm - Extremities Exam Extremities Exam: LLE banding from foot to groin, improved LLE coloration and temperature, LE skin discoloration of bilateral feet and ankles, Trace pitting edema in bilateral LE. absent: Calf Tenderness, Normal Inspection, Coldness to palpation - Neurological Exam Neurological Exam: Awake and alert, moving extremities spontaneously - Psychiatric Exam Psychiatric exam: Normal Mood, Normal Affect - Skin Skin Exam: Dry, Intact, Normal Color (except as noted in Extremities exam), Warm Assessment and Plan (1) Decreased cardiac ejection fraction Assessment & Plan: EKG on 06/01/15: NSR at 64, normal EKG EKG on 11/12/16: sinus tachy at 104, possible LA enlargement EKG on 11/23/16: Sinus tachycardia at 122, Possible Left atrial enlargement, RSR ' or QR pattern in V1 suggests right ventricular conduction delay, Borderline ECG Echo on 11/12/16: LVEF 63%, Moderate concentric LVH, abnormal LV diastolic dysfxn , Severe valvular Echo on 11/26/16: Mild concentric LVH, LV systolic fxn normal EF 60-65%, Transmitral doppler flow pattern Grade-I abnormal relaxation pattern, 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 Terry), EF 30% -Given risk of arrhythmias, pacer indicated -Given extensive medical conditions and co-morbidities, favor Life Vest over invasive procedure at this time -Continue current medical management Status: Acute - Assessment and Plan (Free Text) Assessment: Case discussed with Dr. Cesar. <Isaac Cesar - Last Filed: 12/01/16 20:05> Objective - Vital Signs/Intake and Output Vital Signs (last 24 hours): Temp Pulse Resp BP Pulse Ox 98.7 F 96 H 27 H 131/74 100 12/01/16 16:00 12/01/16 18:00 12/01/16 18:00 12/01/16 18:40 12/01/16 15:00 Intake and Output: 12/01/16 12/02/16 18:59 06:59 Intake Total 0 Balance 0 - Medications Medications: Current Medications Apixaban (Eliquis) 2.5 mg PO DAILY [facility] Last Admin: 12/01/16 18:40 Dose: 2.5 mg Ascorbic Acid (Vitamin C 250 Mg Tab) 250 mg PO BIDPC [facility] Last Admin: 12/01/16 18:40 Dose: 250 mg Aspirin (Aspirin Chewable) 81 mg PO DAILY [facility] Last Admin: 12/01/16 10:30 Dose: 81 mg Famotidine (Pepcid) 20 mg PO DAILY [facility] Last Admin: 12/01/16 10:31 Dose: 20 mg Furosemide (Lasix) 20 mg PO DAILY [facility] Last Admin: 12/01/16 10:30 Dose: 20 mg Metoprolol Tartrate (Lopressor) 25 mg PO BID [facility] Last Admin: 12/01/16 18:40 Dose: 25 mg Multivitamins/Minerals (Therapeutic-M Tab) 1 tab PO DAILY [facility] Last Admin: 12/01/16 10:31 Dose: 1 tab Nystatin (Nystop Topical Powder) 1 applic TOP BID [facility] Last Admin: 12/01/16 18:40 Dose: 1 appl Petrolatum (Desitin Original) 1 gm TOP DAILY [facility] Last Admin: 12/01/16 10:30 Dose: 1 applic Rosuvastatin Calcium (Crestor) 5 mg PO HS [facility] Last Admin: 11/30/16 21:53 Dose: 5 mg Saccharomyces Boulardii (Florastor) 250 mg PO BID [facility] Last Admin: 12/01/16 18:40 Dose: 250 mg - Labs Labs: 11/30/16 06:17 11/30/16 06:17 PT 13.1 SECONDS (9.7-12.2) H 11/28/16 07:00 INR 1.2 11/28/16 07:00 APTT 132 SECONDS (21-34) H* D 12/01/16 05:54 Attending/Attestation - Attestation I have personally seen and examined this patient.: Yes I have fully participated in the care of the patient.: Yes I have reviewed all pertinent clinical information, including history, physical exam and plan: Yes Notes (Text): 12/01/16 20:05 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
--- NOTE | 2016-12-01 19:07 | CP.PCM.PN ---
Subjective - Date & Time of Evaluation Date of Evaluation: 12/01/16 Time of Evaluation: 19:06 - Subjective Subjective: Patient today sitting up, she was able to sit up today. But is still having very poor appetite. No chest pain noted, minimal wheezing noted, denies any nausea vomiting. Objective - Vital Signs/Intake and Output Vital Signs (last 24 hours): Temp Pulse Resp BP Pulse Ox 98.7 F 96 H 27 H 131/74 100 12/01/16 16:00 12/01/16 18:00 12/01/16 18:00 12/01/16 18:40 12/01/16 15:00 Vital signs reviewed No neck vein distention noted Chest good air entry bilaterally, no wheezing or rales noted CVS regular heart sound, no murmur noted Abdomen soft, nontender. bilateral pedal edema noted P[employer]IST alert awake oriented 3, no functional neurological deficit Intake and Output: 12/01/16 12/02/16 18:59 06:59 Intake Total 0 Balance 0 - Medications Medications: Current Medications Apixaban (Eliquis) 2.5 mg PO DAILY [facility] Last Admin: 12/01/16 18:40 Dose: 2.5 mg [facility]ic [facility] ([facility] Mg [facility] Last Admin: 12/01/16 18:40 Dose: 250 mg Aspirin (Aspirin Chewable) 81 mg PO DAILY [facility] Last Admin: 12/01/16 10:30 Dose: 81 mg Famotidine (Pepcid) 20 mg PO DAILY [facility] Last Admin: 12/01/16 10:31 Dose: 20 mg Furosemide (Lasix) 20 mg PO DAILY [facility] Last Admin: 12/01/16 10:30 Dose: 20 mg Metoprolol Tartrate (Lopressor) 25 mg PO BID [facility] Last Admin: 12/01/16 18:40 Dose: 25 mg Multivitamins/Minerals (Therapeutic-M Tab) 1 tab PO DAILY [facility] Last Admin: 12/01/16 10:31 Dose: 1 tab Nystatin (Nystop Topical Powder) 1 applic TOP BID [facility] Last Admin: 12/01/16 18:40 Dose: 1 appl Petrolatum (Desitin Original) 1 gm TOP DAILY [facility] Last Admin: 12/01/16 10:30 Dose: 1 applic Rosuvastatin Calcium (Crestor) 5 mg PO HS [facility] Last Admin: 11/30/16 21:53 Dose: 5 mg Saccharomyces Boulardii (Florastor) 250 mg PO BID [facility] Last Admin: 12/01/16 18:40 Dose: 250 mg - Labs Labs: 11/30/16 06:17 11/30/16 06:17 PT 13.1 SECONDS (9.7-12.2) H 11/28/16 07:00 INR 1.2 11/28/16 07:00 APTT 132 SECONDS (21-34) H* D 12/01/16 05:54 Assessment and Plan (1) ESBL (extended spectrum beta-lactamase) producing bacteria infection Assessment & Plan: Ration with recurrent urinary tract infection, history of hypertension. Systolic heart failure. I aortic stenosis, left leg venous thromboses, status post a thrombolysis, IVC filter. Currently on anticoagulation. Most continue the patient on current medication. Physical therapy. If the patient is stable tomorrow we'll plan for rehabilitation. Will follow the patient Status: Resolved (2) Fever Status: Acute
[2016-12-02 06:43] LABS: BASO # 0.1 K/uL (0.0-0.2); BASO % 0.9 % (0.0-2.0); EOS # 0.2 K/uL (0.0-0.7); EOS % 1.7 % (0.0-4.0); HEMATOCRIT 30.3 % (34.0-47.0); LYMPH # 2.4 K/uL (1.0-4.3); LYMPH % 25.5 % (20.0-40.0); MEAN CELL VOLUME 92.6 fL (81.0-99.0); MEAN CORPUSCULAR HEMOGLOBIN 30.9 pg (27.0-31.0); MEAN CORPUSCULAR HGB CONC 33.4 g/dL (33.0-37.0); MEAN PLATELET VOLUME 8.5 fL (7.2-11.7); MONO % 10.9 % (0.0-10.0); NRBC % 0.1 % (0.0-2.0); RED CELL DISTRIBUTION WIDTH 16.2 % (11.5-14.5); WHITE BLOOD COUNT 9.5 K/uL (4.8-10.8)
[2016-12-02 06:51] LABS: POTASSIUM 3.2 mmol/L (3.6-5.2)
[2016-12-02 06:53] LABS: ALB/GLOB RATIO 0.6 (1.0-2.1); BILIRUBIN,TOTAL 0.9 mg/dL (0.2-1.3); TOTAL PROTEIN 4.9 g/dL (6.3-8.3)
[2016-12-02 06:54] LABS: CALCIUM 7.4 mg/dl (8.6-10.4)
--- NOTE | 2016-12-02 08:16 | CP.PCM.PN ---
Subjective - Date & Time of Evaluation Date of Evaluation: 12/02/16 Time of Evaluation: 08:15 - Subjective Subjective: PGY-1 note for surgery, Dr. Amaral Pt S&E at bedside. Pt in ICU, more alert today and is able answer questions. Nursing reports no acute events overnight. Heparin drip stopped, pt now on Eliquis. She is for transfer to rehab today. Objective - Vital Signs/Intake and Output Vital Signs (last 24 hours): Temp Pulse Resp BP Pulse Ox 98 F 93 H 20 140/69 100 12/02/16 04:00 12/02/16 06:00 12/02/16 06:00 12/02/16 04:01 12/02/16 06:00 Intake and Output: 12/02/16 12/02/16 06:59 18:59 Intake Total 100 Output Total 350 Balance -250 - Medications Medications: Current Medications Apixaban (Eliquis) 2.5 mg PO DAILY [facility] Last Admin: 12/01/16 18:40 Dose: 2.5 mg Ascorbic Acid (Vitamin C 250 Mg Tab) 250 mg PO BIDPC [facility] Last Admin: 12/01/16 18:40 Dose: 250 mg Aspirin (Aspirin Chewable) 81 mg PO DAILY [facility] Last Admin: 12/01/16 10:30 Dose: 81 mg Famotidine (Pepcid) 20 mg PO DAILY [facility] Last Admin: 12/01/16 10:31 Dose: 20 mg Furosemide (Lasix) 20 mg PO DAILY [facility] Last Admin: 12/01/16 10:30 Dose: 20 mg Metoprolol Tartrate (Lopressor) 25 mg PO BID [facility] Last Admin: 12/01/16 18:40 Dose: 25 mg Multivitamins/Minerals (Therapeutic-M Tab) 1 tab PO DAILY [facility] Last Admin: 12/01/16 10:31 Dose: 1 tab Nystatin (Nystop Topical Powder) 1 applic TOP BID [facility] Last Admin: 12/01/16 18:40 Dose: 1 appl Petrolatum (Desitin Original) 1 gm TOP DAILY [facility] Last Admin: 12/01/16 10:30 Dose: 1 applic Rosuvastatin Calcium (Crestor) 5 mg PO HS [facility] Last Admin: 12/01/16 21:57 Dose: 5 mg Saccharomyces Boulardii (Florastor) 250 mg PO BID [facility] Last Admin: 12/01/16 18:40 Dose: 250 mg - Labs Labs: 12/02/16 06:29 12/02/16 06:29 PT 13.1 SECONDS (9.7-12.2) H 11/28/16 07:00 INR 1.2 11/28/16 07:00 APTT 132 SECONDS (21-34) H* D 12/01/16 05:54 - Constitutional Appears: Non-toxic, No Acute Distress, Chronically Ill - Head Exam Head Exam: ATRAUMATIC, NORMOCEPHALIC - Eye Exam Eye Exam: EOMI, Normal appearance - ENT Exam ENT Exam: Mucous Membranes Moist - Respiratory Exam Respiratory Exam: Clear to Ausculation Bilateral, NORMAL BREATHING PATTERN. absent: Rhonchi, Wheezes - Cardiovascular Exam Cardiovascular Exam: Tachycardia, +S1, +S2, Murmur - GI/Abdominal Exam GI & Abdominal Exam: Soft, Normal Bowel Sounds. 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
[2016-12-02] MEDS: Saccharomyces Boulardi 250 mg Cap PO SCH ×2 (09:14→17:22)
[2016-12-02] MEDS: Multivitamin With Minerals Tab PO SCH (09:15)
[2016-12-02] MEDS: Zinc Oxide Topical 30 gm Tube TOP SCH (09:18)
--- NOTE | 2016-12-02 09:57 | CP.PCM.PN ---
<Anup Colin - Last Filed: 12/02/16 18:11> Subjective - Date & Time of Evaluation Date of Evaluation: 12/02/16 Time of Evaluation: 09:00 - Subjective Subjective: EP-Cardiology Progress Note Dr. Cesar Patient seen and examined at the bedside in the ICU. No acute distress. OOB to chair at time of exam, sitting comfortably. No acute issues overnight as per nursing. Patient is more awake and alert compared to yesterday, but still only answering some questions. Denies chest pain, says shortness of breath is unchanged, and says leg pain and swelling feels better. 12 point review of systems was completed and pt did not admit to any other stated complaints. Objective - Vital Signs/Intake and Output Vital Signs (last 24 hours): Temp Pulse Resp BP Pulse Ox 98 F 93 H 20 118/50 L 100 12/02/16 04:00 12/02/16 06:00 12/02/16 06:00 12/02/16 09:14 12/02/16 06:00 Intake and Output: 12/02/16 12/02/16 06:59 18:59 Intake Total 100 Output Total 350 Balance -250 - Medications Medications: Current Medications Apixaban (Eliquis) 2.5 mg PO DAILY [facility] Last Admin: 12/01/16 18:40 Dose: 2.5 mg Ascorbic Acid (Vitamin C 250 Mg Tab) [facility] Last Admin: 12/02/16 09:12 Dose: 250 mg Aspirin (Aspirin Chewable) 81 mg PO DAILY [facility] Last Admin: 12/02/16 09:12 Dose: 81 mg Famotidine (Pepcid) 20 mg PO DAILY [facility] Last Admin: 12/02/16 09:12 Dose: 20 mg Furosemide (Lasix) 20 mg PO DAILY [facility] Last Admin: 12/02/16 09:14 Dose: 20 mg Metoprolol Tartrate (Lopressor) 25 mg PO BID [facility] Last Admin: 12/02/16 09:14 Dose: 25 mg Multivitamins/Minerals (Therapeutic-M Tab) 1 tab PO DAILY [facility] Last Admin: 12/01/16 10:31 Dose: 1 tab Nystatin (Nystop Topical Powder) 1 applic TOP BID [facility] Last Admin: 12/02/16 09:15 Dose: 1 appl Petrolatum (Desitin Original) 1 gm TOP DAILY [facility] Last Admin: 12/02/16 09:18 Dose: 1 applic Rosuvastatin Calcium (Crestor) 5 mg PO HS [facility] Last Admin: 12/01/16 21:57 Dose: 5 mg Saccharomyces Boulardii (Florastor) 250 mg PO BID [facility] Last Admin: 12/02/16 09:14 Dose: 250 mg - Labs Labs: 12/02/16 06:29 12/02/16 06:29 PT 13.1 SECONDS (9.7-12.2) H 11/28/16 07:00 INR 1.2 11/28/16 07:00 APTT 132 SECONDS (21-34) H* D 12/01/16 05:54 - Constitutional Appears: Well, Non-toxic, No Acute Distress, Chronically Ill - Head Exam Head Exam: ATRAUMATIC, NORMAL INSPECTION, NORMOCEPHALIC - Eye Exam Eye Exam: EOMI, Normal appearance. absent: Conjunctival injection, Scleral icterus Pupil Exam: absent: Irregular, Unequal - ENT Exam ENT Exam: Mucous Membranes Moist - Neck Exam Neck Exam: Full ROM. absent: Tenderness - Respiratory Exam Additional comments: Decreased Breath Sounds (mildly decreased breath sounds all [place]). absent: Wheezes, Accessory Muscle Use, Rales, Rhonchi - Cardiovascular Exam Additional comments: Tachycardia, Rapid rate but regular rhythm, +S1, +S2 (prominent S2), Loud systolic murmur most prominent right and left 2nd intercostal spaces. absent: Regular Rate, Bradycardia - GI/Abdominal Exam GI & Abdominal Exam: Soft, Normal Bowel Sounds. absent: Distended, Firm, Rigid , Tenderness, Diminished Bowel Sounds, Hyperactive Bowel Sounds, Hypoactive Bowel Sounds - Extremities Exam Additional comments: LLE banding from foot to groin, improved LLE coloration and temperature, LE skin discoloration of bilateral feet and ankles, Trace pitting edema in bilateral LE. absent: Calf Tenderness, Normal Inspection, Coldness to palpation - Back Exam Back Exam: NORMAL INSPECTION. absent: rash noted - Neurological Exam Neurological Exam: Alert, Awake - Psychiatric Exam Psychiatric exam: Normal Affect, Normal Mood - Skin Skin Exam: Dry, Intact, Normal Color (except as noted in extremities exam), Warm Assessment and Plan (1) Decreased cardiac ejection fraction Assessment & Plan: EKG on 06/01/15: NSR at 64, normal EKG EKG on 11/12/16: sinus tachy at 104, possible LA enlargement EKG on 11/23/16: Sinus tachycardia at 122, Possible Left atrial enlargement, RSR ' or QR pattern in V1 suggests right ventricular conduction delay, Borderline ECG Echo on 11/12/16: LVEF 63%, Moderate concentric LVH, abnormal LV diastolic dysfxn , Severe valvular Echo on 11/26/16: Mild concentric LVH, LV systolic fxn normal EF 60-65%, Transmitral doppler flow pattern Grade-I abnormal relaxation pattern, 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 Terry), EF 30% with dilated cardiomyopathy -Given risk of arrhythmias, pacer indicated -Life Vest ordered -Continue current medical management Status: Acute - Assessment and Plan (Free Text) Assessment: Case discussed with Dr. Cesar. <Isaac Cesar - Last Filed: 12/05/16 10:15> Objective - Vital Signs/Intake and Output Vital Signs (last 24 hours): Temp Pulse Resp BP Pulse Ox 97.3 F L 79 20 147/71 97 12/04/16 16:00 12/04/16 16:00 12/04/16 16:00 12/04/16 16:00 12/04/16 16:00 - Labs Labs: 12/02/16 06:29 12/02/16 06:29 PT 13.1 SECONDS (9.7-12.2) H 11/28/16 07:00 INR 1.2 11/28/16 07:00 APTT 132 SECONDS (21-34) H* D 12/01/16 05:54 Attending/Attestation - Attestation I have personally seen and examined this patient.: Yes I have fully participated in the care of the patient.: Yes I have reviewed all pertinent clinical information, including history, physical exam and plan: Yes Notes (Text): 12/05/16 10:15 HR 90's no cp
--- NOTE | 2016-12-02 17:46 | CP.PCM.PN ---
<Sharona Barber - Last Filed: 12/02/16 17:43> Subjective - Date & Time of Evaluation Date of Evaluation: 12/02/16 Time of Evaluation: 17:43 - Subjective Subjective: PGY-[address] Terry No acute complain. Pt was seen OOB eating. Objective - Vital Signs/Intake and Output Vital Signs (last 24 hours): Temp Pulse Resp BP Pulse Ox 97.1 F L 77 22 144/71 100 12/02/16 12:00 12/02/16 15:00 12/02/16 15:00 12/02/16 17:22 12/02/16 15:00 Intake and Output: 12/02/16 12/02/16 06:59 18:59 Intake Total 100 Output Total 350 Balance -250 - Medications Medications: Current Medications Apixaban (Eliquis) 2.5 mg PO DAILY [facility] Last Admin: 12/02/16 10:12 Dose: 2.5 mg Ascorbic Acid (Vitamin C 250 Mg Tab) 250 mg PO BIDPC [facility] Last Admin: 12/02/16 17:24 Dose: 250 mg Aspirin (Aspirin Chewable) 81 mg PO DAILY [facility] Last Admin: 12/02/16 09:12 Dose: 81 mg Famotidine (Pepcid) 20 mg PO DAILY [facility] Last Admin: 12/02/16 09:12 Dose: 20 mg Furosemide (Lasix) 20 mg PO DAILY [facility] Last Admin: 12/02/16 09:14 Dose: 20 mg Metoprolol Tartrate (Lopressor) 25 mg PO BID [facility] Last Admin: 12/02/16 17:22 Dose: 25 mg Multivitamins/Minerals (Therapeutic-M Tab) 1 tab PO DAILY [facility] Last Admin: 12/02/16 09:15 Dose: 1 tab Nystatin (Nystop Topical Powder) 1 applic TOP BID [facility] Last Admin: 12/02/16 17:23 Dose: 1 appl Petrolatum (Desitin Original) 1 gm TOP DAILY [facility] Last Admin: 12/02/16 09:18 Dose: 1 applic Rosuvastatin Calcium (Crestor) 5 mg PO HS [facility] Last Admin: 12/01/16 21:57 Dose: 5 mg Saccharomyces Boulardii (Florastor) 250 mg PO BID [facility] Last Admin: 12/02/16 17:22 Dose: 250 mg - Labs Labs: 12/02/16 06:29 12/02/16 06:29 PT 13.1 SECONDS (9.7-12.2) H 11/28/16 07:00 INR 1.2 11/28/16 07:00 APTT 132 SECONDS (21-34) H* D 12/01/16 05:54 - Constitutional Appears: No Acute Distress - Head Exam Head Exam: ATRAUMATIC, NORMOCEPHALIC - Eye Exam Eye Exam: EOMI, Normal appearance, PERRL Pupil Exam: NORMAL ACCOMODATION - ENT Exam ENT Exam: Mucous Membranes Moist - Respiratory Exam Respiratory Exam: Decreased Breath Sounds (lung bases), Clear to Ausculation Bilateral, NORMAL BREATHING PATTERN. absent: Rales, Rhonchi, Wheezes - Cardiovascular Exam Cardiovascular Exam: REGULAR RHYTHM, +S1, +S2, Murmur - GI/Abdominal Exam GI & Abdominal Exam: Soft, Normal Bowel Sounds. absent: Guarding, Rigid, Tenderness - Extremities Exam Extremities Exam: Pedal Edema Additional comments: wrapping d/c/i - Back Exam Back Exam: absent: CVA tenderness (L), CVA tenderness (R) - Neurological Exam Neurological Exam: Awake - Psychiatric Exam Psychiatric exam: Flat Affect - Skin Skin Exam: Dry, Warm Assessment and Plan - Assessment and Plan (Free Text) Plan: CHF, systolic, EF 30-35% - Consulted Dr. 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 Terry <James Terry - Last Filed: 12/03/16 01:29> Objective - Vital Signs/Intake and Output Vital Signs (last 24 hours): Temp Pulse Resp BP Pulse Ox 97.1 F L 78 20 138/65 100 12/03/16 00:00 12/03/16 00:00 12/03/16 00:00 12/03/16 00:00 12/03/16 00:00 Intake and Output: 12/02/16 12/03/16 18:59 06:59 Intake Total 360 180 Output Total 390 200 Balance -30 -20 - Medications Medications: Current Medications Apixaban (Eliquis) 2.5 mg PO DAILY [facility] Last Admin: 12/02/16 10:12 Dose: 2.5 mg Ascorbic Acid (Vitamin C 250 Mg Tab) [facility] Last Admin: 12/02/16 17:24 Dose: 250 mg Aspirin (Aspirin Chewable) 81 mg PO DAILY [facility] Last Admin: 12/02/16 09:12 Dose: 81 mg Famotidine (Pepcid) 20 mg PO DAILY [facility] Last Admin: 12/02/16 09:12 Dose: 20 mg Furosemide (Lasix) 20 mg PO DAILY [facility] Last Admin: 12/02/16 09:14 Dose: 20 mg Metoprolol Tartrate (Lopressor) 25 mg PO BID [facility] Last Admin: 12/02/16 17:22 Dose: 25 mg Multivitamins/Minerals (Therapeutic-M Tab) 1 tab PO DAILY [facility] Last Admin: 12/02/16 09:15 Dose: 1 tab Nystatin (Nystop Topical Powder) 1 applic TOP BID [facility] Last Admin: 12/02/16 17:23 Dose: 1 appl Petrolatum (Desitin Original) 1 gm TOP DAILY [facility] Last Admin: 12/02/16 09:18 Dose: 1 applic Rosuvastatin Calcium (Crestor) 5 mg PO HS [facility] Last Admin: 12/02/16 21:04 Dose: 5 mg Saccharomyces Boulardii (Florastor) 250 mg PO BID [facility] Last Admin: 12/02/16 17:22 Dose: 250 mg - Labs Labs: 12/02/16 06:29 12/02/16 06:29 PT 13.1 SECONDS (9.7-12.2) H 11/28/16 07:00 INR 1.2 11/28/16 07:00 APTT 132 SECONDS (21-34) H* D 12/01/16 05:54 Assessment and Plan - Assessment and Plan (Free Text) Assessment: Patient seen and evaluated with the director of medical staff services Agree with the management plan
--- NOTE | 2016-12-02 18:42 | CP.PCM.PN ---
Subjective - Date & Time of Evaluation Date of Evaluation: 12/02/16 Time of Evaluation: 18:40 - Subjective Subjective: Patient today this morning feeling slightly better. Ecchymoses in the upper extremities noted. Edema also present. Patient is having no chest pain. Palpitation occasionally noted, denies any chest pain. Leg swelling noted. Patient is willing to participate in physical therapy. But poor appetite, not eating well. Objective - Vital Signs/Intake and Output Vital Signs (last 24 hours): Temp Pulse Resp BP Pulse Ox 97.1 F L 77 22 144/71 100 12/02/16 12:00 12/02/16 15:00 12/02/16 15:00 12/02/16 17:22 12/02/16 15:00 Intake and Output: 12/02/16 12/02/16 06:59 18:59 Intake Total 100 Output Total 350 Balance -250 On examination: HEENT PERRLA, neck supple No thyromegaly was noted and no cervical adenopathy noted Chest bilateral good air entry, no wheezing or rales noted CVS regular heart sound, no murmur Abdomen soft and no organomegaly bilateral pedal edema noted CHARGE COORDINATOR alert awake oriented x3 no functional neurological deficit - Medications Medications: Current Medications Apixaban (Eliquis) 2.5 mg PO DAILY [facility] Last Admin: 12/02/16 10:12 Dose: 2.5 mg Ascorbic Acid ([facility]itamin C 250 Mg Tab) [facility] Last Admin: 12/02/16 17:24 Dose: 250 mg Aspirin (Aspirin Chewable) 81 mg PO DAILY [facility] Last Admin: 12/02/16 09:12 Dose: 81 mg Famotidine (Pepcid) 20 mg PO DAILY [facility] Last Admin: 12/02/16 09:12 Dose: 20 mg Furosemide (Lasix) 20 mg PO DAILY [facility] Last Admin: 12/02/16 09:14 Dose: 20 mg Metoprolol Tartrate (Lopressor) 25 mg PO BID [facility] Last Admin: 12/02/16 17:22 Dose: 25 mg Multivitamins/Minerals (Therapeutic-M Tab) 1 tab PO DAILY [facility] Last Admin: 12/02/16 09:15 Dose: 1 tab Nystatin (Nystop Topical Powder) 1 applic TOP BID [facility] Last Admin: 12/02/16 17:23 Dose: 1 appl Petrolatum (Desitin Original) 1 gm TOP DAILY [facility] Last Admin: 12/02/16 09:18 Dose: 1 applic Rosuvastatin Calcium (Crestor) 5 mg PO HS [facility] Last Admin: 12/01/16 21:57 Dose: 5 mg Saccharomyces Boulardii (Florastor) 250 mg PO BID [facility] Last Admin: 12/02/16 17:22 Dose: 250 mg - Labs Labs: 12/02/16 06:29 12/02/16 06:29 PT 13.1 SECONDS (9.7-12.2) H 11/28/16 07:00 INR 1.2 11/28/16 07:00 APTT 132 SECONDS (21-34) H* D 12/01/16 05:54 Assessment and Plan (1) ESBL (extended spectrum beta-lactamase) producing bacteria infection Assessment & Plan: Patient with the ESBL Escherichia coli, complicated with urinary tract infection. Leg edema noted, complicated with a left leg deep venous thrombosis. Patient underwent IVC filter, currently on anticoagulation. aorticstenosis, congestive heart failure. Stable currently. Patient already is agreed to have the rehabitation, and will plan to discharge to rehabilitation tomorrow Status: Resolved (2) Fever Status: Acute
--- NOTE | 2016-12-02 19:04 | CP.PCM.PN ---
Subjective - Date & Time of Evaluation Date of Evaluation: 12/02/16 Time of Evaluation: 19:02 - Subjective Subjective: INFECTIOUS DISEASE ICU/CCU PROGRESS NOTE JOHNSON MADDOX MD, FACP 12/02/2106 CHART REVIEWD CASE DISCUSSED Patient today, feeling slightly better. Ecchymoses in the upper extremities noted. Edema also present. Patient WITH no chest pain. Palpitation occasionally noted. Leg swelling noted. But poor appetite, not eating well. OFF ANTIBIOTICS SINCE YESTERDAY. Objective - Vital Signs/Intake and Output Vital Signs (last 24 hours): Temp Pulse Resp BP Pulse Ox 97.1 F L 77 22 144/71 100 12/02/16 12:00 12/02/16 15:00 12/02/16 15:00 12/02/16 17:22 12/02/16 15:00 - Medications Medications: Current Medications Apixaban (Eliquis) 2.5 mg PO DAILY [facility] Last Admin: 12/02/16 10:12 Dose: 2.5 mg Ascorbic Acid (Vitamin C 250 Mg Tab) 250 mg PO BIDPC [facility] Last Admin: 12/02/16 17:24 Dose: 250 mg Aspirin (Aspirin Chewable) 81 mg PO DAILY [facility] Last Admin: 12/02/16 09:12 Dose: 81 mg Famotidine (Pepcid) 20 mg PO DAILY [facility] Last Admin: 12/02/16 09:12 Dose: 20 mg Furosemide (Lasix) 20 mg PO DAILY [facility] Last Admin: 12/02/16 09:14 Dose: 20 mg Metoprolol Tartrate (Lopressor) 25 mg PO BID [facility] Last Admin: 12/02/16 17:22 Dose: 25 mg Multivitamins/Minerals (Therapeutic-M Tab) 1 tab PO DAILY [facility] Last Admin: 12/02/16 09:15 Dose: 1 tab Nystatin (Nystop Topical Powder) 1 applic TOP BID [facility] Last Admin: 12/02/16 17:23 Dose: 1 appl Petrolatum (Desitin Original) 1 gm TOP DAILY [facility] Last Admin: 12/02/16 09:18 Dose: 1 applic Rosuvastatin Calcium (Crestor) 5 mg PO HS [facility] Last Admin: 12/01/16 21:57 Dose: 5 mg Saccharomyces Boulardii (Florastor) 250 mg PO BID [facility] Last Admin: 12/02/16 17:22 Dose: 250 mg - Labs Labs: 12/02/16 06:29 12/02/16 06:29 PT 13.1 SECONDS (9.7-12.2) H 11/28/16 07:00 INR 1.2 11/28/16 07:00 APTT 132 SECONDS (21-34) H* D 12/01/16 05:54 Assessment and Plan (1) Bleeding from varicose veins of left lower extremity Status: Resolved (2) Temperature increase Status: Resolved (3) DVT (deep venous thrombosis) Status: Acute (4) ESBL (extended spectrum beta-lactamase) producing bacteria infection Status: Resolved (5) Wheezing on expiration Status: Resolved (6) Left leg DVT Status: Acute (7) Pulmonary emboli Status: Suspected (8) Cellulitis and abscess of left leg Status: Resolved
--- NOTE | 2016-12-03 08:25 | CP.PCM.PN ---
Subjective - Date & Time of Evaluation Date of Evaluation: 12/03/16 Time of Evaluation: 08:24 - Subjective Subjective: Patient currently feeling much better. Patient wanted to go to rehabilitation today. Leg swelling is improving. Denies any chest pain or shortness of breath. Palpitation occasionally noted Objective - Vital Signs/Intake and Output Vital Signs (last 24 hours): Temp Pulse Resp BP Pulse Ox 97.4 F L 77 18 147/84 100 12/03/16 07:05 12/03/16 07:05 12/03/16 07:05 12/03/16 07:05 12/03/16 07:05 On examination: HEENT PERRLA, neck supple No thyromegaly was noted and no cervical adenopathy noted Chest bilateral good air entry, no wheezing or rales noted CVS regular heart sound, no murmur Abdomen soft and no organomegaly Extremities no pedal edema, no leg swelling, pedal pulses are good. DEPOSITION OPERATOR alert awake oriented x3 no functional neurological deficit Intake and Output: 12/03/16 12/03/16 06:59 18:59 Intake Total 180 Output Total 200 Balance -20 - Medications Medications: Current Medications Apixaban (Eliquis) 2.5 mg PO DAILY [facility] Last Admin: 12/02/16 10:12 Dose: 2.5 mg Ascorbic Acid ([facility]itamin [facility] 250 Mg Tab) [facility] Last Admin: 12/02/16 17:24 Dose: 250 mg Aspirin (Aspirin Chewable) 81 mg PO DAILY [facility] Last Admin: 12/02/16 09:12 Dose: 81 mg Famotidine (Pepcid) 20 mg PO DAILY [facility] Last Admin: 12/02/16 09:12 Dose: 20 mg Furosemide (Lasix) 20 mg PO DAILY [facility] Last Admin: 12/02/16 09:14 Dose: 20 mg Metoprolol Tartrate (Lopressor) 25 mg PO BID [facility] Last Admin: 12/02/16 17:22 Dose: 25 mg Multivitamins/Minerals (Therapeutic-M Tab) 1 tab PO DAILY [facility] Last Admin: 12/02/16 09:15 Dose: 1 tab Nystatin (Nystop Topical Powder) 1 applic TOP BID [facility] Last Admin: 12/02/16 17:23 Dose: 1 appl Petrolatum (Desitin Original) 1 gm TOP DAILY [facility] Last Admin: 12/02/16 09:18 Dose: 1 applic Rosuvastatin Calcium (Crestor) 5 mg PO HS [facility] Last Admin: 12/02/16 21:04 Dose: 5 mg Saccharomyces Boulardii (Florastor) 250 mg PO BID [facility] Last Admin: 12/02/16 17:22 Dose: 250 mg - Labs Labs: 12/02/16 06:29 12/02/16 06:29 PT 13.1 SECONDS (9.7-12.2) H 11/28/16 07:00 INR 1.2 11/28/16 07:00 APTT 132 SECONDS (21-34) H* D 12/01/16 05:54 Assessment and Plan (1) ESBL (extended spectrum beta-lactamase) producing bacteria infection Assessment & Plan: Patient with the ESBL Escherichia coli in the urine. Started on IV antibiotic. Complicated with the pain is thrombosis of the left leg. Congestive heart failure. Patient has a severe aortic stenosis. Tachycardia. Treated now on anticoagulation. Feeling better. Will transfer the patient to rehabitation today Status: Resolved (2) Fever Status: Acute
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
[2016-12-03] MEDS: Metoprolol Succinate 50 mg XL Tab PO SCH (11:00)
[2016-12-03] MEDS: Multivitamin With Minerals Tab PO SCH (11:00)
[2016-12-03] MEDS: Saccharomyces Boulardi 250 mg Cap PO SCH ×2 (11:00→19:07)
--- NOTE | 2016-12-03 11:31 | CP.PCM.PN ---
<Anup Colin - Last Filed: 12/03/16 11:32> Subjective - Date & Time of Evaluation Date of Evaluation: 12/03/16 Time of Evaluation: 07:30 - Subjective Subjective: EP-Cardiology Progress Note Dr. Cesar Patient seen and examined at the bedside. No acute distress. Resting comfortably in bed at time of exam. No acute issues overnight as per nursing. Patient is more awake and alert compared to yesterday, answering all questions. Denies chest pain, says shortness of breath is improved, and says leg pain and swelling feels better. 12 point review of systems was completed and negative except as above. Objective - Vital Signs/Intake and Output Vital Signs (last 24 hours): Temp Pulse Resp BP Pulse Ox 97.4 F L 77 18 141/74 100 12/03/16 07:05 12/03/16 07:05 12/03/16 07:05 12/03/16 11:00 12/03/16 07:05 Intake and Output: 12/03/16 12/03/16 06:59 18:59 Intake Total 180 Output Total 200 Balance -20 - Medications Medications: Current Medications Apixaban (Eliquis) 2.5 mg PO DAILY [facility] Last Admin: 12/03/16 11:00 Dose: 2.5 mg Ascorbic Acid (Vitamin C 250 Mg Tab) 250 mg PO BIDPC [facility] Last Admin: 12/03/16 11:00 Dose: 250 mg Aspirin (Aspirin Chewable) 81 mg PO DAILY [facility] Last Admin: 12/02/16 09:12 Dose: 81 mg Famotidine (Pepcid) 20 mg PO DAILY [facility] Last Admin: 12/03/16 11:00 Dose: 20 mg Furosemide (Lasix) 20 mg PO DAILY [facility] Last Admin: 12/03/16 11:00 Dose: 20 mg Metoprolol Succinate (Toprol Xl) 50 mg PO DAILY [facility] Last Admin: 12/03/16 11:00 Dose: 50 mg Multivitamins/Minerals (Therapeutic-M Tab) 1 tab PO DAILY [facility] Last Admin: 12/03/16 11:00 Dose: 1 tab Nystatin (Nystop Topical Powder) 1 applic TOP BID [facility] Last Admin: 12/02/16 17:23 Dose: 1 appl Petrolatum (Desitin Original) 1 gm TOP DAILY [facility] Last Admin: 05/23/17 09:18 Dose: 1 applic Rosuvastatin Calcium (Crestor) 5 mg PO HS [facility] Last Admin: 12/02/16 21:04 Dose: 5 mg Saccharomyces Boulardii (Florastor) 250 mg PO BID [facility] Last Admin: 12/03/16 11:00 Dose: 250 mg - Labs Labs: 12/02/16 06:29 12/02/16 06:29 PT 13.1 SECONDS (9.7-12.2) H 11/28/16 07:00 INR 1.2 11/28/16 07:00 APTT 132 SECONDS (21-34) H* D 12/01/16 05:54 - Additional Findings Additional findings: - Constitutional Appears: Well, Non-toxic, No Acute Distress - Head Exam Head Exam: ATRAUMATIC, NORMAL INSPECTION, NORMOCEPHALIC - Eye Exam Eye Exam: EOMI, Normal appearance. absent: Conjunctival injection, Scleral icterus Pupil Exam: absent: Irregular, Unequal - ENT Exam ENT Exam: Mucous Membranes Moist - Neck Exam Neck Exam: Full ROM. absent: Tenderness - Respiratory Exam Respiratory Exam: Decreased Breath Sounds (mildly decreased breath sounds all [place]). absent: Wheezes, Accessory Muscle Use, Rales, Rhonchi - Cardiovascular Exam Cardiovascular Exam: RRR, +S1, +S2 (prominent S2), Loud systolic murmur most prominent right and left 2nd intercostal spaces. absent: Bradycardia, Tachycardia, Irregular Rhythm - GI/Abdominal Exam GI & Abdominal Exam: Soft, Normal Bowel Sounds. absent: Distended, Firm, Rigid , Tenderness, Diminished Bowel Sounds, Hyperactive Bowel Sounds, Hypoactive Bowel Sounds - Extremities Exam Extremities Exam: LLE banding from foot to groin, improved LLE coloration and temperature, LE skin discoloration of bilateral feet and ankles, Trace pitting edema in bilateral LE. absent: Calf Tenderness, Normal Inspection, Coldness to palpation - Back Exam Back Exam: NORMAL INSPECTION. absent: rash noted - Neurological Exam Neurological Exam: Alert, Awake - Psychiatric Exam Psychiatric exam: Normal Affect, Normal Mood - Skin Skin Exam: Dry, Intact, Normal Color (except as noted in extremities exam), Warm Assessment and Plan (1) Decreased cardiac ejection fraction Assessment & Plan: EKG on 06/01/15: NSR at 64, normal EKG EKG on 11/12/16: sinus tachy at 104, possible LA enlargement EKG on 11/23/16: Sinus tachycardia at 122, Possible Left atrial enlargement, RSR ' or QR pattern in V1 suggests right ventricular conduction delay, Borderline ECG Echo on 11/12/16: LVEF 63%, Moderate concentric LVH, abnormal LV diastolic dysfxn , Severe valvular Echo on 11/26/16: Mild concentric LVH, LV systolic fxn normal EF 60-65%, Transmitral doppler flow pattern Grade-I abnormal relaxation pattern, 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 Terry), EF 30% with dilated cardiomyopathy -Given risk of arrhythmias, pacer indicated -Life Vest ordered, seen by Rep -Continue current medical management Status: Acute - Assessment and Plan (Free Text) Assessment: Case discussed with Dr. Cesar. <Isaac Cesar - Last Filed: 12/05/16 09:45> Objective - Vital Signs/Intake and Output Vital Signs (last 24 hours): Temp Pulse Resp BP Pulse Ox 97.3 F L 79 20 147/71 97 12/04/16 16:00 12/04/16 16:00 12/04/16 16:00 12/04/16 16:00 12/04/16 16:00 - Labs Labs: 12/02/16 06:29 12/02/16 06:29 PT 13.1 SECONDS (9.7-12.2) H 11/28/16 07:00 INR 1.2 11/28/16 07:00 APTT 132 SECONDS (21-34) H* D 12/01/16 05:54 Attending/Attestation - Attestation I have personally seen and examined this patient.: Yes I have fully participated in the care of the patient.: Yes I have reviewed all pertinent clinical information, including history, physical exam and plan: Yes Notes (Text): 12/05/16 09:44 HR 70s leg improved
[2016-12-03] MEDS: Zinc Oxide Topical 30 gm Tube TOP SCH (11:51)
--- NOTE | 2016-12-03 14:28 | CP.PCM.PN ---
<Sharona Barber - Last Filed: 12/03/16 14:25> Subjective - Date & Time of Evaluation Date of Evaluation: 12/03/16 Time of Evaluation: 14:25 - Subjective Subjective: PGY-[address] Daugherty No acute complain. enjoying breakfast Objective - Vital Signs/Intake and Output Vital Signs (last 24 hours): Temp Pulse Resp BP Pulse Ox 97.4 F L 77 18 141/74 100 12/03/16 07:05 12/03/16 07:05 12/03/16 07:05 12/03/16 11:00 12/03/16 07:05 Intake and Output: 12/03/16 12/03/16 06:59 18:59 Intake Total 180 Output Total 200 Balance -20 - Medications Medications: Current Medications Apixaban (Eliquis) 2.5 mg PO DAILY [facility] Last Admin: 12/03/16 11:00 Dose: 2.5 mg Ascorbic Acid (Vitamin C 250 Mg Tab) 250 mg PO BIDPC [facility] Last Admin: 12/03/16 11:00 Dose: 250 mg Aspirin (Aspirin Chewable) 81 mg PO DAILY [facility] Last Admin: 12/03/16 10:00 Dose: 81 mg Famotidine (Pepcid) 20 mg PO DAILY [facility] Last Admin: 12/03/16 11:00 Dose: 20 mg Furosemide (Lasix) 20 mg PO DAILY [facility] Last Admin: 12/03/16 11:00 Dose: 20 mg Metoprolol Succinate (Toprol Xl) 50 mg PO DAILY [facility] Last Admin: 12/03/16 11:00 Dose: 50 mg Multivitamins/Minerals (Therapeutic-M Tab) 1 tab PO DAILY [facility] Last Admin: 12/03/16 11:00 Dose: 1 tab Nystatin (Nystop Topical Powder) 1 applic TOP BID [facility] Last Admin: 12/03/16 11:52 Dose: 1 appl Petrolatum (Desitin Original) 1 gm TOP DAILY [facility] Last Admin: 12/03/16 11:51 Dose: 1 applic Rosuvastatin Calcium (Crestor) 5 mg PO HS [facility] Last Admin: 12/02/16 21:04 Dose: 5 mg Saccharomyces Boulardii (Florastor) 250 mg PO BID [facility] Last Admin: 12/03/16 11:00 Dose: 250 mg - Labs Labs: 12/02/16 06:29 12/02/16 06:29 PT 13.1 SECONDS (9.7-12.2) H 11/28/16 07:00 INR 1.2 11/28/16 07:00 APTT 132 SECONDS (21-34) H* D 12/01/16 05:54 - Constitutional Appears: No Acute Distress - Head Exam Head Exam: ATRAUMATIC, NORMOCEPHALIC - Eye Exam Eye Exam: EOMI, Normal appearance - ENT Exam ENT Exam: Mucous Membranes Moist - Respiratory Exam Respiratory Exam: Rales, Rhonchi, NORMAL BREATHING PATTERN - Cardiovascular Exam Cardiovascular Exam: REGULAR RHYTHM, +S1, +S2. absent: Murmur - GI/Abdominal Exam GI & Abdominal Exam: Soft, Normal Bowel Sounds. absent: Tenderness - Extremities Exam Additional comments: L Leg francisco wrap, R scd - Neurological Exam Neurological Exam: Alert, Awake Assessment and Plan - Assessment and Plan (Free Text) Plan: CHF, systolic - Consulted Dr. Cesar for [facility] - Dr. 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 Daugherty <James Daugherty - Last Filed: 12/04/16 05:17> Objective - Vital Signs/Intake and Output Vital Signs (last 24 hours): Temp Pulse Resp BP Pulse Ox 97.5 F L 79 20 149/74 96 12/03/16 22:40 12/04/16 03:30 12/03/16 22:40 12/03/16 22:40 12/03/16 22:40 Intake and Output: 12/03/16 12/04/16 18:59 06:59 Intake Total 480 Balance 480 - Medications Medications: Current Medications Apixaban (Eliquis) 2.5 mg PO DAILY [facility] Last Admin: 12/03/16 11:00 Dose: 2.5 mg Ascorbic Acid (Vitamin C 250 Mg Tab) 250 mg PO BIDPC [facility] Last Admin: 12/03/16 19:08 Dose: 250 mg Aspirin (Aspirin Chewable) 81 mg PO DAILY [facility] Last Admin: 12/03/16 10:00 Dose: 81 mg Famotidine (Pepcid) 20 mg PO DAILY [facility] Last Admin: 12/03/16 11:00 Dose: 20 mg Furosemide (Lasix) 20 mg PO DAILY [facility] Last Admin: 12/03/16 11:00 Dose: 20 mg Metoprolol Succinate (Toprol Xl) 50 mg PO DAILY [facility] Last Admin: 12/03/16 11:00 Dose: 50 mg Multivitamins/Minerals (Therapeutic-M Tab) 1 tab PO DAILY [facility] Last Admin: 12/03/16 11:00 Dose: 1 tab Nystatin (Nystop Topical Powder) 1 applic TOP BID [facility] Last Admin: 12/03/16 19:07 Dose: 1 appl Petrolatum (Desitin Original) 1 gm TOP DAILY [facility] Last Admin: 12/03/16 11:51 Dose: 1 applic Rosuvastatin Calcium (Crestor) 5 mg PO HS [facility] Last Admin: 12/03/16 22:53 Dose: 5 mg Saccharomyces Boulardii (Florastor) 250 mg PO BID [facility] Last Admin: 12/03/16 19:07 Dose: 250 mg - Labs Labs: 12/02/16 06:29 12/02/16 06:29 PT 13.1 SECONDS (9.7-12.2) H 11/28/16 07:00 INR 1.2 11/28/16 07:00 APTT 132 SECONDS (21-34) H* D 12/01/16 05:54 Assessment and Plan - Assessment and Plan (Free Text) Assessment: Patient seen and evaluated with the electromedical service engineer Agree with the plan of care
[2016-12-03 16:31] VITALS: RESP 20
--- NOTE | 2016-12-04 09:33 | CP.PCM.PN ---
<Anup Colin - Last Filed: 12/04/16 17:01> Subjective - Date & Time of Evaluation Date of Evaluation: 12/04/16 Time of Evaluation: 09:45 - Subjective Subjective: EP-Cardiology Progress Note Dr. Cesar Patient seen and examined at the bedside. No acute distress. Resting comfortably in bed at time of exam. No acute issues overnight as per nursing. Patient is more awake and alert, answering all questions. Denies chest pain, says shortness of breath is improved, and says leg pain and swelling feels better. 12 point review of systems was completed and negative except as above. Objective - Vital Signs/Intake and Output Vital Signs (last 24 hours): Temp Pulse Resp BP Pulse Ox 97.4 F L 84 20 143/81 94 L 12/04/16 07:00 12/04/16 07:00 12/04/16 07:00 12/04/16 07:00 12/04/16 07:00 - Medications Medications: Current Medications Apixaban (Eliquis) 2.5 mg PO DAILY [facility] Last Admin: 12/03/16 11:00 Dose: 2.5 mg Ascorbic Acid (Vitamin C 250 Mg Tab) 250 mg PO BIDPC [facility] Last Admin: 12/03/16 19:08 Dose: 250 mg Aspirin (Aspirin Chewable) 81 mg PO DAILY [facility] Last Admin: 12/03/16 10:00 Dose: 81 mg Famotidine (Pepcid) 20 mg PO DAILY [facility] Last Admin: 12/03/16 11:00 Dose: 20 mg Furosemide (Lasix) 20 mg PO DAILY [facility] Last Admin: 12/03/16 11:00 Dose: 20 mg Metoprolol Succinate (Toprol Xl) 50 mg PO DAILY [facility] Last Admin: 12/03/16 11:00 Dose: 50 mg Multivitamins/Minerals (Therapeutic-M Tab) 1 tab PO DAILY [facility] Last Admin: 12/03/16 11:00 Dose: 1 tab Nystatin (Nystop Topical Powder) 1 applic TOP BID [facility] Last Admin: 12/03/16 19:07 Dose: 1 appl Petrolatum (Desitin Original) 1 gm TOP DAILY [facility] Last Admin: 12/03/16 11:51 Dose: 1 applic Rosuvastatin Calcium (Crestor) 5 mg PO HS [facility] Last Admin: 12/03/16 22:53 Dose: 5 mg Saccharomyces Boulardii (Florastor) 250 mg PO BID [facility] Last Admin: 12/03/16 19:07 Dose: 250 mg - Labs Labs: 12/02/16 06:29 12/02/16 06:29 PT 13.1 SECONDS (9.7-12.2) H 11/28/16 07:00 INR 1.2 11/28/16 07:00 APTT 132 SECONDS (21-34) H* D 12/01/16 05:54 - Additional Findings Additional findings: - Constitutional Appears: Well, Non-toxic, No Acute Distress - Head Exam Head Exam: ATRAUMATIC, NORMAL INSPECTION, NORMOCEPHALIC - Eye Exam Eye Exam: EOMI, Normal appearance. absent: Conjunctival injection, Scleral icterus Pupil Exam: absent: Irregular, Unequal - ENT Exam ENT Exam: Mucous Membranes Moist - Neck Exam Neck Exam: Full ROM. absent: Tenderness - Respiratory Exam Respiratory Exam: Decreased Breath Sounds (mildly decreased breath sounds all [place]). absent: Wheezes, Accessory Muscle Use, Rales, Rhonchi - Cardiovascular Exam Cardiovascular Exam: RRR, +S1, +S2 (prominent S2), Loud systolic murmur most prominent right and left 2nd intercostal spaces. absent: Bradycardia, Tachycardia, Irregular Rhythm - GI/Abdominal Exam GI & Abdominal Exam: Soft, Normal Bowel Sounds. absent: Distended, Firm, Rigid , Tenderness, Diminished Bowel Sounds, Hyperactive Bowel Sounds, Hypoactive Bowel Sounds - Extremities Exam Extremities Exam: LLE banding from foot to groin, improved LLE coloration and temperature, LE skin discoloration of bilateral feet and ankles, Trace pitting edema in bilateral LE. absent: Calf Tenderness, Normal Inspection, Coldness to palpation - Back Exam Back Exam: NORMAL INSPECTION. absent: rash noted - Neurological Exam Neurological Exam: Alert, Awake - Psychiatric Exam Psychiatric exam: Normal Affect, Normal Mood - Skin Skin Exam: Dry, Intact, Normal Color (except as noted in extremities exam), Warm Assessment and Plan (1) Decreased cardiac ejection fraction Assessment & Plan: EKG on 06/01/15: NSR at 64, normal EKG EKG on 11/12/16: sinus tachy at 104, possible LA enlargement EKG on 11/23/16: Sinus tachycardia at 122, Possible Left atrial enlargement, RSR ' or QR pattern in V1 suggests right ventricular conduction delay, Borderline ECG Echo on 11/12/16: LVEF 63%, Moderate concentric LVH, abnormal LV diastolic dysfxn , Severe valvular Echo on 11/26/16: Mild concentric LVH, LV systolic fxn normal EF 60-65%, Transmitral doppler flow pattern Grade-I abnormal relaxation pattern, 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 Terry), EF improved on review, Life Vest no longer indicated, will cancel order -Continue current medical management as per Dr. Terry Status: Acute - Assessment and Plan (Free Text) Assessment: Case discussed with Dr. Cesar. <Isaac Cesar - Last Filed: 12/05/16 09:44> Objective - Vital Signs/Intake and Output Vital Signs (last 24 hours): Temp Pulse Resp BP Pulse Ox 97.3 F L 79 20 147/71 97 12/04/16 16:00 12/04/16 16:00 12/04/16 16:00 12/04/16 16:00 12/04/16 16:00 - Labs Labs: 12/02/16 06:29 12/02/16 06:29 PT 13.1 SECONDS (9.7-12.2) H 11/28/16 07:00 INR 1.2 11/28/16 07:00 APTT 132 SECONDS (21-34) H* D 12/01/16 05:54 Attending/Attestation - Attestation I have personally seen and examined this patient.: Yes I have fully participated in the care of the patient.: Yes I have reviewed all pertinent clinical information, including history, physical exam and plan: Yes Notes (Text): 12/05/16 09:44 no palpitations tolerating PO
[2016-12-04] MEDS: Saccharomyces Boulardi 250 mg Cap PO SCH (09:54)
[2016-12-04] MEDS: Multivitamin With Minerals Tab PO SCH (09:54)
[2016-12-04] MEDS: Metoprolol Succinate 50 mg XL Tab PO SCH (09:54)
[2016-12-04] MEDS: Zinc Oxide Topical 30 gm Tube TOP SCH (09:57)
--- NOTE | 2016-12-04 15:52 | CP.PCM.PN ---
<Sharona Barber - Last Filed: 12/04/16 19:09> Subjective - Date & Time of Evaluation Date of Evaluation: 12/04/16 Time of Evaluation: 15:47 - Subjective Subjective: PGY-[address] Daugherty Pt was seen OOB. Answer questions with 1 word answer. No acute complaint Objective - Vital Signs/Intake and Output Vital Signs (last 24 hours): Temp Pulse Resp BP Pulse Ox 97.4 F L 84 20 143/81 94 L 12/04/16 07:00 12/04/16 07:00 12/04/16 07:00 12/04/16 09:54 12/04/16 07:00 Intake and Output: 12/04/16 12/04/16 06:59 18:59 Intake Total 480 Balance 480 - Medications Medications: Current Medications [facility]ic [facility] ([facility] 250 Mg Tab) [facility] Last Admin: 12/04/16 09:55 Dose: 250 mg Aspirin (Aspirin Chewable) 81 mg PO DAILY [facility] Last Admin: 12/04/16 09:54 Dose: 81 mg Famotidine (Pepcid) 20 mg PO DAILY [facility] Last Admin: 12/04/16 09:55 Dose: 20 mg Furosemide (Lasix) 20 mg PO DAILY [facility] Last Admin: 12/04/16 09:54 Dose: 20 mg Metoprolol Succinate (Toprol Xl) 50 mg PO DAILY [facility] Last Admin: 12/04/16 09:54 Dose: 50 mg Multivitamins/Minerals (Therapeutic-M Tab) 1 tab PO DAILY [facility] Last Admin: 12/04/16 09:54 Dose: 1 tab Nystatin (Nystop Topical Powder) 1 applic TOP BID [facility] Last Admin: 12/04/16 09:56 Dose: 1 appl Petrolatum (Desitin Original) 1 gm TOP DAILY [facility] Last Admin: 12/04/16 09:57 Dose: 1 applic Rosuvastatin Calcium (Crestor) 5 mg PO HS [facility] Last Admin: 12/03/16 22:53 Dose: 5 mg Saccharomyces Boulardii (Florastor) 250 mg PO BID [facility] Last Admin: 12/04/16 09:54 Dose: 250 mg - Labs Labs: 12/02/16 06:29 12/02/16 06:29 PT 13.1 SECONDS (9.7-12.2) H 11/28/16 07:00 INR 1.2 11/28/16 07:00 APTT 132 SECONDS (21-34) H* D 12/01/16 05:54 - Constitutional Appears: No Acute Distress - Head Exam Head Exam: NORMAL INSPECTION - Eye Exam Eye Exam: EOMI, Normal appearance - ENT Exam ENT Exam: Mucous Membranes Moist - Respiratory Exam Respiratory Exam: Decreased Breath Sounds. absent: Rales, Rhonchi, Wheezes - Cardiovascular Exam Cardiovascular Exam: REGULAR RHYTHM, +S1, +S2 - Extremities Exam Additional comments: R SCD, L francisco wrap - Neurological Exam Neurological Exam: Alert, Awake - Psychiatric Exam Psychiatric exam: Flat Affect, Normal Mood - Skin Skin Exam: Dry, Warm Assessment and Plan - Assessment and Plan (Free Text) Plan: CHF, systolic - Consulted Dr. Cesar for Lifevest - Dr. 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 Daugherty <James Daugherty - Last Filed: 12/04/16 22:32> Objective - Vital Signs/Intake and Output Vital Signs (last 24 hours): Temp Pulse Resp BP Pulse Ox 97.3 F L 79 20 147/71 97 12/04/16 16:00 12/04/16 16:00 12/04/16 16:00 12/04/16 16:00 12/04/16 16:00 Intake and Output: 12/04/16 12/05/16 18:59 06:59 Intake Total 480 Balance 480 - Labs Labs: 12/02/16 06:29 12/02/16 06:29 PT 13.1 SECONDS (9.7-12.2) H 11/28/16 07:00 INR 1.2 11/28/16 07:00 APTT 132 SECONDS (21-34) H* D 12/01/16 05:54 Assessment and Plan - Assessment and Plan (Free Text) Assessment: Patient seen and evaluated with the medical office specialist Agree with the plan
[2016-12-04 16:09] VITALS: BP 147/71; PULSE 79; TEMP 97.3; O2SAT 97
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
--- NOTE | 2016-12-05 09:28 | PQF SEPSIS ---
This form is a permanent part of the medical recordDr. Dr. Landeros, Please clarify if the sepsis was rule In. Also, clarify the chronicity of the CHF. Thank you, Isatu Clarification of your documentation is requested to better reflect the severity of illness and intensity of treatment of your patient. Indicators present [] Temp < 96.8 or > 100.4 [] WBC count > 12,000/mm3 or <000/mm3 or 10% immature neutrophils [X] Heart Rate > 90 [] Respiratory Rate > 20 [X] Fever or hypothermia [] Chills [] Positive blood cultures [] Hypotension [] Metabolic acidosis (Elevated lactate level, anion gap or reduced blood pH) [] Acute confusion /Altered Mental Status [] Shock [] Other: [ESBL bacterial positive. E.coli in urine.] ] Location in the medical record that reflects the above clinical findings: [ Treatment Provided: [] PHYSICIAN'S RESPONSE Based on your medical judgment of the clinical indicators outlined above, are you treating this patient for a known or suspected: [] Sepsis / Septicemia Please specify organism if known [] [] SIRS (Systemic Inflammatory Response Syndrome) [] Severe Sepsis (Sepsis with Associated Organ Dysfunction) [] Fever of Unknown Origin [] Other, please indicate: [] [x] If Unable to Determine, please check the box, sign and date. Present On Admission (POA) Indicator: [] Present at the time of admission [] Not present at the time of admission [x] Clinically Undetermined In responding to this query, please exercise your independent professional judgment. The fact that a question is asked does not imply that any particular answer is desired or expected. Thank you for your clarification on this documentation. If you have any questions please call:[ ] * Thank you, [ ] [place] line attendant RAINE
== END 2016-12-04 17:20 | DRG 853 ==
LOC: C.ER 11:20 → C.9E 15:23 → C.3T 20:16 → C.9I 11-25 22:34 → C.6T 12-03 04:45
PROVIDERS: ADMIT Internal Medicine; ATTEND Internal Medicine
PROC: 02HV33Z Insertion of Infusion Device into Superior Vena Cava, Percutaneous Approach (ICD-10-PCS; 2016-11-14)
PROC: B548ZZA Ultrasonography of Superior Vena Cava, Guidance (ICD-10-PCS; 2016-11-14)
PROC: 06CG3ZZ Extirpation of Matter from Left External Iliac Vein, Percutaneous Approach (ICD-10-PCS; principal; 2016-11-27)
PROC: 06CN3ZZ Extirpation of Matter from Left Femoral Vein, Percutaneous Approach (ICD-10-PCS; 2016-11-27)
PROC: 06H03DZ Insertion of Intraluminal Device into Inferior Vena Cava, Percutaneous Approach (ICD-10-PCS; 2016-11-27)
PROC: 067D3DZ Dilation of Left Common Iliac Vein with Intraluminal Device, Percutaneous Approach (ICD-10-PCS; 2016-11-27)
PROC: B54CZZ3 Ultrasonography of Left Lower Extremity Veins, Intravascular (ICD-10-PCS; 2016-11-27)
DX: A41.9 Sepsis, unspecified organism (principal); I26.99 Other pulmonary embolism without acute cor pulmonale; I74.3 Embolism and thrombosis of arteries of the lower extremities; I82.412 Acute embolism and thrombosis of left femoral vein; L02.416 Cutaneous abscess of left lower limb; I42.9 Cardiomyopathy, unspecified; K57.92 Diverticulitis of intestine, part unspecified, without perforation or abscess without bleeding; I50.20 Unspecified systolic (congestive) heart failure; I11.0 Hypertensive heart disease with heart failure; L03.116 Cellulitis of left lower limb; N39.0 Urinary tract infection, site not specified; I82.422 Acute embolism and thrombosis of left iliac vein; R31.9 Hematuria, unspecified; W10.9XXA Fall (on) (from) unspecified stairs and steps, initial encounter; B96.20 Unspecified Escherichia coli [E. coli] as the cause of diseases classified elsewhere; Z16.24 Resistance to multiple antibiotics; E78.5 Hyperlipidemia, unspecified; J40 Bronchitis, not specified as acute or chronic; I25.10 Atherosclerotic heart disease of native coronary artery without angina pectoris; I35.0 Nonrheumatic aortic (valve) stenosis; S81.812A Laceration without foreign body, left lower leg, initial encounter; Y93.01 Activity, walking, marching and hiking; Z51.5 Encounter for palliative care; E78.00 Pure hypercholesterolemia, unspecified; D64.9 Anemia, unspecified; F39 Unspecified mood [affective] disorder; I87.2 Venous insufficiency (chronic) (peripheral); R09.02 Hypoxemia; Z86.718 Personal history of other venous thrombosis and embolism; Z87.440 Personal history of urinary (tract) infections; Z95.5 Presence of coronary angioplasty implant and graft; Z87.891 Personal history of nicotine dependence

== ENCOUNTER 2017-03-18 12:35 | Inpatient (IN) | payer MEDICARE, OTHER ==
[2017-03-18 12:36] VITALS: BMI 30.2
--- NOTE | 2017-03-18 12:52 | C.PDOC ---
History Of Present Illness Patient is a 86 year old female brought to ED by EMS for evaluation of not being able to ambulate. Pt states she fell a month ago. As per EMS, patient does not get up from her bed. Otherwise, denies any other complaints at this time. Pt is a poor historian. PMD: Dr. Landeros Time Seen by Provider: 03/18/17 12:39 Chief Complaint (Nursing): Weakness/Neurological Deficit History Per: Patient, EMS History/Exam Limitations: no limitations Onset/Duration Of Symptoms: Gradual Current Symptoms Are (Timing): Still Present Severity: None Pain Scale Rating Of: 0 Recent travel outside of the [place]: No Additional History Per: Patient, EMS Past Medical History Reviewed: Historical Data, Nursing Documentation, Vital Signs Vital Signs: Last Vital Signs Temp 98.1 F 03/18/17 12:59 Pulse 83 03/18/17 14:02 Resp 18 03/18/17 14:02 BP 118/60 03/18/17 14:02 Pulse Ox 97 03/18/17 15:40 - Medical History PMH: Bronchitis, HTN, Hypercholesterolemia, Peripheral Edema Denies: Pulmonary Embolism, Chronic Kidney Disease Surgical History: Back Surgery, Coronary Stent - [facility] Procedures DILATE OF L COM ILIAC VEIN WITH INTRALUM DEV, PERC APPROACH (11/12/16) EXTIRPATION OF MATTER FROM L EXT ILIAC VEIN, PERC APPROACH (11/12/16) EXTIRPATION OF MATTER FROM LEFT FEMORAL VEIN, PERC APPROACH (11/12/16) INSERTION OF INFUSION DEV INTO SUP VENA CAVA, PERC APPROACH (11/12/16) INSERTION OF INTRALUM DEV INTO INF VENA CAVA, PERC APPROACH (11/12/16) ULTRASONOGRAPHY OF LEFT LOWER EXTREMITY VEINS, INTRAVASCULAR (11/12/16) ULTRASONOGRAPHY OF SUPERIOR VENA CAVA, GUIDANCE (11/12/16) Family History: States: Unknown Family Hx - Social History Hx Tobacco Use: No Hx Alcohol Use: No Hx Substance Use: No - Immunization History Hx Tetanus Toxoid Vaccination: Yes Hx Influenza Vaccination: Yes Hx Pneumococcal Vaccination: Yes Review Of Systems Except As Marked, All Systems Reviewed And Found Negative. Constitutional: Positive for: Other (difficulty ambulating). Negative for: Fever, Chills Cardiovascular: Negative for: Chest Pain, Palpitations Respiratory: Negative for: Cough, Shortness of Breath Gastrointestinal: Negative for: Nausea, Vomiting, Abdominal Pain, Diarrhea Neurological: Negative for: Weakness, Numbness Physical Exam - Physical Exam Appears: Non-toxic, No Acute Distress, Other (Speaking in full sentences) Skin: Warm, Dry, Other (well healing wound and abrasions to bilateral lower extremities ) Head: Atraumatic, Normacephalic Eye(s): bilateral: Normal Inspection Oral Mucosa: Moist Neck: Normal ROM, Supple Chest: Symmetrical Cardiovascular: Rhythm Regular, No Murmur Respiratory: Normal Breath Sounds, No Rales, No Rhonchi, No Wheezing Gastrointestinal/Abdominal: Soft, No Tenderness Extremity: Normal ROM (moving bilateral lower extremities ), No Tenderness, No Pedal Edema, Capillary Refill (<2 sec.), No Deformity, No Swelling Neurological/Psych: Oriented x3, Normal Speech, Normal Motor, Normal Sensation ED Course And Treatment - Laboratory Results Result Diagrams: 03/18/17 13:13 03/18/17 13:13 Lab Interpretation: No Acute Changes ECG: Interpreted By Me ECG Rhythm: Sinus Rhythm ECG Interpretation: Normal Rate From EC O2 Sat by Pulse Oximetry: 97 Pulse Ox Interpretation: Normal - Radiology CXR: Interpreted by Me CXR Interpretation: Yes: No Acute Disease Progress Note: Blood work, UA, EKG, CXR ordered and reviewed. Pt was given IV fluids. On re-evaluation, patient is resting comfortably, no acute distress. Treated with rocephin 1 gm IV Reassessment Condition: Unchanged - Physician Consult Information Physician Contacted: Clara Landeros Outcome Of Conversation: admit Disposition Discussed With : Clara Landeros Doctor Will See Patient In The: Hospital - Disposition Disposition: HOSPITALIZED Disposition Time: 14:45 Condition: STABLE - POA Present On Arrival: None - Clinical Impression Clinical Impression: Weakness, UTI (urinary tract infection) - [place] / [employer] / Resident Statement MD/DO has reviewed & agrees with the documentation as recorded. - Scribe Statement The provider has reviewed the documentation as recorded by the Aydeibroe Melendez All medical record entries made by the Aydeibroe were at my direction and personally dictated by me. I have reviewed the chart and agree that the record accurately reflects my personal performance of the history, physical exam, medical decision making, and the department course for this patient. I have also personally directed, reviewed, and agree with the discharge instructions and disposition. Decision To Admit - Pt Status Changed To: Hospital Disposition Of: Inpatient - Admit Certification Admit to Inpatient:: After my assessment, the patient will require hospitalization for at least two midnights. This is because of the severity of symptoms shown, intensity of services needed, and/or the medical risk in this patient being treated as an outpatient. - InPatient: Physician Admission Certification: I certify that this patient requires 2 or more midnights of care for the following reason:: UTI. Weakness - . Bed Request Type: Regular Admitting Physician: Clara Landeros Patient Diagnosis: Weakness, UTI (urinary tract infection)
[2017-03-18 13:18] LABS: BASO # 0.1 K/uL (0.0-0.2); BASO % 0.9 % (0.0-2.0); EOS # 0.5 K/uL (0.0-0.7); EOS % 4.2 % (0.0-4.0); HEMATOCRIT 33.1 % (34.0-47.0); LYMPH # 3.3 K/uL (1.0-4.3); MEAN CORPUSCULAR HEMOGLOBIN 30.1 pg (27.0-31.0); MEAN CORPUSCULAR HGB CONC 33.1 g/dL (33.0-37.0); MEAN PLATELET VOLUME 7.5 fL (7.2-11.7); MONO # 1.2 K/uL (0.0-0.8); RED CELL DISTRIBUTION WIDTH 16.1 % (11.5-14.5); WHITE BLOOD COUNT 11.2 K/uL (4.8-10.8)
[2017-03-18 13:28] LABS: ALB/GLOB RATIO 0.7 (1.0-2.1); ALKALINE PHOSPHATASE 91 U/L (38-126); ALT/SGPT 25 U/L (9-52); AST/SGOT 20 U/L (14-36); BILIRUBIN,TOTAL 0.6 mg/dL (0.2-1.3); BLOOD UREA NITROGEN 12 mg/dL (7-17); CALCIUM 8.7 mg/dl (8.6-10.4); CARBON DIOXIDE 23 mmol/L (22-30); CHLORIDE 100 mmol/L (98-107); GFR AFRICAN-AMERICAN > 60; GLUCOSE,RANDOM 96 mg/dL (65-105); POTASSIUM 3.5 mmol/L (3.6-5.2); SODIUM 136 mmol/L (132-148); TOTAL PROTEIN 5.7 g/dL (6.3-8.3)
[2017-03-18 13:46] LABS: RBC URINE 5 /hpf (0-3); URINE BACTERIA OCC (<OCC); URINE BILIRUBIN NEGATIVE (NEGATIVE); URINE BLOOD 1+ (NEGATIVE); URINE COLOR Amber (YELLOW); URINE GLUCOSE (UA) NORMAL (Normal); URINE KETONE 1+ mg/dL (NEGATIVE); URINE LEUKOCYTE ESTERASE 3+ Leu/uL (Negative); URINE PROTEIN 1+ mg/dL (NEGATIVE); WBC CLUMPS FEW /hpf; WBC URINE 1110 /hpf (0-5)
[2017-03-18] MEDS ORDERED: cefTRIAXone IV 1 gm in Dextros 50 ML IV ONE (13:51)
--- NOTE | 2017-03-18 13:59 | RAD ---
HISTORY: SOB COMPARISON: Chest x-ray performed 11/30/16 TECHNIQUE: Chest, one view. FINDINGS: LUNGS: Left basilar atelectasis/infiltrate and or small pleural effusion. Please note that chest x-ray has limited sensitivity for the detection of pulmonary masses. PLEURA: No significant pleural effusion identified. No definite pneumothorax . CARDIOVASCULAR: Heart size appears top normal. Atherosclerotic calcifications of the aorta. Right peritracheal opacity, possibly tortuous vasculature. OSSEOUS STRUCTURES: Osseous demineralization. Degenerative changes. VISUALIZED UPPER ABDOMEN: Unremarkable. OTHER FINDINGS: None. IMPRESSION: Left basilar atelectasis/ infiltrate and or small pleural effusion.
[2017-03-18] MEDS ORDERED: cefTRIAXone IV 1 gm in Dextros 50 ML IVPB ONE (14:00)
[2017-03-18] MEDS: Sodium Chloride 0.9% 1,000 ML IV SCH (23:52)
--- NOTE | 2017-03-19 00:46 | CP.PCM.HP ---
History of Present Illness - History of Present Illness History of Present Illness: Chief complaint: Fall History present illness: 86-year-old female with history of hypertension, chronic venous the condition, recent history of recurrent urinary tract infection, left iliac vein from disease, status post a stent, congestive heart failure, respiratory failure last time, came to the emergency room with not feeling well. Patient sister called me the day before the hospitalization, and she was saying that patient was not able to complicated, was not able to talk, and also started having some weakness tiredness. I told her to bring her to the emergency room immediately. But the patient came the following day to the emergency room. She was able to complicated with the emergency room doctor, she was feeling somewhat weakness tiredness and fatigue. Not able to eat well. Poor appetite noted. Poor intake noted, also some urinary discomfort identified. According to the family she was not able to walk, not able to stand up. Her intake is increasingly down Past medical history: Venous insufficiency, bilateral pedal edema, deep venous thrombosis of the left iliac vein, status post a stent. Congestive heart failure. Renal insufficiency. Allergies: No known drug allergy Personal history: Nonsmoker nonalcoholic Family history noncontributory Surgical history: Left iliac vein stent placement, on anticoagulation Vital signs reviewed No neck vein distention noted Chest good air entry bilaterally, no wheezing or rales noted CVS regular heart sound, no murmur noted Abdomen soft, nontender. 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 Chest x-ray nonspecific. Assessment and recommendation: 86-year-old female with a history of hypertension, chronic venous insufficiency , recent history of recurrent urinary tract infection, ESBL Escherichia coli, iliac vein thrombosis on the left side, status post a stent. Congestive heart failure. Patient now admitted with the possibly sepsis, complicated with urinary tract infection, on altered mental status. Most likely related to urosepsis. On antibiotic. Patient was hospitalized last time with the congestive heart failure, will give gentle IV fluid, and also Lasix. Infectious disease evaluation. We'll continue the anticoagulation. Overall prognosis is guarded. We'll follow the patient. Present on Admission - Present on Admission Any Indicators Present on Admission: No History of DVT/PE: No History of Uncontrolled Diabetes: No Urinary Catheter: No Decubitus Ulcer Present: No Past Patient History - Tetanus Immunizations Tetanus Immunization: Allergy to Tetanus Vaccine - Past Medical History & Family History Past Medical History?: Yes - Past Social History Smoking Status: Never Smoked - CARDIAC Hx Hypercholesterolemia: Yes Hx Hypertension: Yes Hx Peripheral Edema: Yes - PULMONARY Hx Bronchitis: Yes Hx Pulmonary Embolism: No - HEENT Hx Deafness: Yes ((?)) - RENAL Hx Chronic Kidney Disease: No - HEMATOLOGICAL/ONCOLOGICAL Hx Blood Disorders: No Hx Bruising: No - INTEGUMENTARY Hx Dermatological Problems: Yes Hx Cellulitis: Yes - MUSCULOSKELETAL/RHEUMATOLOGICAL Hx Back Pain: Yes Hx Falls: No - GASTROINTESTINAL Hx Gastrointestinal Disorders: Yes - GENITOURINARY/GYNECOLOGICAL Hx Genitourinary Disorders: No - PSYCHIATRIC Hx Substance Use: No - SURGICAL HISTORY Hx Coronary Stent: Yes Other/Comment: back surgery - ANESTHESIA Hx Anesthesia: Yes Hx Anesthesia Reactions: No Hx Malignant Hyperthermia: No Has any member of the family had a problem w/ anesthesia?: No Meds Allergies/Adverse Reactions: Allergies Allergy/AdvReac Type Severity Reaction Status Date / Time No Known Allergies Allergy Verified 03/18/17 12:42 Results - Vital Signs Recent Vital Signs: Last Vital Signs Temp 98.8 F 03/18/17 23:43 Pulse 71 03/18/17 23:43 Resp 20 03/18/17 23:43 BP 115/68 03/18/17 23:43 Pulse Ox 98 03/18/17 23:43 - Labs Result Diagrams: 03/18/17 13:13 03/18/17 13:13
[2017-03-19] MEDS: Multivitamin With Minerals Tab PO SCH (09:30)
[2017-03-19] MEDS: Potassium Chloride 10 mEq ER Tab PO SCH (09:30)
[2017-03-19] MEDS: Saccharomyces Boulardi 250 mg Cap PO SCH ×2 (09:30→17:21)
[2017-03-19] MEDS: Metoprolol Succinate 50 mg XL Tab PO SCH (09:31)
[2017-03-19] MEDS: Sodium Chloride 0.9% 1,000 ML IV SCH ×2 (09:31→14:32)
[2017-03-19] MEDS: Zinc Oxide Topical 30 gm Tube TOP SCH (11:05)
--- NOTE | 2017-03-19 17:27 | CARD ---
APPROVED REPORT EKG Measurement Heart [id number] <Conclusion> Normal sinus rhythm possible left atrial enlargement prolonged QTc interval borderlinel ECG
--- NOTE | 2017-03-19 21:21 | CP.PCM.CON ---
History of Present Illness - History of Present Illness History of Present Illness: INFECTIOUS DISEASE CONSULTATION JOHNSON MADDOX MD, FACP 3T 359-A 03/19/2017 CHART REVIEWED PT EXAMINED CASE DISCUSSED WITH MEDICAL STAFF THIS PT IS 86 YEAR OLD FAILING FEMALE ADMITTED VIA HER SISTER'S CONCERN THAT SHE DEMONSTRATED INCREASED TIREDNESS AND DECREASED COMMUNICATION WITHIN HER FAMILIES INTERACTIONS. SO ED EVALUATION WAS RECOMMENDED. 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 UTI'S MDR/ESBL E COLI UTI'S CHF DECREASED APPETITE AND ANOREXIA RENAL INSUFFICIENCY ETC, ETC. ALLERGIES NOTED IN THE CHART NO RECENT TOBACCO ETOH NOTED IN THE PAST FAMILY HX IS NOT AVAILABLE OR APPLICABLE AT HER AGE VSS AWAKE AND ALERT HARING NOTED SUPPLE CHEST DECREASED BS COR FRAGILE AND MURMUR ABD SOFT EXT LEGS ARE WARM, LEFT LOWER LEG HAS 2 ABRASIONS. LABS PER CHART UTI ON ROCEPHIN, PENDING C/S, SINCE WBC STABLE DEHYDRATION POOR APPETITE, ONLY EATS HOME MEALS NOT [facility] CUISINE. HALF-WAY PROGNOSIS IS LIMITED AND PT IS SLOWLY FAILING. Review of Systems - Review of Systems Systems not reviewed;Unavailable: Altered Mental Status - Constitutional Constitutional: Malaise, Weight Loss, Weakness - EENT Eyes: absent: As Per HPI, Blind Spots, Blurred Vision, Change in Vision, Decreased Night Vision, Diplopia, Discharge, Dry Eye, Exophthalmos, Floaters, Irritation, Itchy Eyes, Loss of Peripheral Vision, Pain, Photophobia, Requires Corrective Lenses, Sees Flashes, Spots in Vision, Tunnel Vision, Other Visual Disturbances, Loss of Vision, Other Ears: Decreased Hearing Nose/Mouth/Throat: Dry Mouth. absent: Nasal Trauma, Nose Pain - Cardiovascular Cardiovascular: Diaphoresis, Leg Ulcers, Pedal Edema. absent: Radiating Pain - Respiratory Respiratory: Dyspnea on Exertion - Gastrointestinal Gastrointestinal: absent: Coffee Ground Emesis, Cramping, Dysphagia, Vomiting - Genitourinary Genitourinary: Change in Urinary Stream - Musculoskeletal Musculoskeletal: Atrophy, Loss of Height, Muscle Weakness, Myalgias - Integumentary Integumentary: Non-Healing Lesions, Skin Ulcer, Swelling - Neurological Neurological: Abnormal Hearing, Vertigo, Weakness - Psychiatric Psychiatric: Anxiety, Behavioral Changes, Memory Loss, Paranoia Past Patient History - Infectious Disease Hx of Infectious Diseases: C.diff, ESL - Tetanus Immunizations Tetanus Immunization: Allergy to Tetanus Vaccine - Past Medical History & Family History Past Medical History?: Yes - Past Social History Smoking Status: Never Smoked Chewing Tobacco Use: No Cigar Use: No Alcohol: Social Drugs: Denies Home Situation {Lives}: With Family - CARDIAC Hx Cardiac Disorders: Yes Hx Congestive Heart Failure: Yes Hx Hypercholesterolemia: Yes Hx Hypertension: Yes Hx Peripheral Edema: Yes - PULMONARY Hx Respiratory Disorders: Yes Hx Asthma: Yes Hx Bronchitis: Yes Hx Pulmonary Embolism: No - HEENT Hx HEENT Problems: Yes Hx Deafness: Yes ((?)) - RENAL Hx Chronic Kidney Disease: No - HEMATOLOGICAL/ONCOLOGICAL Hx Blood Disorders: No Hx Bruising: No - INTEGUMENTARY Hx Dermatological Problems: Yes Hx Cellulitis: Yes - MUSCULOSKELETAL/RHEUMATOLOGICAL Hx Musculoskeletal Disorders: Yes Hx Back Pain: Yes Hx Falls: No - GASTROINTESTINAL Hx Gastrointestinal Disorders: Yes Hx Clostridium Difficile: Yes ((?)) - GENITOURINARY/GYNECOLOGICAL Hx Genitourinary Disorders: Yes Hx Urinary Tract Infection: Yes - PSYCHIATRIC Hx Psychophysiologic Disorder: Yes Hx Anxiety: Yes Hx Depression: Yes Hx Substance Use: No - SURGICAL HISTORY Hx Surgeries: Yes Hx Coronary Stent: Yes Other/Comment: back surgery - ANESTHESIA Hx Anesthesia: Yes Hx Anesthesia Reactions: No Hx Malignant Hyperthermia: No Has any member of the family had a problem w/ anesthesia?: No Meds Allergies/Adverse Reactions: Allergies Allergy/AdvReac Type Severity Reaction Status Date / Time No Known Allergies Allergy Verified 03/18/17 12:42 - Medications Medications: Current Medications Apixaban (Eliquis) 2.5 mg PO DAILY [facility] Last Admin: 03/19/17 09:30 Dose: 2.5 mg Ascorbic Acid (Vitamin C 250 Mg Tab) 250 mg PO BIDPC [facility] Last Admin: 03/19/17 17:21 Dose: 250 mg Aspirin (Aspirin Chewable) 81 mg PO DAILY [facility] Last Admin: 03/19/17 09:30 Dose: 81 mg Famotidine (Pepcid) 20 mg PO DAILY [facility] Last Admin: 03/19/17 09:30 Dose: 20 mg Sodium Chloride (Sodium Chloride 0.9%) 1,000 mls @ 100 mls/hr IV .Q10H [facility] Last Admin: 03/19/17 14:32 Dose: 100 mls/hr Ceftriaxone Sodium 1 gm/ (Sodium Chloride) 100 mls @ 100 mls/hr IVPB DAILY [facility] Last Admin: 03/19/17 09:30 Dose: 100 mls/hr Metoprolol Succinate (Toprol Xl) 50 mg PO DAILY [facility] Last Admin: 03/19/17 09:31 Dose: 50 mg Multivitamins/Minerals (Therapeutic-M Tab) 1 tab PO DAILY [facility] Last Admin: 03/19/17 09:30 Dose: 1 tab Nystatin (Nystop Topical Powder) 1 applic TOP BID [facility] Last Admin: 03/19/17 17:22 Dose: 1 applic Petrolatum (Desitin Original) 0 gm TOP DAILY [facility] Last Admin: 03/19/17 11:05 Dose: 1 applic Potassium Chloride (Klor-Con 10) 10 meq PO DAILY [facility] Last Admin: 03/19/17 09:30 Dose: 10 meq Rosuvastatin Calcium (Crestor) 5 mg PO HS [facility] Last Admin: 03/18/17 22:31 Dose: 5 mg Saccharomyces Boulardii (Florastor) 250 mg PO BID [facility] Last Admin: 03/19/17 17:21 Dose: 250 mg Physical Exam - Constitutional Appears: Non-toxic, No Acute Distress, Older Than Stated Age, Confused, Chronically Ill - Head Exam Head Exam: NORMAL INSPECTION - Eye Exam Eye Exam: Normal appearance - ENT Exam ENT Exam: Mucous Membranes Dry - Respiratory Exam Respiratory Exam: Decreased Breath Sounds, NORMAL BREATHING PATTERN - Cardiovascular Exam Cardiovascular Exam: REGULAR RHYTHM Additional comments: MURMUR(?) - GI/Abdominal Exam GI & Abdominal Exam: Normal Bowel Sounds, Soft - Rectal Exam Rectal Exam: Deferred - Extremities Exam Additional comments: LOWER EXT WARM AND LEFT APPEARS NORMAL COMPARED TO FINDINGS FROM NOVEMBER 2016. - Neurological Exam Neurological exam: Alert, Oriented x3 - Psychiatric Exam Psychiatric exam: Anxious, Flat Affect - Skin Skin Exam: Dry, Warm Results - Vital Signs Recent Vital Signs: Last Vital Signs Temp 98.2 F 03/19/17 16:00 Pulse 72 03/19/17 16:00 Resp 20 03/19/17 16:00 BP 138/71 03/19/17 16:00 Pulse Ox 96 03/19/17 16:00 - Labs Result Diagrams: 03/18/17 13:13 03/18/17 13:13 Assessment & Plan (1) UTI (urinary tract infection) Status: Acute Priority: Medium (2) Ischemic leg Status: Chronic Priority: Low Comment: LEFT MORE THAN RIGHT (3) Left leg DVT Status: Suspected Priority: Low (4) CAD (coronary artery disease) Status: Chronic Priority: Low (5) ESBL (extended spectrum beta-lactamase) producing bacteria infection Status: Resolved Priority: Low
[2017-03-20] MEDS: Sodium Chloride 0.9% 1,000 ML IV SCH ×3 (05:26→18:14)
[2017-03-20] MEDS: Zinc Oxide Topical 30 gm Tube TOP SCH (09:49)
[2017-03-20] MEDS: Potassium Chloride 10 mEq ER Tab PO SCH (09:50)
[2017-03-20] MEDS: Saccharomyces Boulardi 250 mg Cap PO SCH ×2 (09:50→18:13)
[2017-03-20] MEDS: Metoprolol Succinate 50 mg XL Tab PO SCH (09:50)
[2017-03-20] MEDS: Multivitamin With Minerals Tab PO SCH (09:50)
[2017-03-21] MEDS: Sodium Chloride 0.9% 1,000 ML IV SCH ×4 (03:30→23:50)
[2017-03-21 07:51] LABS: HEMATOCRIT 29.9 % (34.0-47.0); MEAN CELL VOLUME 91.2 fL (81.0-99.0); MEAN CORPUSCULAR HEMOGLOBIN 29.7 pg (27.0-31.0); MEAN CORPUSCULAR HGB CONC 32.6 g/dL (33.0-37.0); MEAN PLATELET VOLUME 7.6 fL (7.2-11.7); RED CELL DISTRIBUTION WIDTH 16.1 % (11.5-14.5)
[2017-03-21 08:07] LABS: ALB/GLOB RATIO 0.6 (1.0-2.1); ALKALINE PHOSPHATASE 73 U/L (38-126); ALT/SGPT 22 U/L (9-52); AST/SGOT 17 U/L (14-36); BILIRUBIN,TOTAL 0.2 mg/dL (0.2-1.3); BLOOD UREA NITROGEN 6 mg/dL (7-17); CARBON DIOXIDE 19 mmol/L (22-30); CHLORIDE 111 mmol/L (98-107); GFR AFRICAN-AMERICAN > 60; GLUCOSE,RANDOM 73 mg/dL (65-105); POTASSIUM 3.1 mmol/L (3.6-5.2); SODIUM 140 mmol/L (132-148); TOTAL PROTEIN 4.7 g/dL (6.3-8.3)
[2017-03-21] MEDS: Saccharomyces Boulardi 250 mg Cap PO SCH ×2 (09:38→17:49)
[2017-03-21] MEDS: Metoprolol Succinate 50 mg XL Tab PO SCH (09:39)
[2017-03-21] MEDS: Multivitamin With Minerals Tab PO SCH (09:39)
[2017-03-21] MEDS: Potassium Chloride 10 mEq ER Tab PO SCH (09:39)
[2017-03-21] MEDS: Zinc Oxide Topical 30 gm Tube TOP SCH (11:02)
[2017-03-21 14:46] LABS: RBC URINE 8 /hpf (0-3); URINE BACTERIA MANY (<OCC); URINE BILIRUBIN NEGATIVE (NEGATIVE); URINE BLOOD 2+ (NEGATIVE); URINE COLOR Yellow (YELLOW); URINE GLUCOSE (UA) NORMAL (Normal); URINE KETONE NEGATIVE (NEGATIVE); URINE LEUKOCYTE ESTERASE 3+ Leu/uL (Negative); URINE PROTEIN NEGATIVE (NEGATIVE); URINE UROBILINOGEN NORMAL mg/dL (0.2-1.0); WBC URINE 37 /hpf (0-5)
[2017-03-22] MEDS: Saccharomyces Boulardi 250 mg Cap PO SCH ×3 (08:34→17:12)
[2017-03-22] MEDS: Metoprolol Succinate 50 mg XL Tab PO SCH ×2 (08:34→10:34)
[2017-03-22] MEDS: Multivitamin With Minerals Tab PO SCH ×2 (08:34→13:13)
[2017-03-22] MEDS: Potassium Chloride 10 mEq ER Tab PO SCH ×2 (08:35→10:30)
[2017-03-22] MEDS: Zinc Oxide Topical 30 gm Tube TOP SCH ×2 (10:30→10:34)
[2017-03-23 08:24] LABS: HEMATOCRIT 32.8 % (34.0-47.0); MEAN CELL VOLUME 91.7 fL (81.0-99.0); MEAN CORPUSCULAR HEMOGLOBIN 30.4 pg (27.0-31.0); MEAN CORPUSCULAR HGB CONC 33.2 g/dL (33.0-37.0); RED CELL DISTRIBUTION WIDTH 16.1 % (11.5-14.5); WHITE BLOOD COUNT 12.5 K/uL (4.8-10.8)
[2017-03-23 08:53] LABS: BLOOD UREA NITROGEN 5 mg/dL (7-17); CALCIUM 8.2 mg/dl (8.6-10.4); CARBON DIOXIDE 17 mmol/L (22-30); CHLORIDE 113 mmol/L (98-107); GFR AFRICAN-AMERICAN > 60; GLUCOSE,RANDOM 68 mg/dL (65-105); POTASSIUM 3.1 mmol/L (3.6-5.2); SODIUM 141 mmol/L (132-148)
[2017-03-23] MEDS: Metoprolol Succinate 50 mg XL Tab PO SCH (09:29)
[2017-03-23] MEDS: Saccharomyces Boulardi 250 mg Cap PO SCH ×2 (09:29→17:41)
[2017-03-23] MEDS: Multivitamin With Minerals Tab PO SCH (09:30)
[2017-03-23] MEDS: Zinc Oxide Topical 30 gm Tube TOP SCH (09:30)
[2017-03-23] MEDS: Potassium Chloride 10 mEq ER Tab PO SCH (09:32)
[2017-03-23 16:40] VITALS: RESP 20
--- NOTE | 2017-03-23 19:58 | CP.PCM.PN ---
Subjective - Date & Time of Evaluation Date of Evaluation: 03/23/17 Time of Evaluation: 19:58 - Subjective Subjective: Clinically same. Continue the current treatment. For physical exercise. Rehabilitation awaiting Objective - Vital Signs/Intake and Output Vital Signs (last 24 hours): Temp Pulse Resp BP Pulse Ox 97.9 F 74 20 159/77 H 98 03/23/17 16:00 03/23/17 16:00 03/23/17 16:00 03/23/17 16:00 03/23/17 16:00 Intake and Output: 03/23/17 03/24/17 18:59 06:59 Intake Total 780 Balance 780 - Medications Medications: Current Medications Apixaban (Eliquis) 2.5 mg PO DAILY [facility] Last Admin: 03/23/17 09:30 Dose: 2.5 mg Ascorbic Acid (Vitamin C 250 Mg Tab) 250 mg PO BIDPC [facility] Last Admin: 03/23/17 17:41 Dose: 250 mg Aspirin (Aspirin Chewable) 81 mg PO DAILY [facility] Last Admin: 03/23/17 09:30 Dose: 81 mg Famotidine (Pepcid) 20 mg PO DAILY [facility] Last Admin: 03/23/17 09:30 Dose: 20 mg Ceftriaxone Sodium 1 gm/ (Sodium Chloride) 100 mls @ 100 mls/hr IVPB DAILY [facility] Last Admin: 03/23/17 10:16 Dose: 100 mls/hr Metoprolol Succinate (Toprol Xl) 50 mg PO DAILY [facility] Last Admin: 03/23/17 09:29 Dose: 50 mg Multivitamins/Minerals (Therapeutic-M Tab) 1 tab PO DAILY [facility] Last Admin: 03/23/17 09:30 Dose: 1 tab Nystatin (Nystop Topical Powder) 1 applic TOP BID [facility] Last Admin: 03/23/17 17:47 Dose: 1 applic Petrolatum (Desitin Original) 0 gm TOP DAILY [facility] Last Admin: 03/23/17 09:30 Dose: 1 applic Potassium Chloride (Klor-Con 10) 10 meq PO DAILY [facility] Last Admin: 03/23/17 09:32 Dose: 10 meq Rosuvastatin Calcium (Crestor) 5 mg PO HS [facility] Last Admin: 03/22/17 21:34 Dose: 5 mg Saccharomyces Boulardii (Florastor) 250 mg PO BID [facility] Last Admin: 03/23/17 17:41 Dose: 250 mg - Labs Labs: 03/23/17 08:20 03/23/17 08:20
[2017-03-24] MEDS: Zinc Oxide Topical 30 gm Tube TOP SCH (09:35)
[2017-03-24] MEDS: Saccharomyces Boulardi 250 mg Cap PO SCH ×2 (09:36→17:51)
[2017-03-24] MEDS: Multivitamin With Minerals Tab PO SCH (09:36)
[2017-03-24] MEDS: Metoprolol Succinate 50 mg XL Tab PO SCH (09:36)
[2017-03-24] MEDS: Potassium Chloride 10 mEq ER Tab PO SCH (09:36)
[2017-03-24 15:38] VITALS: BP 153/83; PULSE 71; TEMP 98.1; O2SAT 98
--- NOTE | 2017-03-24 15:39 | CP.PCM.PN ---
Subjective - Date & Time of Evaluation Date of Evaluation: 03/24/17 Time of Evaluation: 15:37 - Subjective Subjective: PT CLEARED FOR D/C BY DR. MCLEOD YESTERDAY. WAS PENDING REFERRAL AND ACCEPTANCE TO [facility]. PT ACCEPTED AND CLEARED TO BE D/C TO [facility] TODAY WITH PO ABX PER DR. MCLEOD. REPEAT K LEVEL RESULTED PRIOR TO D/C SINCE IT WAS 3.1 YESTERDAY. REGARDLESS, PT WILL CONTINUE PO K WHILE AT [facility]. TO ARRANGE TRANSPORTATION. NO FURTHER ORDERS. Objective - Vital Signs/Intake and Output Vital Signs (last 24 hours): Temp Pulse Resp BP Pulse Ox 97.5 F L 83 20 134/71 97 03/24/17 08:13 03/24/17 14:13 03/24/17 08:13 03/24/17 14:13 03/24/17 14:13 Intake and Output: 03/24/17 03/24/17 06:59 18:59 Intake Total 540 580 Balance 540 580 - Medications Medications: Current Medications Apixaban (Eliquis) 2.5 mg PO DAILY [facility] Last Admin: 03/24/17 09:37 Dose: 2.5 mg Ascorbic Acid (Vitamin C 250 Mg Tab) 250 mg PO BIDPC [facility] Last Admin: 03/24/17 09:37 Dose: 250 mg Aspirin (Aspirin Chewable) 81 mg PO DAILY [facility] Last Admin: 03/24/17 09:36 Dose: 81 mg Famotidine (Pepcid) 20 mg PO DAILY [facility] Last Admin: 03/24/17 09:36 Dose: 20 mg Ceftriaxone Sodium 1 gm/ (Sodium Chloride) 100 mls @ 100 mls/hr IVPB DAILY [facility] Last Admin: 03/24/17 09:35 Dose: 100 mls/hr Metoprolol Succinate (Toprol Xl) 50 mg PO DAILY [facility] Last Admin: 03/24/17 09:36 Dose: 50 mg Multivitamins/Minerals (Therapeutic-M Tab) 1 tab PO DAILY [facility] Last Admin: 03/24/17 09:36 Dose: 1 tab Nystatin (Nystop Topical Powder) 1 applic TOP BID [facility] Last Admin: 03/24/17 09:35 Dose: 1 applic Petrolatum (Desitin Original) 0 gm TOP DAILY [facility] Last Admin: 03/24/17 09:35 Dose: 1 applic Potassium Chloride (Klor-Con 10) 10 meq PO DAILY [facility] Last Admin: 03/24/17 09:36 Dose: 10 meq Rosuvastatin Calcium (Crestor) 5 mg PO HS [facility] Last Admin: 03/23/17 22:20 Dose: Not Given Saccharomyces Boulardii (Florastor) 250 mg PO BID [facility] Last Admin: 03/24/17 09:36 Dose: 250 mg - Labs Labs: 03/23/17 08:20 03/23/17 08:20
--- NOTE | 2017-04-27 16:44 | PN ---
DATE: 03/20/2017 TIME: At 6:30 p.m. SUBJECTIVE: The patient is clinically unchanged. Weakness noted. The patient is able to eat slightly better than before. PHYSICAL EXAMINATION: VITAL SIGNS: Temperature is 98, pulse is 82, blood pressure 137/69, saturation 97% on room air. Clinical examination is unremarkable. Bilateral pedal edema on left noted than before. ASSESSMENT AND RECOMMENDATION: An 86-year-old female with history of hypertension; history of venous thrombosis, status post IVC filter, weakness, admitted with urinary tract infection and dehydration and fall, improving at this time. We will continue the physical therapy. Clara Landeros MD
--- NOTE | 2017-04-27 16:51 | PN ---
SUBJECTIVE: The patient is an 86-year-old female with history of hypertension, also has a history of recurrent cellulitis, pedal edema, admitted with deep venous thrombosis, chronic history and on anticoagulation. The patient admitted with fall, urinary tract infection, and dehydration, clinically improving. Poor intake still noted. The patient will need physical therapy. Discussed with the family, the patient will be discharged to the rehabilitation once the bed is available, but otherwise the patient is clinically stable. Clara Landeros MD
--- NOTE | 2017-04-27 16:58 | PN ---
SUBJECTIVE: The patient is lying down on the bed, not able to sit up at this time. Poor intake noted. No abdominal pain; having bowel movements regularly; leg swelling is improving; minimal dressed wound on the left lower extremity noted. No chest pain. No cough. The patient is feeling extremely weak, otherwise doing well. Labs reviewed, nonspecific. The patient is currently awaiting bed for rehabilitation. She will be continued to receive the physical therapy. We will follow up with the patient. Clara Landeros MD
--- NOTE | 2017-04-27 18:14 | PN ---
DATE: 03/19/2017 SUBJECTIVE: The patient was seen by me around 6:30 p.m. I discussed earlier with infectious disease event management consultant. The patient was hospitalized with fall and weakness. According to the patient's sister, she is not eating well. She was having increasing discomfort, poor intake and increasingly lethargic, not able to standup. Suspected urinary tract infection, placed on IV antibiotic. Possibility of dehydration. The patient is now more awake and responding. She is not in any distress at this time. PHYSICAL EXAMINATION: VITAL SIGNS: Reviewed. Temperature 97.5, pulse 73, blood pressure is 153/76, respiration is 20, saturation 93%. Clinically examination unremarkable otherwise. ASSESSMENT AND RECOMMENDATIONS: An 86-year-old female with history of multiple medical problems including hypertension, recurrent urinary tract infection, left iliac venous thrombosis, status post stent and IVC filter, now admits with renal insufficiency, urinary tract infection and dehydration. We will continue with IV hydration, physical therapy, discussed with family. We will followup with the patient. Clara Landeros MD
--- NOTE | 2017-04-28 08:59 | DS ---
HISTORY: This is an 86-year-old female with a history of hypertension, chronic venous thrombosis, recurrent history of urinary tract infection, left iliac venous thrombosis, status post stent and history of congestive heart failure, history of respiratory failure before admission, congestive heart failure, admitted to the hospital with fall, weakness, poor intake, and lethargy. The patient during the hospitalization was noted to have urinary tract infection, placed on IV antibiotic and IV fluid. Infectious Disease evaluation was called. Clinically, the patient started showing improvement. Discussed with the patient's family member. Medications reviewed. The patient will be discharged to the rehabilitation. She will be receiving physical therapy and also antibiotic as needed. FINAL DIAGNOSES: Urinary tract infection, dehydration, dementia, fall, injury, left leg edema, bilateral pedal edema, venous insufficiency, hypertension, history of deep venous thrombosis, and inferior vena cava filter. Overall, prognosis is guarded. Discussed with the family member. She will be discharged to the rehabilitation. TIME SPENT: Forty five minutes. Clara Landeros MD
--- NOTE | 2017-04-28 08:59 | PN ---
DATE: 03/21/2017 SUBJECTIVE: The patient's clinical condition is unchanging. PHYSICAL EXAMINATION VITAL SIGNS: Temperature is 97.5, pulse 79, blood pressure 163/71, respirations 20, saturation 97%. Clinical examination is unchanging. The patient is feeling comfortable, but poor intake noted. Leg swelling is much improving. Discussed with family. The patient is agreeing for discharge to the rehabilitation. We will continue to do the Physical Therapy, Grain Broker evaluation. We will follow up the patient. Clara Landeros MD
--- NOTE | 2017-04-28 11:59 | PQF SEPSIS ---
This form is a permanent part of the medical record To Leti Elizabeth MD Patient with history of HTN/CHF , Recurrent UTI , Chronic Venous, Status post Stent, Respiratory Failure. Came to the ER with not feeling well. Weakness tiredness, dehydration, altered Mental Status. Please clarify if SEPSIS was ruled in or ruled out. Thank you, Clarification of your documentation is requested to better reflect the severity of illness and intensity of treatment of your patient. Indicators present [] Temp < 96.8 or > 100.4 [X] WBC count > 12,000/mm3 or <000/mm3 or 10% immature neutrophils [] Heart Rate > 90 [] Respiratory Rate > 20 [] Fever or hypothermia [] Chills [] Positive blood cultures [] Hypotension [] Metabolic acidosis (Elevated lactate level, anion gap or reduced blood pH) [X] Acute confusion /Altered Mental Status [] Shock [X] Other: [] Lethargy/Weakness Dehydration Location in the medical record that reflects the above clinical findings: [ X] History and Physical --- " Patient now admitted with possible Sepsis complicated with UTI, on Altered Mental Status, most likey related to UROSEPSIS. Treatment Provided: [] PHYSICIAN'S RESPONSE Based on your medical judgment of the clinical indicators outlined above, are you treating this patient for a known or suspected: [] Sepsis / Septicemia Please specify organism if known [] [x] SIRS (Systemic Inflammatory Response Syndrome) [] Severe Sepsis (Sepsis with Associated Organ Dysfunction) [] Fever of Unknown Origin [] Other, please indicate: [] [] If Unable to Determine, please check the box, sign and date. Present On Admission (POA) Indicator: [] Present at the time of admission [] Not present at the time of admission [] Clinically Undetermined In responding to this query, please exercise your independent professional judgment. The fact that a question is asked does not imply that any particular answer is desired or expected. Thank you for your clarification on this documentation. If you have any questions please call:[ ] * Thank you, [ Nadine Reid, [facility] ] scroll shear operator RAINE
== END 2017-03-24 21:00 | DRG 690 ==
LOC: C.ER 12:35 → C.9E 14:33 → C.3T 16:37
PROVIDERS: ADMIT Internal Medicine; ATTEND Internal Medicine
DX: N39.0 Urinary tract infection, site not specified (principal); I50.9 Heart failure, unspecified; I11.0 Hypertensive heart disease with heart failure; F03.90 Unspecified dementia, unspecified severity, without behavioral disturbance, psychotic disturbance, mood disturbance, and anxiety; I87.1 Compression of vein; E86.0 Dehydration; Z95.5 Presence of coronary angioplasty implant and graft; E78.00 Pure hypercholesterolemia, unspecified; H91.90 Unspecified hearing loss, unspecified ear; J45.909 Unspecified asthma, uncomplicated; I99.8 Other disorder of circulatory system; I25.10 Atherosclerotic heart disease of native coronary artery without angina pectoris; Z91.81 History of falling; I87.2 Venous insufficiency (chronic) (peripheral); Z86.718 Personal history of other venous thrombosis and embolism

== ENCOUNTER 2017-12-09 11:45 | Observation (INO) | payer MEDICARE, OTHER ==
[2017-12-09 11:45] VITALS: BMI 30.2
[2017-12-09 13:41] LABS: BASO # 0.1 K/uL (0.0-0.2); BASO % 1.2 % (0.0-2.0); EOS # 0.5 K/uL (0.0-0.7); EOS % 5.9 % (0.0-4.0); HEMOGLOBIN 9.8 g/dL (11.0-16.0); LYMPH # 2.3 K/uL (1.0-4.3); LYMPH % 25.3 % (20.0-40.0); MEAN CELL VOLUME 92.4 fL (81.0-99.0); MEAN CORPUSCULAR HEMOGLOBIN 31.2 pg (27.0-31.0); MEAN CORPUSCULAR HGB CONC 33.8 g/dL (33.0-37.0); MEAN PLATELET VOLUME 7.8 fL (7.2-11.7); MONO # 0.6 K/uL (0.0-0.8); MONO % 6.3 % (0.0-10.0); NEUT # 5.6 K/uL (1.8-7.0); NEUT % 61.3 % (50.0-75.0); NRBC % 0.1 % (0.0-2.0); RBC 3.14 Mil/uL (3.80-5.20); RED CELL DISTRIBUTION WIDTH 15.6 % (11.5-14.5); WHITE BLOOD COUNT 9.2 K/uL (4.8-10.8)
[2017-12-09 13:43] LABS: SQUAMOUS EPITHIAL 3 /hpf (0-5); URINE BACTERIA RARE (<OCC); URINE BILIRUBIN NEGATIVE (NEGATIVE); URINE BLOOD NEGATIVE (NEGATIVE); URINE CLARITY Clear (Clear); URINE COLOR Yellow (YELLOW); URINE GLUCOSE (UA) NORMAL (Normal); URINE LEUKOCYTE ESTERASE NEG Leu/uL (Negative); URINE PROTEIN 2+ mg/dL (NEGATIVE)
--- NOTE | 2017-12-09 13:49 | RAD ---
HISTORY: SOB COMPARISON: 03/18/2017 TECHNIQUE: Chest PA and lateral FINDINGS: LUNGS: No active pulmonary disease. PLEURA: No significant pleural effusion identified. No pneumothorax apparent. CARDIOVASCULAR: Normal. OSSEOUS STRUCTURES: No significant abnormalities. VISUALIZED UPPER ABDOMEN: Normal. OTHER FINDINGS: None. IMPRESSION: No active disease.
[2017-12-09 13:54] LABS: ALBUMIN 3.8 g/dL (3.5-5.0); ALT/SGPT 14 U/L (9-52); AST/SGOT 30 U/L (14-36); BLOOD UREA NITROGEN 22 mg/dL (7-17); CALCIUM 8.9 mg/dl (8.6-10.4); GFR AFRICAN-AMERICAN > 60; GFR NON-AFRICAN AMERICAN > 60
--- NOTE | 2017-12-09 13:58 | C.PDOC ---
History Of Present Illness 87 year old female is brought to the ED by her logistics supervisor for evaluation of swelling to her bilateral legs. Patient's logistics supervisor suspects the areas as infected, and states they have been this way for a long time. Otherwise, he denies fever, chills, shortness of breath, or known trauma/injuries to the area on patient's behalf. Patient also reports that she has mid sternal chest pain Time Seen by Provider: 12/09/17 12:31 Chief Complaint (Nursing): Lower Extremity Problem/Injury History Per: Patient, Other (logistics supervisor ) History/Exam Limitations: no limitations Onset/Duration Of Symptoms: Days Current Symptoms Are (Timing): Still Present Additional History Per: Patient Past Medical History Reviewed: Historical Data, Nursing Documentation, Vital Signs Vital Signs: Last Vital Signs Temp 97.3 F L 12/09/17 15:33 Pulse 74 12/09/17 15:33 Resp 20 12/09/17 15:33 BP 167/76 H 12/09/17 15:33 Pulse Ox 100 12/09/17 16:45 - Medical History PMH: Anxiety, Arthritis (back,knees), Asthma, Bronchitis, CHF, COPD (Bronchitis) , Depression, HTN, Hypercholesterolemia, Peripheral Edema Denies: Pulmonary Embolism, Chronic Kidney Disease Surgical History: Back Surgery, Coronary Stent - [facility] Procedures DILATE OF L COM ILIAC VEIN WITH INTRALUM DEV, PERC APPROACH (11/12/16) EXTIRPATION OF MATTER FROM L EXT ILIAC VEIN, PERC APPROACH (11/12/16) EXTIRPATION OF MATTER FROM LEFT FEMORAL VEIN, PERC APPROACH (11/12/16) INSERTION OF INFUSION DEV INTO SUP VENA CAVA, PERC APPROACH (11/12/16) INSERTION OF INTRALUM DEV INTO INF VENA CAVA, PERC APPROACH (11/12/16) ULTRASONOGRAPHY OF LEFT LOWER EXTREMITY VEINS, INTRAVASCULAR (11/12/16) ULTRASONOGRAPHY OF SUPERIOR VENA CAVA, GUIDANCE (11/12/16) Family History: States: Unknown Family Hx - Social History Hx Tobacco Use: No Hx Alcohol Use: No Hx Substance Use: No - Immunization History Hx Tetanus Toxoid Vaccination: Yes Hx Influenza Vaccination: Yes Hx Pneumococcal Vaccination: Yes Review Of Systems Constitutional: Negative for: Fever, Chills Cardiovascular: Positive for: Chest Pain Respiratory: Negative for: Shortness of Breath Skin: Positive for: Other (swelling to bilateral legs ) Physical Exam - Physical Exam Appears: Non-toxic, No Acute Distress Skin: Normal Color, Warm, Dry, Other (slight erythema noted to bilateral lower extremities, no warmth. surgical scarring noted to bilateral lower extremities ) Head: Atraumatic, Normacephalic Eye(s): bilateral: Normal Inspection, PERRL Oral Mucosa: Moist Neck: Supple Chest: Symmetrical, No Deformity, No Tenderness Cardiovascular: Rhythm Regular, Edema (bilateral LE), No Murmur Respiratory: Normal Breath Sounds, No Rales, No Rhonchi, No Wheezing Gastrointestinal/Abdominal: Normal Exam Extremity: Normal ROM, Capillary Refill (less than 2 seconds ), Swelling (mild, to bilateral lower extremities ) Pulses: Left Dorsalis Pedis: Normal, Right Dorsalis Pedis: Normal Neurological/Psych: Oriented x3, Normal Speech, Normal Cognition Gait: Unable To Assess ED Course And Treatment - Laboratory Results Result Diagrams: 12/09/17 13:34 12/09/17 13:34 Lab Interpretation: No Acute Changes ECG: Interpreted By Mn ECG Rhythm: Sinus Rhythm ECG Interpretation: No Acute Changes Rate From EC O2 Sat by Pulse Oximetry: 100 (on RA) Pulse Ox Interpretation: Normal - Radiology CXR: Interpreted by Mn CXR Interpretation: Yes: No Acute Disease Progress Note: Bloodwork, urinalysis, CXR, EKG, Venous Duplex Scan bilateral lower extremities ordered. Bilateral venous dopplers (-) DVT Reassessment Condition: Improved - Physician Consult Information Physician Contacted: Clara Landeros Outcome Of Conversation: admit Disposition Discussed With : Clara Landeros Doctor Will See Patient In The: Hospital - Disposition Disposition: HOSPITALIZED Disposition Time: 15:30 Condition: STABLE - POA Present On Arrival: None - Clinical Impression Clinical Impression: Chest pain - PA / ASSISTANT HVAC MECHANIC / Resident Statement MD/DO has reviewed & agrees with the documentation as recorded. - Scribe Statement The provider has reviewed the documentation as recorded by the Scribe (Latanya Melendez) All medical record entries made by the Scribe were at my direction and personally dictated by me. I have reviewed the chart and agree that the record accurately reflects my personal performance of the history, physical exam, medical decision making, and the department course for this patient. I have also personally directed, reviewed, and agree with the discharge instructions and disposition. Decision To Admit - Pt Status Changed To: Hospital Disposition Of: Observation - . Bed Request Type: Telemetry Admitting Physician: Clara Landeros Patient Diagnosis: Chest pain
[2017-12-09 14:02] LABS: B-TYPE NATRIURETIC PEPTIDE 2920 pg/mL (0-900)
[2017-12-09 19:42] VITALS: RESP 20
--- NOTE | 2017-12-09 21:04 | CP.PCM.HP ---
History of Present Illness - History of Present Illness History of Present Illness: Chief complaint: shortness of breath, chest pain History present illness: 87-year-old female with history of hypertension, chronic venous insufficiency, recent history of recurrent urinary tract infection, left iliac vein DVT, status post a stent, congestive heart failure, history of respiratory failure, came to the emergency room because of shortness of breath. Patient called her PMD today complaining of some shortness of breath, and also having some chest discomfort. Mediately patient was told to go to emergency room. In the emergency room she was also complaining of chest discomfort, because of that patient needed hospitalization. She was having minimal shortness of viviane, she did have sweating at that time. Palpitation negative. She was complaining of some wheezing, runny nose, allergy related symptoms Past medical history: Venous insufficiency, bilateral pedal edema, deep venous thrombosis of the left iliac vein, status post a stent. Congestive heart failure. Renal insufficiency. Allergies: No known drug allergy Personal history: Nonsmoker nonalcoholic Family history noncontributory Surgical history: Left iliac vein stent placement, on anticoagulation Vital signs reviewed No neck vein distention noted Chest good air entry bilaterally, no wheezing or rales noted CVS regular heart sound, no murmur noted Abdomen soft, nontender. Extremities no pedal edema MOSAIC LAYER alert awake oriented 3, no functional neurological deficit chest x-ray minimal vascular congestion noted Labs reviewed Nonspecific Assessment and recommendation: 87-year-old female with a history of hypertension, chronic venous insufficiency , recent history of recurrent urinary tract infection, ESBL Escherichia coli, iliac vein thrombosis on the left side, status post a stent. history of Congestive heart failure. now admitted with shortness of breath, and chest pain. Likely asthma exacerbation, are allergy related. Chest pain, rule out mycotic ischemia. Will get cardiac enzymes. Continue anticoagulation Spoke to the patient If pain symptoms are negative, possibly discharge tomorrow. Present on Admission - Present on Admission Any Indicators Present on Admission: No History of DVT/PE: No History of Uncontrolled Diabetes: No Urinary Catheter: No Decubitus Ulcer Present: No Past Patient History - Infectious Disease Hx of Infectious Diseases: C.diff, ESL - Tetanus Immunizations Tetanus Immunization: Allergy to Tetanus Vaccine - Past Medical History & Family History Past Medical History?: Yes - Past Social History Smoking Status: Never Smoked - CARDIAC Hx Congestive Heart Failure: Yes Hx Hypercholesterolemia: Yes Hx Hypertension: Yes Hx Peripheral Edema: Yes - PULMONARY Hx Asthma: Yes Hx Bronchitis: Yes Hx Chronic Obstructive Pulmonary Disease (COPD): Yes (Bronchitis) Hx Pulmonary Embolism: No - HEENT Hx HEENT Problems: Yes Hx Deafness: Yes ((?)) - RENAL Hx Chronic Kidney Disease: No - HEMATOLOGICAL/ONCOLOGICAL Hx Blood Disorders: No Hx Bruising: No - INTEGUMENTARY Hx Dermatological Problems: Yes Hx Cellulitis: Yes - MUSCULOSKELETAL/RHEUMATOLOGICAL Hx Arthritis: Yes (back,knees) - GASTROINTESTINAL Hx Gastrointestinal Disorders: Yes Hx Clostridium Difficile: Yes ((?)) - GENITOURINARY/GYNECOLOGICAL Hx Genitourinary Disorders: Yes Hx Urinary Tract Infection: Yes - PSYCHIATRIC Hx Anxiety: Yes Hx Depression: Yes Hx Substance Use: No - SURGICAL HISTORY Hx Coronary Stent: Yes - ANESTHESIA Hx Anesthesia: Yes Hx Anesthesia Reactions: No Hx Malignant Hyperthermia: No Meds Allergies/Adverse Reactions: Allergies Allergy/AdvReac Type Severity Reaction Status Date / Time No Known Allergies Allergy Verified 12/09/17 12:10 Results - Vital Signs Recent Vital Signs: Last Vital Signs Temp 97.5 F L 12/09/17 19:41 Pulse 69 12/09/17 19:41 Resp 20 12/09/17 19:41 BP 136/74 12/09/17 19:41 Pulse Ox 100 12/09/17 19:41 - Labs Result Diagrams: 12/09/17 13:34 12/09/17 13:34 Labs: Laboratory Results - last 24 hr 12/09/17 12/09/17 12/09/17 13:34 13:34 13:34 WBC 9.2 RBC 3.14 L Hgb 9.8 L Hct 29.0 L MCV 92.4 MCH 31.2 H MCHC 33.8 RDW 15.6 H Plt Count 377 D MPV 7.8 Neut % (Auto) 61.3 Lymph % (Auto) 25.3 [place] % (Auto) 6.3 Eos % (Auto) 5.9 H Baso % (Auto) 1.2 Neut # (Auto) 5.6 Lymph # (Auto) 2.3 [place] # (Auto) 0.6 Eos # (Auto) 0.5 Baso # (Auto) 0.1 Sodium 143 Potassium 4.7 Chloride 107 Carbon Dioxide 23 Anion Gap 18 BUN 22 H Creatinine 0.8 Est GFR ( Amer) > 60 Est GFR (Non-Af Amer) > 60 Random Glucose 94 Calcium 8.9 Total Bilirubin 0.9 AST 30 ALT 14 Alkaline Phosphatase 142 H D Total Creatine Kinase CK-MB (Mass) Troponin I NT-Pro-B Natriuret Pep 2920 H Total Protein 7.8 Albumin 3.8 Globulin 4.0 H Albumin/Globulin Ratio 1.0 Urine Color Yellow Urine Clarity Clear Urine pH 6.0 Ur Specific Babb 1.020 Urine Protein 2+ H Urine Glucose (UA) Normal Urine Ketones Negative Urine Blood Negative Urine Nitrate Negative Urine Bilirubin Negative Urine Urobilinogen 4.0 H Ur Leukocyte Esterase Neg Urine WBC (Auto) 1 Urine RBC (Auto) 9 H Ur Squamous Epith Cells 3 Urine Bacteria Rare 12/09/17 12/09/17 13:40 19:46 WBC RBC Hgb Hct MCV MCH MCHC RDW Plt Count MPV Neut % (Auto) Lymph % (Auto) [place] % (Auto) Eos % (Auto) Baso % (Auto) Neut # (Auto) Lymph # (Auto) [place] # (Auto) Eos # (Auto) Baso # (Auto) Sodium Potassium Chloride Carbon Dioxide Anion Gap BUN Creatinine Est GFR ( Amer) Est GFR (Non-Af Amer) Random Glucose Calcium Total Bilirubin AST ALT Alkaline Phosphatase Total Creatine Kinase 50 CK-MB (Mass) 2.50 Troponin I < 0.0120 < 0.0120 NT-Pro-B Natriuret Pep Total Protein Albumin Globulin Albumin/Globulin Ratio Urine Color Urine Clarity Urine pH Ur Specific Babb Urine Protein Urine Glucose (UA) Urine Ketones Urine Blood Urine Nitrate Urine Bilirubin Urine Urobilinogen Ur Leukocyte Esterase Urine WBC (Auto) Urine RBC (Auto) Ur Squamous Epith Cells Urine Bacteria
[2017-12-10] MEDS ORDERED: Metoprolol Succinate 50 mg XL Tab PO SCH (10:00)
[2017-12-10] MEDS ORDERED: Potassium Chloride 10 mEq ER Tab PO SCH (10:00)
[2017-12-10] MEDS ORDERED: Saccharomyces Boulardi 250 mg Cap PO SCH (10:00)
[2017-12-10 10:17] LABS: CK-MB 1.51 ng/mL (0.0-3.38)
--- NOTE | 2017-12-10 11:19 | CP.PCM.PN ---
Subjective - Date & Time of Evaluation Date of Evaluation: 12/10/17 Time of Evaluation: 11:16 - Subjective Subjective: PT CLEARED FOR D/C TODAY PER DR. MCLEOD. PT TO HAVE ECHO DONE NOW AND F/U WITH DR. MCLEOD IN THE OFFICE NEXT WEEK TO DISCUSS RESULTS. NO NEW MEDS TO BE GIVEN TODAY. CONTINUE HOME MEDS USUAL. PT'S SISTER TO PICK HER UP THIS AFTERNOON PER DR. CUNNINGHAM. NO FURTHER ORDERS. -FOLLOW UP WITH DR. MCLEOD IN THE OFFICE WITHIN 1 WEEK OF DISCHARGE---CALL THE OFFICE TO MAKE YOUR APPOINTMENT. -DURING YOUR FOLLOW UP VISIT WITH DR. MCLEOD, HE WILL DISCUSS WITH YOU THE ECHOCARDIOGRAM RESULTS (THE RESULTS MAY TAKE SEVERAL DAYS TO COME BACK). -CONTINUE HOME MEDICATIONS USUAL; NO NEW MEDICATIONS GIVEN TODAY. -FOR FURTHER QUESTIONS OR CONCERNS, CONTACT DR. MCLEOD'S OFFICE. Objective - Vital Signs/Intake and Output Vital Signs (last 24 hours): Temp Pulse Resp BP Pulse Ox 97.8 F 80 20 189/74 H 96 12/10/17 08:42 12/10/17 08:42 12/10/17 08:42 12/10/17 08:42 12/10/17 08:42 Intake and Output: 12/10/17 12/10/17 06:59 18:59 Intake Total 250 Output Total 450 Balance -200 - Medications Medications: Current Medications Apixaban (Eliquis) 2.5 mg PO Q12 [facility] Last Admin: 12/10/17 09:23 Dose: 2.5 mg Ascorbic Acid (Vitamin C 250 Mg Tab) 250 mg PO BIDPC [facility] Last Admin: 12/10/17 09:22 Dose: 250 mg Aspirin (Aspirin Chewable) 81 mg PO DAILY [facility] Last Admin: 12/10/17 09:22 Dose: 81 mg Famotidine (Pepcid) 20 mg PO DAILY [facility] Last Admin: 12/10/17 09:22 Dose: 20 mg Metoprolol Succinate (Toprol Xl) 50 mg PO DAILY [facility] Last Admin: 12/10/17 09:22 Dose: 50 mg Potassium Chloride (Klor-Con 10) 10 meq PO DAILY [facility] Last Admin: 12/10/17 09:22 Dose: 10 meq Rosuvastatin Calcium (Crestor) 5 mg PO HS [facility] Last Admin: 12/09/17 22:10 Dose: 5 mg Saccharomyces Boulardii (Florastor) 250 mg PO BID [facility] Last Admin: 12/10/17 09:23 Dose: 250 mg - Labs Labs: 12/09/17 13:34 12/09/17 13:34
--- NOTE | 2017-12-10 12:12 | VASCLAB ---
PROCEDURE: Lower Extremity Venous Duplex Exam. HISTORY: Edema PRIORS: None. TECHNIQUE: Bilateral common femoral, femoral, popliteal and posterior tibial, peroneal and great saphenous veins were evaluated. Flow was assessed with color Doppler, compressibility, assessment of phasic flow and augmentation response. Report prepared by KRISTAL Castro, RVT FINDINGS: RIGHT: 1. Common Femoral Vein: 1.1. Compressibility - Fully compressible: Thrombus - None : Flow - Phasic: Augmentation -Normal: Reflux - None. 2. Femoral Vein: 2.1. Compressibility - Fully compressible: Thrombus - None : Flow - Phasic: Augmentation -Normal: Reflux - None. 3. Popliteal Vein: 3.1. Compressibility - Fully compressible: Thrombus - None : Flow - Phasic: Augmentation -Normal: Reflux - None. 4. Posterior Tibial Vein: 4.1. Compressibility - Fully compressible: Thrombus - None: Flow - Phasic: Augmentation -Normal: Reflux - None. 5. Peroneal Vein: 5.1. Compressibility - Fully compressible: Thrombus - None: Flow - Phasic: Augmentation -Normal: Reflux - None. 6. Great Saphenous Vein: 6.1. Compressibility - Fully compressible: Thrombus - None: Flow - Phasic: Augmentation - Normal: Reflux - None. LEFT: 1. Common Femoral Vein: 1.1. Compressibility - Fully compressible: Thrombus - None: Flow - Phasic: Augmentation -Normal: Reflux - None. 2. Femoral Vein: 2.1. Compressibility - Fully compressible: Thrombus - None: Flow - Phasic: Augmentation -Normal: Reflux - None. 3. Popliteal Vein: 3.1. Compressibility - Fully compressible: Thrombus - None : Flow - Phasic: Augmentation -Normal: Reflux - None. 4. Posterior Tibial Vein: 4.1. Compressibility - Fully compressible: Thrombus - None: Flow - Phasic: Augmentation -Normal: Reflux - None. 5. Peroneal Vein: 5.1. Compressibility - Fully compressible: Thrombus - None: Flow - Phasic: Augmentation -Normal: Reflux - None. 6. Great Saphenous Vein: 6.1. Compressibility - Fully compressible: Thrombus - None: Flow - Phasic: Augmentation - Normal: Reflux - None. OTHER FINDINGS: Right: None significant. Left: None significant. IMPRESSION: Right: No evidence of deep or superficial vein thrombosis of the right lower extremity. Normal valve function noted of the right side. Left: No evidence of deep or superficial vein thrombosis of the left lower extremity. Normal valve function noted of the left side.
[2017-12-10 16:20] VITALS: BP 192/73; PULSE 60; TEMP 97.9; O2SAT 98
--- NOTE | 2017-12-10 20:35 | CARD ---
APPROVED REPORT EXAM: Two-dimensional and M-mode echocardiogram with Doppler and color Doppler. INDICATION Peripheral Edema CAD Congestive Heart Failure RISK FACTORS Hypertension 2D DIMENSIONS IVSd1.2 (0.7-1.1cm)LVDd3.8 (3.9-5.9cm) LVOT Diameter1.9 (1.8-2.4cm)PWd1.3 (0.7-1.1cm) LVDs2.7 (2.5-4.0cm)FS (%) 28.3 % LVEF (%)55.4 (>50%) M-Mode DIMENSIONS Left Atrium (MM)3.97 (2.5-4.0cm)Aortic Root2.98 (2.2-3.7cm) Aortic Cusp Exc.1.39 (1.5-2.0cm) Aortic Valve AoV Peak Dygutwfw909.5cm/sAoV VTI73.5cmAO Peak GR.40mmHg LVOT Peak Bpdvimec11.9cm/sLVOT VTI19.97cmAO Mean GR.24mmHg CYRIL (VMAX)0.43tv9GVI (VTI)0.58jj9YL P 1/2 Qqee343fx Mitral Valve MV E Fjlykofc66.9cm/sMV A Oiljbhha49.9cm/sE/A ratio1.1 TDI E/Lateral E'0.0E/Medial E'0.0 Tricuspid Valve TR Peak Fqbbajxt505pu/sTR Peak Gr.86zsAxMVLE50sbHj LEFT VENTRICLE The left ventricle is normal size. There is normal left ventricular wall thickness. The left ventricular function is normal. The left ventricular ejection fraction is within the normal range. There is normal LV segmental wall motion. RIGHT VENTRICLE The right ventricle is normal size. There is normal right ventricular wall thickness. The right ventricular systolic function is normal. ATRIA The left atrium is borderline dilated. The right atrium is borderline dilated. AORTIC VALVE The aortic valve is moderately to severely calcified. There is severe aortic regurgitation. There is moderate valvular aortic stenosis. MITRAL VALVE The mitral valve is moderately thickened. There is no mitral valve stenosis. Mitral regurgitation is mild. TRICUSPID VALVE There is severe tricuspid regurgitation. There is severe pulmonary hypertension. PULMONIC VALVE There is mild pulmonic valvular regurgitation. GREAT VESSELS The aortic root is normal in size. <Conclusion> The left ventricle is normal size. There is normal left ventricular wall thickness. The left ventricular function is normal. The left ventricular ejection fraction is within the normal range. There is normal LV segmental wall motion. There is moderate valvular aortic stenosis. There is severe aortic regurgitation. Mitral regurgitation is mild. There is severe tricuspid regurgitation. There is severe pulmonary hypertension.
--- NOTE | 2017-12-10 22:34 | CP.PCM.DIS ---
Provider - Provider Date of Admission: 12/09/17 15:21 Attending physician: Clara Landeros MD Hospital Course - Lab Results Lab Results: Most Recent Lab Values WBC 9.2 K/uL (4.8-10.8) 12/09/17 13:34 RBC 3.14 Mil/uL (3.80-5.20) L 12/09/17 13:34 Hgb 9.8 g/dL (11.0-16.0) L 12/09/17 13:34 Hct 29.0 % (34.0-47.0) L 12/09/17 13:34 MCV 92.4 fL (81.0-99.0) 12/09/17 13:34 MCH 31.2 pg (27.0-31.0) H 12/09/17 13:34 MCHC 33.8 g/dL (33.0-37.0) 12/09/17 13:34 RDW 15.6 % (11.5-14.5) H 12/09/17 13:34 Plt Count 377 K/uL (130-400) D 12/09/17 13:34 MPV 7.8 fL (7.2-11.7) 12/09/17 13:34 Neut % (Auto) 61.3 % (50.0-75.0) 12/09/17 13:34 Lymph % (Auto) 25.3 % (20.0-40.0) 12/09/17 13:34 [place] % (Auto) 6.3 % (0.0-10.0) 12/09/17 13:34 Eos % (Auto) 5.9 % (0.0-4.0) H 12/09/17 13:34 Baso % (Auto) 1.2 % (0.0-2.0) 12/09/17 13:34 Neut # (Auto) 5.6 K/uL (1.8-7.0) 12/09/17 13:34 Lymph # (Auto) 2.3 K/uL (1.0-4.3) 12/09/17 13:34 [place] # (Auto) 0.6 K/uL (0.0-0.8) 12/09/17 13:34 Eos # (Auto) 0.5 K/uL (0.0-0.7) 12/09/17 13:34 Baso # (Auto) 0.1 K/uL (0.0-0.2) 12/09/17 13:34 Sodium 143 mmol/L (132-148) 12/09/17 13:34 Potassium 4.7 mmol/L (3.6-5.2) 12/09/17 13:34 Chloride 107 mmol/L (98-107) 12/09/17 13:34 Carbon Dioxide 23 mmol/L (22-30) 12/09/17 13:34 Anion Gap 18 (10-20) 12/09/17 13:34 BUN 22 mg/dL (7-17) H 12/09/17 13:34 Creatinine 0.8 mg/dL (0.7-1.2) 12/09/17 13:34 Est GFR ( Amer) > 60 12/09/17 13:34 Est GFR (Non-Af Amer) > 60 12/09/17 13:34 Random Glucose 94 mg/dL (65-105) 12/09/17 13:34 Calcium 8.9 mg/dl (8.6-10.4) 12/09/17 13:34 Total Bilirubin 0.9 mg/dL (0.2-1.3) 12/09/17 13:34 AST 30 U/L (14-36) 12/09/17 13:34 ALT 14 U/L (9-52) 12/09/17 13:34 Alkaline Phosphatase 142 U/L (38-126) H D 12/09/17 13:34 Total Creatine Kinase 44 U/L (30-135) 12/10/17 09:39 CK-MB (Mass) 1.51 ng/mL (0.0-3.38) 12/10/17 09:39 Troponin I < 0.0120 ng/mL (0.00-0.120) 12/10/17 09:39 NT-Pro-B Natriuret Pep 2920 pg/mL (0-900) H 12/09/17 13:34 Total Protein 7.8 g/dL (6.3-8.3) 12/09/17 13:34 Albumin 3.8 g/dL (3.5-5.0) 12/09/17 13:34 Globulin 4.0 gm/dL (2.2-3.9) H 12/09/17 13:34 Albumin/Globulin Ratio 1.0 (1.0-2.1) 12/09/17 13:34 Urine Color Yellow (YELLOW) 12/09/17 13:34 Urine Clarity Clear (Clear) 12/09/17 13:34 Urine pH 6.0 (5.0-8.0) 12/09/17 13:34 Ur Specific [place] 1.020 (1.003-1.030) 12/09/17 13:34 Urine Protein 2+ mg/dL (NEGATIVE) H 12/09/17 13:34 Urine Glucose (UA) Normal mg/dL (Normal) 12/09/17 13:34 Urine Ketones Negative mg/dL (NEGATIVE) 12/09/17 13:34 Urine Blood Negative (NEGATIVE) 12/09/17 13:34 Urine Nitrate Negative (NEGATIVE) 12/09/17 13:34 Urine Bilirubin Negative (NEGATIVE) 12/09/17 13:34 Urine Urobilinogen 4.0 mg/dL (0.2-1.0) H 12/09/17 13:34 Ur Leukocyte Esterase Neg [place]ime[place]/uL (Negative) 12/09/17 13:34 Urine WBC (Auto) 1 /hpf (0-5) 12/09/17 13:34 Urine RBC (Auto) 9 /hpf (0-3) H 12/09/17 13:34 Ur Squamous Epith Cells 3 /hpf (0-5) 12/09/17 13:34 Urine Bacteria Rare (<OCC) 12/09/17 13:34 Discharge Plan - Follow Up Plan Condition: STABLE Disposition: HOME/ ROUTINE Instructions: Heart Healthy Diet, Chest Pain, Heart Failure, Adult (DC) Additional Instructions: -FOLLOW UP WITH DR. LANDEROS IN THE OFFICE WITHIN 1 WEEK OF DISCHARGE---CALL THE OFFICE TO MAKE YOUR APPOINTMENT. -DURING YOUR FOLLOW UP VISIT WITH DR. LANDEROS, HE WILL DISCUSS WITH YOU THE ECHOCARDIOGRAM RESULTS (THE RESULTS MAY TAKE SEVERAL DAYS TO COME BACK). -CONTINUE HOME MEDICATIONS USUAL; NO NEW MEDICATIONS GIVEN TODAY. -FOR FURTHER QUESTIONS OR CONCERNS, CONTACT DR. LANDEROS'S OFFICE. Referrals: Clara Landeros MD [Staff Provider] - 12/17/17 11:20 am (Appointment made for you, spoke with Ree)
--- NOTE | 2017-12-10 23:52 | CARD ---
APPROVED REPORT EKG Measurement Heart [id number] <Conclusion> Normal sinus rhythm Possible Left atrial enlargement RSR' or QR pattern in V1 suggests right ventricular conduction delay Left ventricular hypertrophy Nonspecific T wave abnormality Abnormal ECG
== END 2017-12-10 16:29 | disposition home or self-care (01) ==
LOC: C.ER 11:45 → C.9E 15:21 → C.6T 17:34
PROVIDERS: ADMIT Internal Medicine; ATTEND Internal Medicine
DX: E78.00 Pure hypercholesterolemia, unspecified (principal); I11.0 Hypertensive heart disease with heart failure; I50.9 Heart failure, unspecified; I87.2 Venous insufficiency (chronic) (peripheral); J44.9 Chronic obstructive pulmonary disease, unspecified; J45.901 Unspecified asthma with (acute) exacerbation; Z79.01 Long term (current) use of anticoagulants; Z86.718 Personal history of other venous thrombosis and embolism; Z87.440 Personal history of urinary (tract) infections; Z95.5 Presence of coronary angioplasty implant and graft
CPT/HCPCS: 36415; 71046; 80053; 81001; 83880; 84484; 85025; 93005; 93306; 93970; 99285; G0378

== ENCOUNTER 2018-07-10 13:35 | Inpatient (IN) | payer MEDICARE, OTHER ==
[2018-07-10 13:35] VITALS: BMI 30.2
--- NOTE | 2018-07-10 14:20 | RAD ---
Date of service: 07/10/2018 PROCEDURE: CHEST RADIOGRAPH, 1 VIEW HISTORY: SOB COMPARISON: None available. FINDINGS: LUNGS: The lungs are well inflated and clear. There is mild pulmonary venous congestion. No focal consolidation. PLEURA: No pneumothorax or pleural effusion. CARDIOVASCULAR: Mild cardiomegaly. No aortic atherosclerotic calcifications present. OSSEOUS STRUCTURES: Within normal limits for the patient's age. VISUALIZED UPPER ABDOMEN: Normal. OTHER FINDINGS: Retrocardiac air-fluid level most compatible with a hiatal hernia. IMPRESSION: No active pulmonary disease.
[2018-07-10 14:43] LABS: BASO # 0.1 K/uL (0.0-0.2); EOS # 3.4 K/uL (0.0-0.7); EOS % 27.6 % (0.0-4.0); HEMOGLOBIN 11.6 g/dL (11.0-16.0); LYMPH # 2.3 K/uL (1.0-4.3); LYMPH % 19.2 % (20.0-40.0); MEAN CORPUSCULAR HEMOGLOBIN 30.4 pg (27.0-31.0); MEAN CORPUSCULAR HGB CONC 32.7 g/dL (33.0-37.0); MEAN PLATELET VOLUME 7.3 fL (7.2-11.7); MONO % 7.9 % (0.0-10.0); NEUT # 5.4 K/uL (1.8-7.0); NEUT % 44.3 % (50.0-75.0); NRBC % 0.1 % (0.0-2.0); PLATELET COUNT 373 K/uL (130-400); RBC 3.82 Mil/uL (3.80-5.20); RED CELL DISTRIBUTION WIDTH 16.1 % (11.5-14.5); WHITE BLOOD COUNT 12.1 K/uL (4.8-10.8)
[2018-07-10 14:52] LABS: INR 1.3; PROTHROMBIN TIME 13.7 SECONDS (9.7-12.2)
[2018-07-10 14:53] LABS: ALB/GLOB RATIO 1.3 (1.0-2.1); ALBUMIN 4.1 g/dL (3.5-5.0); ALT/SGPT 11 U/L (9-52); AST/SGOT 20 U/L (14-36); BLOOD UREA NITROGEN 23 mg/dL (7-17); CALCIUM 8.6 mg/dl (8.6-10.4); GFR NON-AFRICAN AMERICAN 59
[2018-07-10 15:05] LABS: B-TYPE NATRIURETIC PEPTIDE 1790 pg/mL (0-900)
[2018-07-10 15:08] LABS: EOSINOPHIL 26 % (0-4); LYMPHOCYTE 22 % (20-40); MONOCYTE 6 % (0-10); NEUTROPHIL 46 % (50-75); TOTAL CELLS COUNTED 100
[2018-07-10 15:09] LABS: ANISOCYTOSIS SLIGHT; LARGE PLATELETS PRESENT; PLATELET ESTIMATE NORMAL (NORMAL); POLYCHROMIC SLIGHT
--- NOTE | 2018-07-10 15:34 | C.PDOC ---
History Of Present Illness 88 year old female is brought to the ED by her assistant controller for evaluation of left lower leg pain and edema. Patient and assistant controller note that symptoms are increased from baseline. Patient had a small wound to her left lateral lega round three years ago. Patient and assistant controller deny fever and chills. Time Seen by Provider: 07/10/18 13:47 Chief Complaint (Nursing): Lower Extremity Problem/Injury History Per: Patient History/Exam Limitations: no limitations Onset/Duration Of Symptoms: Hrs Current Symptoms Are (Timing): Still Present Additional History Per: Patient Past Medical History Reviewed: Historical Data, Nursing Documentation, Vital Signs Vital Signs: Last Vital Signs Temp 97.4 F L 07/10/18 13:39 Pulse 60 07/10/18 13:39 Resp 20 07/10/18 13:39 BP 189/70 H 07/10/18 13:39 Pulse Ox 99 07/10/18 13:39 - Medical History PMH: Anxiety, Arthritis (back,knees), Asthma, Bronchitis, CHF, COPD (Bronch itis), Depression, HTN, Hypercholesterolemia, Peripheral Edema Denies: Pulmonary Embolism, Chronic Kidney Disease Surgical History: Back Surgery, Coronary Stent - [facility] Procedures DILATE OF L COM ILIAC VEIN WITH INTRALUM DEV, PERC APPROACH (11/12/16) EXTIRPATION OF MATTER FROM L EXT ILIAC VEIN, PERC APPROACH (11/12/16) EXTIRPATION OF MATTER FROM LEFT FEMORAL VEIN, PERC APPROACH (11/12/16) INSERTION OF INFUSION DEV INTO SUP VENA CAVA, PERC APPROACH (11/12/16) INSERTION OF INTRALUM DEV INTO INF VENA CAVA, PERC APPROACH (11/12/16) ULTRASONOGRAPHY OF LEFT LOWER EXTREMITY VEINS, INTRAVASCULAR (11/12/16) ULTRASONOGRAPHY OF SUPERIOR VENA CAVA, GUIDANCE (11/12/16) Family History: States: Unknown Family Hx - Social History Hx Tobacco Use: No Hx Alcohol Use: No Hx Substance Use: No - Immunization History Hx Tetanus Toxoid Vaccination: Yes Hx Influenza Vaccination: Yes Hx Pneumococcal Vaccination: Yes Review Of Systems Musculoskeletal: Positive for: Leg Pain (left, with edema ) Neurological: Negative for: Weakness, Numbness Physical Exam - Physical Exam Appears: Non-toxic, No Acute Distress Skin: Warm, Dry, Other (extensive scarring and edema to left lower leg, questionable fluctuance ) Head: Atraumatic, Normacephalic Eye(s): bilateral: Normal Inspection Oral Mucosa: Moist Neck: Supple Chest: Symmetrical, No Deformity, No Tenderness Cardiovascular: Rhythm Regular, No Murmur Respiratory: Normal Breath Sounds, No Rales, No Rhonchi, No Wheezing Extremity: Normal ROM, Pedal Edema, Capillary Refill (less than 2 seconds ) Pulses: Left Dorsalis Pedis: Normal, Right Dorsalis Pedis: Normal Neurological/Psych: Oriented x3, Normal Speech, Normal Cognition, Normal Sensation ED Course And Treatment - Laboratory Results Result Diagrams: 07/10/18 14:39 07/10/18 14:39 Lab Interpretation: Abnormal ECG: Interpreted By Me ECG Rhythm: Sinus Rhythm ECG Interpretation: Normal O2 Sat by Pulse Oximetry: 99 (on RA) Pulse Ox Interpretation: Normal - Radiology CXR: Interpreted by Me CXR Interpretation: Yes: No Acute Disease - CT Scan/US CT Lower Extremity Other Rad Studies (CT/US): Read By Radiologist, Radiology Report Reviewed CT/US Interpretation: IMPRESSION: Diffuse subcutaneous edema in the leg. Fluid in the deep subcutaneous soft tissues in the posterolateral leg. No evidence for drainable fluid collection or abscess. No CT evidence for acute osteomyel itis. Progress Note: Bloodwork, CXT, EKG, CT Lower extremity ordered and reviewed. Reevaluation Time: 18:00 Reassessment Condition: Unchanged - Physician Consult Information Outcome Of Conversation: 1730: d/w Dr. Landeros, PMD, ok to adm Medical Decision Making Medical Decision Making: acute on chronic L lower leg edema, no DVT (low D-Dimer) CT L lower leg w edema only, no wound/osteo d-dimer 1800, ? mild CHF vs lymphedema due to chronic wound Disposition Doctor Will See Patient In The: Hospital Counseled Patient/Family Regarding: Studies Performed, Diagnosis - Disposition Disposition: HOSPITALIZED Disposition Time: 18:02 Condition: GOOD Forms: [employer] (Lao) - Clinical Impression Clinical Impression: Leg edema, left - Scribe Statement The provider has reviewed the documentation as recorded by the Scribe (Latanya Mleendez) Provider Attestation: All medical record entries made by the Scribe were at my direction and personally dictated by me. I have reviewed the chart and agree that the record accurately reflects my personal performance of the history, physical exam, medical decision making, and the department course for this patient. I have also personally directed, reviewed, and agree with the discharge instructions and disposition.
[2018-07-10] MEDS ORDERED: Iodixanol 320 MG/ML 100 ML BOTTLE IV ONE (16:09)
--- NOTE | 2018-07-10 16:48 | CT ---
Date of service: 07/10/2018 PROCEDURE: CT of the left lower extremity with contrast. HISTORY: L lower leg (scan knee to ankle) ? wound/abscess COMPARISON: None available. TECHNIQUE: Contiguous axial images of the right hip were obtained after intravenous administration of contrast. Coronal and sagittal reformats were generated. Contrast dose: 100 mL Visipaque 320 Radiation dose: Total exam DLP = 1197.64 mGy-cm. This CT exam was performed using one or more of the following dose reduction techniques: Automated exposure control, adjustment of the mA and/or kV according to patient size, and/or use of iterative reconstruction technique. FINDINGS: BONES: There is diffuse bone demineralization. There is no acute fracture or bone destruction. No evidence for bone erosion. SOFT TISSUES: There is diffuse subcutaneous edema in the leg. There is also fluid in the deep subcutaneous soft tissues predominantly posterior laterally. No evidence of drainable fluid collection or abscess. The periarticular muscles are normal. There are advanced atherosclerotic vascular calcifications. IMPRESSION: Diffuse subcutaneous edema in the leg. Fluid in the deep subcutaneous soft tissues in the posterolateral leg. No evidence for drainable fluid collection or abscess. No CT evidence for acute osteomyelitis.
--- NOTE | 2018-07-10 21:43 | CP.PCM.HP ---
History of Present Illness - History of Present Illness History of Present Illness: Chief complaint: Worsening left leg swelling, associated with redness and pain History present illness: 87-year-old female with history of hypertension, chronic venous insufficiency, recent history of recurrent urinary tract infection, left iliac vein DVT, status post a stent, congestive heart failure, history of respiratory failure, came to the emergency room because of worsening left leg pain, and associated with the s welling. Patient started noticing the symptoms for almost 3 days, gradually got worse. She was also having some difficult time even walking because of the worsening pain in the left lower extremity. She is feeling also heart sensation, redness in the leg extending from the left knee all the way down to the leg noted. Edema more on the left side than the right side. Patient has no fever. She has no chills. She denies any nausea no vomiting no other major systemic symptoms. 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 Congestive heart failure. Renal insufficiency. Allergies: No known drug allergy Personal history: Nonsmoker nonalcoholic Family history noncontributory Surgical history: Left iliac vein stent placement, on anticoagulation Vital signs reviewed No neck vein distention noted Chest good air entry bilaterally, no wheezing or rales noted CVS regular heart sound, no murmur noted Abdomen soft, nontender. Patient has a significant edema involving the left lower extremity. There is also redness involving the left leg, extending from the left knee all the way to the left ankle. Redness present. Edema noted. [employer] alert awake oriented 3, no functional neurological deficit Labs reviewed Nonspecific. Urine analysis and culture is pending currently. Medications reviewed Assessment and recommendation: 87-year-old female with a history of hypertension, chronic venous insufficiency, recent history of recurrent urinary tract infection, ESBL Escherichia coli, iliac vein thrombosis on the left side, status post a stent. history of Congestive heart failure. Patient now admitted with the left leg edema. Underlying cellulitis, DVT cannot be ruled out. Patient is on oral anticoagulation with Eliquis, but subtherapeutic dose. Underlying DVT cannot be ruled out. Increase the dose to 2.5 mg twice daily. Patient has a high risk for a DVT, also C. difficile colitis. Awaiting further urine analysis and culture. Will start antibiotic once there is a real evidence. Infectious disease evaluation may be needed. Lasix ordered. We will follow the patient Present on Admission - Present on Admission Any Indicators Present on Admission: No History of DVT/PE: Yes History of Uncontrolled Diabetes: No Urinary Catheter: No Decubitus Ulcer Present: No Past Patient History - Infectious Disease Hx of Infectious Diseases: C.diff, ESL - Tetanus Immunizations Tetanus Immunization: Allergy to Tetanus Vaccine - Past Medical History & Family History Past Medical History?: Yes - Past Social History Smoking Status: Never Smoked - CARDIAC Hx Congestive Heart Failure: Yes Hx Hypercholesterolemia: Yes Hx Hypertension: Yes Hx Peripheral Edema: Yes - PULMONARY Hx Asthma: Yes Hx Bronchitis: Yes Hx Chronic Obstructive Pulmonary Disease (COPD): Yes (Bronchitis) Hx Pulmonary Embolism: No - HEENT Hx HEENT Problems: Yes Hx Deafness: Yes ((?)) - RENAL Hx Chronic Kidney Disease: No - HEMATOLOGICAL/ONCOLOGICAL Hx Blood Disorders: No Hx Bruising: No - INTEGUMENTARY Hx Dermatological Problems: Yes Hx Cellulitis: Yes - MUSCULOSKELETAL/RHEUMATOLOGICAL Hx Arthritis: Yes (back,knees) - GASTROINTESTINAL Hx Gastrointestinal Disorders: Yes Hx Clostridium Difficile: Yes ((?)) - GENITOURINARY/GYNECOLOGICAL Hx Genitourinary Disorders: Yes Hx Urinary Tract Infection: Yes - PSYCHIATRIC Hx Anxiety: Yes Hx Depression: Yes Hx Substance Use: No - SURGICAL HISTORY Hx Coronary Stent: Yes - ANESTHESIA Hx Anesthesia: Yes Hx Anesthesia Reactions: No Hx Malignant Hyperthermia: No Meds Allergies/Adverse Reactions: Allergies Allergy/AdvReac Type Severity Reaction Status Date / Time No Known Allergies Allergy Verified 12/09/17 12:10 Results - Vital Signs Recent Vital Signs: Last Vital Signs Temp 98.2 F 07/10/18 21:30 Pulse 70 07/10/18 21:30 Resp 16 07/10/18 21:30 BP 124/64 07/10/18 21:30 Pulse Ox 98 07/10/18 21:30 - Labs Result Diagrams: 07/10/18 14:39 07/10/18 14:39 Labs: Laboratory Results - last 24 hr 07/10/18 07/10/18 07/10/18 14:39 14:39 14:39 WBC 12.1 H RBC 3.82 Hgb 11.6 Hct 35.5 MCV 93.0 MCH 30.4 MCHC 32.7 L RDW 16.1 H Plt Count 373 MPV 7.3 Neut % (Auto) 44.3 L Lymph % (Auto) 19.2 L [place] % (Auto) 7.9 Eos % (Auto) 27.6 H Baso % (Auto) 1.0 Neut # (Auto) 5.4 Lymph # (Auto) 2.3 [place] # (Auto) 1.0 H Eos # (Auto) 3.4 H Baso # (Auto) 0.1 Neutrophils % (Manual) 46 L Lymphocytes % (Manual) 22 Monocytes % (Manual) 6 Eosinophils % (Manual) 26 H Platelet Estimate Normal Large Platelets Present Polychromasia Slight Anisocytosis (manual) Slight PT 13.7 H INR 1.3 APTT 36 H D-Dimer, Quantitative 229 Sodium 141 Potassium 3.9 Chloride 107 Carbon Dioxide 26 Anion Gap 12 BUN 23 H Creatinine 0.9 Est GFR ( Amer) > 60 Est GFR (Non-Af Amer) 59 Random Glucose 93 Calcium 8.6 Total Bilirubin 0.5 AST 20 ALT 11 Alkaline Phosphatase 97 Troponin I 0.0190 NT-Pro-B Natriuret Pep 1790 H Total Protein 7.3 Albumin 4.1 Globulin 3.2 Albumin/Globulin Ratio 1.3
[2018-07-10 22:27] LABS: SQUAMOUS EPITHIAL 1 /hpf (0-5); URINE BACTERIA RARE (<OCC); URINE BILIRUBIN NEGATIVE (NEGATIVE); URINE BLOOD NEGATIVE (NEGATIVE); URINE CLARITY Clear (Clear); URINE COLOR Yellow (YELLOW); URINE GLUCOSE (UA) NORMAL (Normal); URINE LEUKOCYTE ESTERASE NEG Leu/uL (Negative); URINE PROTEIN NEGATIVE (NEGATIVE); URINE UROBILINOGEN NORMAL mg/dL (0.2-1.0)
[2018-07-11] MEDS: Albuterol-Ipratrop 3 mg / 0.5 (3 ml) UD INH SCH ×4 (02:00→20:32)
[2018-07-11 08:06] LABS: BASO # 0.1 K/uL (0.0-0.2); BASO % 0.6 % (0.0-2.0); EOS # 4.2 K/uL (0.0-0.7); EOS % 34.6 % (0.0-4.0); HEMOGLOBIN 10.8 g/dL (11.0-16.0); LYMPH # 2.6 K/uL (1.0-4.3); LYMPH % 21.5 % (20.0-40.0); MEAN CELL VOLUME 92.3 fL (81.0-99.0); MEAN CORPUSCULAR HEMOGLOBIN 31.2 pg (27.0-31.0); MEAN CORPUSCULAR HGB CONC 33.8 g/dL (33.0-37.0); MEAN PLATELET VOLUME 8.1 fL (7.2-11.7); MONO # 0.8 K/uL (0.0-0.8); MONO % 6.7 % (0.0-10.0); NEUT # 4.5 K/uL (1.8-7.0); NEUT % 36.6 % (50.0-75.0); PLATELET COUNT 347 K/uL (130-400); RBC 3.45 Mil/uL (3.80-5.20); WHITE BLOOD COUNT 12.3 K/uL (4.8-10.8)
[2018-07-11 08:20] LABS: ALB/GLOB RATIO 1.1 (1.0-2.1); ALBUMIN 3.4 g/dL (3.5-5.0); ALT/SGPT 15 U/L (9-52); AST/SGOT 18 U/L (14-36); BLOOD UREA NITROGEN 18 mg/dL (7-17); CALCIUM 8.2 mg/dl (8.6-10.4); GFR NON-AFRICAN AMERICAN 52
--- NOTE | 2018-07-11 09:00 | CP.PCM.PN ---
Subjective - Date & Time of Evaluation Date of Evaluation: 07/11/18 Time of Evaluation: 08:58 - Subjective Subjective: Patient is still complaining of pain in the left lower extremity. Edema noted. No fever today. Patient is feeling otherwise well. On examination: Vital signs stable. Chest good air entry. Regular hs Nontender abdomen Patient has a edema in the left lower extremity, slight decrease in noted. But still having worsening pain. Assessment and recommendation: 88-year-old female with history of hypertension osteoarthritis patient has a history of left leg DVT, status post a stent in the left iliac vein, history of C. difficile colitis history of pneumonia admitted with possible cellulitis of the left leg. We will start the patient on ciprofloxacin intravenously. Also I added Rocephin. We will get infectious disease evaluation and will follow the patient. Objective - Vital Signs/Intake and Output Vital Signs (last 24 hours): Temp Pulse Resp BP Pulse Ox 98.3 F 81 16 144/87 99 07/11/18 00:00 07/11/18 00:00 07/11/18 00:00 07/11/18 00:00 07/11/18 00:00 Intake and Output: 07/11/18 07/11/18 06:59 18:59 Intake Total 170 Balance 170 - Medications Medications: Current Medications Albuterol/Ipratropium (Duoneb 3 Mg/0.5 Mg (3 Ml) Ud) 3 ml INH RQ6 [facility] [place] Last Admin: 07/11/18 07:23 Dose: Not Given Apixaban (Eliquis) 2.5 mg PO Q12 [facility] Last Admin: 07/10/18 22:06 Dose: 2.5 mg Ascorbic Acid (Vitamin C 250 Mg Tab) 250 mg PO BIDPC [facility] Aspirin (Aspirin Chewable) 81 mg PO DAILY [facility] Famotidine (Pepcid) 20 mg PO DAILY [facility] Ceftriaxone Sodium (Rocephin Iv 1 Gm Duplex) 50 mls @ 100 mls/hr IVPB DAILY [facility]; Protocol Metoprolol Succinate (Toprol Xl) 50 mg PO DAILY [facility] [place] Multivitamins/Minerals (Therapeutic-M Tab) 1 tab PO DAILY [facility] Nystatin (Nystop Topical Powder) 1 applic TOP BID [facility] Petrolatum (Desitin Original) 1 gm TOP DAILY [facility] [place] Saccharomyces Boulardii (Florastor) 250 mg PO BID [facility] - Labs Labs: 07/11/18 07:42 07/11/18 07:42 PT 13.7 SECONDS (9.7-12.2) H 07/10/18 14:39 INR 1.3 07/10/18 14:39 APTT 36 SECONDS (21-34) H 07/10/18 14:39
[2018-07-11 09:13] LABS: ANISOCYTOSIS SLIGHT; BASOPHIL 1 % (0-2); EOSINOPHIL 31 % (0-4); HYPOCHROMIC SLIGHT; LARGE PLATELETS PRESENT; LYMPHOCYTE 15 % (20-40); MONOCYTE 11 % (0-10); NEUTROPHIL 41 % (50-75); PLATELET ESTIMATE NORMAL (NORMAL); POLYCHROMIC SLIGHT; REACTIVE LYMPHOCYTES 1 % (0-0); TOTAL CELLS COUNTED 100
[2018-07-11] MEDS: Multivitamin With Minerals Tab PO SCH (09:56)
[2018-07-11] MEDS: Saccharomyces Boulardi 250 mg Cap PO SCH ×2 (09:56→17:47)
[2018-07-11] MEDS: Metoprolol Succinate 50 mg XL Tab PO SCH (09:57)
[2018-07-11] MEDS: Zinc Oxide Topical 30 gm Tube TOP SCH (10:04)
[2018-07-11] MEDS: cefTRIAXone IV 1 gm in Dextros 50 ML IVPB SCH (11:23)
[2018-07-11] MEDS: Ciprofloxacin 200mg/100ml D5W 100 ML IVPB SCH ×2 (11:24→21:16)
[2018-07-12] MEDS: Albuterol-Ipratrop 3 mg / 0.5 (3 ml) UD INH SCH ×3 (08:00→20:44)
[2018-07-12] MEDS: Metoprolol Succinate 50 mg XL Tab PO SCH (09:03)
[2018-07-12] MEDS: Ciprofloxacin 200mg/100ml D5W 100 ML IVPB SCH ×2 (09:03→21:00)
[2018-07-12] MEDS: Saccharomyces Boulardi 250 mg Cap PO SCH ×2 (09:03→17:47)
[2018-07-12] MEDS: Multivitamin With Minerals Tab PO SCH (09:03)
[2018-07-12] MEDS: Zinc Oxide Topical 30 gm Tube TOP SCH (09:10)
[2018-07-12] MEDS: cefTRIAXone IV 1 gm in Dextros 50 ML IVPB SCH (10:24)
--- NOTE | 2018-07-12 13:27 | CARD ---
APPROVED REPORT Date of service: 07/10/2018 EKG Measurement Heart [id number] <Conclusion> Normal sinus rhythm with sinus arrhythmia Normal ECG
--- NOTE | 2018-07-12 13:53 | CP.PCM.CON ---
History of Present Illness - History of Present Illness History of Present Illness: INFECTIOUS DISEASE CONSULTATION JOHNSON MADDOX MD, FACP 07/12/2018 3T 368-A CHART REVIEWED PT EXAMINED CASE DISCUSSED CLINICALLY THIS 88 YR OLD WHITE FEMALE WAS ADMITTED VIA THE ER/ED WITH PROGRESSIVE LEFT LEG PAIN WITH ASSOCIATED SWELLING OVEW THE PAST 3 DAYS. AN INFECTIOUS DISEASE CONSULTATION WAS REQUESTED TO HELP EVALUATED AND MANAGE HER DUAL ISSUES OF DVT AND CELLULITIS OF HER LEFT LEG ROS; ABOVE NO N,V,D,C VAGUE COUGH NO TEMP PMHX: DVT'S LEFT LEG AND S/P STENT OF THE LEFT LEG HTN CHF S/P C DIFF PNEUMONIA ETC HX IS LIMITED NO ALLERGIES NO TOBACCO/SOCIAL ETOH WITH MEALS-OCC. FAMILY HX IS NOT AVAILABLE/APPLICABLE PE: VSS AWAKE AND ALERT SUPPLE CHEST DECREASED BREATH SOUNDS LEFT MORE THAN RIGHT COR RHYTHM APPRECIATED ABD SOFT EXT LEFT LEG WITH REOLVING EDEMA AND CELLULITIS WBC 12,000 IMPRESSION FROM THE ID POINT OF VIEW: ACUTE PROGRESSION OF PERIPHERAL EDEMA AND ACUTE CELLULITIS ADJUST ELIQUIS ROCEPHIN 1GM IVPB OD D/C CIPRO REPEAT LABS JOHNSON MADDOX MD, FACP Past Patient History - Infectious Disease Hx of Infectious Diseases: C.diff, ESL - Tetanus Immunizations Tetanus Immunization: Allergy to Tetanus Vaccine - Past Medical History & Family History Past Medical History?: Yes - Past Social History Smoking Status: Never Smoked - CARDIAC Hx Congestive Heart Failure: Yes Hx Hypercholesterolemia: Yes Hx Hypertension: Yes Hx Peripheral Edema: Yes - PULMONARY Hx Asthma: Yes Hx Bronchitis: Yes Hx Chronic Obstructive Pulmonary Disease (COPD): Yes (Bronchitis) Hx Pulmonary Embolism: No - HEENT Hx HEENT Problems: Yes Hx Deafness: Yes ((?)) - RENAL Hx Chronic Kidney Disease: No - HEMATOLOGICAL/ONCOLOGICAL Hx Blood Disorders: No Hx Bruising: No - INTEGUMENTARY Hx Dermatological Problems: Yes Hx Cellulitis: Yes - MUSCULOSKELETAL/RHEUMATOLOGICAL Hx Arthritis: Yes (back,knees) Hx Falls: No - GASTROINTESTINAL Hx Gastrointestinal Disorders: Yes Hx Clostridium Difficile: Yes ((?)) - GENITOURINARY/GYNECOLOGICAL Hx Genitourinary Disorders: Yes Hx Urinary Tract Infection: Yes - PSYCHIATRIC Hx Anxiety: Yes Hx Depression: Yes Hx Substance Use: No - SURGICAL HISTORY Hx Coronary Stent: Yes - ANESTHESIA Hx Anesthesia: Yes Hx Anesthesia Reactions: No Hx Malignant Hyperthermia: No Meds Allergies/Adverse Reactions: Allergies Allergy/AdvReac Type Severity Reaction Status Date / Time No Known Allergies Allergy Verified 12/09/17 12:10 - Medications Medications: Current Medications Acetaminophen (Tylenol 325mg Tab) 650 mg PO Q6 PRN PRN Reason: Pain, moderate (4-7) Last Admin: 07/11/18 20:08 Dose: 650 mg Albuterol/Ipratropium (Duoneb 3 Mg/0.5 Mg (3 Ml) Ud) 3 ml INH RQ6 [facility] Last Admin: 07/12/18 08:00 Dose: Not Given Apixaban (Eliquis) 2.5 mg PO Q12 [facility] Last Admin: 07/12/18 09:03 Dose: 2.5 mg Ascorbic Acid (Vitamin C 250 Mg Tab) 250 mg PO BIDPC [facility] Last Admin: 07/12/18 09:03 Dose: 250 mg Aspirin (Aspirin Chewable) 81 mg PO DAILY [facility] Last Admin: 07/12/18 09:03 Dose: 81 mg Famotidine (Pepcid) 20 mg PO DAILY [facility] Last Admin: 07/12/18 09:03 Dose: 20 mg Ceftriaxone Sodium (Rocephin Iv 1 Gm Duplex) 50 mls @ 100 mls/hr IVPB DAILY [facility]; Protocol Last Admin: 07/12/18 10:24 Dose: 100 mls/hr Ciprofloxacin (Cipro 200mg/100ml D5w) 100 mls @ 67 mls/hr IVPB Q12H [facility]; Protocol Last Admin: 07/12/18 09:03 Dose: 67 mls/hr Metoprolol Succinate (Toprol Xl) 50 mg PO DAILY [facility] Last Admin: 07/12/18 09:03 Dose: 50 mg Multivitamins/Minerals (Therapeutic-M Tab) 1 tab PO DAILY [facility] Last Admin: 07/12/18 09:03 Dose: 1 tab Nystatin (Nystop Topical Powder) 1 applic TOP BID [facility] Last Admin: 07/12/18 09:03 Dose: 1 applic Petrolatum (Desitin Original) 1 gm TOP DAILY [facility] Last Admin: 07/12/18 09:10 Dose: 1 applic Saccharomyces Boulardii (Florastor) 250 mg PO BID [facility] Last Admin: 07/12/18 09:03 Dose: 250 mg Results - Vital Signs Recent Vital Signs: Last Vital Signs Temp 98.0 F 07/12/18 08:14 Pulse 63 07/12/18 08:14 Resp 20 07/12/18 08:14 BP 201/70 H 07/12/18 08:14 Pulse Ox 99 07/12/18 08:14 - Labs Result Diagrams: 07/11/18 07:42 07/11/18 07:42 Labs: Laboratory Results - last 24 hr 07/11/18 07:42 Procalcitonin < 0.05 L
--- NOTE | 2018-07-12 23:53 | CP.PCM.PN ---
Subjective - Date & Time of Evaluation Date of Evaluation: 07/12/18 Time of Evaluation: 23:52 - Subjective Subjective: Patient leg swelling is much better. Complaining of less pain than before. She is feeling otherwise well, no distress noted. Vital signs reviewed On physical Assessment and recognition: 88-year-old female with a history of hypertension admitted now with cellulitis of the left leg. Patient has a history of DVT. Also had a history of left IVC obstruction, status post a stent done in the past. Continue with IV antibiotic. Discussed with infectious disease. She will need oral antibiotic will discuss with infectious disease for possible discharge plan after the IV antibiotic Objective - Vital Signs/Intake and Output Vital Signs (last 24 hours): Temp Pulse Resp BP Pulse Ox 97.8 F 65 20 175/69 H 97 07/12/18 23:24 07/12/18 23:24 07/12/18 23:24 07/12/18 23:24 07/12/18 23:24 - Medications Medications: Current Medications Acetaminophen (Tylenol 325mg Tab) 650 mg PO Q6 PRN PRN Reason: Pain, moderate (4-7) Last Admin: 07/11/18 20:08 Dose: 650 mg Albuterol/Ipratropium (Duoneb 3 Mg/0.5 Mg (3 Ml) Ud) 3 ml INH RQ6 [facility] Last Admin: 07/12/18 20:44 Dose: 3 ml Apixaban (Eliquis) 2.5 mg PO Q12 [facility] Last Admin: 07/12/18 21:39 Dose: 2.5 mg Ascorbic Acid (Vitamin C 250 Mg Tab) 250 mg PO BIDPC [facility] Last Admin: 07/12/18 17:46 Dose: 250 mg Aspirin (Aspirin Chewable) 81 mg PO DAILY [facility] Last Admin: 07/12/18 09:03 Dose: 81 mg Famotidine (Pepcid) 20 mg PO DAILY [facility] Last Admin: 07/12/18 09:03 Dose: 20 mg Ceftriaxone Sodium (Rocephin Iv 1 Gm Duplex) 50 mls @ 100 mls/hr IVPB DAILY [facility]; Protocol Last Admin: 07/12/18 10:24 Dose: 100 mls/hr Ciprofloxacin (Cipro 200mg/100ml D5w) 100 mls @ 67 mls/hr IVPB Q12H [facility]; Protocol Last Admin: 07/12/18 21:00 Dose: 67 mls/hr Metoprolol Succinate (Toprol Xl) 50 mg PO DAILY [facility] Last Admin: 07/12/18 09:03 Dose: 50 mg Multivitamins/Minerals (Therapeutic-M Tab) 1 tab PO DAILY [facility] Last Admin: 07/12/18 09:03 Dose: 1 tab Nystatin (Nystop Topical Powder) 1 applic TOP BID [facility] Last Admin: 07/12/18 17:47 Dose: 1 applic Petrolatum (Desitin Original) 1 gm TOP DAILY [facility] Last Admin: 07/12/18 09:10 Dose: 1 applic Saccharomyces Boulardii (Florastor) 250 mg PO BID [facility] Last Admin: 07/12/18 17:47 Dose: 250 mg - Labs Labs: 07/11/18 07:42 07/11/18 07:42 PT 13.7 SECONDS (9.7-12.2) H 07/10/18 14:39 INR 1.3 07/10/18 14:39 APTT 36 SECONDS (21-34) H 07/10/18 14:39
[2018-07-13] MEDS: Albuterol-Ipratrop 3 mg / 0.5 (3 ml) UD INH SCH ×4 (01:36→19:36)
[2018-07-13] MEDS: cefTRIAXone IV 1 gm in Dextros 50 ML IVPB SCH (10:36)
[2018-07-13] MEDS: Ciprofloxacin 200mg/100ml D5W 100 ML IVPB SCH ×2 (10:36→20:34)
[2018-07-13] MEDS: Saccharomyces Boulardi 250 mg Cap PO SCH ×2 (10:37→17:43)
[2018-07-13] MEDS: Zinc Oxide Topical 30 gm Tube TOP SCH (10:38)
[2018-07-13] MEDS: Multivitamin With Minerals Tab PO SCH (10:39)
[2018-07-13] MEDS: Metoprolol Succinate 50 mg XL Tab PO SCH (10:39)
[2018-07-14] MEDS: Albuterol-Ipratrop 3 mg / 0.5 (3 ml) UD INH SCH ×4 (01:39→20:12)
[2018-07-14] MEDS: Saccharomyces Boulardi 250 mg Cap PO SCH ×2 (09:42→18:00)
[2018-07-14] MEDS: Multivitamin With Minerals Tab PO SCH (09:42)
[2018-07-14] MEDS: Metoprolol Succinate 50 mg XL Tab PO SCH (09:42)
[2018-07-14] MEDS: cefTRIAXone IV 1 gm in Dextros 50 ML IVPB SCH (09:47)
[2018-07-14] MEDS: Zinc Oxide Topical 30 gm Tube TOP SCH (10:32)
--- NOTE | 2018-07-14 11:50 | VASCLAB ---
Date of service: 07/12/2018 PROCEDURE: Left Lower Extremity Venous Duplex Exam. HISTORY: DVT edema Left leg pain PRIORS: None. TECHNIQUE: Left common femoral, femoral, popliteal and posterior tibial, peroneal and great saphenous veins were evaluated. Flow was assessed with color Doppler, compressibility, assessment of phasic flow and augmentation response. Report prepared by Jalen Nichols, T FINDINGS: LEFT: 1. Common Femoral Vein: 1.1. Compressibility - Fully compressible: Thrombus - None : Flow - Phasic: Augmentation -Normal: Reflux - . 2. Femoral Vein: 2.1. Compressibility - Fully compressible: Thrombus - None: Flow - Phasic: Augmentation -Normal: Reflux - . 3. Popliteal Vein: 3.1. Compressibility - Fully compressible: Thrombus - None: Flow - Phasic: Augmentation -Normal: Reflux - . 4. Posterior Tibial Vein: 4.1. Compressibility - Fully compressible: Thrombus - None: Flow - Phasic: Augmentation -Normal: Reflux - . 5. Peroneal Vein: 5.1. Compressibility - Fully compressible: Thrombus - None: Flow - Phasic: Augmentation -Normal: Reflux - . 6. Great Saphenous Vein: 6.1. Compressibility - Fully compressible: Thrombus - None: Flow - Phasic: Augmentation - Normal: Reflux - . OTHER FINDINGS: IMPRESSION: No evidence of deep or superficial vein thrombosis of the left lower extremity with excellent venous flow. Normal venous flow noted in the right common femoral vein.
--- NOTE | 2018-07-14 15:11 | CP.PCM.DIS ---
Provider - Provider Date of Admission: 07/10/18 18:02 Attending physician: Clara Landeros MD Consults: 07/10/18 22:29 Inpatient [employer] Core Measures Referral Routine Comment: Physician Instructions: Reason For Exam: hx of CHF Nursing Referral for Palliative Care Routine Comment: Physician Instructions: Reason For Exam: high score Nursing Referral for Wound Care Routine Comment: Physician Instructions: Reason For Exam: cellulitis left leg 07/11/18 19:56 Infectious Disease Consult Routine Comment: Dr. Banerjee already aware. Consulting Provider: Robert Banerjee Consulting Physician: Robert Banerjee Reason for Consult: cellulitis L leg Time Spent in preparation of Discharge (in minutes): 45 Hospital Course - Lab Results Lab Results: Micro Results 07/10/18 22:14 Urine Urine Culture - Final No Growth (<1,000 CFU/ML) Most Recent Lab Values WBC 12.3 K/uL (4.8-10.8) H 07/11/18 07:42 RBC 3.45 Mil/uL (3.80-5.20) L 07/11/18 07:42 Hgb 10.8 g/dL (11.0-16.0) L 07/11/18 07:42 Hct 31.9 % (34.0-47.0) L 07/11/18 07:42 MCV 92.3 fL (81.0-99.0) 07/11/18 07:42 MCH 31.2 pg (27.0-31.0) H 07/11/18 07:42 MCHC 33.8 g/dL (33.0-37.0) 07/11/18 07:42 RDW 16.0 % (11.5-14.5) H 07/11/18 07:42 Plt Count 347 K/uL (130-400) 07/11/18 07:42 MPV 8.1 fL (7.2-11.7) 07/11/18 07:42 Neut % (Auto) 36.6 % (50.0-75.0) L 07/11/18 07:42 Lymph % (Auto) 21.5 % (20.0-40.0) 07/11/18 07:42 [place] % (Auto) 6.7 % (0.0-10.0) 07/11/18 07:42 Eos % (Auto) 34.6 % (0.0-4.0) H 07/11/18 07:42 Baso % (Auto) 0.6 % (0.0-2.0) 07/11/18 07:42 Neut # (Auto) 4.5 K/uL (1.8-7.0) 07/11/18 07:42 Lymph # (Auto) 2.6 K/uL (1.0-4.3) 07/11/18 07:42 [place] # (Auto) 0.8 K/uL (0.0-0.8) 07/11/18 07:42 Eos # (Auto) 4.2 K/uL (0.0-0.7) H 07/11/18 07:42 Baso # (Auto) 0.1 K/uL (0.0-0.2) 07/11/18 07:42 Neutrophils % (Manual) 41 % (50-75) L 07/11/18 07:42 Lymphocytes % (Manual) 15 % (20-40) L 07/11/18 07:42 Reactive Lymphs % 1 % (0-0) H 07/11/18 07:42 Monocytes % (Manual) 11 % (0-10) H 07/11/18 07:42 Eosinophils % (Manual) 31 % (0-4) H 07/11/18 07:42 Basophils % (Manual) 1 % (0-2) 07/11/18 07:42 Platelet Estimate Normal (NORMAL) 07/11/18 07:42 Large Platelets Present 07/11/18 07:42 Polychromasia Slight 07/11/18 07:42 Hypochromasia (manual) Slight 07/11/18 07:42 Anisocytosis (manual) Slight 07/11/18 07:42 PT 13.7 SECONDS (9.7-12.2) H 07/10/18 14:39 INR 1.3 07/10/18 14:39 APTT 36 SECONDS (21-34) H 07/10/18 14:39 D-Dimer, Quantitative 229 ng/mlDDU (0-243) 07/10/18 14:39 Sodium 139 mmol/L (132-148) 07/11/18 07:42 Potassium 3.4 mmol/L (3.6-5.2) L 07/11/18 07:42 Chloride 106 mmol/L (98-107) 07/11/18 07:42 Carbon Dioxide 26 mmol/L (22-30) 07/11/18 07:42 Anion Gap 11 (10-20) 07/11/18 07:42 BUN 18 mg/dL (7-17) H 07/11/18 07:42 Creatinine 1.0 mg/dL (0.7-1.2) 07/11/18 07:42 Est GFR ( Amer) > 60 07/11/18 07:42 Est GFR (Non-Af Amer) 52 07/11/18 07:42 POC Glucose (mg/dL) 131 mg/dL (65-110) H 07/12/18 21:09 Random Glucose 86 mg/dL (65-105) 07/11/18 07:42 Calcium 8.2 mg/dl (8.6-10.4) L 07/11/18 07:42 Phosphorus 3.8 mg/dL (2.5-4.5) 07/11/18 07:42 Magnesium 1.9 mg/dL (1.6-2.3) 07/11/18 07:42 Total Bilirubin 0.5 mg/dL (0.2-1.3) 07/11/18 07:42 AST 18 U/L (14-36) 07/11/18 07:42 ALT 15 U/L (9-52) 07/11/18 07:42 Alkaline Phosphatase 94 U/L (38-126) 07/11/18 07:42 Troponin I 0.0190 ng/mL (0.00-0.120) 07/10/18 14:39 NT-Pro-B Natriuret Pep 1790 pg/mL (0-900) H 07/10/18 14:39 Total Protein 6.4 g/dL (6.3-8.3) 07/11/18 07:42 Albumin 3.4 g/dL (3.5-5.0) L 07/11/18 07:42 Globulin 3.0 gm/dL (2.2-3.9) 07/11/18 07:42 Albumin/Globulin Ratio 1.1 (1.0-2.1) 07/11/18 07:42 Procalcitonin < 0.05 NG/ML (0.19-0.49) L 07/11/18 07:42 Urine Color Yellow (YELLOW) 07/10/18 22:14 Urine Clarity Clear (Clear) 07/10/18 22:14 Urine pH 7.0 (5.0-8.0) 07/10/18 22:14 Ur Specific [place] 1.014 (1.003-1.030) 07/10/18 22:14 Urine Protein Negative mg/dL (NEGATIVE) 07/10/18 22:14 Urine Glucose (UA) Normal mg/dL (Normal) 07/10/18 22:14 Urine Ketones Negative mg/dL (NEGATIVE) 07/10/18 22:14 Urine Blood Negative (NEGATIVE) 07/10/18 22:14 Urine Nitrate Negative (NEGATIVE) 07/10/18 22:14 Urine Bilirubin Negative (NEGATIVE) 07/10/18 22:14 Urine Urobilinogen Normal mg/dL (0.2-1.0) 07/10/18 22:14 Ur Leukocyte Esterase Neg Aimee/uL (Negative) 07/10/18 22:14 Urine WBC (Auto) 2 /hpf (0-5) 07/10/18 22:14 Urine RBC (Auto) 1 /hpf (0-3) 07/10/18 22:14 Ur Squamous Epith Cells 1 /hpf (0-5) 07/10/18 22:14 Urine Bacteria Rare (<OCC) 07/10/18 22:14 - Hospital Course Hospital Course: pt home medications: FAMOTIDINE 20 MG TABLET FERROUS SULFATE 325 MG TABLET ZINC GLUCONATE 50 MG TABLET METOPROLOL SUCC ER 50 MG TAB LOW DOSE ASPIRIN EC 81 MG TAB LOSARTAN POTASSIUM 25 MG TAB OXYCODONE-ACETAMINOPHEN 5-325 IPRATROPIUM-ALBUTEROL 0.5-3(2.5) MG/3 ML OXYBUTYNIN 5 MG TABLET MYRBETRIQ ER 50 MG TABLET PENTOXIFYLLINE ER 400 MG TAB ELIQUIS 2.5 MG TABLET LASIX 20 MG TABLET Original Note: History of Present Illness - History of Present Illness History of Present Illness: Chief complaint: Worsening left leg swelling, associated with redness and pain History present illness: 87-year-old female with history of hypertension, chronic venous insufficiency, recent history of recurrent urinary tract infection, left iliac vein DVT, status post a stent, congestive heart failure, history of respiratory failure, came to the emergency room because of worsening left leg pain, and associated with the swelling. Patient started noticing the symptoms for almost 3 days, gradually got worse. She was also having some difficult time even walking because of the worsening pain in the left lower extremity. She is feeling also heart sensation, redness in the leg extending from the left knee all the way down to the leg noted. Edema more on the left side than the right side. Patient has no fever. She has no chills. She denies any nausea no vomiting no other major systemic symptoms. 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 Congestive heart failure. Renal insufficiency. Allergies: No known drug allergy Personal history: Nonsmoker nonalcoholic Family history noncontributory Surgical history: Left iliac vein stent placement, on anticoagulation Vital signs reviewed No neck vein distention noted Chest good air entry bilaterally, no wheezing or rales noted CVS regular heart sound, no murmur noted Abdomen soft, nontender. Patient has a significant edema involving the left lower extremity. There is also redness involving the left leg, extending from the left knee all the way to the left ankle. Redness present. Edema noted. RATING CLERK alert awake oriented 3, no functional neurological deficit Labs reviewed Nonspecific. Urine analysis and culture is pending currently. Medications reviewed Assessment and recommendation: 87-year-old female with a history of hypertension, chronic venous insufficiency, recent history of recurrent urinary tract infection, ESBL Escherichia coli, iliac vein thrombosis on the left side, status post a stent. history of Congestive heart failure. Patient now admitted with the left leg edema. Underlying cellulitis, DVT cannot be ruled out. Patient is on oral anticoagulation with Eliquis, but subtherapeutic dose. Underlying DVT cannot be ruled out. Increase the dose to 2.5 mg twice daily. Patient has a high risk for a DVT, also C. difficile colitis. Awaiting further urine analysis and culture. Will start antibiotic once there is a real evidence. Infectious disease evaluation may be needed. Lasix ordered. We will follow the patient Course in the hospital: Patient was admitted to the regular medical floor. Patient continued to receive her medications. The left leg swelling was not improved, DVT study was negative. Patient started on intravenous antibiotic. Infectious disease evaluation was called in. The swelling got better. The pain is better. She is much stable, she can be discharged home today, she will follow-up as an outpatient in 1 week. Final diagnoses: Cellulitis of the left leg acute. Pedal edema Sepsis. History of left leg DVT. History of diabetes. Hypertension. Currently on anticoagulation. Will follow the patient. Patient will continue her home medications along with Vantin 200 mg p.o. twice daily and will follow the patient Discharge Plan - Follow Up Plan Condition: GOOD Disposition: HOME/ ROUTINE
--- NOTE | 2018-07-14 15:11 | CP.PCM.PN ---
Subjective - Date & Time of Evaluation Date of Evaluation: 07/13/18 Time of Evaluation: 15:11 - Subjective Subjective: Patient leg swelling is much better. Complaining of less pain than before. She is feeling otherwise well, no distress noted. Vital signs reviewed On physical Assessment and recognition: 88-year-old female with a history of hypertension admitted now with cellulitis of the left leg. Patient has a history of DVT. Also had a history of left IVC obstruction, status post a stent done in the past. Continue with IV antibiotic. Discussed with infectious disease. She will need oral antibiotic will discuss with infectious disease for possible discharge plan after the IV antibiotic Objective - Vital Signs/Intake and Output Vital Signs (last 24 hours): Temp Pulse Resp BP Pulse Ox 98.1 F 70 20 148/69 98 07/14/18 07:23 07/14/18 07:23 07/14/18 07:23 07/14/18 07:23 07/14/18 07:23 Intake and Output: 07/14/18 07/14/18 06:59 18:59 Intake Total 350 Balance 350 - Medications Medications: Current Medications Acetaminophen (Tylenol 325mg Tab) 650 mg PO Q6 PRN PRN Reason: Pain, moderate (4-7) Last Admin: 07/11/18 20:08 Dose: 650 mg Albuterol/Ipratropium (Duoneb 3 Mg/0.5 Mg (3 Ml) Ud) 3 ml INH RQ6 [facility] Last Admin: 07/14/18 07:50 Dose: Not Given Apixaban (Eliquis) 2.5 mg PO Q12 [facility] Last Admin: 07/14/18 09:42 Dose: 2.5 mg Ascorbic Acid (Vitamin C 250 Mg Tab) 250 mg PO BIDPC [facility] Last Admin: 07/14/18 09:42 Dose: 250 mg Aspirin (Aspirin Chewable) 81 mg PO DAILY [facility] Last Admin: 07/14/18 09:42 Dose: 81 mg Famotidine (Pepcid) 20 mg PO DAILY [facility] Last Admin: 07/14/18 09:42 Dose: 20 mg Ceftriaxone Sodium (Rocephin Iv 1 Gm Duplex) 50 mls @ 100 mls/hr IVPB DAILY [facility]; Protocol Last Admin: 07/14/18 09:47 Dose: 100 mls/hr Metoprolol Succinate (Toprol Xl) 50 mg PO DAILY [facility] Last Admin: 07/14/18 09:42 Dose: 50 mg Multivitamins/Minerals (Therapeutic-M Tab) 1 tab PO DAILY [facility] Last Admin: 07/14/18 09:42 Dose: 1 tab Nystatin (Nystop Topical Powder) 1 applic TOP BID [facility] Last Admin: 07/14/18 10:37 Dose: 1 applic Petrolatum (Desitin Original) 1 gm TOP DAILY [facility] Last Admin: 07/14/18 10:32 Dose: 1 applic Saccharomyces Boulardii (Florastor) 250 mg PO BID [facility] Last Admin: 07/14/18 09:42 Dose: 250 mg - Labs Labs: 07/11/18 07:42 07/11/18 07:42 PT 13.7 SECONDS (9.7-12.2) H 07/10/18 14:39 INR 1.3 07/10/18 14:39 APTT 36 SECONDS (21-34) H 07/10/18 14:39
--- NOTE | 2018-07-14 15:26 | CP.PCM.PN ---
Subjective - Date & Time of Evaluation Date of Evaluation: 07/14/18 Time of Evaluation: 15:23 - Subjective Subjective: I spoke to the patient in detail. Patient can be discharged home. She will take Vantin 200 mg p.o. twice daily for 1 week. I will follow the patient. Objective - Vital Signs/Intake and Output Vital Signs (last 24 hours): Temp Pulse Resp BP Pulse Ox 98.1 F 70 20 148/69 98 07/14/18 07:23 07/14/18 07:23 07/14/18 07:23 07/14/18 07:23 07/14/18 07:23 Intake and Output: 07/14/18 07/14/18 06:59 18:59 Intake Total 350 Balance 350 - Medications Medications: Current Medications Acetaminophen (Tylenol 325mg Tab) 650 mg PO Q6 PRN PRN Reason: Pain, moderate (4-7) Last Admin: 07/11/18 20:08 Dose: 650 mg Albuterol/Ipratropium (Duoneb 3 Mg/0.5 Mg (3 Ml) Ud) 3 ml INH RQ6 [facility] Last Admin: 07/14/18 07:50 Dose: Not Given Apixaban (Eliquis) 2.5 mg PO Q12 [facility] Last Admin: 07/14/18 09:42 Dose: 2.5 mg Ascorbic Acid (Vitamin C 250 Mg Tab) 250 mg PO BIDPC [facility] Last Admin: 07/14/18 09:42 Dose: 250 mg Aspirin (Aspirin Chewable) 81 mg PO DAILY [facility] Last Admin: 07/14/18 09:42 Dose: 81 mg Famotidine (Pepcid) 20 mg PO DAILY [facility] Last Admin: 07/14/18 09:42 Dose: 20 mg Ceftriaxone Sodium (Rocephin Iv 1 Gm Duplex) 50 mls @ 100 mls/hr IVPB DAILY [facility]; Protocol Last Admin: 07/14/18 09:47 Dose: 100 mls/hr Metoprolol Succinate (Toprol Xl) 50 mg PO DAILY [facility] Last Admin: 07/14/18 09:42 Dose: 50 mg Multivitamins/Minerals (Therapeutic-M Tab) 1 tab PO DAILY [facility] Last Admin: 07/14/18 09:42 Dose: 1 tab Nystatin (Nystop Topical Powder) 1 applic TOP BID [facility] Last Admin: 07/14/18 10:37 Dose: 1 applic Petrolatum (Desitin Original) 1 gm TOP DAILY [facility] Last Admin: 07/14/18 10:32 Dose: 1 applic Saccharomyces Boulardii (Florastor) 250 mg PO BID [facility] Last Admin: 07/14/18 09:42 Dose: 250 mg - Labs Labs: 07/11/18 07:42 07/11/18 07:42 PT 13.7 SECONDS (9.7-12.2) H 07/10/18 14:39 INR 1.3 07/10/18 14:39 APTT 36 SECONDS (21-34) H 07/10/18 14:39 Assessment and Plan (1) Cellulitis and abscess of left leg Status: Acute (2) Leg edema, left Status: Acute
[2018-07-15] MEDS: Albuterol-Ipratrop 3 mg / 0.5 (3 ml) UD INH SCH ×2 (01:15→07:50)
[2018-07-15] MEDS: Saccharomyces Boulardi 250 mg Cap PO SCH (09:51)
[2018-07-15] MEDS: Multivitamin With Minerals Tab PO SCH (09:51)
[2018-07-15] MEDS: Metoprolol Succinate 50 mg XL Tab PO SCH (09:51)
[2018-07-15] MEDS: cefTRIAXone IV 1 gm in Dextros 50 ML IVPB SCH (09:54)
[2018-07-15] MEDS: Zinc Oxide Topical 30 gm Tube TOP SCH (09:57)
[2018-07-15 12:38] VITALS: BP 158/89; PULSE 68; RESP 20; TEMP 97.6; O2SAT 100
== END 2018-07-15 11:50 | disposition home or self-care (01) | DRG 603 ==
LOC: C.ER 13:35 → C.9E 18:02 → C.3T 21:03
PROVIDERS: ADMIT Internal Medicine; ATTEND Internal Medicine
DX: L03.116 Cellulitis of left lower limb (principal); I11.0 Hypertensive heart disease with heart failure; I50.9 Heart failure, unspecified; I87.2 Venous insufficiency (chronic) (peripheral); J44.9 Chronic obstructive pulmonary disease, unspecified; Z79.01 Long term (current) use of anticoagulants; E78.00 Pure hypercholesterolemia, unspecified; L02.416 Cutaneous abscess of left lower limb; E11.9 Type 2 diabetes mellitus without complications; Z51.5 Encounter for palliative care; Z86.718 Personal history of other venous thrombosis and embolism; Z95.5 Presence of coronary angioplasty implant and graft

== ENCOUNTER 2018-08-17 15:01 | Outpatient (CLI) | payer MEDICARE, OTHER | END 2018-08-17 15:02 | disposition home or self-care (01) | LOC: C.RADIC 15:01 | DX: J18.9 Pneumonia, unspecified organism (principal) ==

== ENCOUNTER 2018-09-27 10:35 | Inpatient (IN) | payer MEDICARE, OTHER ==
[2018-09-27 10:35] VITALS: BMI 30.2
[2018-09-27 12:37] LABS: BASO # 0.1 K/uL (0.0-0.2); BASO % 0.8 % (0.0-2.0); EOS # 0.9 K/uL (0.0-0.7); EOS % 13.1 % (0.0-4.0); HEMOGLOBIN 12.4 g/dL (11.0-16.0); LYMPH # 2.5 K/uL (1.0-4.3); MEAN CELL VOLUME 90.8 fL (81.0-99.0); MEAN CORPUSCULAR HEMOGLOBIN 30.1 pg (27.0-31.0); MEAN CORPUSCULAR HGB CONC 33.2 g/dL (33.0-37.0); MEAN PLATELET VOLUME 7.8 fL (7.2-11.7); MONO # 0.6 K/uL (0.0-0.8); MONO % 8.1 % (0.0-10.0); NEUT # 3.1 K/uL (1.8-7.0); NRBC % 0.1 % (0.0-2.0); RBC 4.11 Mil/uL (3.80-5.20); RED CELL DISTRIBUTION WIDTH 15.3 % (11.5-14.5); WHITE BLOOD COUNT 7.2 K/uL (4.8-10.8)
[2018-09-27 12:54] LABS: ALB/GLOB RATIO 1.2 (1.0-2.1); ALBUMIN 4.1 g/dL (3.5-5.0); AST/SGOT 24 U/L (14-36); BLOOD UREA NITROGEN 18 mg/dL (7-17); CALCIUM 9.2 mg/dl (8.6-10.4); GFR NON-AFRICAN AMERICAN > 60
[2018-09-27 12:56] LABS: ALT/SGPT < 6 U/L (9-52)
[2018-09-27] MEDS ORDERED: Potassium Chloride 20 mEq/15 ml LIQ UD PO STA (13:13)
--- NOTE | 2018-09-27 13:21 | RAD ---
Chest x-ray single frontal view History: Detox. Comparison: None available. Findings: Diffuse increased interstitial lung markings. Tortuous ectatic aorta. Cardiomegaly. Degenerative changes in the spine and shoulders. Postsurgical changes in the cervical spine. Impression: Diffuse increased interstitial lung markings. Tortuous ectatic aorta. Cardiomegaly. Degenerative changes in the spine and shoulders. Postsurgical changes in the cervical spine.
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
[2018-09-27] MEDS ORDERED: Potassium Chloride 20 mEq/15 ml LIQ UD ONE (13:56)
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
[2018-09-27] MEDS: Saccharomyces Boulardi 250 mg Cap PO SCH (19:20)
[2018-09-28 08:34] LABS: MEAN CELL VOLUME 90.9 fL (81.0-99.0); MEAN CORPUSCULAR HEMOGLOBIN 30.2 pg (27.0-31.0); MEAN CORPUSCULAR HGB CONC 33.2 g/dL (33.0-37.0); MEAN PLATELET VOLUME 8.1 fL (7.2-11.7); RBC 3.96 Mil/uL (3.80-5.20); RED CELL DISTRIBUTION WIDTH 15.5 % (11.5-14.5); WHITE BLOOD COUNT 7.1 K/uL (4.8-10.8)
[2018-09-28 09:03] LABS: ALB/GLOB RATIO 1.1 (1.0-2.1); ALBUMIN 3.3 g/dL (3.5-5.0); ALT/SGPT < 6 U/L (9-52); AST/SGOT 18 U/L (14-36); BLOOD UREA NITROGEN 14 mg/dL (7-17); CALCIUM 8.5 mg/dl (8.6-10.4); GFR NON-AFRICAN AMERICAN > 60
[2018-09-28] MEDS: Saccharomyces Boulardi 250 mg Cap PO SCH ×2 (09:29→19:29)
[2018-09-28] MEDS: Metoprolol Succinate 50 mg XL Tab PO SCH (09:29)
[2018-09-28] MEDS: Potassium Chloride 10 mEq ER Tab PO SCH (09:29)
[2018-09-28] MEDS ORDERED: Potassium Chloride 20 mEq/15 ml LIQ UD PO ONE (09:57)
[2018-09-28] MEDS ORDERED: Potassium Chloride 10 mEq ER Tab PO ONE (10:00)
--- NOTE | 2018-09-28 10:00 | CP.PCM.PN ---
Subjective - Date & Time of Evaluation Date of Evaluation: 09/28/18 Time of Evaluation: 09:58 - Subjective Subjective: Patient today is more comfortable and she is more pleasant looking today. But she is having some wheezing bilaterally in the lungs. Cough noted, but no mucus production noted, denies any fever at this time. She is eating well otherwise. Patient seen by psychiatrist today On examination: Vital signs are stable. 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 Patient admitted for worsening aggressive behavior. Hypokalemia. Less likely urinary tract infection. I discussed with the psychiatrist, recommended psychiatric geriatric unit. 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 Discharge plan once the clearance by psychiatrist Objective - Vital Signs/Intake and Output Vital Signs (last 24 hours): Temp Pulse Resp BP Pulse Ox 97.6 F 68 18 155/72 H 96 09/28/18 09:10 09/28/18 09:10 09/28/18 09:10 09/28/18 09:10 09/28/18 09:10 - Medications Medications: Current Medications Apixaban (Eliquis) 2.5 mg PO DAILY [facility] Last Admin: 09/28/18 09:29 Dose: 2.5 mg Aspirin (Aspirin Chewable) 81 mg PO DAILY [facility] Last Admin: 09/28/18 09:29 Dose: 81 mg Famotidine (Pepcid) 20 mg PO DAILY [facility] Last Admin: 09/28/18 09:29 Dose: 20 mg Metoprolol Succinate (Toprol Xl) 50 mg PO DAILY [facility] Last Admin: 09/28/18 09:29 Dose: 50 mg Mirtazapine (Remeron) 7.5 mg PO HS [facility] Last Admin: 09/27/18 22:23 Dose: 7.5 mg Potassium Chloride (Klor-Con 10) 10 meq PO DAILY [facility] Last Admin: 09/28/18 09:29 Dose: 10 meq Potassium Chloride (Klor-Con 10) 30 meq PO ONCE ONE Stop: 09/28/18 10:01 Last Admin: 09/28/18 09:29 Dose: 30 meq Potassium Chloride (K-Dur 20 Meq Er Tab) 20 meq PO ONCE ONE Stop: 09/28/18 16:01 Potassium Chloride (Potassium Chloride Oral Soln) 40 meq PO ONCE ONE Stop: 09/28/18 09:58 Rosuvastatin Calcium (Crestor) 5 mg PO [facility] Last Admin: 09/27/18 22:23 Dose: 5 mg Saccharomyces Boulardii (Florastor) 250 mg PO BID [facility] Last Admin: 09/28/18 09:29 Dose: 250 mg - Labs Labs: 09/28/18 08:21 09/28/18 08:21
--- NOTE | 2018-09-28 15:00 | CON ---
DATE: 09/28/2018 CHIEF COMPLAINT AND REASON FOR CONSULTATION: The patient is referred by Dr. Landeros. The patient is having increasing behavioral problems at home with history of dementia and depression. HISTORY OF PRESENT ILLNESS: This is a case of an 88-year-old female with history of dementia, was brought in by ambulance after her caregiver called. The patient according to Dr. Landeros, has been having increasing behavioral problems at home. She has been fighting, throwing things, firing some home health aide. The patient lives alone. The patient's behavior has been escalating lately. The home health aide is having problems dealing with her at home. Dr. Landeros states he has tried her with Seroquel as well as Remeron, did not work well. The patient referred here also for comanagement. The patient was noted to be hypokalemic. Dr. Landeros is suggesting she can be transferred to the geropsych unit for stabilization of her behavior; otherwise, she will lose her home health aide services at home because of her behavior. Today when seen, she was conscious, stated that she has no problems. She was eating. PSYCHIATRIC HISTORY: History of depression, dementia, currently on Remeron. PAST MEDICAL HISTORY: History of asthma, bronchitis, CHF, COPD, hypertension, hypercholesterolemia. DRUG ALCOHOL HISTORY: Denies any. ALLERGIES: NO KNOWN ALLERGIES. PSYCHOSOCIAL HISTORY: The patient lives with home care services at home. CURRENT MEDICATIONS: List noted and meds reviewed, include aspirin, Crestor, Eliquis, Pepcid, Remeron 7.5 mg at bedtime, and metoprolol. REVIEW OF SYSTEMS: The patient is alert, but forgetful, sitting in her room. She was eating her breakfast. PHYSICAL EXAMINATION: VITAL SIGNS: Temperature is 97.6, pulse 68, blood pressure 155/72, respirations 18, oxygen saturation is 96%. SKIN: No diaphoresis. HEENT: No headache. No dizziness. NECK: Supple. RESPIRATORY: No dyspnea. CARDIOVASCULAR: No chest pain. GASTROINTESTINAL: She is eating. EXTREMITIES: The patient moves extremities. MUSCULOSKELETAL: Feels weak. NEUROLOGIC: Alert. Periods of forgetfulness. GENITOURINARY: No dysuria. MENTAL STATUS EXAMINATION: An elderly female of Citizen Of [place] descent, oriented x3, but very forgetful at times. Speech spontaneous. Affect is reactive. Mood is dysphoric. Thought process, forgetful. Thought content, no overt psychosis, no suicidal or homicidal ideation. The patient's PMD, Dr. Landeros reports that the patient has been having escalating behavioral problems at home. Attention and memory seem to be limited. Insight and judgment limited. Impulse control is guarded at this time. LABORATORY DATA: Review of her labs, the patient initially was hypokalemic, last potassium now is still low 3.0, creatinine is 0.8, GFR is greater than 60. IMPRESSION: History of dementia with mood changes as well as depression. PLAN AND RECOMMENDATION: The patient is seen. Meds are reviewed. We will continue with Remeron 7.5 mg at bedtime for now. We will consider referring to geropsych unit once medically stable to stabilize her medications. The patient has been having problems at home with her homemaker. The patient may be at risk for losing her home care services because of her behavior. Charles Carlton MD MTDD
[2018-09-28] MEDS ORDERED: Potassium Chloride 20 mEq ER Tab PO ONE (16:00)
[2018-09-28] MEDS: Albuterol 0.083% Inhal Sol (2.5 mg/3 mL) UD INH PRN (19:13)
[2018-09-28 22:40] LABS: SQUAMOUS EPITHIAL < 1 /hpf (0-5); URINE BILIRUBIN NEGATIVE (NEGATIVE); URINE BLOOD NEGATIVE (NEGATIVE); URINE CLARITY Clear (Clear); URINE COLOR Yellow (YELLOW); URINE GLUCOSE (UA) NORMAL (Normal); URINE LEUKOCYTE ESTERASE NEG Leu/uL (Negative); URINE PROTEIN NEGATIVE (NEGATIVE)
[2018-09-28 22:56] LABS: BARBITURATES, UR NEGATIVE (NEGATIVE); BENZODIAZEPINES, UR NEGATIVE (NEGATIVE); OPIATES, UR NEGATIVE (NEGATIVE); PHENCYCLIDINE, UR NEGATIVE (NEGATIVE)
[2018-09-29 08:28] LABS: ALB/GLOB RATIO 1.1 (1.0-2.1); ALBUMIN 3.7 g/dL (3.5-5.0); ALT/SGPT 9 U/L (9-52); AST/SGOT 25 U/L (14-36); BLOOD UREA NITROGEN 12 mg/dL (7-17); CALCIUM 9.1 mg/dl (8.6-10.4); GFR NON-AFRICAN AMERICAN 59
[2018-09-29] MEDS: Albuterol 0.083% Inhal Sol (2.5 mg/3 mL) UD INH PRN ×2 (09:45→19:50)
[2018-09-29] MEDS: Metoprolol Succinate 50 mg XL Tab PO SCH (10:41)
[2018-09-29] MEDS: Potassium Chloride 10 mEq ER Tab PO SCH (10:41)
[2018-09-29] MEDS: Saccharomyces Boulardi 250 mg Cap PO SCH ×2 (10:42→18:30)
--- NOTE | 2018-09-29 14:20 | CP.PCM.PN ---
Subjective - Date & Time of Evaluation Date of Evaluation: 09/29/18 Time of Evaluation: 14:16 - Subjective Subjective: Patient today feeling slightly better. She is able to sit up. She is able to walk today slightly better than yesterday. Not in any distress. No chest pain no shortness of breath noted. Patient is able to eat by herself On examination: Vital signs are stable not in any other distress Chest good air entry, regular heart sounds noted, nontender abdomen, no pedal edema Assessment and recommendation: 88-year-old female advanced, patient has a history of a DVT, left iliac vein thrombosis, status post stent, on anticoagulation, hypertension, congestive heart failure in the past, episode of pneumonia recurrent urinary tract infectio n. Dementia. Moderate to mild patient admitted to the hospital because of the aggressive behavior, hypokalemia currently improving. Also weakness, unable to walk. Patient is tolerating the physical therapy now, I recommended subacute rehab. Patient's family also agreeing for subacute rehab, possible discharge plan after the rehab, we probably need to admit the patient for rehabilitation Objective - Vital Signs/Intake and Output Vital Signs (last 24 hours): Temp Pulse Resp BP Pulse Ox 98.0 F 50 L 20 158/72 H 95 09/29/18 08:34 09/29/18 09:00 09/29/18 08:34 09/29/18 08:34 09/29/18 08:34 - Medications Medications: Current Medications Albuterol Sulfate (Albuterol 0.083% Inhal Batsheva (2.5 Mg/3 Ml) Ud) 2.5 mg INH RQ6 PRN PRN Reason: Wheezing Last Admin: 09/29/18 09:45 Dose: 2.5 mg Apixaban (Eliquis) 2.5 mg PO DAILY [facility] Last Admin: 09/29/18 10:41 Dose: 2.5 mg Aspirin (Aspirin Chewable) 81 mg PO DAILY [facility] Last Admin: 09/29/18 10:42 Dose: 81 mg Famotidine (Pepcid) 20 mg PO DAILY [facility] Last Admin: 09/29/18 10:42 Dose: 20 mg Metoprolol Succinate (Toprol Xl) 50 mg PO DAILY [facility] Last Admin: 09/29/18 10:41 Dose: 50 mg Mirtazapine (Remeron) 7.5 mg PO HS [facility] Last Admin: 09/28/18 22:20 Dose: 7.5 mg Potassium Chloride (Klor-Con 10) 10 meq PO DAILY [facility] Last Admin: 09/29/18 10:41 Dose: 10 meq Rosuvastatin Calcium (Crestor) 5 mg PO HS [facility] Last Admin: 09/28/18 22:20 Dose: 5 mg Saccharomyces Boulardii (Florastor) 250 mg PO BID [facility] Last Admin: 09/29/18 10:42 Dose: 250 mg - Labs Labs: 09/28/18 08:21 09/29/18 07:57
--- NOTE | 2018-09-29 17:03 | PN ---
DATE: 09/29/2018 SUBJECTIVE: The patient is seen. The patient's labs noted. Her potassium level is now 4.3, which is within normal limits. The patient is still forgetful, but exhibiting no behavioral problems. She gets irritable when her sister's name is mentioned, but the patient is not fighting with staff. She has been compliant with meds, currently taking Remeron 7.5 mg at bedtime. She wants to go home, but according to , the patient still is not safe to go home at this time and may benefit from subacute rehab. The patient, with her behavior, is not a candidate for Geropsych at this time, as she has been pleasant and cooperative during hospital stay. PHYSICAL EXAMINATION: VITAL SIGNS: Temperature 98, pulse rate 59, blood pressure 158/72, respirations 20, O2 saturation is 95%. GENERAL: The patient is alert, verbal, forgetful, sitting in her room with staff. SKIN: No pruritus. HEENT: No headache. No dizziness. NECK: Supple. RESPIRATORY: No dyspnea. CARDIOVASCULAR: No chest pain. GASTROINTESTINAL: Appetite is fair. EXTREMITIES: Moving extremities. Gait is steady at times. MUSCULOSKELETAL: Feels weak. NEUROLOGIC: Alert with periods of forgetfulness. GENITOURINARY: No dysuria. MENTAL STATUS EXAMINATION: An 88-year-old female, who looks stated age, oriented x2. Speech is spontaneous. Speaks limited Gibraltarian. The patient is Setswana. Affect is reactive. Mood is dysphoric, less irritable. Thought process, forgetful. Thought content, no psychosis. No suicidal or homicidal ideation. Attention and memory seemed to be limited. Insight and judgment are limited. Impulse control is fair at this time. IMPRESSION: History of dementia with mood changes as well as history of hypokalemia, now corrected. PLAN AND RECOMMENDATION: The patient is seen, meds reviewed. The patient is stable at this time, is referred for rehab. Psychiatrically is stable to go for subacute rehab once medically cleared. Charles Carlton MD [facility]
--- NOTE | 2018-09-29 22:52 | CARD ---
APPROVED REPORT Date of service: 09/27/2018 EKG Measurement Heart [id number] <Conclusion> Normal sinus rhythm. Non-specific St-T changes. Baseline Abnormalities.
[2018-09-30] MEDS: Saccharomyces Boulardi 250 mg Cap PO SCH ×2 (10:53→19:31)
[2018-09-30] MEDS: Potassium Chloride 10 mEq ER Tab PO SCH (10:53)
[2018-09-30] MEDS: Metoprolol Succinate 50 mg XL Tab PO SCH (10:53)
--- NOTE | 2018-09-30 12:13 | CP.PCM.PN ---
Subjective - Date & Time of Evaluation Date of Evaluation: 09/30/18 Time of Evaluation: 12:12 - Subjective Subjective: Patient this morning had a confusion. Somewhat agitated. But on examination she is much comfortable, calm. Patient is not able to eat well this morning poor appetite noted. She is having significant weakness in the bilateral knee joint On examination: Vital signs stable. Chest good air entry, regular HS noted, nontender abdomen, no pedal edema. Assessment and recommendation: A 88-year-old female with a history of venous thrombosis now status post left iliac venous stenting. History of aspiration pneumonia in the past and now having increasing dementia, some delirium noted. Seen by psychiatrist. I recommended subacute rehab, patient is currently agreeing and will plan once a bed is available Objective - Vital Signs/Intake and Output Vital Signs (last 24 hours): Temp Pulse Resp BP Pulse Ox 97.5 F L 80 20 158/78 H 100 09/30/18 08:00 09/30/18 10:54 09/30/18 08:00 09/30/18 08:00 09/30/18 08:00 - Medications Medications: Current Medications Albuterol Sulfate (Albuterol 0.083% Inhal Batsheva (2.5 Mg/3 Ml) Ud) 2.5 mg INH RQ6 PRN PRN Reason: Wheezing Last Admin: 09/29/18 19:50 Dose: 2.5 mg Apixaban (Eliquis) 2.5 mg PO DAILY [facility] Last Admin: 09/30/18 10:53 Dose: 2.5 mg Aspirin (Aspirin Chewable) 81 mg PO DAILY [facility] Last Admin: 09/30/18 10:53 Dose: 81 mg Famotidine (Pepcid) 20 mg PO DAILY [facility] Last Admin: 09/30/18 10:53 Dose: 20 mg Metoprolol Succinate (Toprol Xl) 50 mg PO DAILY [facility] Last Admin: 09/30/18 10:53 Dose: 50 mg Mirtazapine (Remeron) 7.5 mg PO HS [facility] Last Admin: 09/29/18 21:56 Dose: 7.5 mg Olanzapine (Zyprexa) 2.5 mg PO HS [facility] Potassium Chloride (Klor-Con 10) 10 meq PO DAILY [facility] Last Admin: 09/30/18 10:53 Dose: 10 meq Rosuvastatin Calcium (Crestor) 5 mg PO HS [facility] Last Admin: 09/29/18 21:56 Dose: 5 mg Saccharomyces Boulardii (Florastor) 250 mg PO BID [facility] Last Admin: 09/30/18 10:53 Dose: 250 mg - Labs Labs: 09/28/18 08:21 09/29/18 07:57
--- NOTE | 2018-09-30 13:47 | PN ---
DATE: 09/30/2018 SUBJECTIVE: The patient's behavior deteriorated over 24 hours. She is currently one-to-one. According to the nurse, she was very agitated, got up at 3 p.m. and then did not sleep the whole night. Today, she is very drowsy, still confused. The patient's behavior is still very rapid. She wants to go home. The patient was taking only Remeron 7.5 mg at bedtime. We will adjust her psych medication. The patient will benefit from geropsych, but the patient has dementia and may discuss with the family if somebody has power of rodeo rider for medical care, as she may need and benefit geropsych admission because of her behavior. The patient was very calm for a few days, but her aggressiveness has resurfaced. REVIEW OF SYSTEMS: The patient is sleepy but arousable, on one-to-one watch. The patient did not sleep whole night, still confused. PHYSICAL EXAMINATION: VITAL SIGNS: Temperature 97.7, pulse rate 63, blood pressure 148/74, respirations 20, oxygen saturation 95% on room air. SKIN: No diaphoresis. HEENT: No headache. No dizziness. NECK: Supple. RESPIRATORY: No dyspnea. CARDIOVASCULAR: No chest pain. GASTROINTESTINAL: No nausea, no vomiting. EXTREMITIES: Moving extremities. MUSCULOSKELETAL: Feels weak. NEUROLOGIC: Drowsy, but confused. MENTAL STATUS EXAMINATION: An elderly female who looks stated age, confused, drowsy, oriented x1. Speech is slow. Affect is restricted. Mood is dysphoric. Thought process, confused. Thought content, no overt psychosis. No suicidal or homicidal ideation. Attention and memory seemed to be limited. Insight and judgment limited. Impulse control is guarded at this time. IMPRESSION: Senile-onset dementia with behavioral problems and possible sundowning phenomenon. PLAN AND RECOMMENDATIONS: The patient is seen, meds reviewed. We will hold on referring her to subacute for now and we will add Zyprexa 2.5 mg at bedtime and continue Remeron 7.5 mg at bedtime. We will consider geropsych admission due to her behavior. However, as the patient has dementia and refusing to go, we will see if somebody has power of rodeo rider of her medical care. Charles Carlton MD [facility] # [id number]
[2018-10-01] MEDS: Potassium Chloride 10 mEq ER Tab PO SCH (09:49)
[2018-10-01] MEDS: Metoprolol Succinate 50 mg XL Tab PO SCH (09:49)
[2018-10-01] MEDS: Saccharomyces Boulardi 250 mg Cap PO SCH ×2 (09:50→22:07)
--- NOTE | 2018-10-01 13:57 | PN ---
DATE: 10/01/2018 SUBJECTIVE: The patient seen. Still irritable, some behavioral problems, but doing better. The patient wants to go home. Today, she is more interactive and was eating her breakfast. REVIEW OF SYSTEMS: The patient is alert, verbal, still forgetful, but she is eating her breakfast. The patient had no acute cardiac issues since taking Zyprexa 2.5 mg po hs. Patient is also taking Remeron 7.5 mg po hs. PHYSICAL EXAMINATION: VITAL SIGNS: Temperature 97.6, pulse rate 53, blood pressure 139/81, respirations 20, oxygen saturation 94%. SKIN: No diaphoresis. HEENT: No headache. No dizziness. NECK: Supple. RESPIRATORY: No dyspnea. CARDIOVASCULAR: No chest pain. GASTROINTESTINAL: Appetite is fair. EXTREMITIES: The patient moving extremities. MUSCULOSKELETAL: Feels weak. NEUROLOGIC: Alert, but forgetful. Oriented x2. GENITOURINARY: No urinary problems. MENTAL STATUS EXAMINATION: An elderly female who looks stated age, in hospital gown, on safety watch. Speech is spontaneous. Affect reactive. Mood dysphoric. Thought process, forgetful. Thought content, the patient states she wants to go home. No psychosis. No suicidal or homicidal ideation. Attention and memory seemed to be limited. Insight and judgment limited. Impulse control is improving at this time. IMPRESSION: History of dementia with behavioral problems and possible delirium. PLAN AND RECOMMENDATIONS: The patient is seen, meds reviewed. Continue Zyprexa and Remeron as ordered. Safety watch. If the patient's behavior improves, we will refer the patient to subacute rehabilitation. If her behavior deteriorates, we will consider Geropsych admission. Charles Carlton MD [facility]
[2018-10-01] MEDS: Albuterol-Ipratrop 3 mg / 0.5 (3 ml) UD INH SCH (21:24)
[2018-10-01] MEDS: MethylPREDNISolone 40 mg Vial IVP SCH (22:07)
[2018-10-02] MEDS: Albuterol-Ipratrop 3 mg / 0.5 (3 ml) UD INH SCH ×5 (02:18→21:31)
[2018-10-02] MEDS: Potassium Chloride 10 mEq ER Tab PO SCH (10:01)
[2018-10-02] MEDS: Saccharomyces Boulardi 250 mg Cap PO SCH ×2 (10:01→18:08)
[2018-10-02] MEDS: Metoprolol Succinate 50 mg XL Tab PO SCH (10:01)
[2018-10-02] MEDS: MethylPREDNISolone 40 mg Vial IVP SCH ×2 (10:02→21:46)
--- NOTE | 2018-10-02 20:37 | PN ---
DATE: 10/02/2018 SUBJECTIVE: The patient is seen. The patient's behavior continues to improve. She is more pleasant, cooperative, eating, still forgetful. The patient is currently on Zyprexa and Remeron combination. Her heart rate seems to be stable. The patient expressing desire to go home. No major behavioral problems reported by staff. REVIEW OF SYSTEMS: The patient is alert, but still forgetful, seen in her room resting. PHYSICAL EXAMINATION: VITAL SIGNS: Temperature 97.3, pulse rate 63, blood pressure 184/80, respirations 18, oxygen saturation 98%. SKIN: No diaphoresis. HEENT: No headache. No dizziness. NECK: Supple. RESPIRATORY: No dyspnea. CARDIOVASCULAR: No chest pain. GASTROINTESTINAL: She is eating well. EXTREMITIES: Moving extremities, but needs assistance going to the bathroom. Her gait seems to be unsteady. NEUROLOGIC: Alert with periods of confusion, but improving. GENITOURINARY: No dysuria. MENTAL STATUS EXAMINATION: An elderly female who is 88 years old, oriented x2. Mood is calmer. Affect is reactive. Speech is spontaneous. Thought process still confused off and on. Thought content: No psychosis. No suicidal or homicidal ideation. Attention and memory seem to be limited. Insight and judgment improving. Impulse control is fair. IMPRESSION: History of senile onset dementia with behavioral problems and mood changes, improving. PLAN AND RECOMMENDATIONS: The patient is seen, meds reviewed. Continue present management. If the patient continues to be stable, we will refer her to [facility] also known [facility], this coming Thursday. Charles Carlton MD [facility]
[2018-10-03] MEDS: Albuterol-Ipratrop 3 mg / 0.5 (3 ml) UD INH SCH ×4 (01:37→19:50)
[2018-10-03] MEDS: MethylPREDNISolone 40 mg Vial IVP SCH ×2 (10:08→21:15)
[2018-10-03] MEDS: Potassium Chloride 10 mEq ER Tab PO SCH ×2 (10:13→10:19)
[2018-10-03] MEDS: Metoprolol Succinate 50 mg XL Tab PO SCH (10:13)
[2018-10-03] MEDS: Saccharomyces Boulardi 250 mg Cap PO SCH ×3 (10:13→21:15)
--- NOTE | 2018-10-03 18:34 | CP.PCM.PN ---
Subjective - Date & Time of Evaluation Date of Evaluation: 10/03/18 Time of Evaluation: 18:34 - Subjective Subjective: pt comfortable no distress awaiting for placement will f/u Objective - Vital Signs/Intake and Output Vital Signs (last 24 hours): Temp Pulse Resp BP Pulse Ox 97.8 F 80 20 162/85 H 94 L 10/02/18 23:23 10/03/18 01:30 10/02/18 23:23 10/03/18 10:00 10/02/18 23:23 Intake and Output: 10/03/18 10/03/18 06:59 18:59 Intake Total 240 Balance 240 - Medications Medications: Current Medications Albuterol/Ipratropium (Duoneb 3 Mg/0.5 Mg (3 Ml) Ud) 3 ml INH RQ6 [facility] Last Admin: 10/03/18 14:29 Dose: Not Given Apixaban (Eliquis) 2.5 mg PO DAILY [facility] Last Admin: 10/03/18 10:19 Dose: Not Given Aspirin (Aspirin Chewable) 81 mg PO DAILY [facility] Last Admin: 10/03/18 10:19 Dose: Not Given Famotidine (Pepcid) 20 mg PO DAILY [facility] Last Admin: 10/03/18 10:13 Dose: 20 mg Lorazepam (Ativan) 1 mg IVP Q6H PRN PRN Reason: Anxiety Last Admin: 10/03/18 16:05 Dose: 1 mg Lorazepam (Ativan) 1 mg PO DAILY [facility] Methylprednisolone (Solu-Medrol) 20 mg IVP Q12 [facility] Stop: 10/03/18 22:01 Last Admin: 10/03/18 10:08 Dose: 20 mg Metoprolol Succinate (Toprol Xl) 50 mg PO DAILY [facility] Last Admin: 10/03/18 10:13 Dose: 50 mg Mirtazapine (Remeron) 7.5 mg PO HS [facility] Last Admin: 10/02/18 21:46 Dose: 7.5 mg Olanzapine (Zyprexa) 2.5 mg PO HS [facility] Last Admin: 10/02/18 21:47 Dose: 2.5 mg Potassium Chloride (Klor-Con 10) 10 meq PO DAILY [facility] Last Admin: 10/03/18 10:19 Dose: Not Given Rosuvastatin Calcium (Crestor) 5 mg PO HS [facility] Last Admin: 10/02/18 21:45 Dose: 5 mg Saccharomyces Boulardii (Florastor) 250 mg PO BID [facility] Last Admin: 10/03/18 10:19 Dose: Not Given - Labs Labs: 09/28/18 08:21 09/29/18 07:57
--- NOTE | 2018-10-03 19:49 | PN ---
DATE: 10/03/2018 SUBJECTIVE: The patient is seen. The patient today's morning became very agitated and redirectable, trying to get out of bed and fighting with staff. The patient was given two doses of Ativan 0.5 mg IV p.r.n., but it did not work. The patient still needs to be on safety watch. We will readjust the medication and we will transfer the patient to [facility] at [facility] once her behavior is more stable. Today, her behavior is still very erratic. REVIEW OF SYSTEMS: The patient is seen in her room, on safety watch. The patient wants to go home, wants to get out of bed. According to the nurse, Kennedi, she was visited by her caregiver. PHYSICAL EXAMINATION: VITAL SIGNS: Temperature 97.8, pulse 80, blood pressure 183/75, respirations 20, and oxygen saturations 94%. SKIN: No diaphoresis. HEENT: No headache. No dizziness. NECK: Supple. RESPIRATORY: No dyspnea. CARDIOVASCULAR: No chest pain. GASTROINTESTINAL: The patient is eating. EXTREMITIES: Moving extremities. MUSCULOSKELETAL: Feels weak. NEUROLOGICAL: Alert, still confused, irritable. Needs redirection. MENTAL STATUS EXAMINATION: An elderly female, who looks her stated age, still confused and irritable. The patient wants to go home. Speech, spontaneous. Affect is reactive. Mood is dysphoric, irritable. Thought process is confused off and on. Thought content, wants to go home. No overt psychosis. No suicidal or homicidal ideation. Attention and memory seem to be limited. Insight and judgment, limited. Impulse content is guarded at this time. IMPRESSION: History of dementia, behavioral problems. PLAN AND RECOMMENDATIONS: The patient is seen, medications were reviewed. We will readjust patient's medications. We will change the p.r.n. to 1 mg IV every 6 hours p.r.n. and then may have Ativan 1 mg p.o. daily in the morning, to start tomorrow. Continue Zyprexa 2.5 as well as the Remeron 7.5 mg at bedtime. We will monitor her vital signs. Once the patient's behavior is more stable, we will refer her to [facility] for subacute rehab. Charles Carlton MD MTDNaresh
[2018-10-04] MEDS: Albuterol-Ipratrop 3 mg / 0.5 (3 ml) UD INH SCH ×4 (01:24→20:42)
[2018-10-04 08:12] LABS: ALB/GLOB RATIO 1.3 (1.0-2.1); ALBUMIN 4.1 g/dL (3.5-5.0); ALT/SGPT < 6 U/L (9-52); AST/SGOT 44 U/L (14-36); BLOOD UREA NITROGEN 31 mg/dL (7-17); GFR NON-AFRICAN AMERICAN 52
[2018-10-04 08:18] LABS: BASO % 0.1 % (0.0-2.0); HEMOGLOBIN 12.9 g/dL (11.0-16.0); LYMPH # 1.6 K/uL (1.0-4.3); LYMPH % 15.9 % (20.0-40.0); MEAN CELL VOLUME 91.8 fL (81.0-99.0); MEAN CORPUSCULAR HEMOGLOBIN 29.8 pg (27.0-31.0); MEAN CORPUSCULAR HGB CONC 32.5 g/dL (33.0-37.0); MEAN PLATELET VOLUME 8.7 fL (7.2-11.7); MONO # 0.4 K/uL (0.0-0.8); MONO % 3.6 % (0.0-10.0); NEUT # 8.1 K/uL (1.8-7.0); NEUT % 80.4 % (50.0-75.0); NRBC % 0.1 % (0.0-2.0); RBC 4.32 Mil/uL (3.80-5.20); RED CELL DISTRIBUTION WIDTH 15.8 % (11.5-14.5); WHITE BLOOD COUNT 10.1 K/uL (4.8-10.8)
[2018-10-04] MEDS: Saccharomyces Boulardi 250 mg Cap PO SCH ×2 (10:49→18:02)
[2018-10-04] MEDS: Metoprolol Succinate 50 mg XL Tab PO SCH (10:49)
[2018-10-04] MEDS: Potassium Chloride 10 mEq ER Tab PO SCH (10:50)
--- NOTE | 2018-10-04 15:25 | PN ---
DATE: 10/04/2018 SUBJECTIVE: The patient is seen. The patient wants to go home. She is drowsy today. The patient was given Ativan 1 mg p.o. daily in conjunction with Remeron 7.5 mg at bedtime and Olanzapine 2.5 mg at bedtime. The patient is still on safety watch. The patient still wants to get out of bed. As per high risk case manager, the patient has not been accepted to any [facility] due to her behavior and her behavior continues to be erratic. The patient still wants to go home. REVIEW OF SYSTEMS: The patient is sleepy but arousable, conversing. She states she wants to go home. The patient is on safety watch. PHYSICAL EXAMINATION: VITAL SIGNS: Temperature 97.3, pulse 67, blood pressure 148/68, respirations 20, and oxygen saturation 97%. SKIN: No diaphoresis. HEENT: No headache or dizziness. NECK: Supple. RESPIRATORY: No dyspnea. CARDIOVASCULAR; No chest pain. GASTROINTESTINAL: The patient is refusing to eat her breakfast today. EXTREMITIES: Gait is unsteady. Needs assistance to go to the bathroom. MUSCULOSKELETAL: Feels weak. NEUROLOGICAL: Alert with periods of confusion. MENTAL STATUS EXAMINATION: An elderly female, who looks stated age. Speaks limited Jamaican. Mood is dysphoric. Affect is restricted. Speech is slow. Thought process, confused. Thought content: The patient wants to go home. No overt psychosis. No suicidal or homicidal ideation. Attention and memory seem to be limited. Insight and judgment limited. Impulse control is guarded at this time. IMPRESSION: History of dementia with behavioral problems. PLAN AND RECOMMENDATION: The patient is seen. Medications were reviewed. Will continue present psychiatric medications. Once behavior is more stable, we will try to refer her for [facility]. For now, the patient has not been accepted to any [facility] due to her behavior. We will continue the safety watch monitoring for now. Charles Carlton MD MTDNaresh
--- NOTE | 2018-10-04 23:01 | CP.PCM.PN ---
Subjective - Date & Time of Evaluation Date of Evaluation: 10/04/18 Time of Evaluation: 22:59 - Subjective Subjective: pt is pleasant but was very confused. she was not wearing any dress but c/o very hot feeling not eating well weak in the legs noted vitals normal chest good air entry hs regular no pedal edema pt with dementia, HTN,delirium now more confused added ssri will f/u unsafe discharge to home by herself Objective - Vital Signs/Intake and Output Vital Signs (last 24 hours): Temp Pulse Resp BP Pulse Ox 97.7 F 58 L 20 157/68 H 99 10/04/18 15:06 10/04/18 15:06 10/04/18 15:06 10/04/18 15:06 10/04/18 15:06 Intake and Output: 10/04/18 10/05/18 18:59 06:59 Intake Total 350 240 Balance 350 240 - Medications Medications: Current Medications Albuterol/Ipratropium (Duoneb 3 Mg/0.5 Mg (3 Ml) Ud) 3 ml INH RQ6 [facility] Last Admin: 10/04/18 20:42 Dose: 3 ml Apixaban (Eliquis) 2.5 mg PO DAILY [facility] Last Admin: 10/04/18 10:49 Dose: 2.5 mg Aspirin (Aspirin Chewable) 81 mg PO DAILY [facility] Last Admin: 10/04/18 10:50 Dose: 81 mg Famotidine (Pepcid) 20 mg PO DAILY [facility] Last Admin: 10/04/18 10:49 Dose: 20 mg Lorazepam (Ativan) 1 mg IVP Q6H PRN PRN Reason: Anxiety Last Admin: 10/03/18 16:05 Dose: 1 mg Lorazepam (Ativan) 1 mg PO DAILY [facility] Last Admin: 10/04/18 10:49 Dose: Not Given Metoprolol Succinate (Toprol Xl) 50 mg PO DAILY [facility] Last Admin: 10/04/18 10:49 Dose: 50 mg Mirtazapine (Remeron) 7.5 mg PO HS [facility] Last Admin: 10/04/18 21:16 Dose: 7.5 mg Olanzapine (Zyprexa) 2.5 mg PO HS [facility] Last Admin: 10/04/18 21:16 Dose: 2.5 mg Potassium Chloride (Klor-Con 10) 10 meq PO DAILY [facility] Last Admin: 10/04/18 10:50 Dose: 10 meq Rosuvastatin Calcium (Crestor) 5 mg PO HS [facility] Last Admin: 10/04/18 21:16 Dose: 5 mg Saccharomyces Boulardii (Florastor) 250 mg PO BID [facility] Last Admin: 10/04/18 18:02 Dose: 250 mg - Labs Labs: 10/04/18 07:53 10/04/18 07:53
[2018-10-05] MEDS: Albuterol-Ipratrop 3 mg / 0.5 (3 ml) UD INH SCH ×2 (01:24→20:17)
--- NOTE | 2018-10-05 07:59 | CP.PCM.PN ---
Subjective - Date & Time of Evaluation Date of Evaluation: 10/05/18 Time of Evaluation: 07:58 - Subjective Subjective: Patient is still on one-to-one. Confused this morning. Patient is not eating well. Weakness in the legs noted. On examination: Vital signs are stable. Chest good air entry Heart sounds are regular Nontender abdomen. Assessment and recommendation: 88-year-old female with a history of DVT, history of left iliac vein stent. Pneumonia. Urinary tract infection. Admitted with worsening delirium, dementia. Still having some confusion. Patient is on one-to-one. Unsafe discharge at this time. I recommend a rehab evaluation and possible longterm placement. Need social work professor evaluation. Family meeting likely related Objective - Vital Signs/Intake and Output Vital Signs (last 24 hours): Temp Pulse Resp BP Pulse Ox 97.2 F L 65 20 176/74 H 98 10/04/18 23:50 10/04/18 23:50 10/04/18 23:50 10/04/18 23:50 10/04/18 23:50 Intake and Output: 10/05/18 10/05/18 06:59 18:59 Intake Total 240 Balance 240 - Medications Medications: Current Medications Albuterol/Ipratropium (Duoneb 3 Mg/0.5 Mg (3 Ml) Ud) 3 ml INH RQ6 [facility] Last Admin: 10/05/18 01:24 Dose: Not Given Apixaban (Eliquis) 2.5 mg PO DAILY [facility] Last Admin: 10/04/18 10:49 Dose: 2.5 mg Aspirin (Aspirin Chewable) 81 mg PO DAILY [facility] Last Admin: 10/04/18 10:50 Dose: 81 mg Famotidine (Pepcid) 20 mg PO DAILY [facility] Last Admin: 10/04/18 10:49 Dose: 20 mg Lorazepam (Ativan) 1 mg IVP Q6H PRN PRN Reason: Anxiety Last Admin: 10/03/18 16:05 Dose: 1 mg Lorazepam (Ativan) 1 mg PO DAILY [facility] Last Admin: 10/04/18 10:49 Dose: Not Given Metoprolol Succinate (Toprol Xl) 50 mg PO DAILY [facility] Last Admin: 10/04/18 10:49 Dose: 50 mg Mirtazapine (Remeron) 7.5 mg PO HS [facility] Last Admin: 10/04/18 21:16 Dose: 7.5 mg Olanzapine (Zyprexa) 2.5 mg PO HS [facility] Last Admin: 10/04/18 21:16 Dose: 2.5 mg Potassium Chloride (Klor-Con 10) 10 meq PO DAILY [facility] Last Admin: 10/04/18 10:50 Dose: 10 meq Rosuvastatin Calcium (Crestor) 5 mg PO HS [facility] Last Admin: 10/04/18 21:16 Dose: 5 mg Saccharomyces Boulardii (Florastor) 250 mg PO BID [facility] Last Admin: 10/04/18 18:02 Dose: 250 mg - Labs Labs: 10/04/18 07:53 10/04/18 07:53
[2018-10-05] MEDS: Saccharomyces Boulardi 250 mg Cap PO SCH ×3 (11:09→17:44)
[2018-10-05] MEDS: Potassium Chloride 10 mEq ER Tab PO SCH ×2 (11:10→12:13)
[2018-10-05] MEDS: Metoprolol Succinate 50 mg XL Tab PO SCH ×2 (11:10→12:13)
--- NOTE | 2018-10-05 14:21 | PN ---
DATE: 10/05/2018 SUBJECTIVE: The patient was seen. The patient is still confused, seen today with still safety watch. The patient is compliant with her meds. Behavior is still erratic at times, but more manageable. I do suggest the patient can be transferred to a four-bedded room for safety watch once bed is available. REVIEW OF SYSTEMS: The patient is sleepy, but arousable, but still in safety watch, not in acute respiratory distress. The patient is seen, says she wants to eat her breakfast. PHYSICAL EXAMINATION: VITAL SIGNS: Temperature 97.4, pulse 60, blood pressure 144/75, respirations 18, oxygen saturation 97%. SKIN: No diaphoresis. HEENT: No headache or dizziness. NECK: Supple. RESPIRATORY: No dyspnea. CARDIOVASCULAR: No chest pain. GASTROINTESTINAL: The patient eats with assistance. EXTREMITIES: The patient is moving extremities. MUSCULOSKELETAL: Feels weak. NEUROLOGICAL: Alert with periods of confusion, but she is more redirectable. GENITOURINARY: Denies any urinary problems. MENTAL STATUS EXAMINATION: An elderly female seen today in her room, oriented x2. Affect is reactive. Speech is spontaneous. Thought process confused. Thought content, no overt psychosis. No suicidal or homicidal ideation. Attention and memory seem to be limited. Insight and judgment limited. Impulse control is improving at this time. IMPRESSION: History of senile onset dementia, behavior problems and mood changes as well as possible delirium. PLAN AND RECOMMENDATIONS: The patient is seen. Meds reviewed. Continue present management. Continue present psych meds. As stated earlier, the patient can be transferred to four-bedded room once bed is available for monitoring. Charles Carlton MD
[2018-10-06] MEDS: Albuterol-Ipratrop 3 mg / 0.5 (3 ml) UD INH SCH ×4 (01:24→20:03)
--- NOTE | 2018-10-06 07:53 | CP.PCM.PN ---
Subjective - Date & Time of Evaluation Date of Evaluation: 10/06/18 Time of Evaluation: 07:52 - Subjective Subjective: Patient is somewhat cooperate you today. She wants to go home. She has no distress at this time. Eating well. Recommend out of bed to chair, if the patient is very strong enough to be discharged can be discharged today. We will discuss with the family Objective - Vital Signs/Intake and Output Vital Signs (last 24 hours): Temp Pulse Resp BP Pulse Ox 98.8 F 57 L 20 146/69 96 10/06/18 07:00 10/06/18 07:00 10/06/18 07:00 10/06/18 07:00 10/06/18 07:00 Intake and Output: 10/06/18 10/06/18 06:59 18:59 Intake Total 200 Balance 200 - Medications Medications: Current Medications Albuterol/Ipratropium (Duoneb 3 Mg/0.5 Mg (3 Ml) Ud) 3 ml INH RQ6 [facility] Last Admin: 10/06/18 01:24 Dose: 3 ml Apixaban (Eliquis) 2.5 mg PO DAILY [facility] Last Admin: 10/05/18 12:13 Dose: Not Given Aspirin (Aspirin Chewable) 81 mg PO DAILY [facility] Last Admin: 10/05/18 12:12 Dose: Not Given Famotidine (Pepcid) 20 mg PO DAILY [facility] Last Admin: 10/05/18 12:13 Dose: Not Given Lorazepam (Ativan) 1 mg IVP Q6H PRN PRN Reason: Anxiety Last Admin: 10/03/18 16:05 Dose: 1 mg Lorazepam (Ativan) 1 mg PO DAILY [facility] Last Admin: 10/05/18 12:13 Dose: Not Given Metoprolol Succinate (Toprol Xl) 50 mg PO DAILY [facility] Last Admin: 10/05/18 12:13 Dose: Not Given Mirtazapine (Remeron) 7.5 mg PO HS [facility] Last Admin: 10/05/18 21:37 Dose: Not Given Olanzapine (Zyprexa) 2.5 mg PO HS [facility] Last Admin: 10/05/18 21:37 Dose: Not Given Potassium Chloride (Klor-Con 10) 10 meq PO DAILY [facility] Last Admin: 10/05/18 12:13 Dose: Not Given Rosuvastatin Calcium (Crestor) 5 mg PO HS [facility] Last Admin: 10/05/18 21:37 Dose: Not Given Saccharomyces Boulardii (Florastor) 250 mg PO BID [facility] Last Admin: 10/05/18 17:44 Dose: 250 mg - Labs Labs: 10/04/18 07:53 10/04/18 07:53
[2018-10-06] MEDS: Potassium Chloride 10 mEq ER Tab PO SCH (09:01)
[2018-10-06] MEDS: Metoprolol Succinate 50 mg XL Tab PO SCH (09:01)
[2018-10-06] MEDS: Saccharomyces Boulardi 250 mg Cap PO SCH ×2 (09:01→18:10)
--- NOTE | 2018-10-06 15:08 | PN ---
DATE: 10/06/2018 SUBJECTIVE: The patient is seen. The patient's behavior is more manageable at this time, still confused according to the staff. She ate. She was seen with her caregiver. The patient is compliant with meds, currently on Ativan 1 mg daily, Remeron 7.5 mg at bedtime, and olanzapine 2.5 mg at bedtime. She has been compliant with meds. The patient wants to go home. REVIEW OF SYSTEMS: The patient is sleepy, but arousable, more redirectable. The patient ate her breakfast today without any problems, still in safety watch. PHYSICAL EXAMINATION: VITAL SIGNS: Temperature 98.8, pulse 57, blood pressure 146/69, respirations 20, oxygen saturation is 96%. SKIN: No pruritus. HEENT: No headache. No dizziness. NECK: Supple. RESPIRATORY: No dyspnea. CARDIOVASCULAR: No chest pain. GASTROINTESTINAL: She is eating better. EXTREMITIES: Moving extremities. MUSCULOSKELETAL: Feels weak. NEUROLOGICAL: Alert with periods of confusion. The patient needs 24-hour care at home. The patient has a private caregiver. GENITOURINARY: No dysuria. MENTAL STATUS EXAMINATION: An elderly female, who looks stated age, oriented x2. Mood is dysphoric, but calmer. Speech is slow. Affect is restricted. Thought process, confused. Thought content, no overt psychosis. No suicidal or homicidal ideation. The patient wants to go home. Attention and memory seemed to be limited. Insight and judgment are limited. Impulse control is improving at this time. IMPRESSION: Senile-onset dementia with mood changes, improving. PLAN AND RECOMMENDATIONS: The patient is seen. Meds reviewed. Psych-porras, the patient seems to be stable. If the patient cannot go for [facility], the patient may go home with her private caregiver. The patient is advised to take her medications as outlined. Charles Carlton MD
--- NOTE | 2018-10-06 21:44 | CARD ---
APPROVED REPORT Date of service: 10/04/2018 EKG Measurement Heart [id number] ND [id number] <Conclusion> Sinus bradycardia with sinus arrhythmia with occasional premature ventricular complexes Otherwise normal ECG
[2018-10-07] MEDS: Albuterol-Ipratrop 3 mg / 0.5 (3 ml) UD INH SCH ×3 (02:26→14:00)
[2018-10-07] MEDS: Metoprolol Succinate 50 mg XL Tab PO SCH (09:58)
[2018-10-07] MEDS: Potassium Chloride 10 mEq ER Tab PO SCH (09:58)
[2018-10-07] MEDS: Saccharomyces Boulardi 250 mg Cap PO SCH ×2 (10:07→18:07)
--- NOTE | 2018-10-07 14:27 | PN ---
DATE: 10/07/2018 SUBJECTIVE: The patient seen in her room. The patient is supposed to go for subacute rehab today, which she is trying to do. The patient is seen with her caregiver. The patient has a very tumultuous relationship with her caregiver and they have been fighting. The patient seems to be provoked by the caregiver. I do suggest to discuss with the family that maybe the patient will need to change the caregiver since they are always fighting and the patient may benefit from a trial with another caregiver who can handle her better. The patient is currently on Ativan as well as Remeron and Zyprexa. She is compliant with meds, she is trying to eat. PHYSICAL EXAMINATION: VITAL SIGNS: Temperature 97.9, pulse 72, blood pressure 129/81, respirations 20, and oxygen saturations 98%. GENERAL: The patient is alert, but again forgetful. Seen in her room fighting with her caregiver. SKIN: No diaphoresis. HEENT: No headache. No dizziness. NECK: Supple. RESPIRATORY: No dyspnea. CARDIOVASCULAR: No chest pain. GASTROINTESTINAL: Appetite is variable. EXTREMITIES: Gait is steady. MUSCULOSKELETAL: Feels weak. NEUROLOGIC: Alert with periods of confusion. GENITOURINARY: No urinary problems reported. MENTAL STATUS EXAMINATION: An elderly female who looks stated age, seen with her caregiver. Speech is spontaneous. Affect is reactive. Mood dysphoric. Thought process forgetful. Thought content, the patient wants to go home, but she said she will try going to the rehab. The patient is fighting with her caregiver when seen. No psychosis. No suicidal or homicidal ideation. Attention and memory seemed to be limited. Insight and judgment limited. Impulse control is guarded at this time. IMPRESSION: Senile-onset dementia with behavioral problems, mood disorder. PLAN AND RECOMMENDATIONS: The patient is seen and meds reviewed. The patient may benefit from subacute rehab. I do suggest that if possible, the patient may benefit from a trial of change of her caregiver. It seems like the patient and the caregiver cannot relate very well to each other. Charles Carlton MD [facility]
[2018-10-08] MEDS: Albuterol-Ipratrop 3 mg / 0.5 (3 ml) UD INH SCH ×4 (01:29→19:24)
[2018-10-08] MEDS: Metoprolol Succinate 50 mg XL Tab PO SCH (09:37)
[2018-10-08] MEDS: Saccharomyces Boulardi 250 mg Cap PO SCH ×2 (09:37→22:27)
[2018-10-08] MEDS: Potassium Chloride 10 mEq ER Tab PO SCH (09:37)
--- NOTE | 2018-10-09 00:16 | PN ---
DATE: 10/08/2018 SUBJECTIVE: The patient is seen. The patient Is still confused about the date. The patient appears so medicated and sleeping. She was very agitated last night, and her meds, she was given extra medication. Today all her psych meds were held due to her sedation. REVIEW OF SYSTEMS: The patient is very drowsy when seen, hardly arousable. She is not in acute respiratory distress. The patient is still on safety watch. The patient did not eat her lunch. She is not agitated. The patient refused to eat her meals. No chest pain. No abdominal pain noted. Review of systems cannot be really fully assessed as the patient is very drowsy. CURRENT PSYCHIATRIC MEDICATIONS: Includes Ativan 1 mg IV every 4 hours p.r.n., then we have the Ativan 1 mg p.o. daily, olanzapine 2.5 mg at bedtime and Remeron 7.5 mg at bedtime. We will hold off any change of meds for now. I even told the nurse to hold them because the patient is very drowsy. PHYSICAL EXAMINATION: VITAL SIGNS: Temperature 97.3, pulse 61, blood pressure 112/68, respirations 20, oxygen saturation is 97% on room air. MENTAL STATUS EXAMINATION: A very drowsy female who is hardly arousable, but moves from time to time. The patient seems to be very medicated. Speech is slow. Affect is restricted. Mood dysphoric. Thought process, confused. Thought content, no overt psychosis. No suicidal or homicidal ideation. Attention and memory seems to be limited. Insight and judgment are limited. Impulse control is guarded at this time. IMPRESSION: Senile-onset dementia with behavioral problems as well as possible delirium. PLAN AND RECOMMENDATIONS: The patient is seen. Meds reviewed. Continue present management. We will hold off any change of her psych meds for now as the patient is very drowsy. I told the nurse to hold the medication until the patient's mental status will improve. The patient is for possible [facility], once her behavior will improve. Charles Carlton MD
[2018-10-09] MEDS: Albuterol-Ipratrop 3 mg / 0.5 (3 ml) UD INH SCH ×4 (01:27→19:56)
--- NOTE | 2018-10-09 07:02 | CP.PCM.PN ---
Subjective - Date & Time of Evaluation Date of Evaluation: 10/08/18 Time of Evaluation: 07:02 - Subjective Subjective: Patient is somewhat more confused today she is more agitated, not eating well. According to the psychiatrist the patient is sometimes doing well, but mostly she is not fit to live by herself. Patient is currently awaiting to get transferred. But the patient is refusing to go to long-term care. We will continue to monitor at this time, I recommended family meeting Objective - Vital Signs/Intake and Output Vital Signs (last 24 hours): Temp Pulse Resp BP Pulse Ox 97.9 F 78 20 100/65 96 10/08/18 20:40 10/08/18 20:40 10/08/18 20:40 10/08/18 20:40 10/08/18 20:40 Intake and Output: 10/09/18 10/09/18 06:59 18:59 Intake Total 240 Balance 240 - Medications Medications: Current Medications Albuterol/Ipratropium (Duoneb 3 Mg/0.5 Mg (3 Ml) Ud) 3 ml INH RQ6 [facility] Last Admin: 10/09/18 01:27 Dose: Not Given Apixaban (Eliquis) 2.5 mg PO DAILY [facility] Last Admin: 10/08/18 09:37 Dose: Not Given Aspirin (Aspirin Chewable) 81 mg PO DAILY [facility] Last Admin: 10/08/18 09:36 Dose: Not Given Famotidine (Pepcid) 20 mg PO DAILY [facility] Last Admin: 10/08/18 09:37 Dose: Not Given Lorazepam (Ativan) 1 mg PO DAILY [facility] Last Admin: 10/08/18 09:36 Dose: Not Given Lorazepam (Ativan) 1 mg IVP Q4 PRN PRN Reason: Anxiety Metoprolol Succinate (Toprol Xl) 50 mg PO DAILY [facility] Last Admin: 10/08/18 09:37 Dose: Not Given Mirtazapine (Remeron) 7.5 mg PO HS [facility] Last Admin: 10/08/18 22:27 Dose: Not Given Olanzapine (Zyprexa) 2.5 mg PO HS [facility] Last Admin: 10/08/18 22:27 Dose: Not Given Potassium Chloride (Klor-Con 10) 10 meq PO DAILY [facility] Last Admin: 10/08/18 09:37 Dose: Not Given Rosuvastatin Calcium (Crestor) [address] [facility] Last Admin: 10/08/18 22:27 Dose: Not Given Saccharomyces Boulardii (Florastor) 250 mg PO BID [facility] Last Admin: 10/08/18 22:27 Dose: Not Given - Labs Labs: 10/04/18 07:53 10/04/18 07:53
--- NOTE | 2018-10-09 07:02 | CP.PCM.PN ---
Subjective - Date & Time of Evaluation Date of Evaluation: 10/07/18 Time of Evaluation: 07:02 - Subjective Subjective: Patient is somewhat more confused today she is more agitated, not eating well. According to the psychiatrist the patient is sometimes doing well, but mostly she is not fit to live by herself. Patient is currently awaiting to get transferred. But the patient is refusing to go to long-term care. We will continue to monitor at this time, I recommended family meeting Objective - Vital Signs/Intake and Output Vital Signs (last 24 hours): Temp Pulse Resp BP Pulse Ox 97.9 F 78 20 100/65 96 10/08/18 20:40 10/08/18 20:40 10/08/18 20:40 10/08/18 20:40 10/08/18 20:40 Intake and Output: 10/09/18 10/09/18 06:59 18:59 Intake Total 240 Balance 240 - Medications Medications: Current Medications Albuterol/Ipratropium (Duoneb 3 Mg/0.5 Mg (3 Ml) Ud) 3 ml INH RQ6 [facility] Last Admin: 10/09/18 01:27 Dose: Not Given Apixaban (Eliquis) 2.5 mg PO DAILY [facility] Last Admin: 10/08/18 09:37 Dose: Not Given Aspirin (Aspirin Chewable) 81 mg PO DAILY [facility] Last Admin: 10/08/18 09:36 Dose: Not Given Famotidine (Pepcid) 20 mg PO DAILY [facility] Last Admin: 10/08/18 09:37 Dose: Not Given Lorazepam (Ativan) 1 mg PO DAILY [facility] Last Admin: 10/08/18 09:36 Dose: Not Given Lorazepam (Ativan) 1 mg IVP Q4 PRN PRN Reason: Anxiety Metoprolol Succinate (Toprol Xl) 50 mg PO DAILY [facility] Last Admin: 10/08/18 09:37 Dose: Not Given Mirtazapine (Remeron) 7.5 mg PO HS [facility] Last Admin: 10/08/18 22:27 Dose: Not Given Olanzapine (Zyprexa) 2.5 mg PO HS [facility] Last Admin: 10/08/18 22:27 Dose: Not Given Potassium Chloride (Klor-Con 10) 10 meq PO DAILY [facility] Last Admin: 10/08/18 09:37 Dose: Not Given Rosuvastatin Calcium (Crestor) 5 mg PO [facility] Last Admin: 10/08/18 22:27 Dose: Not Given Saccharomyces Boulardii (Florastor) 250 mg PO BID [facility] Last Admin: 10/08/18 22:27 Dose: Not Given - Labs Labs: 10/04/18 07:53 10/04/18 07:53
--- NOTE | 2018-10-09 07:02 | CP.PCM.PN ---
Subjective - Date & Time of Evaluation Date of Evaluation: 10/09/18 Time of Evaluation: 07:02 - Subjective Subjective: patient is somewhat more confused this morning. She is trying to get out of the bed Being watched for 1-1 for safety. No fall noted. Chest good air entry Heart sounds are regular Nontender abdomen No pedal edema Patient is a 88-year-old female with a history of DVT, history of IVC filter, history of recurrent urinary tract infection in the past now admitted with altered mental status. Patient is now awaiting for replacement. Family meeting recommended and will follow the patient Objective - Vital Signs/Intake and Output Vital Signs (last 24 hours): Temp Pulse Resp BP Pulse Ox 97.9 F 78 20 100/65 96 10/08/18 20:40 10/08/18 20:40 10/08/18 20:40 10/08/18 20:40 10/08/18 20:40 Intake and Output: 10/09/18 10/09/18 06:59 18:59 Intake Total 240 Balance 240 - Medications Medications: Current Medications Albuterol/Ipratropium (Duoneb 3 Mg/0.5 Mg (3 Ml) Ud) 3 ml INH RQ6 [facility] Last Admin: 10/09/18 01:27 Dose: Not Given Apixaban (Eliquis) 2.5 mg PO DAILY [facility] Last Admin: 10/08/18 09:37 Dose: Not Given Aspirin (Aspirin Chewable) 81 mg PO DAILY [facility] Last Admin: 10/08/18 09:36 Dose: Not Given Famotidine (Pepcid) 20 mg PO DAILY [facility] Last Admin: 10/08/18 09:37 Dose: Not Given Lorazepam (Ativan) 1 mg PO DAILY [facility] Last Admin: 10/08/18 09:36 Dose: Not Given Lorazepam (Ativan) 1 mg IVP Q4 PRN PRN Reason: Anxiety Metoprolol Succinate (Toprol Xl) 50 mg PO DAILY [facility] Last Admin: 10/08/18 09:37 Dose: Not Given Mirtazapine (Remeron) 7.5 mg PO HS [facility] Last Admin: 10/08/18 22:27 Dose: Not Given Olanzapine (Zyprexa) 2.5 mg PO HS [facility] Last Admin: 10/08/18 22:27 Dose: Not Given Potassium Chloride (Klor-Con 10) 10 meq PO DAILY [facility] Last Admin: 10/08/18 09:37 Dose: Not Given Rosuvastatin Calcium (Crestor) 5 mg PO HS [facility] Last Admin: 10/08/18 22:27 Dose: Not Given Saccharomyces Boulardii (Florastor) 250 mg PO BID [facility] Last Admin: 10/08/18 22:27 Dose: Not Given - Labs Labs: 10/04/18 07:53 10/04/18 07:53
[2018-10-09] MEDS: Potassium Chloride 10 mEq ER Tab PO SCH (10:07)
[2018-10-09] MEDS: Saccharomyces Boulardi 250 mg Cap PO SCH ×2 (10:07→17:34)
[2018-10-09] MEDS: Metoprolol Succinate 50 mg XL Tab PO SCH (10:07)
--- NOTE | 2018-10-10 00:22 | PN ---
DATE: 10/09/2018 SUBJECTIVE: The patient is seen. The patient is more alert and verbal today, but yesterday was very sedated and meds were held. The patient continues to have behavioral problems. The patient refused to go for subacute rehab. She wants to go home, still confused and tries to get out of bed, and very combative at times with staff. The patient has poor appetite. We will try to readjust her psych meds accordingly. OBJECTIVE: VITAL SIGNS: Temperature 98, pulse 74, blood pressure 106/60, respirations 20, oxygen saturations 96%. REVIEW OF SYSTEMS: GENERAL: The patient is more alert, verbal, but refusing to eat, still very feisty and aggressive to staff. The patient is on close watch. The patient is refusing to eat, states that she wants to eat later. She states also she wants to go home. SKIN: No pruritus. HEENT: No headache. No dizziness. NECK: Supple. RESPIRATORY: No dyspnea. CARDIOVASCULAR: No chest pain. GASTROINTESTINAL: Appetite is poor. EXTREMITIES: Moves extremities. MUSCULOSKELETAL: Alert but with periods of confusion. GENITOURINARY: No dysuria. MENTAL STATUS EXAMINATION: Elderly female who looks stated age, alert but confused, irritable. Speech is spontaneous. Affect is restricted. Mood dysphoric. Thought process confused. Though content, the patient wants to go home. No overt psychosis. No suicidal or homicidal ideation. The patient is still uncooperative with staff at times and combative. No psychosis. Attention and memory seem to be limited. Insight and judgement limited. Impulse control is guarded at this time. IMPRESSION: Senile onset dementia with behavioral problems as well as delirium. PLAN AND RECOMMENDATIONS: The patient is seen, meds reviewed. We will readjust medication as follows. We will discontinue the Ativan standing in the morning for now. We will continue the Ativan 1 mg p.o. every 4 hours p.r.n. for agitation. We will change the Remeron dose to 15 mg at bedtime. Hopefully, it will improve her appetite, and then will change the dose of Zyprexa to 2.5 mg q.12 hours for dementia with behavioral problems as well as the delirium. We will continue the close monitoring. Once the patient's behavior may improve, we will try to send her to rehab. Right now, the patient's behavior is still very erratic. The patient is not stable to go for subacute rehab. Charles Carlton MD
[2018-10-10] MEDS: Albuterol-Ipratrop 3 mg / 0.5 (3 ml) UD INH SCH ×4 (02:33→19:48)
[2018-10-10] MEDS: Metoprolol Succinate 50 mg XL Tab PO SCH (09:39)
[2018-10-10] MEDS: Saccharomyces Boulardi 250 mg Cap PO SCH ×2 (09:55→17:27)
[2018-10-10] MEDS: Potassium Chloride 10 mEq ER Tab PO SCH (09:56)
--- NOTE | 2018-10-10 13:03 | PN ---
DATE: 10/10/2018 SUBJECTIVE: The patient is seen. The patient is still forgetful today. The patient cannot remember even if she ate her breakfast. The patient is still on safety watch. The patient does not want to go to subacute rehab, but may need to go there for reconditioning. Family is reluctant to take her home. Her psych meds were readjusted yesterday. The patient is on Ativan 1 mg IV every 4 hours p.r.n. and then on Remeron 15 mg at bedtime and Zyprexa 2.5 mg every 12 hours. REVIEW OF SYSTEMS: The patient is seen in her room with safety watch, alert, but forgetful. The patient wants to go home. PHYSICAL EXAMINATION: VITAL SIGNS: Temperature 97.4, pulse 71, blood pressure 118/76, respirations 20, oxygen saturation 97%. SKIN: No diaphoresis. HEENT: No headache. No dizziness. NECK: Supple. RESPIRATORY: No dyspnea. CARDIOVASCULAR: No chest pain. GASTROINTESTINAL: Appetite is still variable. No nausea or vomiting. EXTREMITIES: Gait is unsteady. MUSCULOSKELETAL: Feels weak. NEUROLOGIC: Alert and forgetful. Knows that she is in the hospital, oriented to person, not to time and date. MENTAL STATUS EXAMINATION: An elderly female looks stated age. Speaks limited Cambodian. Seen in her room. Affect is reactive. Mood is dysphoric. Thought process is confused. Thought content, the patient wants to go home. No overt psychosis. No suicidal ideation. Attention and memory seem to be limited. Insight and judgment limited. Impulse control is fair at this time. IMPRESSION: Senile onset dementia with behavioral problems as well as delirium. PLAN AND RECOMMENDATIONS: The patient is seen. Meds reviewed. Continue present management. We will continue treatment and plan. We will try to refer her for subacute rehab once medically cleared. Charles Carlton MD
[2018-10-11] MEDS: Albuterol-Ipratrop 3 mg / 0.5 (3 ml) UD INH SCH ×3 (07:29→19:37)
[2018-10-11] MEDS: Metoprolol Succinate 50 mg XL Tab PO SCH (10:10)
[2018-10-11] MEDS: Saccharomyces Boulardi 250 mg Cap PO SCH ×2 (10:30→18:07)
[2018-10-11] MEDS: Potassium Chloride 10 mEq ER Tab PO SCH (10:30)
--- NOTE | 2018-10-11 17:47 | PN ---
DATE: 10/11/2018 SUBJECTIVE: The patient is seen. The patient is still irritable with periods of confusion, but according to the nurse, she will be going home today. The patient advised to go home on Remeron 15 mg at bedtime and Olanzapine 2.5 mg every 12 hours. The patient continues to have issues with her caregiver. I do suggest if this issue continued to persist, then the family should try a different caregiver for the patient. REVIEW OF SYSTEMS: The patient is more alert, verbal, still confused. The patient wants to go home. PHYSICAL EXAMINATION: VITAL SIGNS: Temperature 98, pulse 77, blood pressure 152/86, respirations 20, oxygen saturation 94%. SKIN: No diaphoresis. HEENT: No headache. No dizziness. NECK: Supple. RESPIRATORY: No dyspnea. CARDIOVASCULAR: No chest pain. GASTROINTESTINAL: Appetite is variable. No nausea or vomiting. EXTREMITIES: Gait is unsteady, needs assistance. MUSCULOSKELETAL: Feels weak. NEUROLOGIC: Alert with periods of confusion. The patient needs 24-hour care when discharged to home. MENTAL STATUS EXAMINATION: An elderly female who is 88 years old, oriented x2, in safety watch. Speech is spontaneous. Affect is reactive. Mood dysphoric, irritable. Thought process forgetful. Thought content, the patient wants to go home. She does not want to go for subacute rehab. No psychosis. No suicidal or homicidal ideation. Attention and memory seemed to be limited. Insight and judgment limited. Impulse control is improving at this time. IMPRESSION: Senile onset dementia with behavioral problems as well as history of delirium. PLAN AND RECOMMENDATIONS: The patient is seen. Meds reviewed. Continue present psych meds. The patient may be discharged to home with 24-hour care. Charles Carlton MD [facility]
--- NOTE | 2018-10-11 21:46 | CP.PCM.PN ---
Subjective - Date & Time of Evaluation Date of Evaluation: 10/11/18 Time of Evaluation: 21:45 - Subjective Subjective: Patient is morning was able to sit up. Patient is not in any distress. No chest pain or shortness of breath noted But the patient is somewhat agitated and anxious. Did not eat any food this morning. Vital signs are stable chest good air entry regular hs nontender abdomen. Able to stand up, but she is buckling on day she is falling upon walking. I recommended subacute rehab. We will follow the patient Objective - Vital Signs/Intake and Output Vital Signs (last 24 hours): Temp Pulse Resp BP Pulse Ox 97.1 F L 83 20 152/80 H 96 10/11/18 16:00 10/11/18 16:00 10/11/18 16:00 10/11/18 16:00 10/11/18 16:00 - Medications Medications: Current Medications Albuterol/Ipratropium (Duoneb 3 Mg/0.5 Mg (3 Ml) Ud) 3 ml INH RQ6 [facility] Last Admin: 10/11/18 19:37 Dose: Not Given Apixaban (Eliquis) 2.5 mg PO DAILY [facility] Last Admin: 10/11/18 10:10 Dose: 2.5 mg Aspirin (Aspirin Chewable) 81 mg PO DAILY [facility] Last Admin: 10/11/18 10:10 Dose: 81 mg Famotidine (Pepcid) 20 mg PO DAILY [facility] Last Admin: 10/11/18 10:31 Dose: Not Given Lorazepam (Ativan) 1 mg IVP Q4 PRN PRN Reason: Anxiety Last Admin: 10/11/18 01:44 Dose: 1 mg Metoprolol Succinate (Toprol Xl) 50 mg PO DAILY [facility] Last Admin: 10/11/18 10:10 Dose: 50 mg Mirtazapine (Remeron) 15 mg PO HS [facility] Last Admin: 10/11/18 21:07 Dose: 15 mg Olanzapine (Zyprexa) 2.5 mg PO Q12 [facility] Last Admin: 10/11/18 21:07 Dose: 2.5 mg Potassium Chloride (Klor-Con 10) 10 meq PO DAILY [facility] Last Admin: 10/11/18 10:30 Dose: Not Given Rosuvastatin Calcium (Crestor) 5 mg PO HS [facility] Last Admin: 10/11/18 21:07 Dose: 5 mg Saccharomyces Boulardii (Florastor) 250 mg PO BID [facility] Last Admin: 10/11/18 18:07 Dose: 250 mg - Labs Labs: 10/04/18 07:53 10/04/18 07:53
[2018-10-12] MEDS: Albuterol-Ipratrop 3 mg / 0.5 (3 ml) UD INH SCH ×4 (01:11→19:51)
[2018-10-12 07:32] LABS: BASO # 0.1 K/uL (0.0-0.2); BASO % 0.8 % (0.0-2.0); EOS # 1.8 K/uL (0.0-0.7); HEMOGLOBIN 13.5 g/dL (11.0-16.0); LYMPH # 2.9 K/uL (1.0-4.3); LYMPH % 24.6 % (20.0-40.0); MEAN CELL VOLUME 91.1 fL (81.0-99.0); MEAN CORPUSCULAR HEMOGLOBIN 30.8 pg (27.0-31.0); MEAN CORPUSCULAR HGB CONC 33.9 g/dL (33.0-37.0); MEAN PLATELET VOLUME 8.8 fL (7.2-11.7); MONO # 0.9 K/uL (0.0-0.8); MONO % 7.4 % (0.0-10.0); NEUT # 6.1 K/uL (1.8-7.0); NEUT % 52.2 % (50.0-75.0); NRBC % 0.1 % (0.0-2.0); RBC 4.38 Mil/uL (3.80-5.20); RED CELL DISTRIBUTION WIDTH 15.1 % (11.5-14.5); WHITE BLOOD COUNT 11.6 K/uL (4.8-10.8)
[2018-10-12 08:20] LABS: ALB/GLOB RATIO 1.3 (1.0-2.1); ALBUMIN 3.9 g/dL (3.5-5.0); ALT/SGPT 9 U/L (9-52); AST/SGOT 51 U/L (14-36); BLOOD UREA NITROGEN 17 mg/dL (7-17); CALCIUM 8.9 mg/dl (8.6-10.4); GFR NON-AFRICAN AMERICAN 52
[2018-10-12] MEDS: Metoprolol Succinate 50 mg XL Tab PO SCH (10:22)
[2018-10-12] MEDS: Saccharomyces Boulardi 250 mg Cap PO SCH ×2 (11:39→17:45)
[2018-10-12] MEDS: Potassium Chloride 10 mEq ER Tab PO SCH (11:39)
--- NOTE | 2018-10-12 13:35 | PN ---
DATE: 10/12/2018 SUBJECTIVE: The patient is seen. The patient seems to be having increasing periods of coughing. Today, she was noted to be responding to internal stimuli and talking to the garcia. The patient is still in safety watch. The patient is still awaiting for a bed to go for subacute rehab, which the patient is refusing. She has been taking her medications. The patient's appetite is still poor. REVIEW OF SYSTEMS: The patient is alert, verbal, but still confused, seems to be hallucinating. PHYSICAL EXAMINATION: VITAL SIGNS: Temperature 97.4, pulse 89, blood pressure 136/100, respirations 18, O2 saturation is 97%. SKIN: No diaphoresis. HEENT: No headache, no dizziness. NECK: Supple. RESPIRATORY: The patient is noted to be coughing more. GASTROINTESTINAL: Appetite is poor. CARDIOVASCULAR: No chest pain. EXTREMITIES: The patient is mostly bed-bound. NEUROLOGIC: Alert with periods of confusion. GENITOURINARY: No dysuria. MENTAL STATUS EXAMINATION: An elderly female who looks her stated age, in her room, more alert, verbal, but more confused. Mood is dysphoric. Affect restricted. Speech is spontaneous. The patient speaks limited Georgian and mostly Andorran. Thought process, confused. Thought content, the patient seems to be hallucinating and talking to the garcia, responding to internal stimuli, no paranoia. No suicidal or homicidal ideation. Attention and memory seem to be limited. Insight and judgment limited. Impulse control is guarded at this time. IMPRESSION: Senile-onset dementia with behavioral problem as well as possible superimposed delirium, metabolic encephalopathy. PLAN AND RECOMMENDATIONS: The patient is seen, meds reviewed. Continue present management. Continue treatment plan. The patient is awaiting medical clearance to go for [facility]. The patient had a chest x-ray which was done today, we will follow up results. Charles Carlton MD
--- NOTE | 2018-10-12 16:59 | RAD ---
Date of service: 10/12/2018 HISTORY: cough COMPARISON: 09/27/2018 TECHNIQUE: 1 view obtained. FINDINGS: Limited exam-patient's hand over right central lung and right superior mediastinum. LUNGS: No active pulmonary disease. PLEURA: No significant pleural effusion identified, no pneumothorax apparent. CARDIOVASCULAR: There is presence of aortic atherosclerotic calcification on x-ray. Mild cardiomegaly No significant appearing pulmonary venous congestion. OSSEOUS STRUCTURES: Levo scoliosis. Generalized osteopenia. Bilateral shoulder arthrosis. VISUALIZED UPPER ABDOMEN: IVC filter in place. OTHER FINDINGS: None. IMPRESSION: No interval acute cardiopulmonary pathology noted. Other findings as above.
--- NOTE | 2018-10-12 18:14 | CP.PCM.PN ---
Subjective - Date & Time of Evaluation Date of Evaluation: 10/12/18 Time of Evaluation: 18:12 - Subjective Subjective: Patient is now having more confusion She is also hallucinating increasingly now. Patient is currently on one-to-one for safety watch. She is not eating well. Also wheezing and coughing noted On examination: She is currently restless Agitated at times. She is trying to get out of the bed. Chest bilateral wheezing noted Heart sounds are regular Nontender abdomen. No pedal edema Assessment and recommendation: 88-year-old female with a history of venous thrombosis, history of stent placement. Urinary tract infection in the past. Patient now admitted with worsening delirium, worsening dementia. Increasing confusion, hallucination noted. Patient also has a elevated eosinophilic count. Will add Solu-Medrol. Haldol as needed. Repeat chest x-ray in the morning. I tried to reach the patient's sister, left message no response Overall prognosis is guarded. Patient is awaiting for . Placement Objective - Vital Signs/Intake and Output Vital Signs (last 24 hours): Temp Pulse Resp BP Pulse Ox 98 F 94 H 20 176/82 H 96 10/12/18 16:00 10/12/18 16:00 10/12/18 16:00 10/12/18 16:00 10/12/18 16:00 Intake and Output: 10/12/18 10/12/18 06:59 18:59 Intake Total 240 Balance 240 - Medications Medications: Current Medications Albuterol/Ipratropium (Duoneb 3 Mg/0.5 Mg (3 Ml) Ud) 3 ml INH RQ6 [facility] Last Admin: 10/12/18 13:08 Dose: 3 ml Apixaban (Eliquis) 2.5 mg PO DAILY [facility] Last Admin: 10/12/18 10:20 Dose: 2.5 mg Aspirin (Aspirin Chewable) 81 mg PO DAILY [facility] Last Admin: 10/12/18 10:20 Dose: 81 mg Famotidine (Pepcid) 20 mg PO DAILY [facility] Last Admin: 10/12/18 11:38 Dose: Not Given Lorazepam (Ativan) 1 mg IVP Q4 PRN PRN Reason: Anxiety Last Admin: 10/12/18 00:11 Dose: 1 mg Methylprednisolone (Solu-Medrol) 20 mg IVP Q12 [facility] Metoprolol Succinate (Toprol Xl) 50 mg PO DAILY [facility] Last Admin: 10/12/18 10:22 Dose: 50 mg Mirtazapine (Remeron) 15 mg PO HS [facility] Last Admin: 10/11/18 21:07 Dose: 15 mg Olanzapine (Zyprexa) 2.5 mg PO Q12 [facility] Last Admin: 10/12/18 10:20 Dose: 2.5 mg Potassium Chloride (Klor-Con 10) 10 meq PO DAILY [facility] Last Admin: 10/12/18 11:39 Dose: Not Given Rosuvastatin Calcium (Crestor) 5 mg PO HS [facility] Last Admin: 10/11/18 21:07 Dose: 5 mg Saccharomyces Boulardii (Florastor) 250 mg PO BID [facility] Last Admin: 10/12/18 17:45 Dose: 250 mg - Labs Labs: 10/12/18 07:08 10/12/18 07:08
[2018-10-12] MEDS: MethylPREDNISolone 40 mg Vial IVP SCH (21:17)
[2018-10-13] MEDS: Albuterol-Ipratrop 3 mg / 0.5 (3 ml) UD INH SCH ×4 (01:14→20:17)
[2018-10-13] MEDS: Potassium Chloride 10 mEq ER Tab PO SCH (09:31)
[2018-10-13] MEDS: MethylPREDNISolone 40 mg Vial IVP SCH ×2 (09:32→22:47)
[2018-10-13] MEDS: Metoprolol Succinate 50 mg XL Tab PO SCH (09:36)
[2018-10-13] MEDS: Saccharomyces Boulardi 250 mg Cap PO SCH ×2 (10:24→17:57)
--- NOTE | 2018-10-13 22:50 | PN ---
DATE: 10/13/2018 SUBJECTIVE: The patient is sleeping today. She took her meds. Still confused. The patient is not agitated at this time, but seems to be having some episodes were mental status has worsened. The plan is for the patient to go for subacute rehab. Her sister came to my office yesterday and was asking about the disposition. The patient also has issues with her caregiver. The patient was given 0.5 mg Haldol yesterday because of her agitated behavior. Her maintenance includes Ativan 1 mg IV every 4 hours p.r.n., then the patient is on Remeron 15 mg at bedtime and olanzapine 2.5 mg p.o. every 12 hours. Noted that the patient is taking Zyprexa. If the patient will be given Haldol, the patient will need to be monitored for possible drug reaction as the patient is on two antipsychotics and the patient, especially an elderly, is at risk for developing neuroleptic malignant syndrome. REVIEW OF SYSTEMS: The patient is sleepy, but arousable, did not eat the breakfast. No agitation is noted. She is arousable. She took her meds and went to sleep. No behavioral problems noted. She is still on safety watch, but complaining of headache when seen. PHYSICAL EXAMINATION: VITAL SIGNS: Temperature is 97.4, pulse 62, blood pressure 111/62, respirations 20, oxygen saturation is 98%. SKIN: No diaphoresis. HEENT: As stated, no headache. NECK: Supple. RESPIRATORY: No dyspnea. CARDIOVASCULAR: No chest pain. GASTROINTESTINAL: appetite is variable. EXTREMITIES: Moving extremities. MUSCULOSKELETAL: Feels weak. NEUROLOGIC: Alert, but periods of confusion. She is drowsy today. MENTAL STATUS EXAMINATION: Elderly female, who looks stated age, drowsy, but arousable. Speech is slow. Affect is restricted. Mood is dysphoric. Thought process, confused often and on. Thought content, the patient wants to go home. No overt psychosis. No suicidal or homicidal ideation. Attention and memory seems to be limited. Insight and judgment limited. Impulse control is guarded at this time. IMPRESSION: Senile-onset dementia with behavioral problems as well as delirium. The patient had a chest x-ray done yesterday and the report showed no interval acute cardiopulmonary pathology noted. LABORATORY DATA: The patient's WBC is elevated at 11.6. The patient's eosinophil is elevated. Creatinine is 1. Random glucose is 101. UA is negative. Charles Carlton MD [facility]
[2018-10-14] MEDS: Albuterol-Ipratrop 3 mg / 0.5 (3 ml) UD INH SCH ×4 (01:09→19:14)
[2018-10-14] MEDS: MethylPREDNISolone 40 mg Vial IVP SCH ×2 (11:41→22:48)
[2018-10-14] MEDS: Potassium Chloride 10 mEq ER Tab PO SCH (11:41)
[2018-10-14] MEDS: Saccharomyces Boulardi 250 mg Cap PO SCH ×2 (11:42→18:31)
[2018-10-14] MEDS: Metoprolol Succinate 50 mg XL Tab PO SCH (11:42)
--- NOTE | 2018-10-14 12:36 | PN ---
DATE: 10/14/2018 SUBJECTIVE: The patient is seen with her caregiver, Manjinder who reports the patient is more cooperative with him. The patient is asking to eat potato and pasta for breakfast and wants freshly baked bread. Behavior porras, she is manageable, still safety watch. Plan is to send the patient for subacute rehab until she gets more medically stable, then she can go home. The patient's caregiver advised to be more gentle to the patient as the patient has dementia and to limit verbal altercation between each other. The patient has been compliant with her medication. REVIEW OF SYSTEMS: The patient is sleepy, but arousable. Behavior is more manageable. Seen in her room with her caregiver, still safety watch. PHYSICAL EXAMINATION: VITAL SIGNS: Temperature is 97.3, pulse 66, blood pressure 120/67, respirations 18, oxygen saturation is 95%. SKIN: No diaphoresis. HEENT: No headache. No dizziness. NECK: Supple. RESPIRATORY: No dyspnea. CARDIOVASCULAR: No chest pain. GASTROINTESTINAL: Appetite is variable. The patient is asking for potato and pasta for breakfast. EXTREMITIES: Gait is steady. MUSCULOSKELETAL: Feels weak. NEUROLOGIC: Alert with periods of confusion, but her behavior is more manageable. GENITOURINARY: Not complaining of urinary problems. MENTAL STATUS EXAMINATION: Elderly female, who looks stated age, oriented x2 to person and place. Speech is spontaneous. Affect is reactive. Mood is much calmer, dysphoric. Thought process, forgetful. Thought content, no overt psychosis. No suicidal or homicidal ideation. Attention and memory seem to be limited. Insight and judgment limited. Impulse control is fair at this time. IMPRESSION: Senile-onset dementia with mood changes and behavioral problems as well as delirium. PLAN AND RECOMMENDATIONS: The patient is seen, meds reviewed. The patient is for subacute rehab once medically cleared. Family wants the patient to be in the rehab within [facility], but I told the nurse that if there is no available bed in [facility], the patient can try [facility] outside of [facility]. The patient to continue current psych meds. Charles Carlton MD [facility] # [id number] MTDD
--- NOTE | 2018-10-14 16:07 | RAD ---
HISTORY: PNA COMPARISON: Chest x-ray performed 10/12/18 TECHNIQUE: Chest PA and lateral, 2 views FINDINGS: LUNGS: Right paratracheal opacity, possibly tortuous vasculature exaggerated by patient obliquity. No focal consolidation. Please note that chest x-ray has limited sensitivity for the detection of pulmonary masses. PLEURA: No significant pleural effusion identified. No definite pneumothorax . CARDIOVASCULAR: Cardiomegaly. Atherosclerotic calcifications. OSSEOUS STRUCTURES: Degenerative changes. Osseous demineralization. Partially imaged anterior fusion cervical hardware. VISUALIZED UPPER ABDOMEN: IVC filter. OTHER FINDINGS: None. IMPRESSION: Right paratracheal opacity, possibly tortuous vasculature exaggerated by patient obliquity. Cardiomegaly. IVC filter.
--- NOTE | 2018-10-14 21:37 | CP.PCM.PN ---
Subjective - Date & Time of Evaluation Date of Evaluation: 10/13/18 Time of Evaluation: 21:37 - Subjective Subjective: Patient is agitated, anxious, She is eating very poorly I spoke to the patient's sister in detail about the overall condition. She is agreeing for discharge for rehabilitation. We will repeat the chest x-ray. Follow-up Objective - Vital Signs/Intake and Output Vital Signs (last 24 hours): Temp Pulse Resp BP Pulse Ox 97.2 F L 70 18 124/58 L 96 10/14/18 15:00 10/14/18 15:00 10/14/18 15:00 10/14/18 15:00 10/14/18 15:00 - Medications Medications: Current Medications Albuterol/Ipratropium (Duoneb 3 Mg/0.5 Mg (3 Ml) Ud) 3 ml INH RQ6 [facility] Last Admin: 10/14/18 19:14 Dose: 3 ml Apixaban (Eliquis) 2.5 mg PO DAILY [facility] Last Admin: 10/14/18 11:42 Dose: Not Given Aspirin (Aspirin Chewable) 81 mg PO DAILY [facility] Last Admin: 10/14/18 11:42 Dose: Not Given Famotidine (Pepcid) 20 mg PO DAILY [facility] Last Admin: 10/14/18 11:41 Dose: Not Given Lorazepam (Ativan) 1 mg IVP Q4 PRN PRN Reason: Anxiety Last Admin: 10/12/18 00:11 Dose: 1 mg Methylprednisolone (Solu-Medrol) 20 mg IVP Q12 [facility] Last Admin: 10/14/18 11:41 Dose: 20 mg Metoprolol Succinate (Toprol Xl) 50 mg PO DAILY [facility] Last Admin: 10/14/18 11:42 Dose: Not Given Mirtazapine (Remeron) 15 mg PO HS [facility] Last Admin: 10/13/18 22:47 Dose: 15 mg Olanzapine (Zyprexa) 2.5 mg PO Q12 [facility] Last Admin: 10/14/18 11:42 Dose: Not Given Potassium Chloride (Klor-Con 10) 10 meq PO DAILY [facility] Last Admin: 10/14/18 11:41 Dose: Not Given Rosuvastatin Calcium (Crestor) 5 mg PO HS [facility] Last Admin: 10/13/18 22:46 Dose: 5 mg Saccharomyces Boulardii (Florastor) 250 mg PO BID [facility] Last Admin: 10/14/18 18:31 Dose: 250 mg - Labs Labs: 10/12/18 07:08 10/12/18 07:08
--- NOTE | 2018-10-14 21:38 | CP.PCM.PN ---
Subjective - Date & Time of Evaluation Date of Evaluation: 10/14/18 Time of Evaluation: 21:38 - Subjective Subjective: Patient had a chest x-ray today, showing no evidence of any acute infiltrate noted. Patient is still agitated and anxious. Poor intake noted. Vital signs otherwise stable. I discussed with the hospice social worker. Patient is ready for discharge to rehabilitation. We will discharge her tomorrow. Objective - Vital Signs/Intake and Output Vital Signs (last 24 hours): Temp Pulse Resp BP Pulse Ox 97.2 F L 70 18 124/58 L 96 10/14/18 15:00 10/14/18 15:00 10/14/18 15:00 10/14/18 15:00 10/14/18 15:00 - Medications Medications: Current Medications Albuterol/Ipratropium (Duoneb 3 Mg/0.5 Mg (3 Ml) Ud) 3 ml INH RQ6 [facility] Last Admin: 10/14/18 19:14 Dose: 3 ml Apixaban (Eliquis) 2.5 mg PO DAILY [facility] Last Admin: 10/14/18 11:42 Dose: Not Given Aspirin (Aspirin Chewable) 81 mg PO DAILY [facility] Last Admin: 10/14/18 11:42 Dose: Not Given Famotidine (Pepcid) 20 mg PO DAILY [facility] Last Admin: 10/14/18 11:41 Dose: Not Given Lorazepam (Ativan) 1 mg IVP Q4 PRN PRN Reason: Anxiety Last Admin: 10/12/18 00:11 Dose: 1 mg Methylprednisolone (Solu-Medrol) 20 mg IVP Q12 [facility] Last Admin: 10/14/18 11:41 Dose: 20 mg Metoprolol Succinate (Toprol Xl) 50 mg PO DAILY [facility] Last Admin: 10/14/18 11:42 Dose: Not Given Mirtazapine (Remeron) 15 mg PO HS [facility] Last Admin: 10/13/18 22:47 Dose: 15 mg Olanzapine (Zyprexa) 2.5 mg PO Q12 [facility] Last Admin: 10/14/18 11:42 Dose: Not Given Potassium Chloride (Klor-Con 10) 10 meq PO DAILY [facility] Last Admin: 10/14/18 11:41 Dose: Not Given Rosuvastatin Calcium (Crestor) 5 mg PO HS [facility] Last Admin: 10/13/18 22:46 Dose: 5 mg Saccharomyces Boulardii (Florastor) 250 mg PO BID [facility] Last Admin: 10/14/18 18:31 Dose: 250 mg - Labs Labs: 10/12/18 07:08 10/12/18 07:08
[2018-10-14 23:27] VITALS: RESP 20; TEMP 97.7
[2018-10-15] MEDS: Albuterol-Ipratrop 3 mg / 0.5 (3 ml) UD INH SCH ×3 (01:09→13:22)
[2018-10-15 07:40] VITALS: BP 131/62; PULSE 62; O2SAT 97
[2018-10-15] MEDS: Potassium Chloride 10 mEq ER Tab PO SCH (09:21)
[2018-10-15] MEDS: Metoprolol Succinate 50 mg XL Tab PO SCH (09:21)
[2018-10-15] MEDS: Saccharomyces Boulardi 250 mg Cap PO SCH (09:21)
[2018-10-15] MEDS: MethylPREDNISolone 40 mg Vial IVP SCH (09:21)
--- NOTE | 2018-10-15 14:23 | PN ---
DATE: 10/15/2018 SUBJECTIVE: The patient is seen. The patient is for possible transfer today to [facility] for [facility]. The patient's behavior is doing well. Still confused, but more manageable. She is eating. She still wants to go home, but no behavioral problems noted and had been compliant with her meds. Currently on Ativan 1 mg IV every 4 hours p.r.n., Remeron 15 mg at bedtime and Olanzapine 2.5 mg q.12 hours. REVIEW OF SYSTEMS: The patient is alert, verbal, seen in her room. She is on safety watch, oriented x2. More pleasant and cooperative. She is eating bread. PHYSICAL EXAMINATION: VITAL SIGNS: Temperature 97.7, pulse 62, blood pressure 131/62, respirations 20, oxygen saturation is 97%. SKIN: No diaphoresis. HEENT: No headache. No dizziness. NECK: Supple. RESPIRATORY: No dyspnea. CARDIOVASCULAR: No chest pain. GASTROINTESTINAL: She is eating well. EXTREMITIES: Gait is unsteady. MUSCULOSKELETAL: Feels weak. NEUROLOGIC: Alert with periods of confusion. GENITOURINARY: No dysuria. MENTAL STATUS EXAMINATION: An elderly female, who looks stated age. Oriented to place and person. Speech is spontaneous. Affect is reactive. Mood is much calmer. Thought process, forgetful. Thought content, still wants to go home, but no psychosis. No suicidal or homicidal ideation. Attention and memory seemed to be limited. Insight and judgment limited. Impulse control is improving at this time. IMPRESSION: Senile onset dementia with mood changes and behavioral problems, improving as well as history of delirium. PLAN AND RECOMMENDATIONS: The patient is seen. Meds reviewed. Continue present psych meds. The patient is psych-porras stable to be transferred for [facility] today. Charles Carlton MD MTDD
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
--- NOTE | 2018-11-02 08:24 | CP.PCM.PN ---
Subjective - Date & Time of Evaluation Date of Evaluation: 10/01/18 Time of Evaluation: 09:11 - Subjective Subjective: Patient still continues to have a symptoms of confusion. Agitation noted. Discussed with the family. Awaiting for placement for the patient. Meanwhile suspected UTI. We will continue to watch, if there is any fever we will start the patient on antibiotic Objective - Vital Signs/Intake and Output Vital Signs (last 24 hours): Temp Pulse Resp BP Pulse Ox 97.7 F 62 20 131/62 97 10/15/18 07:25 10/15/18 07:25 10/15/18 07:25 10/15/18 07:25 10/15/18 07:25 - Labs Labs: 10/12/18 07:08 10/12/18 07:08
--- NOTE | 2018-11-02 08:25 | CP.PCM.PN ---
Subjective - Date & Time of Evaluation Date of Evaluation: 10/02/18 Time of Evaluation: 09:12 - Subjective Subjective: Patient overall condition is not changing. Patient is sometimes very uncooperative. Agitated at times. But answering simple questions. Seen by psychiatrist. Continue the current treatment. Possible placement Objective - Vital Signs/Intake and Output Vital Signs (last 24 hours): Temp Pulse Resp BP Pulse Ox 97.7 F 62 20 131/62 97 10/15/18 07:25 10/15/18 07:25 10/15/18 07:25 10/15/18 07:25 10/15/18 07:25 - Labs Labs: 10/12/18 07:08 10/12/18 07:08
== END 2018-10-15 14:21 | DRG 884 ==
LOC: C.ER 10:35 → C.9E 13:45 → C.6T 16:53 → OBSVTOIN 09-29 14:20
PROVIDERS: ADMIT Internal Medicine; ATTEND Internal Medicine
DX: F03.91 Unspecified dementia, unspecified severity, with behavioral disturbance (principal); F05 Delirium due to known physiological condition; N39.0 Urinary tract infection, site not specified; R46.89 Other symptoms and signs involving appearance and behavior; E87.6 Hypokalemia; F39 Unspecified mood [affective] disorder; H91.90 Unspecified hearing loss, unspecified ear; I11.0 Hypertensive heart disease with heart failure; I50.9 Heart failure, unspecified; I87.2 Venous insufficiency (chronic) (peripheral); E78.00 Pure hypercholesterolemia, unspecified; Z95.5 Presence of coronary angioplasty implant and graft; Z95.828 Presence of other vascular implants and grafts; Z87.440 Personal history of urinary (tract) infections; I77.819 Aortic ectasia, unspecified site; R41.82 Altered mental status, unspecified